=== PATIENT | male | born 1935 | race Caucasian/White ===

== ENCOUNTER 2019-03-29 17:18 | Outpatient (RCR) | payer MEDICARE, SELFPAY ==
[2019-01-25 15:13] LABS: INR 2.5; Prothrombin Time 26.5 Seconds (11.1-14.7)
[2019-02-27 13:28] LABS: Prothrombin Time 30.5 Seconds (11.1-14.7)
[2019-03-29 18:01] LABS: INR 2.6; Prothrombin Time 27.3 Seconds (11.1-14.7)
== END 2019-04-25 23:59 | disposition home or self-care (01) ==
LOC: ANHLAB 17:18
PROVIDERS: PCP Family Medicine Adolescent Medicine; Visit Provider Specialist
DX: Z51.81 Encounter for therapeutic drug level monitoring (principal); I48.91 Unspecified atrial fibrillation; Z79.01 Long term (current) use of anticoagulants
CPT/HCPCS: 36415; 85610

== ENCOUNTER 2019-06-07 15:24 | Outpatient (RCR) | payer MEDICARE, SELFPAY ==
[2019-05-03 15:34] LABS: INR 2.4; Prothrombin Time 25.9 Seconds (11.1-14.7)
[2019-06-07 16:00] LABS: INR 2.3; Prothrombin Time 24.4 Seconds (11.1-14.7)
== END 2019-08-01 23:59 | disposition home or self-care (01) ==
LOC: ANHLAB 15:24
PROVIDERS: PCP Family Medicine Adolescent Medicine; Visit Provider Internal Medicine Cardiovascular Disease
DX: Z51.81 Encounter for therapeutic drug level monitoring (principal); I48.21 Permanent atrial fibrillation; Z79.01 Long term (current) use of anticoagulants
CPT/HCPCS: 36415; 85610

== ENCOUNTER 2019-11-05 13:48 | Outpatient (RCR) | payer MEDICARE, SELFPAY ==
[2019-08-17 12:29] LABS: INR 1.9; Prothrombin Time 21.5 Seconds (11.1-14.7)
== END 2019-11-15 23:59 | disposition home or self-care (01) ==
LOC: ANHLAB 13:48
PROVIDERS: PCP Family Medicine Adolescent Medicine; Visit Provider Specialist
DX: I48.21 Permanent atrial fibrillation (principal); Z79.01 Long term (current) use of anticoagulants
CPT/HCPCS: 36415; 85610

== ENCOUNTER 2020-02-26 11:33 | Outpatient (RCR) | payer MEDICARE, SELFPAY ==
[2019-12-11 14:54] LABS: INR 1.8; Prothrombin Time 20.4 Seconds (11.1-14.7)
[2019-12-20 17:36] LABS: INR 2.2; Prothrombin Time 23.7 Seconds (11.1-14.7)
[2020-01-31 09:15] LABS: INR 3.9; Prothrombin Time 38.8 Seconds (11.1-14.7)
[2020-01-31 09:21] LABS: Alanine Aminotransferase 13 U/L (4-50); Albumin Level 3.9 g/dL (3.5-5.1); Alkaline Phosphatase 45 U/L (38-126); Anion Gap 10 mmol/L (8-16); Aspartate Amino Transferase 26 U/L (17-59); Bilirubin,Total 0.7 mg/dL (0.2-1.3); Blood Urea Nitrogen 23 mg/dL (9-20); Calcium 9.3 mg/dL (8.4-10.2); Carbon Dioxide 30 mmol/L (22-30); Chloride 95 mmol/L (98-107); Cholesterol 95 mg/dL (0-200); Estimated Glomerular Filt Rate > 60; Glucose 136 mg/dL (75-110); HDL Direct 25 mg/dL; Potassium 3.8 mmol/L (3.4-5.0); Sodium 135 mmol/L (137-145); Triglycerides 101 mg/dL (<150)
[2020-01-31 09:32] LABS: LDL Cholesterol Direct 50 mg/dL
[2020-02-17 14:20] LABS: Prothrombin Time 54.3 Seconds (11.1-14.7)
[2020-02-17 14:32] LABS: INR 6.1
[2020-02-19 12:00] LABS: INR 3.8; Prothrombin Time 37.6 Seconds (11.1-14.7)
[2020-02-26 12:32] LABS: INR 2.5; Prothrombin Time 27.7 Seconds (11.1-14.7)
== END 2020-03-10 23:59 | disposition home or self-care (01) ==
LOC: ANHLAB 11:33
PROVIDERS: PCP Family Medicine Adolescent Medicine; Referring Provider Physician Assistant; Visit Provider Specialist
DX: Z51.81 Encounter for therapeutic drug level monitoring (principal); I48.21 Permanent atrial fibrillation; I10 Essential (primary) hypertension; E78.00 Pure hypercholesterolemia, unspecified; Z79.01 Long term (current) use of anticoagulants
CPT/HCPCS: 36415; 80053; 80061; 85610

== ENCOUNTER 2020-04-02 16:30 | Outpatient (RCR) | payer MEDICARE, SELFPAY ==
[2020-04-02 17:05] LABS: INR 2.1; Prothrombin Time 23.8 Seconds (11.1-14.7)
== END 2020-07-01 23:59 | disposition home or self-care (01) ==
LOC: ANHLAB 16:30
PROVIDERS: PCP Family Medicine Adolescent Medicine; Visit Provider Specialist
DX: Z51.81 Encounter for therapeutic drug level monitoring (principal); I48.21 Permanent atrial fibrillation; Z79.01 Long term (current) use of anticoagulants
CPT/HCPCS: 36415; 85610

== ENCOUNTER 2020-05-12 20:45 | Inpatient (IN) | payer MEDICARE, SELFPAY ==
--- NOTE | ~2020-05-12 | US_ITS ---
EXAMINATION: US venous doppler [facility] DATE: 05/13/2020 09:50 INDICATION: Lower limb swelling TECHNIQUE: Grayscale ultrasound images without and with compression and Doppler ultrasound images of the bilateral lower extremity veins were obtained. COMPARISON: None. FINDINGS: The visualized portions of right common femoral vein, profunda (deep) femoral vein, femoral vein, pop liteal vein, posterior tibial veins, peroneal veins, gastrocnemius vein and greater saphenous vein ou tflow are patent. The visualized portions of left common femoral vein, profunda femoral vein, femoral vein, popliteal v ein, posterior tibial veins, peroneal veins, gastrocnemius vein and greater saphenous vein outflow ar e patent. IMPRESSION: 1. No deep venous thrombosis in either lower limb. Reviewed, dictated and finalized at location A. ICE CLEANER
--- NOTE | ~2020-05-12 | XR_ITS ---
EXAMINATION: XR chest 1V portable EXAM DATE: 05/12/2020 21:59 INDICATION: Shortness of breath. Leg edema. TECHNIQUE: Portable AP frontal chest x-ray was obtained. Comparison is made to prior examination from 04/14/2014. FINDINGS: Sternotomy wires are present without findings to suggest sternal dehiscence. There is cardi omegaly and pulmonary vascular congestion. No confluent consolidation, pneumothorax or pleural effusi on suspected. There are bony degenerative changes. IMPRESSION: Cardiomegaly, pulmonary vascular congestion. Reviewed, dictated and finalized at location A. PLAYER
[2020-05-12 21:02] VITALS: BP 153/69; PULSE 114; PULSE 94; RESP 26; RESP 29; TEMP 37.6; O2SAT 98; O2SAT 99
[2020-05-12 21:08] VITALS: PULSE 94
--- NOTE | 2020-05-12 21:16 | ECG_ITS ---
Measurements Intervals [place] Rate: 93 P: VT: 0 QRS: 25 QRSD: 101 T: 214 QT: 369 QTc: 460 Interpretive Statements WANDERING PACEMAKER OR ECTOPIC ATRIAL RHYTHM ST-T WAVE ABNORMALITY IN ANTEROLAT/HIGH LAT LEADS- CONSIDER ISCHEMIA BASELINE ARTIFACT- I, II, III, AVL, AVF, V2-V5 ABNORMAL ECG Electronically Signed On 05-13-2020 7:20:45 UNIX ANALYST by Tee Davis D.O.
--- NOTE | 2020-05-12 21:18 | ED.GENADULT ---
HPI - General Adult General Chief complaint: Unspecified Stated complaint: sob Time Seen by Provider: 05/12/20 20:59 History of Present Illness HPI narrative: History limited by poor historian. 84 yo male presents for nerves . He says that his nerves were getting to him. His hands were shaking and his feet were jumping. He says that his stomach also doesn't feel right sometimes. He says that he is a bit short of breath. He can not tell me if that is new. family member in the room says that he does seem to be having more trouble breathing than usual. Related Data Home Medications Medication Instructions Recorded Confirmed enalapril maleate 20 mg PO DAILY 05/12/20 05/13/20 indapamide 2.5 mg PO DAILY 05/12/20 05/13/20 metformin 1,000 mg PO BID 05/12/20 05/13/20 omeprazole 20 mg PO DAILY 05/12/20 05/13/20 rosuvastatin 5 mg PO DAILY 05/12/20 05/13/20 tamsulosin 0.4 mg PO DAILY 05/12/20 05/13/20 warfarin 4 mg PO USEASDIRECTD 05/12/20 05/13/20 warfarin 5 mg PO USEASDIRECTD 05/12/20 05/13/20 aspirin [Adult Low Dose Aspirin] 81 mg PO DAILY 05/13/20 05/13/20 Allergies Allergy/AdvReac Type Severity Reaction Status Date / Time No Known Allergies Allergy Verified 05/12/20 21:11 Review of Systems Review of Systems: All systems reviewed & are unremarkable except as noted in HPI and below Constitutional: Constitutional: Denies fever(s) Eyes: Eyes: Reports no additional eye complaints ENT: Denies dizziness Cardiovascular: Cardiovascular: Denies chest pain Respiratory: Respiratory: Reports dyspnea Gastrointestinal: Gastrointestinal: Denies nausea and Denies vomiting Genitourinary: Genitourinary: Denies dysuria Neurologic: Reports tremor(s) Psychiatric: Psychiatric: Reports anxiety PMF Past Medical History Medical History (Updated 05/13/20 @ 01:56 by Adrian Cuevas MD) BPH (benign prostatic hyperplasia) Diabetes mellitus COBB (dyspnea on exertion) HTN (hypertension) Hyperlipidemia Paroxysmal atrial fibrillation Surgical History Surgical History S/P CABG x 5 Family History Family History Other Unknown family medical history Social History Social History (Updated 05/12/20 @ 23:37 by Avelino Bustamante MD) Smoking status: Former smoker Tobacco type: smokeless tobacco Smokeless tobacco user: chewing tobacco Second hand tobacco smoke exposure: Yes Additional smoking assessment comments: chews tobacco constantly++ Alcohol intake: former Substance use: never Gender identity (if verbalized by the patient): Male Spiritual care concerns: No Exam Const: Nutritional Appearance: overweight Orientation/consciousness: patient oriented x3 HENMT: Head: normal to inspection Neck: Neck: normal visual inspection Chest: Chest palpation & inspection: normal inspection of the chest Resp: Effort & Inspection: tachypneic Auscultation: clear to auscultation bilaterally Cardio: Rate: regular rate Rhythm: regular rhythm GI: GI Palp: Yes Soft to palpation, Yes Tenderness to palpation present (GI) (epigastric), No Guarding due to palpation present (GI) and No Rebound tenderness present Skin: Other: mild hyperemia and warmth to the right lower leg. Chronic appearing changes to the left lateral lower leg. Neuro: General: patient oriented x3 Cranial nerves: Yes CN's II-XII intact bilaterally Speech: normal speech Motor exam (neuro): 5/5 motor strength present throughout Extrem: General: pedal edema bilaterally pitting and 2+ Course Vital Signs Vital signs: Vital Signs Temperature 37.6 C 05/12/20 21:02 Pulse Rate 94 05/12/20 21:02 Respiratory Rate 29 H 05/12/20 21:02 Blood Pressure 153/69 H 05/12/20 21:02 Pulse Oximetry 99 05/12/20 21:02 Temperature 37.4 C 05/13/20 00:15 Pulse Rate 88 05/13/20 00:15 Respiratory Rate 20 05/13/20 00:15 Blood Pressur
[2020-05-12 21:31] VITALS: BP 146/68; PULSE 86; RESP 24
[2020-05-12 21:43] LABS: Base Excess ABG 0.1 mEq/l (+/-2.0); Fractional Inspired Oxygen 21 %; HCO3 ABG 22.5 mEq/l (22.0-26.0); Oxygen Content ABG 13.8 %vol (16.0-22.0); Oxygen Saturation ABG 96.4 % (95.0-100.0); Oxyhemoglobin 94.4 % THb (90.0-100.0); PO2 FiO2 Ratio Arterial Blood 3.57 %; Total Hemoglobin 10.3 g/dL (12.0-18.0)
[2020-05-12 21:45] LABS: Device ROOM AIR; Modified Allen's Test Pass; Site Drawn RIGHT RADIAL
[2020-05-12 21:46] LABS: pH ABG 7.507 (7.350-7.450)
[2020-05-12 22:06] LABS: Basophils Absolute Auto 0.1 K/mm3 (0.0-0.1); Basophils Percent Auto 0.4 % (0.2-1.2); Eosinophils Percent Auto 0.2 % (0-4.4); Hematocrit 30.8 % (42.0-52.0); Hemoglobin 8.9 g/dL (14.0-18.0); Immature Granulocyte Absolute 0.11 K/mm3 (0.00-0.031); Immature Granulocyte Percent A 0.7 % (0-0.5); Immature Platelet Fraction Pct 4.4 % (0.9-11.2); Lymphocytes Absolute Auto 0.63 K/mm3 (0.9-3.2); Lymphocytes Percent Auto 3.8 % (18.3-44.2); Mean Corpuscular HGB Conc 28.9 g/dl (32-36); Mean Corpuscular Hemoglobin 19.2 pg (26-34); Mean Corpuscular Volume 66.5 fl (80-100); Mean Platelet Volume 10.4 fl (7.4-10.4); Monocytes Percent Auto 5.8 % (2.6-8.5); Neutrophils Absolute Auto 14.9 K/mm3 (1.3-6.7); Neutrophils Percent Auto 89.1 % (45.5-73.1); Platelet Count Result 270 k/mm3 (150-375); Red Blood Count 4.63 M/mm3 (4.6-6.20); White Blood Count 16.7 K/mm3 (4.5-10.0)
[2020-05-12 22:09] LABS: INR 1.8; Prothrombin Time 21.6 Seconds (11.1-14.7)
[2020-05-12 22:10] LABS: Partial Thromboplastin Time 35.1 SECONDS (22.3-36.8)
--- NOTE | 2020-05-12 22:10 | PC.NURSE ---
pt attempting to void.
[2020-05-12 22:12] LABS: Lactic Acid Reflex 1.9 mmol/L (0.7-2.1)
[2020-05-12 22:13] LABS: Alanine Aminotransferase 12 U/L (4-50); Albumin Level 4.1 g/dL (3.5-5.1); Alkaline Phosphatase 39 U/L (38-126); Anion Gap 10 mmol/L (8-16); Aspartate Amino Transferase 22 U/L (17-59); Bilirubin,Total 0.7 mg/dL (0.2-1.3); Blood Urea Nitrogen 29 mg/dL (9-20); Calcium 9.5 mg/dL (8.4-10.2); Carbon Dioxide 29 mmol/L (22-30); Chloride 98 mmol/L (98-107); Estimated CRCL calculation 45 ml/min; Estimated Glomerular Filt Rate 53; Glucose 137 mg/dL (75-110); Potassium 3.6 mmol/L (3.4-5.0); Sodium 137 mmol/L (137-145)
[2020-05-12 22:25] LABS: Add Urine Microscopic? YES; Appearance Urine Clear (Clear); Bacteria Urine Trace /hpf; Bilirubin Urine Negative (Negative); Blood Urine Negative (Negative); Color Urine Yellow (Yellow); Glucose Urine UA Negative (Negative); Ketones Urine Negative (Negative); Leukocyte Esterase Ur Negative LEU/UL (Negative); Nitrate Urine Negative (Negative); Protein Urine 2+ mg/dL (Negative); RBC Urine 0-2 /hpf (0-2); Specific Grav Ur 1.013 (1.001-1.035); Squamous Epithelial Cell Urine Rare /hpf (Few); WBC Urine 0-3 /hpf
[2020-05-12 22:26] LABS: NT Pro B Type Natriuretic Pept 1440 PG/ML (5-100); Troponin I 0.127 ng/mL (0.000-0.034)
[2020-05-12] MEDS: FUROSEMIDE INJ 40 MG/4 ML VIAL IV PUSH (22:27)
[2020-05-12 22:28] LABS: Anisocytosis 3+ (NORMAL); Platelet Estimate Adequate (Adequate)
[2020-05-12 22:29] LABS: Hypochromasia 1+ (NORMAL); Ovalocytes 1+ (NORMAL)
--- NOTE | 2020-05-12 22:32 | PC.NURSE ---
Pt given IV lasix after explanation of medication and benefits. Daughter at bedside states that the patient has trouble already with controlling his urine, and is unable to control his stream and is constantly wet . States that the patient wears a pad/depends all the time, but that he wets outside of the pad then sits in his own urine. Pt's daughter comes to the patients' home to assist with ADL's, but states that the patient is beginning to refuse bathes and assistance, and feels he doesn't need it.
--- NOTE | 2020-05-12 22:45 | PC.NURSE ---
Addendum entered by Kaleb Smith RN 05/12/20 23:06: Note skin intact but reddened to flori groin and scrotum. Original Note: Pt's bed saturated through his pants and peripad. Pt changed and fresh diaper placed.
--- NOTE | 2020-05-12 23:03 | PC.NURSE ---
Dr. Bustamante at bedside for exam. Awaiting bed assignment.
--- NOTE | 2020-05-12 23:30 | PM.IMHP ---
H&P: HPI History of Present Illness Date/Time: 05/12/20 23:30 Chief Complaint: Shortness of breath this evening at home+ Narrative: This is an 84 year old Diabetic male with known history of HTN, CAD, Atrial fibrillation on chronic coumadin therapy among other comorbidities who presented to the hospital from home tonight after he was found to be anxious sitting in his chair, with tremors and complaining of shortness of breath. The patient's daughter who is at bedside remarks that he is very irritable and in discomfort secondary to his shortness of breath which seems to have started today. The pateint denies any recent fevers, chills, cough, sore throat, chest pain, abdominal pain,dysuria, hematuria, diarrhea, rectal bleeding, or black stools. He has chronic LE swelling and chronic lower extremity redness although the family has noticed that his right lower extremity has been red over the past few days. The patient was evaluated in the ER tonight and found to be fluid overloaded with pulmonary vascular congestion on CXR and elevated BNP. His troponin was also elevated to 0.127. He was treated with IV lasix and we have been asked to admit him to the hospital for further care. No other complaints. Review of Systems Review of Systems: All systems reviewed & are unremarkable except as noted in HPI and below PMFSH Past Medical History Medical History (Updated 05/13/20 @ 04:11 by Avelino Bustamante MD) BPH (benign prostatic hyperplasia) Diabetes mellitus COBB (dyspnea on exertion) HTN (hypertension) Hyperlipidemia Paroxysmal atrial fibrillation Surgical History Surgical History S/P CABG x 5 Family History Family History Other Unknown family medical history Social History Social History (Updated 05/12/20 @ 23:37 by Avelino Bustamante MD) Smoking status: Former smoker Tobacco type: smokeless tobacco Smokeless tobacco user: chewing tobacco Second hand tobacco smoke exposure: Yes Additional smoking assessment comments: chews tobacco constantly++ Alcohol intake: former Substance use: never Gender identity (if verbalized by the patient): Male Spiritual care concerns: No Meds Home Medications and Allergies Home Medications Medication Instructions Recorded Confirmed Type enalapril maleate 20 mg PO DAILY 05/12/20 05/13/20 History indapamide 2.5 mg PO DAILY 05/12/20 05/13/20 History metformin 1,000 mg PO BID 05/12/20 05/13/20 History omeprazole 20 mg PO DAILY 05/12/20 05/13/20 History rosuvastatin 5 mg PO DAILY 05/12/20 05/13/20 History tamsulosin 0.4 mg PO DAILY 05/12/20 05/13/20 History warfarin 4 mg PO USEASDIRECTD 05/12/20 05/13/20 History warfarin 5 mg PO USEASDIRECTD 05/12/20 05/13/20 History aspirin [Adult Low Dose Aspirin] 81 mg PO DAILY 05/13/20 05/13/20 History Allergies Allergy/AdvReac Type Severity Reaction Status Date / Time No Known Allergies Allergy Verified 05/12/20 21:11 Vital Signs Vital Signs - 24 hr 05/12/20 21:02 05/12/20 21:08 05/12/20 21:31 Temperature 37.6 C Pulse Rate 114 H 94 86 Respiratory Rate 26 H 24 H Blood Pressure 153/69 H 146/68 H Pulse Oximetry 98 Exam Const: General: cooperative, alert, awake and ill appearing chronically Nutritional Appearance: obese morbidly obese Orientation/consciousness: patient oriented x3 HENMT: Head: normal to inspection General nose exam: Normal external nose present Face and sinus: normal facial exam Mouth: Yes Normal oral and palatal mucosa present and Yes oropharynx normal Eyes: Pupils: Equal, round and reactive pupils present EOM: EOMs intact bilaterally Neck: Neck: supple and no JVD Thyroid: thyroid normal Lymphatic: lymphadenopathy not noted Resp: Effort & Inspection: tachypneic Auscultation: crackles Cardio: Rate: regular rate Rhythm: regular rhythm Heart sounds: no murmurs GI: In
[2020-05-13] VITALS (15 sets, daily range): BP systolic 103–171; BP diastolic 44–63; PULSE 56–91; RESP 20–24; TEMP 36–37.4; O2SAT 95–100; BMI 31.6
--- NOTE | 2020-05-13 00:27 | ADMGEN ---
This patient, Kenneth Urrutia, was admitted to IMU Room 207-01. Patient/family oriented to hospital policies and general routines including ID bracelet, bed and alarms, visiting hours, pain management, procedures, bathroom and other care routines, personal items, smoking policy, room service/diet, and visiting hours. Information on how to activate the Rapid Response Team has been discussed. Patient/Family are encouraged to report perceived risks to care and to ask questions if they do not understand what they are told or what they should do. Report from Kaleb
[2020-05-13 01:28] LABS: Troponin I 0.271 ng/mL (0.000-0.034)
[2020-05-13] MEDS: ENOXAPARIN 100 MG/ML SYRINGE SUB-Q ×3 (01:30→21:20)
[2020-05-13 05:16] LABS: Basophils Absolute Auto 0.1 K/mm3 (0.0-0.1); Basophils Percent Auto 0.4 % (0.2-1.2); Eosinophils Absolute Auto 0.1 K/mm3 (0-0.3); Eosinophils Percent Auto 0.4 % (0-4.4); Hematocrit 29.1 % (42.0-52.0); Hemoglobin 8.5 g/dL (14.0-18.0); Immature Granulocyte Absolute 0.14 K/mm3 (0.00-0.031); Immature Granulocyte Percent A 0.8 % (0-0.5); Immature Platelet Fraction Pct 6.3 % (0.9-11.2); Lymphocytes Absolute Auto 0.92 K/mm3 (0.9-3.2); Mean Corpuscular HGB Conc 29.2 g/dl (32-36); Mean Corpuscular Hemoglobin 18.9 pg (26-34); Mean Corpuscular Volume 64.7 fl (80-100); Monocytes Absolute Auto 1.2 K/mm3 (0.1-0.6); Monocytes Percent Auto 6.3 % (2.6-8.5); Neutrophils Percent Auto 87.1 % (45.5-73.1); Platelet Count Result 226 k/mm3 (150-375); Red Cell Distribution Width 20.5 % (11.5-14.5); White Blood Count 18.4 K/mm3 (4.5-10.0)
[2020-05-13 05:28] LABS: Anion Gap 11 mmol/L (8-16); Blood Urea Nitrogen 29 mg/dL (9-20); Calcium 9.2 mg/dL (8.4-10.2); Carbon Dioxide 28 mmol/L (22-30); Chloride 98 mmol/L (98-107); Estimated CRCL calculation 41 ml/min; Estimated Glomerular Filt Rate 49; Glucose 115 mg/dL (75-110); Magnesium 1.3 mg/dL (1.6-2.3); Sodium 137 mmol/L (137-145)
[2020-05-13 05:46] LABS: Microcytosis 1+ (NORMAL); Platelet Estimate Adequate (Adequate)
[2020-05-13 05:48] LABS: Hypochromasia 1+ (NORMAL); Ovalocytes 2+ (NORMAL)
[2020-05-13 07:34] LABS: Glucose Point of Care 110 (65-105)
[2020-05-13] MEDS: ROSUVASTATIN 5 MG TABLET PO (08:33)
[2020-05-13] MEDS: metFORMIN HCL 500 MG TABLET 1000 MG PO ×2 (08:33→18:03)
[2020-05-13] MEDS: TAMSULOSIN HCL 0.4 MG CAPSULE PO (08:33)
[2020-05-13] MEDS: ASPIRIN 81 MG ENTERIC TABLET PO (08:33)
[2020-05-13] MEDS: INDAPAMIDE 2.5 MG TABLET PO (08:33)
[2020-05-13] MEDS: FUROSEMIDE INJ 40 MG/4 ML VIAL IV PUSH (08:33)
[2020-05-13] MEDS: PANTOPRAZOLE SOD SESQUIHYDRATE 20 MG TAB PO (08:33)
[2020-05-13] MEDS: ENALAPRIL MALEATE 10 MG TABLET 20 MG PO (08:33)
[2020-05-13 09:59] LABS: Total Triiodothyronine (T3) 1.22 NG/ML (0.97-1.69)
[2020-05-13] MEDS: POTASSIUM CHLORIDE 20 MEQ TABLET 40 MEQ PO (11:24)
[2020-05-13] MEDS: MAGNESIUM SULF 2 GM/WATER 50ML 2 GM/50 ML BAG IVPB (11:25)
[2020-05-13 12:33] LABS: Glucose Point of Care 126 (65-105)
--- NOTE | 2020-05-13 14:30 | PM.IMPN ---
Progress Note: A&P Assessment and Plan (1) Acute exacerbation of CHF (congestive heart failure): Code(s): I50.9 - Heart failure, unspecified Status: Acute Assessment and Plan: The patient has been placed in observation status. Continue IV lasix therapy. Is and Os, daily weights. TSH w/ reflex T4, Echocardiogram in am 05/13/20 14:30 patient 84-year-old male with history of hypertension, coronary artery disease, atrial fibrillation he was brought to the emergency department with persistent shortness of breath his symptoms were getting progressively with lower extremity edema, elevated BNP as well as tropes, suspected patient has acute on chronic congestive heart failure etiology uncertain cardiac echo is pending, patient is being diuresed with IV Lasix. Patient states is feeling better compared to when he arrived not a short of breath, patient with elevated tropes most likely demand ischemia secondary to exacerbation of CHF, follow-up on cardiac echo and further recommendation to follow. Patient with lower extremity edema with stasis dermatitis venous Doppler is negative for DVT, will have a PT OT evaluate the patient and further recommendation to follow. (2) Panniculitis: Code(s): M79.3 - Panniculitis, unspecified Status: Acute Assessment and Plan: Continue Ancef and miconazole topical cream. The patient also has a suspicious area on his LLE which is also red and hot to touch+ (3) Leukocytosis: Qualifiers: Leukocytosis type: unspecified Qualified Code(s): D72.829 - Elevated white blood cell count, unspecified Code(s): D72.829 - Elevated white blood cell count, unspecified Status: Acute Assessment and Plan: Likely secondary to cellulitis. Monitor CBCd. (4) Elevated troponin: Code(s): R77.8 - Other specified abnormalities of plasma proteins Status: Acute Assessment and Plan: Likely secondary to acute CHF. r/o ACS. Trend troponin. No current chest pain. Monitor for chest pain. Consider Cardiology consultation in am. (5) Subtherapeutic international normalized ratio (INR): Code(s): R79.1 - Abnormal coagulation profile Status: Acute Assessment and Plan: We will continue warfarin PO. therapeutic Lovenox for bridging. Monitor PT/INR. (6) Microcytic anemia: Code(s): D50.9 - Iron deficiency anemia, unspecified Status: Chronic Assessment and Plan: Chronic anemia is likely multifactorial. No signs of acute blood loss. Monitor H/H, transfuse prn. (7) Diabetes mellitus: Qualifiers: Diabetes mellitus complication status: without complication Diabetes mellitus mcc insulin use: without mcc use Diabetes mellitus type: type 2 Qualified Code(s): E11.9 - Type 2 diabetes mellitus without complications Code(s): E11.9 - Type 2 diabetes mellitus without complications Status: Chronic Assessment and Plan: Accuchecks, SSI Coverage, Hypoglycemic protocol. Continue metformin. (8) Paroxysmal atrial fibrillation: Code(s): I48.0 - Paroxysmal atrial fibrillation Status: Chronic Assessment and Plan: Continue Warfarin for anticoagulation. (9) Hyperlipidemia: Qualifiers: Hyperlipidemia type: unspecified Qualified Code(s): E78.5 - Hyperlipidemia, unspecified Code(s): E78.5 - Hyperlipidemia, unspecified Status: Chronic Assessment and Plan: Continue Crestor (10) BPH (benign prostatic hyperplasia): Qualifiers: Lower urinary tract symptom presence: unspecified whether lower urinary tract symptoms present Qualified Code(s): N40.0 - Benign prostatic hyperplasia without lower urinary tract symptoms Code(s): N40.0 - Benign prostatic hyperplasia without lower urinary tract symptoms Status: Chronic Assessment and Plan: Continue flomax. (11) HTN (hypertension): Qualifiers: Hypertension type: unspec
[2020-05-13 17:25] LABS: Glucose Point of Care 107 (65-105)
[2020-05-13] MEDS: WARFARIN (*PBKC) 4 MG TABLET PO (18:04)
[2020-05-13 19:41] LABS: Glucose Point of Care 149 (65-105)
[2020-05-14] VITALS (11 sets, daily range): BP systolic 99–129; BP diastolic 47–69; PULSE 56–87; RESP 12–21; TEMP 36.4–37.1; O2SAT 94–100
--- NOTE | 2020-05-14 | ECHO_ITS ---
Patient Info Name: Kenneth Urrutia Age: 84 years : 1935 Gender: Male Ht: 68 in Wt: 220 lbs BSA: 2.22 m2 HR: 72 bpm BP: 109 / 50 mmHg Heart Rhythm: Atrial Fibrillation Technical Quality: Good Exam Date: 05/14/2020 9:17 AM Exam Location: [facility] Patient Status: Inpatient Admit Date: 05/12/2020 Staff Ordering Physician: Avelino Bustamante MD Media Consultant: Ernst Manriquez RDCS, RT Attending Provider: Avelino Bustamante MD Referring Physician: Dianna MCINTOSH; Exam Type: CA echo dop color flow w con Study Info Indications I50.9 - Heart failure, unspecified Complete two-dimensional, color flow and Doppler transthoracic echocardiogram is performed. Summary 1. Complete two-dimensional, color flow and Doppler transthoracic echocardiogram is performed. 2. Left ventricular chamber dimension is normal. 3. Left ventricular systolic function is normal, estimated at 60-65%. 4. There is mildly increased left ventricular wall thickness. 5. The left ventricular diastolic function is indeterminate. 6. Right ventricular chamber dimension is moderately enlarged. 7. Left atrial chamber dimension is severely enlarged. 8. Right atrial chamber dimension is moderately enlarged. 9. There is mild to moderate aortic valve regurgitation. 10. Cannot rule out aortic valve vegetation visualized. 11. There is mild aortic valve calcification. 12. Calcified nodule seen associated with the aortic valve. Cannot rule vegetation. 13. There is mild mitral valve regurgitation. 14. The mitral valve annulus is severely calcified. 15. There is mild tricuspid valve regurgitation. 16. Mild pulmonary hypertension, estimated pulmonary arterial systolic pressure is 37 mmHg. 17. The aortic root size at the sinus of Valsalva is moderately dilated. Left Ventricle Left ventricular chamber dimension is normal. Left ventricular systolic function is normal, estimated at 60-65%. There is mildly increased left ventricular wall thickness. The left ventricular diastolic function is indeterminate. Right Ventricle Right ventricular chamber dimension is moderately enlarged. Right ventricular systolic function is normal. Left Atria Left atrial chamber dimension is severely enlarged. Right Atria Right atrial chamber dimension is moderately enlarged. Atrial Septum Intact interatrial septum visualized by color flow imaging. Aortic Valve The aortic valve is trileaflet. There is moderate aortic valve sclerosis. There is mild to moderate aortic valve regurgitation. Cannot rule out aortic valve vegetation visualized. There is mild aortic valve calcification. Calcified nodule seen associated with the aortic valve. Cannot rule vegetation. Pulmonic Valve The pulmonic valve is normal. There is no pulmonic valve stenosis. There is trace pulmonic regurgitation. Mitral Valve There is no mitral valve stenosis. There is mild mitral valve regurgitation. The mitral valve annulus is severely calcified. Tricuspid Valve The tricuspid valve leaflets are normal. There is no significant tricuspid valve stenosis. There is mild tricuspid valve regurgitation. Mild pulmonary hypertension, estimated pulmonary arterial systolic pressure is 37 mmHg. Pericardium/Pleural The pericardium appears normal. There is no pericardial effusion. Inferior Vena Cava Normal inferior vena cava with <50% collapse upon inspiration consistent with elevated right atrial pressure, 10 mmHg. Aorta The aortic
[2020-05-14 05:31] LABS: Hematocrit 28.2 % (42.0-52.0); Hemoglobin 8.4 g/dL (14.0-18.0); Immature Platelet Fraction Pct 6.5 % (0.9-11.2); Mean Corpuscular HGB Conc 29.8 g/dl (32-36); Mean Corpuscular Hemoglobin 19.6 pg (26-34); Mean Corpuscular Volume 65.7 fl (80-100); Platelet Count Result 213 k/mm3 (150-375); Red Blood Count 4.29 M/mm3 (4.6-6.20); Red Cell Distribution Width 21.1 % (11.5-14.5)
[2020-05-14 05:42] LABS: INR 2.1; Prothrombin Time 24.5 Seconds (11.1-14.7)
[2020-05-14 05:43] LABS: Anion Gap 7 mmol/L (8-16); Blood Urea Nitrogen 38 mg/dL (9-20); Calcium 8.7 mg/dL (8.4-10.2); Carbon Dioxide 29 mmol/L (22-30); Chloride 101 mmol/L (98-107); Estimated CRCL calculation 29 ml/min; Estimated Glomerular Filt Rate 32; Glucose 98 mg/dL (75-110); Magnesium 1.6 mg/dL (1.6-2.3); Sodium 137 mmol/L (137-145)
[2020-05-14 08:30] LABS: Glucose Point of Care 118 (65-105)
[2020-05-14] MEDS: FUROSEMIDE INJ 40 MG/4 ML VIAL IV PUSH (08:57)
[2020-05-14] MEDS: ASPIRIN 81 MG ENTERIC TABLET PO (08:57)
[2020-05-14] MEDS: PANTOPRAZOLE SOD SESQUIHYDRATE 20 MG TAB PO (08:57)
[2020-05-14] MEDS: ENALAPRIL MALEATE 10 MG TABLET 20 MG PO (08:57)
[2020-05-14] MEDS: INDAPAMIDE 2.5 MG TABLET PO (08:57)
[2020-05-14] MEDS: metFORMIN HCL 500 MG TABLET 1000 MG PO ×2 (08:57→17:15)
[2020-05-14] MEDS: TAMSULOSIN HCL 0.4 MG CAPSULE PO (08:57)
[2020-05-14] MEDS: ROSUVASTATIN 5 MG TABLET PO (08:57)
[2020-05-14] MEDS: MAGNESIUM OXIDE 400 MG TABLET PO (08:57)
[2020-05-14] MEDS: ENOXAPARIN 100 MG/ML SYRINGE SUB-Q ×2 (09:03→21:51)
[2020-05-14] MEDS: PERFLUTREN LIPID MICROSPHERES 1.5 ML VIAL DILUTED TO 10 ML TOTAL VOLUME IV PUSH (09:59)
[2020-05-14] MEDS: POTASSIUM CHLORIDE 20 MEQ TABLET 40 MEQ PO (10:19)
[2020-05-14 12:33] LABS: Glucose Point of Care 159 (65-105)
[2020-05-14 16:39] LABS: Glucose Point of Care 135 (65-105)
[2020-05-14] MEDS: WARFARIN (*PBKC) 5 MG TABLET PO (17:16)
[2020-05-14] MEDS: SALINE 0.65% NAS SOLN 44 ML BTL 1 SPRAY NASAL (17:16)
--- NOTE | 2020-05-14 21:00 | PC.NURSE ---
Pt received from IMU, Pt alert and oriented and introduced to staff and shown how to use call system.
--- NOTE | 2020-05-14 21:00 | PC.NURSE ---
This patient, Kenneth Urrutia, was transferred to [[facility] ] on 05/14/20 at 2055. Personal belongings sent with patient. Report given to [Humera ]. Appropriate documentation sent with patient.
[2020-05-15 05:55] LABS: Hematocrit 29.6 % (42.0-52.0); Hemoglobin 8.7 g/dL (14.0-18.0); Immature Platelet Fraction Pct 5.1 % (0.9-11.2); Mean Corpuscular HGB Conc 29.4 g/dl (32-36); Mean Corpuscular Hemoglobin 19.6 pg (26-34); Mean Corpuscular Volume 66.8 fl (80-100); Mean Platelet Volume 10.5 fl (7.4-10.4); Platelet Count Result 231 k/mm3 (150-375); Red Blood Count 4.43 M/mm3 (4.6-6.20); Red Cell Distribution Width 21.2 % (11.5-14.5)
[2020-05-15 06:00] VITALS: BP 141/57; PULSE 59; RESP 21; TEMP 36.3; O2SAT 100
[2020-05-15 06:00] LABS: INR 2.2; Prothrombin Time 25.1 Seconds (11.1-14.7)
[2020-05-15 06:05] LABS: Anion Gap 8 mmol/L (8-16); Blood Urea Nitrogen 39 mg/dL (9-20); Calcium 9.2 mg/dL (8.4-10.2); Carbon Dioxide 31 mmol/L (22-30); Chloride 101 mmol/L (98-107); Estimated CRCL calculation 30 ml/min; Estimated Glomerular Filt Rate 34; Glucose 113 mg/dL (75-110); Magnesium 1.7 mg/dL (1.6-2.3); Potassium 3.1 mmol/L (3.4-5.0); Sodium 140 mmol/L (137-145)
[2020-05-15] MEDS: ENALAPRIL MALEATE 10 MG TABLET 20 MG PO (08:32)
[2020-05-15] MEDS: MAGNESIUM OXIDE 400 MG TABLET PO (08:32)
[2020-05-15] MEDS: ASPIRIN 81 MG ENTERIC TABLET PO (08:32)
[2020-05-15] MEDS: ROSUVASTATIN 5 MG TABLET PO (08:32)
[2020-05-15] MEDS: PANTOPRAZOLE SOD SESQUIHYDRATE 20 MG TAB PO (08:32)
[2020-05-15] MEDS: INDAPAMIDE 2.5 MG TABLET PO (08:32)
[2020-05-15] MEDS: TAMSULOSIN HCL 0.4 MG CAPSULE PO (08:32)
[2020-05-15] MEDS: FUROSEMIDE INJ 40 MG/4 ML VIAL IV PUSH (08:32)
[2020-05-15] MEDS: metFORMIN HCL 500 MG TABLET 1000 MG PO ×2 (08:32→17:25)
[2020-05-15 09:27] LABS: Glucose Point of Care 102 (65-105)
[2020-05-15] MEDS: POTASSIUM CHLORIDE 20 MEQ TABLET 40 MEQ PO (10:53)
[2020-05-15] MEDS: ACETAMINOPHEN 325 MG TABLET 650 MG PO (10:54)
--- NOTE | 2020-05-15 11:32 | PC.NURSE ---
On 05/15/20, the student, [ Abdelrahman Kiser], provided care and completed CORD:USE [facility] Blood [facility] documentation on this patient. I have reviewed the student's documentation and agree with the findings.
--- NOTE | 2020-05-15 11:48 | PM.IMPN ---
Progress Note: A&P Assessment and Plan (1) Acute exacerbation of CHF (congestive heart failure): Code(s): I50.9 - Heart failure, unspecified Status: Acute Assessment and Plan: The patient has been placed in observation status. Continue IV lasix therapy. Is and Os, daily weights. TSH w/ reflex T4, Echocardiogram in am 05/14 09:30 05/13 patient 84-year-old male with history of hypertension, coronary artery disease, atrial fibrillation he was brought to the emergency department with persistent shortness of breath his symptoms were getting progressively with lower extremity edema, elevated BNP as well as tropes, suspected patient has acute on chronic congestive heart failure etiology uncertain cardiac echo is pending, patient is being diuresed with IV Lasix. Patient states is feeling better compared to when he arrived not a short of breath, patient with elevated tropes most likely demand ischemia secondary to exacerbation of CHF, follow-up on cardiac echo and further recommendation to follow. Patient with lower extremity edema with stasis dermatitis venous Doppler is negative for DVT, will have a PT OT evaluate the patient and further recommendation to follow. 05/14 patient with exacerbation of CHF, being diuresed, patient remains clinically stable states is not a short of breath and his legs are not a swollen, denies any chest pain palpitation fever or chills, his cardiac echo is pending will follow and further recommendation to follow. (2) Panniculitis: Code(s): M79.3 - Panniculitis, unspecified Status: Acute Assessment and Plan: Continue Ancef and miconazole topical cream. The patient also has a suspicious area on his LLE which is also red and hot to touch+ (3) Leukocytosis: Qualifiers: Leukocytosis type: unspecified Qualified Code(s): D72.829 - Elevated white blood cell count, unspecified Code(s): D72.829 - Elevated white blood cell count, unspecified Status: Acute Assessment and Plan: Likely secondary to cellulitis. Monitor CBCd. (4) Elevated troponin: Code(s): R77.8 - Other specified abnormalities of plasma proteins Status: Acute Assessment and Plan: Likely secondary to acute CHF. r/o ACS. Trend troponin. No current chest pain. Monitor for chest pain. Consider Cardiology consultation in am. (5) Subtherapeutic international normalized ratio (INR): Code(s): R79.1 - Abnormal coagulation profile Status: Acute Assessment and Plan: We will continue warfarin PO. therapeutic Lovenox for bridging. Monitor PT/INR. (6) Microcytic anemia: Code(s): D50.9 - Iron deficiency anemia, unspecified Status: Chronic Assessment and Plan: Chronic anemia is likely multifactorial. No signs of acute blood loss. Monitor H/H, transfuse prn. (7) Diabetes mellitus: Qualifiers: Diabetes mellitus type: type 2 Diabetes mellitus intermission coordinator insulin use: without longterm use Diabetes mellitus complication status: without complication Qualified Code(s): E11.9 - Type 2 diabetes mellitus without complications Code(s): E11.9 - Type 2 diabetes mellitus without complications Status: Chronic Assessment and Plan: Accuchecks, SSI Coverage, Hypoglycemic protocol. Continue metformin. (8) Paroxysmal atrial fibrillation: Code(s): I48.0 - Paroxysmal atrial fibrillation Status: Chronic Assessment and Plan: Continue Warfarin for anticoagulation. (9) Hyperlipidemia: Qualifiers: Hyperlipidemia type: unspecified Qualified Code(s): E78.5 - Hyperlipidemia, unspecified Code(s): E78.5 - Hyperlipidemia, unspecified Status: Chronic Assessment and Plan: Continue Crestor (10) BPH (benign prostatic hyperplasia): Qualifiers: Lower urinary tract symptom presence: unspecified whether lower urinary tract symptoms present Qualified Code(s): N40.0 - Benign prostatic hyp
[2020-05-15 11:49] LABS: Glucose Point of Care 120 (65-105)
--- NOTE | 2020-05-15 11:56 | PM.IMPN ---
Progress Note: A&P Assessment and Plan (1) Acute exacerbation of CHF (congestive heart failure): Code(s): I50.9 - Heart failure, unspecified Status: Acute Assessment and Plan: The patient has been placed in observation status. Continue IV lasix therapy. Is and Os, daily weights. TSH w/ reflex T4, Echocardiogram in am 05/15/20 11:56 05/13 patient 84-year-old male with history of hypertension, coronary artery disease, atrial fibrillation he was brought to the emergency department with persistent shortness of breath his symptoms were getting progressively with lower extremity edema, elevated BNP as well as tropes, suspected patient has acute on chronic congestive heart failure etiology uncertain cardiac echo is pending, patient is being diuresed with IV Lasix. Patient states is feeling better compared to when he arrived not a short of breath, patient with elevated tropes most likely demand ischemia secondary to exacerbation of CHF, follow-up on cardiac echo and further recommendation to follow. Patient with lower extremity edema with stasis dermatitis venous Doppler is negative for DVT, will have a PT OT evaluate the patient and further recommendation to follow. 05/14 patient with exacerbation of CHF, being diuresed, patient remains clinically stable states is not as short of breath and his legs are not as swollen, denies any chest pain palpitation fever or chills, his cardiac echo is pending will follow and further recommendation to follow. 05/15 patient with exacerbation of CHF, being diuresed, patient remains clinically stable states is not as short of breath and his legs are not as swollen, Cardiac echo showed patient ejection fraction is 65% there is no significant diastolic dysfunction, however cardiac echo showed possible vegetation alone aortic valve, patient was seen by clinical reviewer and does not suspect any vegetation or any infectious process, today patient having hematuria most likely secondary to trauma from Beltre and patient is on warfarin as well as Lovenox, warfarin is therapeutic will stop Lovenox will monitor patient urine, patient has remains clinically stable his hemoglobin is stable. (2) Panniculitis: Code(s): M79.3 - Panniculitis, unspecified Status: Acute Assessment and Plan: Continue Ancef and miconazole topical cream. The patient also has a suspicious area on his LLE which is also red and hot to touch+ swelling and redness is improving. (3) Leukocytosis: Qualifiers: Leukocytosis type: unspecified Qualified Code(s): D72.829 - Elevated white blood cell count, unspecified Code(s): D72.829 - Elevated white blood cell count, unspecified Status: Acute Assessment and Plan: Likely secondary to cellulitis. Monitor CBCd. (4) Elevated troponin: Code(s): R77.8 - Other specified abnormalities of plasma proteins Status: Acute Assessment and Plan: Likely secondary to acute CHF. r/o ACS. Trend troponin. No current chest pain. Monitor for chest pain. Consider Cardiology consultation in am. (5) Subtherapeutic international normalized ratio (INR): Code(s): R79.1 - Abnormal coagulation profile Status: Acute Assessment and Plan: We will continue warfarin PO. therapeutic Lovenox for bridging. Monitor PT/INR. (6) Microcytic anemia: Code(s): D50.9 - Iron deficiency anemia, unspecified Status: Chronic Assessment and Plan: Chronic anemia is likely multifactorial. No signs of acute blood loss. Monitor H/H, transfuse prn. (7) Diabetes mellitus: Qualifiers: Diabetes mellitus type: type 2 Diabetes mellitus junior project manager insulin use: without mcfp use Diabetes mellitus complication status: without complication Qualified Code(s): E11.9 - Type 2 diabetes mellitus without complications Code(s): E11.9 - Type 2 diabetes mellitus without complications Status: Chronic Assessment and Plan: Accucheck
--- NOTE | 2020-05-15 13:46 | PM.CNCAR ---
Assessment and Plan Additional Plan 84-year-old man with: Chronic atrial fibrillation being managed with rate control and anticoagulation. Patient admitted to the hospital with volume overload which is improving with diuretic treatment. The echocardiogram done yesterday demonstrates so in my opinion typical fibrocalcific senile changes with the aortic valve. The valve is not significantly stenotic it is mildly regurgitant and I do not see any characteristics of this valve that would make me suspicious of an infectious vegetation. Furthermore there is no clinical evidence of an infectious process at this time. When the patient is euvolemic can be he can be discharged to home. I will continue to follow his chronic atrial fibrillation in the office. Johnathon Bennett MD [facility] History of Present Illness History of Present Illness Consult date/time: Date of service: 05/15/20 13:46 Reason For Visit: CHF exacerbation, Right leg cellulitis Narrative: This is an 84-year-old man who I see in the office for a long time with chronic atrial fibrillation. The patient is managed with rate control and anticoagulation and has clinically been very stable without any cardiovascular complaints or problems. I saw him in the office last in January of 2020. He entered the hospital on Monday with symptoms of some shortness of breath and lower extremity edema that were gradual in onset the patient was seen in the emergency room felt to be in a state of decompensated volume overload/CHF and was admitted for treatment. The hospitalists have been treating him with intravenous diuretics and he is significantly improved in the last 48 hours. An echocardiogram was requested in read yesterday by Dr. Farley showing normal left ventricular systolic function some sclerotic aortic valve changes and the comment on the report was made that infectious aortic valve vegetation could not be ruled out. There is mild aortic valve regurgitation identified. I reviewed that echocardiogram personally before coming down to see the patient as the reason for consultation was the because of the comment that the valve may be infected. The valve appears to have typical fibrocalcific nodular changes. I do not see any friable mobile material that would be typical in appearance of an infectious vegetation. The patient is not febrile there are no symptoms or clinical evidence of an infectious process going on at this time. Review of Systems Constitutional: Constitutional: Reports weakness Eyes: Eyes: Reports no additional eye complaints ENT: Reports system reviewed and no additional complaints, except as documented Cardiovascular: Cardiovascular: Reports leg edema Respiratory: Respiratory: Reports as per HPI and Reports dyspnea Gastrointestinal: Gastrointestinal: Reports no additional gastrointestinal complaints Musculoskeletal: Musculoskeletal: Reports no additional musculoskeletal complaints Integumentary/Breasts: Skin/Breast: Reports system reviewed and no additional complaints, except as docu Neurologic: Reports system reviewed and no additional complaints, except as documented Endocrine: Endocrine: Reports no additional endocrine complaints Hematologic/Lymphatic: Hematologic/Lymphatic: Reports no additional hematologic/lymphatic complaints Allergic/Immunologic: Allergic/Immunologic: Reports no additional allergic/immunologic complaints [facility] Past Medical History Medical History (Updated 05/13/20 @ 04:11 by Avelino Bustamante MD) BPH (benign prostatic hyperplasia) Diabetes mellitus COBB (dyspnea on exertion) HTN (hypertension) Hyperlipidemia Paroxysmal atrial fibrillation Surgical History Surgical History S/P CABG x 5 Family History Family History Other Unknown family medical history Social History Social History (Updated 05/12/20 @ 23:37 by Avelino Perez
[2020-05-15 14:00] VITALS: BP 100/53; PULSE 63; RESP 20; TEMP 36.3; O2SAT 98
[2020-05-15 18:01] LABS: Glucose Point of Care 134 (65-105)
[2020-05-15] MEDS: WARFARIN (*PBKC) 4 MG TABLET PO (18:02)
[2020-05-15 20:57] VITALS: BP 126/54; PULSE 77; RESP 18; TEMP 36.6; O2SAT 97
[2020-05-15] MEDS: CEPHALEXIN 500 MG CAPSULE PO (21:23)
[2020-05-15 22:08] LABS: Glucose Point of Care 119 (65-105)
[2020-05-16 05:00] VITALS: BP 162/63; PULSE 79; RESP 20; TEMP 36.4; O2SAT 98
[2020-05-16] MEDS: CEPHALEXIN 500 MG CAPSULE PO (05:58)
[2020-05-16 06:01] LABS: Hematocrit 31.9 % (42.0-52.0); Hemoglobin 9.2 g/dL (14.0-18.0); INR 2.3; Immature Platelet Fraction Pct 4.9 % (0.9-11.2); Mean Corpuscular HGB Conc 28.8 g/dl (32-36); Mean Corpuscular Hemoglobin 19.3 pg (26-34); Mean Platelet Volume 10.5 fl (7.4-10.4); Platelet Count Result 253 k/mm3 (150-375); Prothrombin Time 26.2 Seconds (11.1-14.7); Red Blood Count 4.76 M/mm3 (4.6-6.20); Red Cell Distribution Width 21.2 % (11.5-14.5)
[2020-05-16 06:10] LABS: Anion Gap 8 mmol/L (8-16); Blood Urea Nitrogen 45 mg/dL (9-20); Calcium 9.5 mg/dL (8.4-10.2); Carbon Dioxide 32 mmol/L (22-30); Chloride 101 mmol/L (98-107); Estimated CRCL calculation 35 ml/min; Estimated Glomerular Filt Rate 42; Glucose 114 mg/dL (75-110); Magnesium 1.6 mg/dL (1.6-2.3); Potassium 3.2 mmol/L (3.4-5.0); Sodium 141 mmol/L (137-145)
[2020-05-16 08:03] LABS: Glucose Point of Care 124 (65-105)
[2020-05-16 08:15] VITALS: BP 119/65; PULSE 82
[2020-05-16] MEDS: PANTOPRAZOLE SOD SESQUIHYDRATE 20 MG TAB PO (08:18)
[2020-05-16] MEDS: metFORMIN HCL 500 MG TABLET 1000 MG PO (08:18)
[2020-05-16] MEDS: ROSUVASTATIN 5 MG TABLET PO (08:18)
[2020-05-16] MEDS: MAGNESIUM OXIDE 400 MG TABLET PO (08:18)
[2020-05-16] MEDS: INDAPAMIDE 2.5 MG TABLET PO (08:18)
[2020-05-16] MEDS: TAMSULOSIN HCL 0.4 MG CAPSULE PO (08:18)
[2020-05-16] MEDS: ENALAPRIL MALEATE 10 MG TABLET 20 MG PO (08:18)
[2020-05-16] MEDS: ASPIRIN 81 MG ENTERIC TABLET PO (08:18)
--- NOTE | 2020-05-16 09:35 | PM.DS ---
DS: Admitting Diagnosis Admitting Diagnosis Admitting Diagnosis: Chief Complaint: Shortness of breath this evening at home+ DS: Discharge Diagnosis Discharge Diagnosis (1) Acute exacerbation of CHF (congestive heart failure): Code(s): I50.9 - Heart failure, unspecified Status: Acute Assessment and Plan: The patient has been placed in observation status. Continue IV lasix therapy. Is and Os, daily weights. TSH w/ reflex T4, Echocardiogram in am 05/15/20 11:56 05/13 patient 84-year-old male with history of hypertension, coronary artery disease, atrial fibrillation he was brought to the emergency department with persistent shortness of breath his symptoms were getting progressively with lower extremity edema, elevated BNP as well as tropes, suspected patient has acute on chronic congestive heart failure etiology uncertain cardiac echo is pending, patient is being diuresed with IV Lasix. Patient states is feeling better compared to when he arrived not a short of breath, patient with elevated tropes most likely demand ischemia secondary to exacerbation of CHF, follow-up on cardiac echo and further recommendation to follow. Patient with lower extremity edema with stasis dermatitis venous Doppler is negative for DVT, will have a PT OT evaluate the patient and further recommendation to follow. 05/14 patient with exacerbation of CHF, being diuresed, patient remains clinically stable states is not as short of breath and his legs are not as swollen, denies any chest pain palpitation fever or chills, his cardiac echo is pending will follow and further recommendation to follow. 05/15 patient with exacerbation of CHF, being diuresed, patient remains clinically stable states is not as short of breath and his legs are not as swollen, Cardiac echo showed patient ejection fraction is 65% there is no significant diastolic dysfunction, however cardiac echo showed possible vegetation alone aortic valve, patient was seen by head filter tank tender helper and does not suspect any vegetation or any infectious process, today patient having hematuria most likely secondary to trauma from [place] and patient is on warfarin as well as Lovenox, warfarin is therapeutic will stop Lovenox will monitor patient urine, patient has remains clinically stable his hemoglobin is stable. (2) Panniculitis: Code(s): M79.3 - Panniculitis, unspecified Status: Acute Assessment and Plan: Continue Ancef and miconazole topical cream. The patient also has a suspicious area on his LLE which is also red and hot to touch+ swelling and redness is improving. (3) Leukocytosis: Qualifiers: Leukocytosis type: unspecified Qualified Code(s): D72.829 - Elevated white blood cell count, unspecified Code(s): D72.829 - Elevated white blood cell count, unspecified Status: Acute Assessment and Plan: Likely secondary to cellulitis. Monitor CBCd. (4) Elevated troponin: Code(s): R77.8 - Other specified abnormalities of plasma proteins Status: Acute Assessment and Plan: Likely secondary to acute CHF. r/o ACS. Trend troponin. No current chest pain. Monitor for chest pain. Consider Cardiology consultation in am. (5) Subtherapeutic international normalized ratio (INR): Code(s): R79.1 - Abnormal coagulation profile Status: Acute Assessment and Plan: We will continue warfarin PO. therapeutic Lovenox for bridging. Monitor PT/INR. (6) Microcytic anemia: Code(s): D50.9 - Iron deficiency anemia, unspecified Status: Chronic Assessment and Plan: Chronic anemia is likely multifactorial. No signs of acute blood loss. Monitor H/H, transfuse prn. (7) Diabetes mellitus: Qualifiers: Diabetes mellitus type: type 2 Diabetes mellitus buttermaker helper insulin use: without buttermaker helper use Diabetes mellitus complication status: without complication Qualified Code(s): E11.9 - Type 2 diabetes mellitus without complications
[2020-05-16] MEDS: POTASSIUM CHLORIDE 20 MEQ TABLET 40 MEQ PO (09:42)
[2020-05-16] MEDS: FUROSEMIDE 40 MG TABLET PO (09:43)
== END 2020-05-16 13:25 | disposition home health service (06) | DRG 293 ==
LOC: ANHED 21:37 → ANHIMU 05-13 01:06 → ANH2MED 05-16 09:35 → ANHIMU 05-19 17:43
PROVIDERS: Admitting Provider Family Medicine; Emergency Provider Emergency Medicine; PCP Family Medicine Adolescent Medicine; Visit Provider Family Medicine
DX: I11.0 Hypertensive heart disease with heart failure (principal); I50.9 Heart failure, unspecified; M79.3 Panniculitis, unspecified; D72.829 Elevated white blood cell count, unspecified; R31.9 Hematuria, unspecified; I25.10 Atherosclerotic heart disease of native coronary artery without angina pectoris; I48.0 Paroxysmal atrial fibrillation; E11.9 Type 2 diabetes mellitus without complications; D50.9 Iron deficiency anemia, unspecified; R79.1 Abnormal coagulation profile; R77.8 Other specified abnormalities of plasma proteins; I87.2 Venous insufficiency (chronic) (peripheral); N40.0 Benign prostatic hyperplasia without lower urinary tract symptoms; E78.5 Hyperlipidemia, unspecified; F17.220 Nicotine dependence, chewing tobacco, uncomplicated; Z79.01 Long term (current) use of anticoagulants; Z79.82 Long term (current) use of aspirin; Z79.84 Long term (current) use of oral hypoglycemic drugs
CPT/HCPCS: 36415; 36600; 71045; 80048; 80053; 81001; 82805; 82948; 83605; 83735; 83880; 84439; 84443; 84480; 84484; 85025; 85027; 85055; 85610; 85730; 93005; 93970; 96374; 97110; 97116; 97161; 97165; 99285; A9270; C8929; J0690; J1650; J1940; J3475; Q9957

== ENCOUNTER 2020-05-29 18:25 | Inpatient (IN) | payer MEDICARE, SELFPAY ==
[2020-05-29] VITALS (7 sets, daily range): BP systolic 86–158; BP diastolic 50–69; PULSE 72–87; RESP 14–27; TEMP 36.8; O2SAT 87–96
--- NOTE | ~2020-05-29 | XR_ITS ---
EXAMINATION: XR chest 2V DATE: 05/29/2020 19:50 INDICATION: Cough TECHNIQUE: AP and lateral views of the chest are obtained. COMPARISON: 05/12/2020 FINDINGS: The lungs are free of acute opacities. There is no pleural effusion or pneumothorax. Cardio megaly is noted. There are bridging osteophytes at multiple levels in the spine, consistent with diff use idiopathic skeletal hyperostosis (DISH). Median sternotomy wires and mediastinal surgical clips a re seen, likely from prior coronary artery bypass grafting. IMPRESSION: 1. Cardiomegaly. Reviewed, dictated and finalized at location A. DRY HOUSEKEEPING AIDE IMPRESSION: 1. Cardiomegaly.
--- NOTE | ~2020-05-29 | XR_ITS ---
EXAMINATION: XR chest 2V EXAM DATE: 05/31/2020 10:19 INDICATION: Fever, cough. TECHNIQUE: Frontal and lateral projections of the chest obtained and reviewed. Comparison is made to prior examination from 05/29/2020. FINDINGS: The cardiac silhouette is enlarged. There is pulmonary vascular congestion. Sternotomy wir es are present without findings to suggest sternal dehiscence. There is small amount of retrocardiac opacity without pneumothorax or pleural effusion suspected. Patient has diffuse idiopathic skeletal h yperostosis (DISH). IMPRESSION: 1. Small amount of retrocardiac atelectasis or pneumonia. 2. Cardiomegaly, pulmonary vascular congestion. Reviewed, dictated and finalized at location A. BAKER
[2020-05-29 19:42] LABS: Basophils Percent Auto 0.2 % (0.2-1.2); Hematocrit 29.5 % (42.0-52.0); Hemoglobin 8.8 g/dL (14.0-18.0); Immature Granulocyte Absolute 0.06 K/mm3 (0.00-0.031); Immature Granulocyte Percent A 0.7 % (0-0.5); Lymphocytes Percent Auto 10.3 % (18.3-44.2); Mean Corpuscular HGB Conc 29.8 g/dl (32-36); Mean Corpuscular Hemoglobin 19.8 pg (26-34); Mean Corpuscular Volume 66.4 fl (80-100); Mean Platelet Volume 10.7 fl (7.4-10.4); Monocytes Absolute Auto 0.6 K/mm3 (0.1-0.6); Monocytes Percent Auto 7.2 % (2.6-8.5); Neutrophils Absolute Auto 7.2 K/mm3 (1.3-6.7); Neutrophils Percent Auto 81.6 % (45.5-73.1); Platelet Count Result 221 k/mm3 (150-375); Red Blood Count 4.44 M/mm3 (4.6-6.20); Red Cell Distribution Width 21.6 % (11.5-14.5); White Blood Count 8.8 K/mm3 (4.5-10.0)
[2020-05-29 19:51] LABS: Prothrombin Time 23.2 Seconds (11.1-14.7)
[2020-05-29 19:52] LABS: Anion Gap 9 mmol/L (8-16); Blood Urea Nitrogen 47 mg/dL (9-20); Calcium 8.4 mg/dL (8.4-10.2); Carbon Dioxide 31 mmol/L (22-30); Chloride 96 mmol/L (98-107); Estimated Glomerular Filt Rate 34; Glucose 122 mg/dL (75-110); Potassium 2.9 mmol/L (3.4-5.0); Sodium 136 mmol/L (137-145)
[2020-05-29 20:12] LABS: Anisocytosis 2+ (NORMAL); Hypochromasia 1+ (NORMAL); Ovalocytes 1+ (NORMAL); Platelet Estimate Adequate (Adequate)
--- NOTE | 2020-05-29 20:31 | ED.WEAKNESS ---
HPI - Weakness General Chief complaint: Weakness Stated complaint: Weakness Time Seen by Provider: 05/29/20 19:04 History of Present Illness HPI Narrative: Patient is an 84-year-old male who presents ER with weakness. Reports he has been unable to get up out of his recliner today since being able to walk earlier in the morning. Recently discharged from the hospital. Followed up with his primary care physician Dr. Hdz today who prescribed him an antibiotic due to the patient reporting frequent urination and dysuria from a Beltre catheter he has had previously. Patient has no complaints of pain. He is not having fevers or chills or sweats. He has not fallen and injured himself. No increase in lower extremity edema. Related Data Home Medications Medication Instructions Recorded Confirmed enalapril maleate 20 mg PO DAILY 05/12/20 05/30/20 indapamide 2.5 mg PO DAILY 05/12/20 05/30/20 metformin 1,000 mg PO BID 05/12/20 05/30/20 omeprazole 20 mg PO DAILY 05/12/20 05/30/20 rosuvastatin 5 mg PO DAILY 05/12/20 05/30/20 tamsulosin 0.4 mg PO DAILY 05/12/20 05/30/20 warfarin 4 mg PO USEASDIRECTD 05/12/20 05/30/20 warfarin 5 mg PO USEASDIRECTD 05/12/20 05/30/20 aspirin 81 mg PO DAILY 05/13/20 05/30/20 furosemide 20 mg PO DAILY 05/30/20 05/30/20 Allergies Allergy/AdvReac Type Severity Reaction Status Date / Time No Known Allergies Allergy Verified 05/30/20 01:26 Review of Systems Review of Systems: All systems reviewed & are unremarkable except as noted in HPI and below Constitutional: Constitutional: Denies chills, Denies fever(s) and Reports weakness ENT: Denies nasal congestion and Denies sore throat Cardiovascular: Cardiovascular: Denies chest pain, Denies rapid heart rate and Denies radiating jaw, neck or arm pain Respiratory: Respiratory: Reports cough, Denies dyspnea and Denies wheezing Neurologic: Denies headache(s), Denies focal weakness and Denies numbness PMF Past Medical History Medical History (Updated 05/30/20 @ 07:31 by Vasu Posey MD) B12 deficiency BPH (benign prostatic hyperplasia) Chewing tobacco nicotine dependence CHF (congestive heart failure) echocardiogram April 2020: EF 60-65%, indeterminate diastolic function, moderate right ventricular enlargement, severe left atrial enlargement, moderate right atrial enlargement, mild mitral valve and tricuspid valve regurgitation, [id number] aortic valve regurgitation, mild pulmonary hypertension Chronic kidney disease, stage 3 with baseline creatinine between 1 and 1.4 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ron deficiency anemia Paroxysmal atrial fibrillation on chronic anticoagulation with Coumadin Peripheral vascular disease Surgical History Surgical History (Updated 05/29/20 @ 22:42 by Cari Wilson DO) History of bilateral cataract extraction History of esophagogastroduodenoscopy (EGD) unremarkable EGD 2008 S/P CABG x 5 2002 Family History Family History Mother Heart disease Father Heart disease Social History Social History (Updated 05/30/20 @ 04:05 by Cari Wilson DO) Social History: He lives with his . They have been since 1949. He is retired from [employer]. Primary care physician: Dr. Shin Hdz Code status: Full code Surrogate decision maker: Smoking packs per day: 4 Smoking cigarettes per day: 80.0 Years smoked: 10 Smoking pack-years: 40.00 Smoking status: Former smoker Tobacco type: cigarettes and smokeless tobacco Smokeless tobacco user: chewing tobacco Second hand tobacco smoke exposure: Yes Additional smoking assessment comments: chews tobacco constantly++ Alcohol intake: former Drinks per week: 2 Substance use: never Gender identity (i
[2020-05-29] MEDS: POTASSIUM CHLORIDE 20 MEQ TABLET 40 MEQ PO (21:17)
--- NOTE | 2020-05-29 21:30 | PC.NURSE ---
Patients urinal got out of position and patient was incont. urinal repositioned and braced-patient absolutely refuses a straight cath
[2020-05-29 22:15] LABS: Add Urine Microscopic? YES; Amorphous Sediment Urine Few; Appearance Urine Cloudy (Clear); Bacteria Urine Trace /hpf; Bilirubin Urine Negative (Negative); Blood Urine 2+ (Negative); Color Urine Yellow (Yellow); Glucose Urine UA Negative (Negative); Ketones Urine Negative (Negative); Leukocyte Esterase Ur Negative LEU/UL (Negative); Mucus Urine Few /lpf; Nitrate Urine Negative (Negative); Protein Urine 2+ mg/dL (Negative); RBC Urine 0-2 /hpf (0-2); Specific Grav Ur 1.013 (1.001-1.035); Squamous Epithelial Cell Urine Few /hpf (Few); Urobilinogen Urine Negative mg/dL (<2.0); WBC Urine 0-3 /hpf
--- NOTE | 2020-05-29 22:37 | PM.IMHP ---
H&P: HPI History of Present Illness Date/Time: 05/30/20 00:30 Chief Complaint: Generalized weakness Narrative: Kenneth Urrutia V is a 84 year old male With a past medical history of diastolic congestive heart failure, chronic kidney disease stage 3, type 2 diabetes, and atrial fibrillation on chronic anticoagulation who presented to the ER with generalized weakness. The patient lives at home with his . They both have limited mobility. He reported that when he woke up on the morning of the morning he does felt weaker than usual. He was able to eventually get to his recliner. However once he was in his recliner he was unable to get up again. When EMS arrived to the patient's home the patient was sitting in a soaked depends. He denies any increased shortness of breath from baseline. He reports that his shortness of breath is due to nasal congestion. His nasal congestion is improved when he uses nasal saline at night. He does have an occasional cough that sounds as if it is unchanged from baseline. He does chew tobacco continuously and reports that he occasionally has small amount of brown sputum production. He denies any chest pain. He has not been having any palpitations. He has chronic lower extremity swelling that has actually improved compared to his last hospitalization. He had been discharged from the hospital on Lasix 20 mg daily. He reports that over the last several days he has been having some dysuria. Due to his dysuria 8 contacted primary care physician who prescribed him Cipro to start on the morning of the . However, his UA obtained in the ER does not suggest UTI. He denies any changes in his chronic urinary frequency. He does have difficulty with urinary incontinence and wears a depends at home. He does have BPH and sometimes has difficulty urinating. He denies any hematuria. He has not been having any fevers or chills. He does have some difficulty with intermittent constipation. He reports that he feels as if he could use the bedpan currently. Is not noticed any hematochezia or melena. Review of Systems Review of Systems: Narrative: 12 systems were reviewed with pertinent positives and negatives per HPI. Except as documented in the HPI, all other systems were reviewed and are negative. [facility] Past Medical History Medical History (Updated 05/29/20 @ 22:57 by Cari Wilson DO) B12 deficiency BPH (benign prostatic hyperplasia) Chewing tobacco nicotine dependence CHF (congestive heart failure) echocardiogram April 2020: EF 60-65%, indeterminate diastolic function, moderate right ventricular enlargement, severe left atrial enlargement, moderate right atrial enlargement, mild mitral valve and tricuspid valve regurgitation, [id number] aortic valve regurgitation, mild pulmonary hypertension Chronic kidney disease, stage 3 with baseline creatinine between 1 and 1.4 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ron deficiency anemia Paroxysmal atrial fibrillation on chronic anticoagulation with Coumadin Peripheral vascular disease Surgical History Surgical History (Updated 05/29/20 @ 22:42 by Cari Wilson DO) History of bilateral cataract extraction History of esophagogastroduodenoscopy (EGD) unremarkable EGD 2008 S/P CABG x 5 2002 Family History Family History Mother Heart disease Father Heart disease Social History Social History (Updated 05/30/20 @ 04:05 by Cari Wilson DO) Social History: He lives with his . They have been since 1949. He is retired from [employer]. Primary care physician: Dr. Shin Hdz Code status: Full code Surrogate decision maker: Smoking packs per day: 4 Smoking cigarettes per day: 80.0 Years smoked: 10 Smoking pack
--- NOTE | 2020-05-30 00:10 | ADMGEN ---
This patient, Kenneth Urrutia V, was admitted to [address] [place] [address] Room 305-01. Patient/family oriented to hospital policies and general routines including ID bracelet, bed and alarms, visiting hours, pain management, procedures, bathroom and other care routines, personal items, smoking policy, room service/diet, and visiting hours. Information on how to activate the Rapid Response Team has been discussed. Patient/Family are encouraged to report perceived risks to care and to ask questions if they do not understand what they are told or what they should do.
[2020-05-30] MEDS: SODIUM CHLORIDE 0.9% IV 1,000 ML 75 ML IV CONT ×2 (00:24→16:10)
[2020-05-30 04:10] VITALS: BMI 31.0
[2020-05-30] MEDS: SALINE 0.65% NAS SOLN 44 ML BTL 1 SPRAY NASAL (05:23)
[2020-05-30 06:00] VITALS: BP 142/72; PULSE 90; RESP 20; TEMP 37.1; O2SAT 94
[2020-05-30 06:31] LABS: INR 1.9; Prothrombin Time 22.5 Seconds (11.1-14.7)
[2020-05-30 06:35] LABS: Anion Gap 6 mmol/L (8-16); Blood Urea Nitrogen 43 mg/dL (9-20); Calcium 8.4 mg/dL (8.4-10.2); Carbon Dioxide 35 mmol/L (22-30); Chloride 97 mmol/L (98-107); Estimated CRCL calculation 34 ml/min; Estimated Glomerular Filt Rate 39; Glucose 99 mg/dL (75-110); Magnesium 1.3 mg/dL (1.6-2.3); Sodium 138 mmol/L (137-145)
[2020-05-30] MEDS: ROSUVASTATIN 5 MG TABLET PO (08:13)
[2020-05-30] MEDS: metFORMIN HCL 500 MG TABLET 1000 MG PO ×2 (08:13→16:33)
[2020-05-30] MEDS: MAGNESIUM SULFATE 3GM/D5W100ML 3 GM/100 ML BAG IVPB (08:13)
[2020-05-30] MEDS: PANTOPRAZOLE SOD SESQUIHYDRATE 20 MG TAB PO (08:14)
[2020-05-30] MEDS: INDAPAMIDE 2.5 MG TABLET PO (08:14)
[2020-05-30] MEDS: ASPIRIN 81 MG ENTERIC TABLET PO (08:14)
[2020-05-30] MEDS: MAGNESIUM OXIDE 400 MG TABLET PO ×2 (08:14→16:33)
[2020-05-30] MEDS: ENALAPRIL MALEATE 10 MG TABLET 20 MG PO (08:14)
[2020-05-30] MEDS: TAMSULOSIN HCL 0.4 MG CAPSULE PO (08:14)
[2020-05-30] MEDS: POTASSIUM CHLORIDE 20 MEQ TABLET 40 MEQ PO (08:14)
[2020-05-30 09:57] LABS: Iron 21 ug/dL (49-181)
[2020-05-30 09:58] LABS: Folic Acid 14.7 ng/mL (2.76->20)
[2020-05-30 10:06] LABS: Percent Iron Saturation 6 % (20-50)
[2020-05-30 10:38] VITALS: O2SAT 93
--- NOTE | 2020-05-30 10:44 | PM.IMPN ---
Progress Note: A&P Assessment and Plan (1) Acute renal failure superimposed on stage 3 chronic kidney disease: Qualifiers: Acute renal failure type: unspecified 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 3b (GFR 30-44) Qualified Code(s): N17.9 - Acute kidney failure, unspecified; N18.32 - Chronic kidney disease, stage 3b Code(s): N17.9 - Acute kidney failure, unspecified; N18.30 - Chronic kidney disease, stage 3 unspecified Status: Acute Assessment and Plan: Acute renal failure superimposed on chronic kidney disease possibly due to volume depletion from Lasix vs worsening H&H vs Will hold patient's Lasix at this time Patient has been placed on gentle IV fluid hydration. Renal function has slightly improved from 1.9-1.7 today. He does not have any respiratory symptoms at this time and does not appear to be fluid overloaded. Will continue with IV fluid hydration. Continue Monitoring you. (2) Microcytic anemia: Code(s): D50.9 - Iron deficiency anemia, unspecified Status: Chronic Assessment and Plan: Acute on chronic microcytic anemia. Iron labs show he is iron deficient, will replenish with IV Venofer then put on oral ferrous sulfate at discharge. Low vitamin B12 levels as well, will replenish with IM Cyanocyobalmin for 3 days, then PO Cyanocobalamin daily 1000 mg. H&H 8.8/29%. Patient did have a stool this morning and the nurse did not notice any dark stools or blood. Will increase patient's PPI to 40 mg b.i.d. for coverage of possible gastritis or an ulcer that could be slowly causing a bleed Will continue with aspirin and warfarin under stool cultures come. Will also check an intrinsic factor to see if he is absorbing iron and B12 Continue monitoring. No acute bleeding at this time. Transfuse as needed. (3) Vitamin B12 deficiency: Code(s): E53.8 - Deficiency of other specified B group vitamins Status: Acute Assessment and Plan: See anemia. (4) Generalized weakness: Code(s): R53.1 - Weakness Status: Acute Assessment and Plan: Could be from anemia verses generalized weakness from prior hospitalization versus possible infection Urinalysis shows no infection Chest x-ray shows no acute infection Patient has a cough but states it is chronic. Aspiration precautions initiated Continue PT and OT Continue monitoring. (5) Hypokalemia: Code(s): E87.6 - Hypokalemia Status: Acute Assessment and Plan: Patient's potassium was low on arrival, could be from diuretics. Will replenish as needed. (6) Chewing tobacco nicotine dependence: Code(s): F17.220 - Nicotine dependence, chewing tobacco, uncomplicated Status: Acute Assessment and Plan: P.r.n. nicotine gum has been ordered for the patient's nicotine dependence. Patient is not interested in decreasing his chewing tobacco use. Additional Plan Patient has been admitted as observation status. This document was completed by using M*Modal Fluency Direct speech recognition software, therefore, packaging line operator variances may occur. Despite proof reading and review of records errors may persist. Time Spent With Patient Time with patient: 25 - 35 minutes Subjective Date/time seen: 05/30/20 10:44 Interval history: Date of service 05/30/2020: The patient reports coming into the hospital due to weakness prior to arrival. He states he was unable to get out of his chair like normal. He has a chronic cough that is deep in his chest, he does cough up some sputum but he states he swallows it is unsure the color. He is a chronic tobacco chewer, and his states his cough is c
[2020-05-30] MEDS: CYANOCOBALAMIN INJ 1,000 MCG/ML VIAL 1000 MCG IM (11:53)
[2020-05-30 13:43] VITALS: TEMP 37.6
[2020-05-30] MEDS: ACETAMINOPHEN 325 MG TABLET 650 MG PO (13:43)
[2020-05-30 14:00] VITALS: BP 102/56; PULSE 93; RESP 20; TEMP 37.9; O2SAT 99
[2020-05-30 14:37] VITALS: TEMP 36.7
[2020-05-30 15:20] LABS: Hematocrit 28.3 % (42.0-52.0); Hemoglobin 8.5 g/dL (14.0-18.0)
[2020-05-30 15:29] LABS: Magnesium 1.9 mg/dL (1.6-2.3); Potassium 3.4 mmol/L (3.4-5.0)
[2020-05-30 15:30] LABS: Anion Gap 8 mmol/L (8-16); Blood Urea Nitrogen 41 mg/dL (9-20); Calcium 8.3 mg/dL (8.4-10.2); Carbon Dioxide 28 mmol/L (22-30); Chloride 100 mmol/L (98-107); Estimated CRCL calculation 36 ml/min; Estimated Glomerular Filt Rate 42; Glucose 106 mg/dL (75-110); Potassium 3.4 mmol/L (3.4-5.0); Sodium 136 mmol/L (137-145)
[2020-05-30] MEDS: WARFARIN (*PBKC) 2 MG TABLET 4 MG PO (16:32)
[2020-05-30] MEDS: PANTOPRAZOLE 40 MG TABLET PO (21:10)
[2020-05-30 22:00] VITALS: BP 109/47; PULSE 50; RESP 20; TEMP 37.2; O2SAT 96
[2020-05-31] VITALS (9 sets, daily range): BP systolic 116–158; BP diastolic 54–80; PULSE 83–102; RESP 18–22; TEMP 37.1–37.9; O2SAT 91–96
[2020-05-31] MEDS: SODIUM CHLORIDE 0.9% IV 1,000 ML 75 ML IV CONT (05:07)
[2020-05-31 06:07] LABS: Basophils Percent Auto 0.2 % (0.2-1.2); Hematocrit 30.3 % (42.0-52.0); Immature Granulocyte Absolute 0.02 K/mm3 (0.00-0.031); Immature Granulocyte Percent A 0.4 % (0-0.5); Immature Platelet Fraction Pct 7.7 % (0.9-11.2); Lymphocytes Absolute Auto 0.89 K/mm3 (0.9-3.2); Lymphocytes Percent Auto 17.6 % (18.3-44.2); Mean Corpuscular HGB Conc 29.7 g/dl (32-36); Mean Corpuscular Hemoglobin 20.1 pg (26-34); Mean Corpuscular Volume 67.8 fl (80-100); Monocytes Absolute Auto 0.4 K/mm3 (0.1-0.6); Monocytes Percent Auto 6.9 % (2.6-8.5); Neutrophils Absolute Auto 3.8 K/mm3 (1.3-6.7); Neutrophils Percent Auto 74.9 % (45.5-73.1); Platelet Count Result 186 k/mm3 (150-375); Red Blood Count 4.47 M/mm3 (4.6-6.20); Red Cell Distribution Width 22.1 % (11.5-14.5); White Blood Count 5.1 K/mm3 (4.5-10.0)
[2020-05-31 06:16] LABS: INR 2.4; Prothrombin Time 26.8 Seconds (11.1-14.7)
[2020-05-31] MEDS: ACETAMINOPHEN 325 MG TABLET 650 MG PO ×2 (06:22→13:40)
[2020-05-31 06:26] LABS: Anion Gap 6 mmol/L (8-16); Blood Urea Nitrogen 38 mg/dL (9-20); Calcium 8.2 mg/dL (8.4-10.2); Carbon Dioxide 31 mmol/L (22-30); Chloride 100 mmol/L (98-107); Estimated CRCL calculation 34 ml/min; Estimated Glomerular Filt Rate 39; Glucose 91 mg/dL (75-110); Magnesium 1.8 mg/dL (1.6-2.3); Potassium 3.1 mmol/L (3.4-5.0); Sodium 137 mmol/L (137-145)
[2020-05-31 06:27] LABS: Anisocytosis 2+ (NORMAL); Hypochromasia 2+ (NORMAL); Ovalocytes 2+ (NORMAL); Platelet Estimate Adequate (Adequate)
[2020-05-31 06:28] LABS: Macrocytosis 1+ (NORMAL)
[2020-05-31] MEDS: SALINE 0.65% NAS SOLN 44 ML BTL 1 SPRAY NASAL (06:28)
[2020-05-31 06:49] LABS: IFOB Positive Control Positive; Immunochemical Fecal Occult Bl Negative (N)
[2020-05-31] MEDS: metFORMIN HCL 500 MG TABLET 1000 MG PO ×2 (07:46→17:06)
[2020-05-31] MEDS: POTASSIUM CHLORIDE 20 MEQ TABLET 40 MEQ PO (07:46)
[2020-05-31] MEDS: ENALAPRIL MALEATE 10 MG TABLET 20 MG PO (08:01)
[2020-05-31] MEDS: MAGNESIUM OXIDE 400 MG TABLET PO ×2 (08:01→17:06)
[2020-05-31] MEDS: ROSUVASTATIN 5 MG TABLET PO (08:02)
[2020-05-31] MEDS: PANTOPRAZOLE 40 MG TABLET PO ×2 (08:02→20:48)
[2020-05-31] MEDS: INDAPAMIDE 2.5 MG TABLET PO (08:02)
[2020-05-31] MEDS: ASPIRIN 81 MG ENTERIC TABLET PO (08:02)
[2020-05-31] MEDS: TAMSULOSIN HCL 0.4 MG CAPSULE PO (08:02)
[2020-05-31 08:10] LABS: Lactic Acid Reflex 0.9 mmol/L (0.7-2.1)
[2020-05-31 08:14] LABS: Lactate Dehydrogenase 855 U/L (313-618)
[2020-05-31] MEDS: CYANOCOBALAMIN INJ 1,000 MCG/ML VIAL 1000 MCG IM (11:24)
[2020-05-31] MEDS: FUROSEMIDE INJ 40 MG/4 ML VIAL 20 MG IV PUSH (11:24)
--- NOTE | 2020-05-31 11:29 | PM.IMPN ---
Progress Note: A&P Assessment and Plan (1) Pneumonia: Code(s): J18.9 - Pneumonia, unspecified organism Status: Acute Assessment and Plan: patient with recent hospitalization within the last 2 weeks. With deep cough, productive. Now spiking fevers within the last 24 hours. Blood cultures were taken, repeat CXR showed small amount of atelectasis vs pneumonia as well as some pulmonary vascular congestion. Patient did have hypoxic episodes recorded from the ER vital signs as well as tachypnea. CRP elevated could be from underlying pneumonia infection Patient himself stated he was worried he had pneumonia Will start IV Zosyn for coverage of possible hospital acquired pneumonia Due to deep cough, will order sputum culture and start Duoneb treatments. CRP elevated at 9 will monitor. Vital signs at this time otherwise showing he is resting comfortably on room air. Continue monitoring vitals, respiratory status. (2) Acute renal failure superimposed on stage 3 chronic kidney disease: Qualifiers: Acute renal failure type: unspecified 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 3b (GFR 30-44) Qualified Code(s): N17.9 - Acute kidney failure, unspecified; N18.32 - Chronic kidney disease, stage 3b Code(s): N17.9 - Acute kidney failure, unspecified; N18.30 - Chronic kidney disease, stage 3 unspecified Status: Acute Assessment and Plan: Acute renal failure superimposed on chronic kidney disease possibly due to volume depletion from Lasix vs worsening H&H Renal function stable with slight IV fluid hydration. Discontinued IV fluids at this time. Some edema noted on CXR, will give IV Lasix 20 mg one time. Continue Monitoring. (3) Microcytic anemia: Code(s): D50.9 - Iron deficiency anemia, unspecified Status: Chronic Assessment and Plan: Acute on chronic microcytic anemia. Iron labs show he is iron deficient, will replenish with IV Venofer then put on oral ferrous sulfate at discharge. Low vitamin B12 levels as well, will replenish with IM Cyanocyobalmin for 3 days, then PO Cyanocobalamin daily 1000 mg. Improved H&H 9/30%. Hemoccult stools negative for bleeding. Continue with increased PPI to 40 mg b.i.d. for coverage of possible gastritis or an ulcer that could be slowly causing a bleed Continue with aspirin and warfarin Pending intrinsic factor to see if he is absorbing iron and B12 Continue monitoring. No acute bleeding at this time. Transfuse as needed. (4) Vitamin B12 deficiency: Code(s): E53.8 - Deficiency of other specified B group vitamins Status: Acute Assessment and Plan: See anemia. (5) Generalized weakness: Code(s): R53.1 - Weakness Status: Acute Assessment and Plan: Could be from anemia verses generalized weakness from prior hospitalization versus possible infection Urinalysis shows no infection Chest x-ray shows no acute infection Aspiration precautions initiated Continue PT and OT Could be from underlying pneumonia. Continue monitoring. (6) Hypokalemia: Code(s): E87.6 - Hypokalemia Status: Acute Assessment and Plan: Patient's potassium remains low. Will replenish as needed. (7) Chewing tobacco nicotine dependence: Code(s): F17.220 - Nicotine dependence, chewing tobacco, uncomplicated Status: Acute Assessment and Plan: P.r.n. nicotine gum has been ordered for the patient's nicotine dependence. Patient is not interested in decreasing his chewing tobacco use. Additional Plan This document was completed by using M*Modal Fluency Direc
--- NOTE | 2020-05-31 16:14 | PCRCNOTE ---
Window of time for administration has passed. See next scheduled administration.
[2020-05-31] MEDS: WARFARIN (*PBKC) 2 MG TABLET 4 MG PO (17:06)
[2020-05-31] MEDS: IPRATROPIUM BR 0.02% INH SOLN 0.5 MG/2.5 ML VIAL INHALATION (19:47)
[2020-06-01] VITALS (14 sets, daily range): BP systolic 100–132; BP diastolic 48–64; PULSE 59–87; RESP 16–22; TEMP 36.3–37.3; O2SAT 86–100
[2020-06-01] MEDS: IPRATROPIUM BR 0.02% INH SOLN 0.5 MG/2.5 ML VIAL INHALATION ×4 (01:41→22:40)
[2020-06-01 06:20] LABS: INR 3.3; Prothrombin Time 33.9 Seconds (11.1-14.7)
[2020-06-01 06:28] LABS: Anion Gap 4 mmol/L (8-16); Blood Urea Nitrogen 33 mg/dL (9-20); Calcium 8.3 mg/dL (8.4-10.2); Carbon Dioxide 35 mmol/L (22-30); Chloride 99 mmol/L (98-107); Estimated CRCL calculation 32 ml/min; Estimated Glomerular Filt Rate 36; Glucose 95 mg/dL (75-110); Magnesium 1.7 mg/dL (1.6-2.3); Potassium 2.8 mmol/L (3.4-5.0); Sodium 138 mmol/L (137-145)
[2020-06-01 06:53] LABS: CRP 13.1 mg/dL (<1.0)
[2020-06-01 06:54] LABS: Basophils Percent Auto 0.2 % (0.2-1.2); Hematocrit 29.8 % (42.0-52.0); Hemoglobin 8.8 g/dL (14.0-18.0); Immature Granulocyte Absolute 0.05 K/mm3 (0.00-0.031); Immature Granulocyte Percent A 0.9 % (0-0.5); Immature Platelet Fraction Pct 9.5 % (0.9-11.2); Lymphocytes Absolute Auto 0.69 K/mm3 (0.9-3.2); Mean Corpuscular HGB Conc 29.5 g/dl (32-36); Mean Corpuscular Volume 67.6 fl (80-100); Monocytes Absolute Auto 0.4 K/mm3 (0.1-0.6); Monocytes Percent Auto 6.6 % (2.6-8.5); Neutrophils Absolute Auto 4.2 K/mm3 (1.3-6.7); Neutrophils Percent Auto 79.3 % (45.5-73.1); Nucleated Red Blood Cells Perc 0.4 % (0.0-0.2); Platelet Count Result 173 k/mm3 (150-375); Red Blood Count 4.41 M/mm3 (4.6-6.20); Red Cell Distribution Width 22.4 % (11.5-14.5); White Blood Count 5.3 K/mm3 (4.5-10.0)
[2020-06-01] MEDS: POTASSIUM CHLORIDE 20 MEQ TABLET 60 MEQ PO (06:54)
[2020-06-01 07:31] LABS: Anisocytosis 2+ (NORMAL); Hypochromasia 2+ (NORMAL); Ovalocytes 2+ (NORMAL); Platelet Estimate Adequate (Adequate); Schistocytes 1+ (NORMAL)
[2020-06-01] MEDS: PANTOPRAZOLE 40 MG TABLET PO ×2 (08:09→20:26)
[2020-06-01] MEDS: ROSUVASTATIN 5 MG TABLET PO (08:09)
[2020-06-01] MEDS: INDAPAMIDE 2.5 MG TABLET PO (08:09)
[2020-06-01] MEDS: metFORMIN HCL 500 MG TABLET 1000 MG PO ×2 (08:09→17:12)
[2020-06-01] MEDS: ENALAPRIL MALEATE 10 MG TABLET 20 MG PO (08:09)
[2020-06-01] MEDS: ASPIRIN 81 MG ENTERIC TABLET PO (08:09)
[2020-06-01] MEDS: TAMSULOSIN HCL 0.4 MG CAPSULE PO (08:09)
[2020-06-01] MEDS: MAGNESIUM OXIDE 400 MG TABLET PO ×2 (08:10→17:12)
[2020-06-01] MEDS: POTASSIUM CHLORIDE 20 MEQ TABLET 40 MEQ PO (08:10)
[2020-06-01 08:27] LABS: Lactate Dehydrogenase 739 U/L (313-618)
[2020-06-01] MEDS: CYANOCOBALAMIN INJ 1,000 MCG/ML VIAL 1000 MCG IM (12:28)
[2020-06-01 13:32] LABS: Potassium 3.6 mmol/L (3.4-5.0)
--- NOTE | 2020-06-01 13:45 | PM.IMPN ---
Progress Note: A&P Assessment and Plan (1) COVID-19 ruled out: Code(s): Z20.822 - Contact with and (suspected) exposure to COVID-19 Status: Acute Assessment and Plan: Patient spiked a fever on 05/31/2020. Blood cultures were taken. Patient has not had any leukocytosis, slight elevation neutrophil count. He has been coughing but denies any change recently. COVID labs were obtained with a ferritin, LDH, CRP yesterday only the CRP was elevated but today they were all elevated and increasing. Patient is now on 2 L of oxygen via nasal cannula. Due to hypoxia I did start IV dexamethasone as well as for his wheezing yesterday. We are testing him for COVID at this time and placed on isolation precautions. I called patient's who states everyone at his home is feeling well and has not had any COVID exposures that is known. Patient was in the hospital 2 weeks ago include have been exposed at that time. Will continue monitoring. (2) Acute respiratory failure with hypoxia: Code(s): J96.01 - Acute respiratory failure with hypoxia Status: Acute Assessment and Plan: Patient found to have hypoxia overnight and was placed on 2 L with improvement of his saturations. Patient being currently treated for pneumonia versus CHF exacerbation versus influenza versus COVID Continue monitoring oxygenation Continue DuoNeb treatments, dexamethasone for possible COVID, aspiration precautions, IV antibiotics for possible pneumonia Pending COVID and influenza test. Continue monitoring. (3) Pneumonia: Code(s): J18.9 - Pneumonia, unspecified organism Status: Acute Assessment and Plan: patient with recent hospitalization within the last 2 weeks. With deep cough, productive. Now spiking fevers within the last 24 hours. Blood cultures were taken, repeat CXR showed small amount of atelectasis vs pneumonia as well as some pulmonary vascular congestion. Patient did have hypoxic episodes recorded from the ER vital signs as well as tachypnea. CRP elevated could be from underlying pneumonia infection Patient himself stated he was worried he had pneumonia Will start IV Zosyn for coverage of possible hospital acquired pneumonia and now your testing him for COVID and will have antibiotics for COVID pneumonia Continue Duoneb treatments. Sputum culture was obtained but he did not given of a specimen cup will retry. CRP elevated more today to 13. Vital signs at this time otherwise showing he is hypoxic requiring 2 L of oxygen at this time. Continue monitoring vitals, respiratory status. (4) Acute renal failure superimposed on stage 3 chronic kidney disease: Qualifiers: Acute renal failure type: unspecified 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 3b (GFR 30-44) Qualified Code(s): N17.9 - Acute kidney failure, unspecified; N18.32 - Chronic kidney disease, stage 3b Code(s): N17.9 - Acute kidney failure, unspecified; N18.30 - Chronic kidney disease, stage 3 unspecified Status: Acute Assessment and Plan: Acute renal failure superimposed on chronic kidney disease possibly due to volume depletion from Lasix vs worsening H&H Renal function stable Some edema noted on CXR, will give IV Lasix 20 mg one time. Continue Monitoring. (5) Microcytic anemia: Code(s): D50.9 - Iron deficiency anemia, unspecified Status: Chronic Assessment and Plan: Acute on chronic microcytic anemia. Iron labs show he is iron deficient, will replenish with IV Venofer then put on oral ferrous sulfate at discharge. Low vitamin B12 levels as well, will replenish with IM Cyanocyobalmin for 3 days, then PO Cyanocobalamin daily 1000 mg. Improved H&H 8.8/29%. Hemoccult stools negative for bleeding. Gabriel
[2020-06-01] MEDS: DEXAMETHASONE SOD PHOS INJ 4 MG/ML VIAL 6 MG IV PUSH (14:46)
[2020-06-01] MEDS: FUROSEMIDE INJ 40 MG/4 ML VIAL 20 MG IV PUSH (16:18)
[2020-06-01] MEDS: SODIUM CHLORIDE NASAL GEL 14.1 GM 1 APPLIC NASAL (20:26)
[2020-06-02] VITALS (13 sets, daily range): BP systolic 96–121; BP diastolic 44–62; PULSE 54–72; RESP 18–20; TEMP 36.3–36.7; O2SAT 94–98
[2020-06-02] MEDS: IPRATROPIUM BR 0.02% INH SOLN 0.5 MG/2.5 ML VIAL INHALATION ×4 (04:14→20:01)
[2020-06-02 05:50] LABS: Basophils Percent Auto 0.2 % (0.2-1.2); Hematocrit 28.7 % (42.0-52.0); Hemoglobin 8.4 g/dL (14.0-18.0); Immature Granulocyte Absolute 0.06 K/mm3 (0.00-0.031); Immature Granulocyte Percent A 1.1 % (0-0.5); Immature Platelet Fraction Pct 8.2 % (0.9-11.2); Lymphocytes Percent Auto 15.1 % (18.3-44.2); Mean Corpuscular HGB Conc 29.3 g/dl (32-36); Mean Corpuscular Hemoglobin 19.5 pg (26-34); Mean Corpuscular Volume 66.6 fl (80-100); Monocytes Absolute Auto 0.2 K/mm3 (0.1-0.6); Monocytes Percent Auto 4.5 % (2.6-8.5); Neutrophils Absolute Auto 4.2 K/mm3 (1.3-6.7); Neutrophils Percent Auto 79.1 % (45.5-73.1); Nucleated Red Blood Cells Perc 0.4 % (0.0-0.2); Platelet Count Result 140 k/mm3 (150-375); Red Blood Count 4.31 M/mm3 (4.6-6.20); Red Cell Distribution Width 22.4 % (11.5-14.5); White Blood Count 5.3 K/mm3 (4.5-10.0)
[2020-06-02 06:01] LABS: INR 4.2; Prothrombin Time 40.9 Seconds (11.1-14.7)
[2020-06-02 06:11] LABS: Alanine Aminotransferase 33 U/L (4-50); Albumin Level 3.2 g/dL (3.5-5.1); Alkaline Phosphatase 33 U/L (38-126); Anion Gap 7 mmol/L (8-16); Aspartate Amino Transferase 99 U/L (17-59); Bilirubin,Total 0.4 mg/dL (0.2-1.3); Blood Urea Nitrogen 35 mg/dL (9-20); Calcium 8.1 mg/dL (8.4-10.2); Carbon Dioxide 30 mmol/L (22-30); Chloride 101 mmol/L (98-107); Estimated CRCL calculation 29 ml/min; Estimated Glomerular Filt Rate 32; Glucose 137 mg/dL (75-110); Lactate Dehydrogenase 755 U/L (313-618); Magnesium 1.7 mg/dL (1.6-2.3); Potassium 3.3 mmol/L (3.4-5.0); Sodium 138 mmol/L (137-145)
[2020-06-02 06:45] LABS: Platelet Estimate Adequate (Adequate)
[2020-06-02 06:47] LABS: Anisocytosis 1+ (NORMAL); Helmet Cells 1+ (NORMAL); Hypochromasia 1+ (NORMAL); Ovalocytes 2+ (NORMAL); Target Cells 1+ (NORMAL)
[2020-06-02 06:48] LABS: Acanthocytes 1+ (NORMAL); Schistocytes 1+ (NORMAL)
[2020-06-02] MEDS: INDAPAMIDE 2.5 MG TABLET PO (08:50)
[2020-06-02] MEDS: ACETAMINOPHEN 325 MG TABLET 650 MG PO (08:50)
[2020-06-02] MEDS: POTASSIUM CHLORIDE 20 MEQ TABLET 40 MEQ PO (08:51)
[2020-06-02] MEDS: ENALAPRIL MALEATE 10 MG TABLET 20 MG PO (08:51)
[2020-06-02] MEDS: PANTOPRAZOLE 40 MG TABLET PO (08:51)
[2020-06-02] MEDS: DEXAMETHASONE SOD PHOS INJ 4 MG/ML VIAL 6 MG IV PUSH (08:52)
[2020-06-02] MEDS: ROSUVASTATIN 5 MG TABLET PO (08:52)
[2020-06-02] MEDS: ASPIRIN 81 MG ENTERIC TABLET PO (08:52)
[2020-06-02] MEDS: CYANOCOBALAMIN 1,000 MCG TABLET 1000 MCG PO (08:52)
[2020-06-02] MEDS: metFORMIN HCL 500 MG TABLET 1000 MG PO (08:52)
[2020-06-02] MEDS: TAMSULOSIN HCL 0.4 MG CAPSULE PO (08:52)
[2020-06-02] MEDS: MAGNESIUM OXIDE 400 MG TABLET PO ×2 (08:53→15:30)
[2020-06-02] MEDS: FUROSEMIDE 20 MG TABLET PO (11:32)
[2020-06-02 12:21] LABS: SARS-CoV-2 RNA PCR Positive
--- NOTE | 2020-06-02 14:18 | PM.IMPN ---
Progress Note: A&P Assessment and Plan (1) Pneumonia due to COVID-19 virus: Code(s): U07.1 - COVID-19; J12.82 - Pneumonia due to coronavirus disease 2018 Status: Acute Assessment and Plan: COVID testing returned positive today. He has been started on IV dexamethasone (Day 2) and IV remdesivir (Day 1); remdesivir will need to be monitored with his acute on chronic renal failure and increasing AST. He is now requiring 1 L O2, improved from yesterday. IV zosyn has been discontinued as bacterial coinfection less likely. His white count is normal; LDH is elevated, but stable; Ferritin increasing; AST mildly elevated. Patient thinks his cough had started/worsened roughly 1 week ago. He had a recent hospitalization 2 weeks prior which could be possible exposure; no sick contacts at home. Continue Remdesivir (Day 1); monitor renal and liver function closely Continue Dexamethasone (Day 2) Tylenol as needed for fevers Robitussin as needed for cough Neb treatments Monitor closely Wean O2 as tolerated (2) Acute respiratory failure with hypoxia: Code(s): J96.01 - Acute respiratory failure with hypoxia Status: Acute Assessment and Plan: Patient found to be hypoxic during stay placed on 2 L O2 initially; this has been weaned to 1L O2 today. Likely secondary to COVID pneumonia vs CHF exacerbation or combination thereof. Flu swab pending. Bacterial pneumonia coinfection less likely. Continue treatment as detailed above for COVID pneumonia Continue home diuretics for now but consider holding given worsening renal function Wean o2 as tolerated Monitor (3) Supratherapeutic INR: Code(s): R79.1 - Abnormal coagulation profile Status: Acute Assessment and Plan: INR increased to 4.2 today, up from 3.3 yesterday. On warfarin. Has several other medications that could potentially elevate INR. No S/sx of acute blood loss. H&H low, but relatively stable Hold warfarin for tonight Stop PPI Hold Flomax and statin for now Monitor INR closely (4) Acute renal failure superimposed on stage 3 chronic kidney disease: Qualifiers: Acute renal failure type: unspecified 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 3b (GFR 30-44) Qualified Code(s): N17.9 - Acute kidney failure, unspecified; N18.32 - Chronic kidney disease, stage 3b Code(s): N17.9 - Acute kidney failure, unspecified; N18.30 - Chronic kidney disease, stage 3 unspecified Status: Acute Assessment and Plan: Multifactorial. Cr 2.00 today. Possibly medication induced. Possible pulmonary vascular congestion noted on CXR on 05/31, thus was given IV diuretics Will monitor CMP daily Hold metformin and enalapril Will consider holding PO diuretics if continued worsening of Cr and if BP not improving Monitor closely (5) Microcytic anemia: Code(s): D50.9 - Iron deficiency anemia, unspecified Status: Chronic Assessment and Plan: Acute on chronic microcytic anemia. Labs suggest GREGORIO; replaced with IV venofer through 06/02, then daily iron. Low vitamin B12 levels as well; replaced with IM Cyanocobalamin x 3 days, then PO Cyanocobalamin daily 1000 mg. Hgb 8.4 today. Hemoccult stool negative for bleeding. Pending intrinsic factor to see if he is absorbing iron and B12. No s/sx of acute blood loss Continue with aspirin and warfarin Continue monitoring. Transfuse as needed. (6) Vitamin B12 deficiency: Code(s): E53.8 - Deficiency of other specified B group vitamins Status: Acute Assessment and Plan: Please see above a/p (7) Generalized weakness: Code(s): R53.1 - Weakness Status: Acute Assessment
[2020-06-02] MEDS: REMDESIVIR 200 MG/NS 250 ML 200 MG/250 ML BAG 250 MG IVPB (15:30)
[2020-06-02 16:22] LABS: Influenza Control Positive
[2020-06-03] VITALS (13 sets, daily range): BP systolic 130–153; BP diastolic 48–82; PULSE 58–99; RESP 16–20; TEMP 36.2–36.9; O2SAT 90–100
[2020-06-03] MEDS: IPRATROPIUM BR 0.02% INH SOLN 0.5 MG/2.5 ML VIAL INHALATION ×4 (01:43→20:10)
[2020-06-03 05:51] LABS: Basophils Percent Auto 0.1 % (0.2-1.2); Hematocrit 28.1 % (42.0-52.0); Hemoglobin 8.6 g/dL (14.0-18.0); Immature Granulocyte Absolute 0.23 K/mm3 (0.00-0.031); Immature Platelet Fraction Pct 9.8 % (0.9-11.2); Lymphocytes Absolute Auto 0.53 K/mm3 (0.9-3.2); Lymphocytes Percent Auto 6.8 % (18.3-44.2); Mean Corpuscular HGB Conc 30.6 g/dl (32-36); Mean Corpuscular Hemoglobin 19.9 pg (26-34); Mean Corpuscular Volume 64.9 fl (80-100); Monocytes Absolute Auto 0.4 K/mm3 (0.1-0.6); Monocytes Percent Auto 5.4 % (2.6-8.5); Neutrophils Absolute Auto 6.6 K/mm3 (1.3-6.7); Neutrophils Percent Auto 84.7 % (45.5-73.1); Nucleated Red Blood Cells Absolute Auto 0.1 K/mm3 (0.0-0.012); Nucleated Red Blood Cells Perc 0.9 % (0.0-0.2); Platelet Count Result 141 k/mm3 (150-375); Red Blood Count 4.33 M/mm3 (4.6-6.20); Red Cell Distribution Width 22.4 % (11.5-14.5); White Blood Count 7.8 K/mm3 (4.5-10.0)
[2020-06-03 06:01] LABS: Prothrombin Time 47.4 Seconds (11.1-14.7)
[2020-06-03 06:04] LABS: Alanine Aminotransferase 32 U/L (4-50); Albumin Level 3.3 g/dL (3.5-5.1); Alkaline Phosphatase 35 U/L (38-126); Anion Gap 7 mmol/L (8-16); Aspartate Amino Transferase 85 U/L (17-59); Bilirubin,Total 0.4 mg/dL (0.2-1.3); Blood Urea Nitrogen 39 mg/dL (9-20); Calcium 8.2 mg/dL (8.4-10.2); Carbon Dioxide 30 mmol/L (22-30); Chloride 99 mmol/L (98-107); Estimated CRCL calculation 34 ml/min; Estimated Glomerular Filt Rate 39; Glucose 139 mg/dL (75-110); Magnesium 1.7 mg/dL (1.6-2.3); Potassium 3.3 mmol/L (3.4-5.0); Sodium 136 mmol/L (137-145)
[2020-06-03 06:12] LABS: INR 5.1
[2020-06-03] MEDS: PHYTONADIONE INJ 10 MG/ML AMP 5 MG IV PUSH (07:41)
[2020-06-03] MEDS: CYANOCOBALAMIN 1,000 MCG TABLET 1000 MCG PO (08:27)
[2020-06-03] MEDS: INDAPAMIDE 2.5 MG TABLET PO (08:27)
[2020-06-03] MEDS: ASPIRIN 81 MG ENTERIC TABLET PO (08:27)
[2020-06-03] MEDS: MAGNESIUM OXIDE 400 MG TABLET PO ×2 (08:27→17:07)
[2020-06-03] MEDS: FERROUS SULFATE 324 MG TABLET PO (08:27)
[2020-06-03] MEDS: FUROSEMIDE 20 MG TABLET PO (08:28)
[2020-06-03] MEDS: POTASSIUM CHLORIDE 20 MEQ TABLET 40 MEQ PO (08:29)
[2020-06-03] MEDS: DEXAMETHASONE SOD PHOS INJ 4 MG/ML VIAL 6 MG IV PUSH (08:30)
[2020-06-03] MEDS: REMDESIVIR 100 MG/NS 250 ML 100 MG/250 ML BAG 250 MG IVPB (12:25)
--- NOTE | 2020-06-03 16:03 | PM.IMPN ---
Progress Note: A&P Assessment and Plan (1) Pneumonia due to COVID-19 virus: Code(s): U07.1 - COVID-19; J12.82 - Pneumonia due to coronavirus disease 2019 Status: Acute Assessment and Plan: COVID testing returned positive today. He has been started on IV dexamethasone (Day 3) and IV remdesivir (Day 2); remdesivir will need to be monitored with his acute on chronic renal failure and elevated AST. He is now requiring 1 L O2, improved from yesterday. IV zosyn has been discontinued as bacterial coinfection less likely. His white count is normal; LDH is elevated, but stable; Ferritin increasing; AST mildly elevated. Patient thinks his cough had started/worsened roughly 1 week ago. He had a recent hospitalization 2 weeks prior which could be possible exposure; no sick contacts at home. Continue Remdesivir (Day 2); monitor renal and liver function closely Continue Dexamethasone (Day 3) Tylenol as needed for fevers Robitussin as needed for cough Neb treatments Monitor closely Wean O2 as tolerated (2) Acute respiratory failure with hypoxia: Code(s): J96.01 - Acute respiratory failure with hypoxia Status: Acute Assessment and Plan: Patient found to be hypoxic during stay placed on 2 L O2 initially; this has been weaned to 1L O2 today. Likely secondary to COVID pneumonia vs CHF exacerbation or combination thereof. Flu swab pending. Bacterial pneumonia coinfection less likely. Continue treatment as detailed above for COVID pneumonia Continue home diuretics for now but consider holding if renal function worsens Wean o2 as tolerated Monitor (3) Supratherapeutic INR: Code(s): R79.1 - Abnormal coagulation profile Status: Acute Assessment and Plan: INR increased to 5.1 today, up from 4.2 yesterday. On warfarin. Likely secondary to acute COVID infection. He has several other medications that could potentially elevate INR. No S/sx of acute blood loss. H&H low, but relatively stable. VIt K 5 mg IV given per [employer] Hold warfarin for tonight Stop PPI Hold Flomax and statin for now Monitor INR closely Will consider further vit k if INR worsens (4) Acute renal failure superimposed on stage 3 chronic kidney disease: Qualifiers: Acute renal failure type: unspecified 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 3b (GFR 30-44) Qualified Code(s): N17.9 - Acute kidney failure, unspecified; N18.32 - Chronic kidney disease, stage 3b Code(s): N17.9 - Acute kidney failure, unspecified; N18.30 - Chronic kidney disease, stage 3 unspecified Status: Acute Assessment and Plan: Multifactorial. Cr 1.70 today. Possibly medication induced from IV diuretics. Possible pulmonary vascular congestion noted on CXR on 05/31, thus was given IV diuretics Will monitor CMP daily Hold metformin and enalapril Will consider holding PO diuretics if continued worsening of Cr and if BP not improving Monitor closely (5) Microcytic anemia: Code(s): D50.9 - Iron deficiency anemia, unspecified Status: Chronic Assessment and Plan: Acute on chronic microcytic anemia. Labs suggest GREGORIO; replaced with IV venofer through 06/02, then daily iron. Low vitamin B12 levels as well; replaced with IM Cyanocobalamin x 3 days, then PO Cyanocobalamin daily 1000 mg. Hgb 8.6 today. Hemoccult stool negative for bleeding. Pending intrinsic factor to see if he is absorbing iron and B12. No s/sx of acute blood loss Continue with aspirin; warfarin held Continue monitoring. Transfuse as needed. (6) Vitamin B12 deficiency: Code(s): E53.8 - Deficiency of other specified B group vitamins Status: Acute Assessment and Plan: Please see above a/p ____
[2020-06-03] MEDS: SODIUM CHLORIDE NASAL GEL 14.1 GM 1 APPLIC NASAL (20:00)
[2020-06-04] VITALS (15 sets, daily range): BP systolic 121–154; BP diastolic 57–76; PULSE 52–83; RESP 16–20; TEMP 36.3–36.7; O2SAT 91–98
[2020-06-04] MEDS: IPRATROPIUM BR 0.02% INH SOLN 0.5 MG/2.5 ML VIAL INHALATION ×4 (02:19→21:16)
[2020-06-04 06:17] LABS: Basophils Percent Auto 0.4 % (0.2-1.2); Hematocrit 30.1 % (42.0-52.0); Hemoglobin 9.2 g/dL (14.0-18.0); Immature Granulocyte Percent A 6.4 % (0-0.5); Immature Platelet Fraction Pct 11.6 % (0.9-11.2); Lymphocytes Absolute Auto 0.69 K/mm3 (0.9-3.2); Lymphocytes Percent Auto 8.9 % (18.3-44.2); Mean Corpuscular HGB Conc 30.6 g/dl (32-36); Mean Corpuscular Hemoglobin 19.9 pg (26-34); Mean Corpuscular Volume 65.2 fl (80-100); Monocytes Absolute Auto 0.6 K/mm3 (0.1-0.6); Monocytes Percent Auto 7.1 % (2.6-8.5); Neutrophils Percent Auto 77.2 % (45.5-73.1); Nucleated Red Blood Cells Absolute Auto 0.2 K/mm3 (0.0-0.012); Nucleated Red Blood Cells Perc 2.6 % (0.0-0.2); Platelet Count Result 154 k/mm3 (150-375); Red Blood Count 4.62 M/mm3 (4.6-6.20); Red Cell Distribution Width 22.5 % (11.5-14.5); White Blood Count 7.8 K/mm3 (4.5-10.0)
[2020-06-04 06:20] LABS: INR 1.4; Prothrombin Time 17.5 Seconds (11.1-14.7)
[2020-06-04 06:29] LABS: Alanine Aminotransferase 30 U/L (4-50); Albumin Level 3.3 g/dL (3.5-5.1); Alkaline Phosphatase 38 U/L (38-126); Anion Gap 7 mmol/L (8-16); Aspartate Amino Transferase 66 U/L (17-59); Bilirubin,Total 0.7 mg/dL (0.2-1.3); Blood Urea Nitrogen 38 mg/dL (9-20); CRP 5.6 mg/dL (<1.0); Calcium 8.5 mg/dL (8.4-10.2); Carbon Dioxide 30 mmol/L (22-30); Chloride 95 mmol/L (98-107); Estimated CRCL calculation 47 ml/min; Estimated Glomerular Filt Rate 58; Glucose 137 mg/dL (75-110); Lactate Dehydrogenase 905 U/L (313-618); Magnesium 1.6 mg/dL (1.6-2.3); Potassium 3.5 mmol/L (3.4-5.0); Sodium 132 mmol/L (137-145)
[2020-06-04 06:36] LABS: Ovalocytes 3+ (NORMAL)
[2020-06-04 06:37] LABS: Hypochromasia 2+ (NORMAL); Platelet Estimate Adequate (Adequate); Polychromasia 1+ (NORMAL); Tear Drop Cells 2+ (NORMAL)
[2020-06-04] MEDS: DEXAMETHASONE SOD PHOS INJ 4 MG/ML VIAL 6 MG IV PUSH (09:35)
[2020-06-04] MEDS: INDAPAMIDE 2.5 MG TABLET PO (09:36)
[2020-06-04] MEDS: FUROSEMIDE 20 MG TABLET PO (09:36)
[2020-06-04] MEDS: FERROUS SULFATE 324 MG TABLET PO (09:36)
[2020-06-04] MEDS: MAGNESIUM OXIDE 400 MG TABLET PO ×2 (09:36→17:49)
[2020-06-04] MEDS: PANTOPRAZOLE 40 MG TABLET PO (09:36)
[2020-06-04] MEDS: CYANOCOBALAMIN 1,000 MCG TABLET 1000 MCG PO (09:37)
[2020-06-04] MEDS: ASPIRIN 81 MG ENTERIC TABLET PO (09:38)
[2020-06-04] MEDS: REMDESIVIR 100 MG/NS 250 ML 100 MG/250 ML BAG 250 MG IVPB (09:39)
--- NOTE | 2020-06-04 12:46 | PM.IMPN ---
Progress Note: A&P Assessment and Plan (1) Pneumonia due to COVID-19 virus: Code(s): U07.1 - COVID-19; J12.82 - Pneumonia due to coronavirus disease 2019 Status: Acute Assessment and Plan: COVID testing returned positive today. He has been started on IV dexamethasone (Day 4) and IV remdesivir (Day 3); remdesivir will need to be monitored with his acute on chronic renal failure and elevated AST. He is now on RA, improved from yesterday. IV zosyn has been discontinued as bacterial coinfection less likely. His white count is normal; LDH is elevated, but stable; Ferritin increasing; CRP improved; AST mildly elevated, but stable. Patient thinks his cough had started/worsened last week. He had a recent hospitalization 2 weeks prior to arrival which could be possible exposure; no sick contacts at home. Continue Remdesivir (Day 3); monitor renal and liver function closely Continue Dexamethasone (Day 4); given complex med history, likely complete 5 day course prior to discharge Tylenol as needed for fevers Robitussin as needed for cough Neb treatments Monitor closely Wean O2 as tolerated (2) Acute respiratory failure with hypoxia: Code(s): J96.01 - Acute respiratory failure with hypoxia Status: Acute Assessment and Plan: Patient found to be hypoxic during stay placed on 2 L O2 initially; this has been weaned to RA today. Likely secondary to COVID pneumonia vs CHF exacerbation or combination thereof. Flu swab negative. Bacterial pneumonia coinfection less likely. Continue treatment as detailed above for COVID pneumonia Continue home diuretics for now but will consider holding if renal function worsens Wean o2 as tolerated Monitor (3) Supratherapeutic INR: Code(s): R79.1 - Abnormal coagulation profile Status: Acute Assessment and Plan: INR increased to 1.4 today; vitamin k admin yesterday as he was supratherapeutic. On warfarin. Likely secondary to acute COVID infection. He has several other medications that could potentially elevate INR. No S/sx of acute blood loss. H&H stable. Will resume home warfarin tonight; adjust accordingly Hold Flomax and statin for now; resumed PPI daily Monitor INR closely (4) Acute renal failure superimposed on stage 3 chronic kidney disease: Qualifiers: Acute renal failure type: unspecified 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 3b (GFR 30-44) Qualified Code(s): N17.9 - Acute kidney failure, unspecified; N18.32 - Chronic kidney disease, stage 3b Code(s): N17.9 - Acute kidney failure, unspecified; N18.30 - Chronic kidney disease, stage 3 unspecified Status: Acute Assessment and Plan: Multifactorial. Cr 1.20 today; appears to have resolved. Possibly medication induced from IV diuretics vs metformin and enalapril. Possible pulmonary vascular congestion noted on CXR on 05/31, thus was given IV diuretics Will monitor CMP daily Hold metformin and enalapril Will consider holding PO diuretics if continued worsening of Cr and if BP not improving Monitor closely (5) Microcytic anemia: Code(s): D50.9 - Iron deficiency anemia, unspecified Status: Chronic Assessment and Plan: Acute on chronic microcytic anemia. Labs suggest GREGORIO; replaced with IV venofer through 06/02, then daily iron. Low vitamin B12 levels as well; replaced with IM Cyanocobalamin x 3 days, then PO Cyanocobalamin daily 1000 mg. Hgb 8.6 today. Hemoccult stool negative for bleeding. Pending intrinsic factor to see if he is absorbing iron and B12. No s/sx of acute blood loss Continue with aspirin; warfarin held Continue monitoring. Continue daily cyanocobalamin and iron supplementation Transfuse as needed. (6) Vitamin
[2020-06-04] MEDS: WARFARIN (*PBKC) 5 MG TABLET PO (17:49)
[2020-06-04 18:30] LABS: Intrinsic Factor Blocking Ab Positive (Negative)
[2020-06-04] MEDS: SODIUM CHLORIDE NASAL GEL 14.1 GM 1 APPLIC NASAL (20:29)
[2020-06-05] VITALS (14 sets, daily range): BP systolic 134–152; BP diastolic 52–72; PULSE 59–77; RESP 18–20; TEMP 36.3–37; O2SAT 91–98
[2020-06-05] MEDS: IPRATROPIUM BR 0.02% INH SOLN 0.5 MG/2.5 ML VIAL INHALATION ×4 (02:56→20:51)
[2020-06-05 06:06] LABS: Basophils Percent Auto 0.2 % (0.2-1.2); Hematocrit 31.6 % (42.0-52.0); Hemoglobin 9.7 g/dL (14.0-18.0); Immature Granulocyte Absolute 0.62 K/mm3 (0.00-0.031); Immature Granulocyte Percent A 7.2 % (0-0.5); Lymphocytes Absolute Auto 0.81 K/mm3 (0.9-3.2); Lymphocytes Percent Auto 9.5 % (18.3-44.2); Mean Corpuscular HGB Conc 30.7 g/dl (32-36); Mean Corpuscular Volume 65.3 fl (80-100); Monocytes Absolute Auto 0.5 K/mm3 (0.1-0.6); Monocytes Percent Auto 5.7 % (2.6-8.5); Neutrophils Absolute Auto 6.6 K/mm3 (1.3-6.7); Neutrophils Percent Auto 77.4 % (45.5-73.1); Nucleated Red Blood Cells Absolute Auto 0.2 K/mm3 (0.0-0.012); Nucleated Red Blood Cells Perc 2.2 % (0.0-0.2); Platelet Count Result 156 k/mm3 (150-375); Red Blood Count 4.84 M/mm3 (4.6-6.20); Red Cell Distribution Width 22.5 % (11.5-14.5); White Blood Count 8.6 K/mm3 (4.5-10.0)
[2020-06-05 06:12] LABS: INR 1.3; Prothrombin Time 16.7 Seconds (11.1-14.7)
[2020-06-05 06:31] LABS: Alanine Aminotransferase 30 U/L (4-50); Albumin Level 3.4 g/dL (3.5-5.1); Alkaline Phosphatase 42 U/L (38-126); Anion Gap 5 mmol/L (8-16); Aspartate Amino Transferase 58 U/L (17-59); Bilirubin,Total 0.8 mg/dL (0.2-1.3); Blood Urea Nitrogen 35 mg/dL (9-20); Calcium 8.6 mg/dL (8.4-10.2); Carbon Dioxide 34 mmol/L (22-30); Chloride 92 mmol/L (98-107); Estimated CRCL calculation 47 ml/min; Estimated Glomerular Filt Rate 58; Glucose 167 mg/dL (75-110); Magnesium 1.7 mg/dL (1.6-2.3); Potassium 3.4 mmol/L (3.4-5.0); Sodium 131 mmol/L (137-145)
[2020-06-05 06:51] LABS: Platelet Estimate Adequate (Adequate)
[2020-06-05 06:53] LABS: Anisocytosis 2+ (NORMAL); Ovalocytes 2+ (NORMAL); Polychromasia 1+ (NORMAL)
[2020-06-05] MEDS: POTASSIUM CHLORIDE 20 MEQ PACKET (FOR LIQUID) 40 MEQ PO (09:23)
[2020-06-05] MEDS: DEXAMETHASONE SOD PHOS INJ 4 MG/ML VIAL 6 MG IV PUSH (09:23)
[2020-06-05] MEDS: CYANOCOBALAMIN 1,000 MCG TABLET 1000 MCG PO (09:24)
[2020-06-05] MEDS: FERROUS SULFATE 324 MG TABLET PO (09:25)
[2020-06-05] MEDS: FUROSEMIDE 20 MG TABLET PO (09:25)
[2020-06-05] MEDS: INDAPAMIDE 2.5 MG TABLET PO (09:26)
[2020-06-05] MEDS: PANTOPRAZOLE 40 MG TABLET PO (09:26)
[2020-06-05] MEDS: MAGNESIUM OXIDE 400 MG TABLET PO ×2 (09:26→17:00)
[2020-06-05] MEDS: TAMSULOSIN HCL 0.4 MG CAPSULE PO (09:26)
[2020-06-05] MEDS: ENALAPRIL MALEATE 10 MG TABLET 20 MG PO (09:27)
[2020-06-05] MEDS: REMDESIVIR 100 MG/NS 250 ML 100 MG/250 ML BAG 250 MG IVPB (09:27)
[2020-06-05] MEDS: ASPIRIN 81 MG ENTERIC TABLET PO (09:27)
--- NOTE | 2020-06-05 09:55 | PCNWS ---
Weekly nutritional screen. Patient is tolerating current diet with adequate intake consuming 75-100% of meals. No weight loss reported. Recommend diabetic diet due to elevated blood sugar levels. MD notified. No further nutritional needs at this time.
--- NOTE | 2020-06-05 15:26 | PM.IMPN ---
Progress Note: A&P Assessment and Plan (1) Pneumonia due to COVID-19 virus: Code(s): U07.1 - COVID-19; J12.82 - Pneumonia due to coronavirus disease 2019 Status: Acute Assessment and Plan: COVID testing returned positive today. He has been started on IV dexamethasone (Day 5) and IV remdesivir (Day 4); remdesivir will need to be monitored with his acute on chronic renal failure and elevated AST. He is now on RA since 06/04. IV zosyn has been discontinued as bacterial coinfection less likely. His white count is normal; LDH is elevated, but stable; Ferritin increasing; CRP improved; AST mildly elevated, but stable.. He had a recent hospitalization 2 weeks prior to arrival which could be possible exposure although symptoms started sometime last week; no sick contacts at home. Continue Remdesivir (Day 4); monitor renal and liver function closely; given complex med history, likely complete 5 day course prior to discharge Continue Dexamethasone (Day 5) Tylenol as needed for fevers Robitussin as needed for cough Neb treatments Monitor closely Wean O2 as tolerated (2) Acute respiratory failure with hypoxia: Code(s): J96.01 - Acute respiratory failure with hypoxia Status: Acute Assessment and Plan: Patient found to be hypoxic during stay placed on 2 L O2 initially; this has been weaned to RA on 06/04. Likely secondary to COVID pneumonia vs CHF exacerbation or combination thereof. Flu swab negative. Bacterial pneumonia coinfection less likely. Continue treatment as detailed above for COVID pneumonia Continue home diuretics for now but will consider holding if renal function worsens Wean o2 as tolerated Monitor (3) Supratherapeutic INR: Code(s): R79.1 - Abnormal coagulation profile Status: Acute Assessment and Plan: INR increased to 1.3 today; vitamin k admin 06/03 as he was supratherapeutic. Warfarin resumed at regular dose on 06/04. Likely secondary to acute COVID infection. He has several other medications that could potentially elevate INR. No s/sx of acute blood loss. H&H stable. Will continue home warfarin Monitor INR closely (4) Acute renal failure superimposed on stage 3 chronic kidney disease: Qualifiers: Acute renal failure type: unspecified 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 3b (GFR 30-44) Qualified Code(s): N17.9 - Acute kidney failure, unspecified; N18.32 - Chronic kidney disease, stage 3b Code(s): N17.9 - Acute kidney failure, unspecified; N18.30 - Chronic kidney disease, stage 3 unspecified Status: Acute Assessment and Plan: Multifactorial. Cr 1.20 today; appears to have resolved. Possibly medication induced from IV diuretics vs metformin and enalapril. Possible pulmonary vascular congestion noted on CXR on 05/31, thus was given IV diuretics Will monitor CMP daily Hold metformin enalapril was resumed today Will consider holding PO diuretics if continued worsening of Cr and if BP not improving Monitor closely (5) Microcytic anemia: Code(s): D50.9 - Iron deficiency anemia, unspecified Status: Chronic Assessment and Plan: Acute on chronic microcytic anemia. Labs suggest GREGORIO; replaced with IV venofer through 06/02, then daily iron. Low vitamin B12 levels as well; replaced with IM Cyanocobalamin x 3 days, then PO Cyanocobalamin daily 1000 mg. Hgb 8.6 today. Hemoccult stool negative for bleeding. Intrinsic factor AB positive, No s/sx of acute blood loss Continue with aspirin and warfarin Continue monitoring. Continue daily iron supplementation Transfuse as needed. (6) Vitamin B12 deficiency: Code(s): E53.8 - Deficiency of other specified B group vitamins Status: Acute
[2020-06-05] MEDS: WARFARIN (*PBKC) 2 MG TABLET 4 MG PO (16:59)
[2020-06-05] MEDS: polyethylene glycoL 3350 17 GM POWD.PACK PO (17:00)
[2020-06-05] MEDS: MELATONIN 3 MG TABLET PO (21:03)
[2020-06-05] MEDS: DOCUSATE SODIUM 100 MG CAPSULE PO (21:03)
[2020-06-05] MEDS: SODIUM CHLORIDE NASAL GEL 14.1 GM 1 APPLIC NASAL (21:13)
[2020-06-06] VITALS (11 sets, daily range): BP systolic 117–149; BP diastolic 61–75; PULSE 60–78; RESP 16–20; TEMP 35.8–36.4; O2SAT 94–99
[2020-06-06] MEDS: IPRATROPIUM BR 0.02% INH SOLN 0.5 MG/2.5 ML VIAL INHALATION ×3 (02:18→14:24)
[2020-06-06 06:59] LABS: Basophils Absolute Auto 0.1 K/mm3 (0.0-0.1); Basophils Percent Auto 0.5 % (0.2-1.2); Hematocrit 32.5 % (42.0-52.0); Hemoglobin 10.1 g/dL (14.0-18.0); Immature Granulocyte Absolute 0.67 K/mm3 (0.00-0.031); Immature Granulocyte Percent A 6.2 % (0-0.5); Immature Platelet Fraction Pct 17.7 % (0.9-11.2); Lymphocytes Absolute Auto 1.04 K/mm3 (0.9-3.2); Lymphocytes Percent Auto 9.6 % (18.3-44.2); Mean Corpuscular HGB Conc 31.1 g/dl (32-36); Mean Corpuscular Volume 64.4 fl (80-100); Monocytes Absolute Auto 0.5 K/mm3 (0.1-0.6); Monocytes Percent Auto 4.6 % (2.6-8.5); Neutrophils Absolute Auto 8.5 K/mm3 (1.3-6.7); Neutrophils Percent Auto 79.1 % (45.5-73.1); Nucleated Red Blood Cells Absolute Auto 0.2 K/mm3 (0.0-0.012); Nucleated Red Blood Cells Perc 2.2 % (0.0-0.2); Platelet Count Result 151 k/mm3 (150-375); Red Blood Count 5.05 M/mm3 (4.6-6.20); White Blood Count 10.8 K/mm3 (4.5-10.0)
[2020-06-06 07:00] LABS: INR 1.3; Prothrombin Time 17.1 Seconds (11.1-14.7)
[2020-06-06 07:09] LABS: Alanine Aminotransferase 29 U/L (4-50); Albumin Level 3.5 g/dL (3.5-5.1); Alkaline Phosphatase 46 U/L (38-126); Anion Gap 7 mmol/L (8-16); Aspartate Amino Transferase 48 U/L (17-59); Blood Urea Nitrogen 34 mg/dL (9-20); CRP 3.5 mg/dL (<1.0); Calcium 8.9 mg/dL (8.4-10.2); Carbon Dioxide 33 mmol/L (22-30); Chloride 91 mmol/L (98-107); Estimated CRCL calculation 51 ml/min; Estimated Glomerular Filt Rate > 60; Glucose 160 mg/dL (75-110); Lactate Dehydrogenase 895 U/L (313-618); Magnesium 1.6 mg/dL (1.6-2.3); Potassium 3.4 mmol/L (3.4-5.0); Sodium 131 mmol/L (137-145)
[2020-06-06 07:52] LABS: Platelet Estimate Adequate (Adequate)
[2020-06-06 07:53] LABS: Anisocytosis 1+ (NORMAL); Burr Cells 1+ (NORMAL); Ovalocytes 2+ (NORMAL)
[2020-06-06 08:11] LABS: Vitamin B12 > 1000.0 pg/mL (239-931)
[2020-06-06] MEDS: INDAPAMIDE 2.5 MG TABLET PO (09:42)
[2020-06-06] MEDS: POTASSIUM CHLORIDE 20 MEQ TABLET 40 MEQ PO (09:43)
[2020-06-06] MEDS: MAGNESIUM OXIDE 400 MG TABLET PO (09:43)
[2020-06-06] MEDS: DEXAMETHASONE SOD PHOS INJ 4 MG/ML VIAL 6 MG IV PUSH (09:44)
[2020-06-06] MEDS: PANTOPRAZOLE 40 MG TABLET PO (09:44)
[2020-06-06] MEDS: ENALAPRIL MALEATE 10 MG TABLET 20 MG PO (09:44)
[2020-06-06] MEDS: DOCUSATE SODIUM 100 MG CAPSULE PO (09:44)
[2020-06-06] MEDS: ASPIRIN 81 MG ENTERIC TABLET PO (09:45)
[2020-06-06] MEDS: FUROSEMIDE 20 MG TABLET PO (09:45)
[2020-06-06] MEDS: FERROUS SULFATE 324 MG TABLET PO (09:45)
[2020-06-06] MEDS: REMDESIVIR 100 MG/NS 250 ML 100 MG/250 ML BAG 250 MG IVPB (09:45)
[2020-06-06] MEDS: TAMSULOSIN HCL 0.4 MG CAPSULE PO (09:45)
--- NOTE | 2020-06-06 11:42 | PCOTNOTE ---
Patient declined treatment this date stating I'm suppose to go home today and I am waiting on the doctor to sign my paperwork
--- NOTE | 2020-06-06 12:27 | PM.DS ---
DS: Admitting Diagnosis Admitting Diagnosis Admitting Diagnosis: Acute on chronic renal failure, generalized weakness DS: Discharge Diagnosis Discharge Diagnosis (1) Pneumonia due to COVID-19 virus: Code(s): U07.1 - COVID-19; J12.82 - Pneumonia due to coronavirus disease 2019 Status: Acute Assessment and Plan: COVID testing returned positive today. He has been started on IV dexamethasone (Day 6) and IV remdesivir (Day 5); remdesivir will need to be monitored with his acute on chronic renal failure and elevated AST. He is now on RA since 06/04. IV zosyn has been discontinued as bacterial coinfection less likely. His white count is mildly elevated (likely due to steroids), LDH is elevated, but stable; Ferritin improved; CRP improved; AST normalized. He had a recent hospitalization 2 weeks prior to arrival which could be possible exposure although symptoms started sometime last week; no sick contacts at home. Clinically he feels better today Finish Remdesivir course today (Day 5) Dexamethasone x 6 days; will discontinue at discharge Tylenol as needed for fevers Robitussin as needed for cough Neb treatments during stay d/c today to SNF for rehab (2) Acute respiratory failure with hypoxia: Code(s): J96.01 - Acute respiratory failure with hypoxia Status: Acute Assessment and Plan: Patient found to be hypoxic during stay placed on 2 L O2 initially; this has been weaned to RA on 06/04. Likely secondary to COVID pneumonia vs CHF exacerbation or combination thereof. Flu swab negative. Bacterial pneumonia coinfection less likely. Treatment as detailed above for COVID pneumonia; continue supportive care Continue home diuretics Patient has poor mobility thus will defer Home O2 eval since he has been on RA since 06/04 (3) Supratherapeutic INR: Code(s): R79.1 - Abnormal coagulation profile Status: Acute Assessment and Plan: INR 1.3 today; vitamin k admin 06/03 as he was supratherapeutic. Warfarin resumed at regular dose on 06/04. Supratherapeutic likely secondary to acute COVID infection. He has several other medications that could potentially elevate INR. No s/sx of acute blood loss. H&H stable. Given high risk for fall/bleed risk will defer bridging with Lovenox Will continue home warfarin INR to be check on 06/08 then daily until normal (4) Acute renal failure superimposed on stage 3 chronic kidney disease: Qualifiers: Acute renal failure type: unspecified 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 3b (GFR 30-44) Qualified Code(s): N17.9 - Acute kidney failure, unspecified; N18.32 - Chronic kidney disease, stage 3b Code(s): N17.9 - Acute kidney failure, unspecified; N18.30 - Chronic kidney disease, stage 3 unspecified Status: Acute Assessment and Plan: Multifactorial. Cr 1.10 today; appears to have resolved. Possibly medication induced from IV diuretics vs metformin and enalapril. Possible pulmonary vascular congestion noted on CXR on 05/31, thus was given IV diuretics Repeat BMP in 1 week Resume home medications (5) Microcytic anemia: Code(s): D50.9 - Iron deficiency anemia, unspecified Status: Chronic Assessment and Plan: Acute on chronic microcytic anemia. Labs suggest GREGORIO; replaced with IV venofer through 06/02, then daily iron. Low vitamin B12 levels as well; replaced with IM Cyanocobalamin x 3 days, then PO Cyanocobalamin daily 1000 mg. Hgb 10.1 today. Hemoccult stool negative for bleeding. Intrinsic factor AB positive, No s/sx of acute blood loss. Repeat Vit B12 >1000 Continue with aspirin and warfarin Continue daily iron supplementation CBC in 1 week (6) Vitamin B12 deficiency: Code(s): E53.8 - Defic
--- NOTE | 2020-06-06 13:32 | PCPTNOTE ---
Patient declined treatment this session, stating he is going back to [place], and wants to save his energy. Spoke with RN, and he said it's ok to let him rest.
== END 2020-06-06 17:00 | DRG 177 ==
LOC: ANHED 19:04 → ANH3MEDSUR 23:07
PROVIDERS: Physician Assistant; Admitting Provider Internal Medicine; Emergency Provider Emergency Medicine; PCP Family Medicine Adolescent Medicine; Visit Provider Internal Medicine
DX: U07.1 COVID-19 (principal); J12.82 Pneumonia due to coronavirus disease 2019; J96.01 Acute respiratory failure with hypoxia; I50.33 Acute on chronic diastolic (congestive) heart failure; I13.0 Hypertensive heart and chronic kidney disease with heart failure and stage 1 through stage 4 chronic kidney disease, or unspecified chronic kidney disease; N17.9 Acute kidney failure, unspecified; I69.354 Hemiplegia and hemiparesis following cerebral infarction affecting left non-dominant side; I48.20 Chronic atrial fibrillation, unspecified; T50.1X5A Adverse effect of loop [high-ceiling] diuretics, initial encounter; R79.1 Abnormal coagulation profile; N18.32 Chronic kidney disease, stage 3b; D50.9 Iron deficiency anemia, unspecified; E53.8 Deficiency of other specified B group vitamins; E87.6 Hypokalemia; F17.220 Nicotine dependence, chewing tobacco, uncomplicated; N40.0 Benign prostatic hyperplasia without lower urinary tract symptoms; E11.42 Type 2 diabetes mellitus with diabetic polyneuropathy; E11.319 Type 2 diabetes mellitus with unspecified diabetic retinopathy without macular edema; E78.5 Hyperlipidemia, unspecified; E11.51 Type 2 diabetes mellitus with diabetic peripheral angiopathy without gangrene; I73.9 Peripheral vascular disease, unspecified; Z79.01 Long term (current) use of anticoagulants; Z98.42 Cataract extraction status, left eye; Z98.41 Cataract extraction status, right eye; Z95.1 Presence of aortocoronary bypass graft
CPT/HCPCS: 36415; 71046; 80048; 80053; 81001; 82274; 82607; 82728; 82746; 83036; 83540; 83550; 83605; 83615; 83735; 84132; 85014; 85018; 85025; 85055; 85610; 85730; 86140; 86340; 87040; 87070; 87205; 87804; 94640; 96361; 96365; 96367; 96372; 97110; 97161; 97165; 97530; 97535; 99285; A9270; C9803; G0378; J1100; J1756; J1940; J2543; J3420; J3430; J3475; J7030; U0003; U0005

== ENCOUNTER 2020-06-12 00:23 | Inpatient (IN) | payer MEDICARE, SELFPAY ==
[2020-06-12] VITALS (8 sets, daily range): BP systolic 110–144; BP diastolic 48–97; PULSE 40–80; RESP 14–22; TEMP 36.2–36.6; O2SAT 93–99; BMI 23.9
--- NOTE | ~2020-06-12 | CT_ITS ---
EXAMINATION: CT brain wo con DATE: 06/12/2020 04:54 INDICATION: Speech deficit. Altered mental status. TECHNIQUE: Computed tomography (CT) of the head was performed without intravenous contrast. The mA wa s adjusted according to patient size. Iterative reconstruction technique was employed. The dose-lengt h product was 756.67 mGy-cm. COMPARISON: Head CT 06/17/2016 FINDINGS: There is diffuse brain volume loss. There are scattered areas of low attenuation in the cer ebral white matter. There are old lacunar infarcts in the left thalamus and bilateral basal ganglia. There is no intracranial hemorrhage, acute infarction, or abnormal intracranial mass lesion. The vent ricles are normal in size. There is mild mucosal thickening in the paranasal sinuses. There are likel y changes of ocular lens replacement surgeries. The mastoid air cells are normal. IMPRESSION: 1. 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 2. Stable extensive nonspecific cerebral white matter disease, which likely represents chronic small vessel ischemic disease. Reviewed, dictated and finalized at location A. IMPRESSION: 1. 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 2. Stable extensive nonspecific cerebral white matter disease, which likely rep resents chronic small vessel ischemic disease.
--- NOTE | 2020-06-12 02:00 | PC.NURSE ---
This patient, Kenneth Urrutia, was admitted to Intensive Care Unit-6. Patient/family oriented to hospital policies and general routines including ID bracelet, bed and alarms, visiting hours, pain management, procedures, bathroom and other care routines, personal items, smoking policy, room service/diet, and visiting hours. Information on how to activate the Rapid Response Team has been discussed. Patient/Family are encouraged to report perceived risks to care and to ask questions if they do not understand what they are told or what they should do.
[2020-06-12] MEDS: SODIUM CHLORIDE 0.9% IV 1,000 ML 100 ML IV CONT ×2 (02:15→23:05)
--- NOTE | 2020-06-12 02:16 | PM.IMHP ---
H&P: HPI History of Present Illness Date/Time: 06/12/20 02:16 Chief Complaint: Chest congestion, cough, lower extremity pain and generalized weakness Narrative: 84-year-old male with a past medical history kidney disease stage 3 with baseline creatinine, type 2 diabetes mellitus, chronic atrial fibrillation on Coumadin and recent hospitalization for COVID pneumonia and acute on chronic renal failure (06/18/2020 through 06/06/2020) who presented to [facility] ER due to chest congestion, cough, bilateral lower extremity pain and generalized weakness that reportedly began a few days ago. However the patient had been hospitalized at our facility until the . He was having many of the symptoms during his prior hospitalization. The patient had been hospitalized hospitalized for weakness on the and tested positive for COVID on 06/01/2020. He had developed an oxygen requirement during his last hospitalization but was weaned off of oxygen on 06/04/2020 after Decadron treatment. The patient's acute component of his renal failure had resolved prior to discharge in his discharge creatinine was 1.1. The patient was subsequently discharged to [facility] (previously [facility] in [place]). On arrival to the outside ER the patient was having oxygen saturations 89-95% that improved on 2 L nasal cannula. However apparently the patient was transferred to our facility without oxygen and arrived satting 95% on room air. On arrival to the outside ER the patient was hypotensive with blood pressures in the 70s (78/43). He received 2 L of IV fluid hydration with reported improvement in his blood pressure to the low 100s. The patient then received a 3rd L of normal saline and a dose of dexamethasone 6 mg. The ER physician plan on admitting the patient to the hospital at [place] however he reported that they did not have any beds available in the family was requesting transferred to [facility]. After arrival to our facility the patient did have a brief episode of hypotension when his maintenance fluids were briefly held. His blood pressures at that time were in the mid 80s. The patient was found to be in AFib in the outside ER which is patient's baseline rhythm. However he was having episodes of bradycardia with heart rates as low as the mid 30s. On arrival to our facility the patient was having episodes of bradycardia down to 40 when he would fall asleep. The ER physician and stated that he thought the patient may need ICU care in the next 24-48 hours. Given the patient's hypotension the patient was admitted to ICU on a precautionary basis until further evaluation. On arrival to our facility the patient's blood pressures were in the low 100s. The patient was only alert and oriented x1 at the outside facility and he is alert oriented times 1-2 at the time of my evaluation. The last time I admitted the patient the patient was alert and oriented x3. His speech was also more garbled than when I last evaluated him and he was unable to speak in full sentences. The last time I evaluated him the patient was able to speak in relatively full sentences. Review of Systems Review of Systems: Narrative: 12 systems were reviewed with pertinent positives and negatives per HPI. Except as documented in HPI. Review of systems was somewhat limited as the patient was having difficulty speaking in full sentences. His speech was also difficult to understand. [facility] Past Medical History Medical History B12 deficiency BPH (benign prostatic hyperplasia) Chewing tobacco nicotine dependence CHF (congestive heart failure) echocardiogram April 2020: EF 60-65%, indeterminate diastolic function, moderate right ventricular enlargement, severe left atrial enlargement, moderate right atrial enlargement, mild mitral valve and tricuspid valve regurgitation, [id number] aortic valve regurgitation, mild pul
[2020-06-12 03:11] LABS: Lactic Acid Reflex 1.4 mmol/L (0.7-2.1)
[2020-06-12 03:47] LABS: Basophils Percent Auto 0.2 % (0.2-1.2); Eosinophils Percent Auto 0.1 % (0-4.4); Hematocrit 34.7 % (42.0-52.0); Hemoglobin 10.6 g/dL (14.0-18.0); Immature Granulocyte Absolute 0.23 K/mm3 (0.00-0.031); Immature Granulocyte Percent A 2.2 % (0-0.5); Immature Platelet Fraction Pct 11.5 % (0.9-11.2); Lymphocytes Absolute Auto 0.36 K/mm3 (0.9-3.2); Lymphocytes Percent Auto 3.4 % (18.3-44.2); Mean Corpuscular HGB Conc 30.5 g/dl (32-36); Mean Corpuscular Hemoglobin 21.7 pg (26-34); Mean Corpuscular Volume 71.1 fl (80-100); Monocytes Absolute Auto 0.2 K/mm3 (0.1-0.6); Monocytes Percent Auto 1.5 % (2.6-8.5); Neutrophils Absolute Auto 9.9 K/mm3 (1.3-6.7); Neutrophils Percent Auto 92.6 % (45.5-73.1); Nucleated Red Blood Cells Perc 0.2 % (0.0-0.2); Platelet Count Result 148 k/mm3 (150-375); Red Blood Count 4.88 M/mm3 (4.6-6.20); White Blood Count 10.7 K/mm3 (4.5-10.0)
[2020-06-12 03:52] LABS: Microcytosis 2+ (NORMAL); Ovalocytes 1+ (NORMAL); Platelet Estimate Adequate (Adequate)
[2020-06-12 03:53] LABS: Partial Thromboplastin Time 39.4 SECONDS (22.3-36.8); Prothrombin Time 31.6 Seconds (11.1-14.7)
[2020-06-12 03:56] LABS: D Dimer 3.13 ug/mL (<0.48)
[2020-06-12 03:57] LABS: Alanine Aminotransferase 19 U/L (4-50); Albumin Level 3.3 g/dL (3.5-5.1); Alkaline Phosphatase 53 U/L (38-126); Anion Gap 9 mmol/L (8-16); Aspartate Amino Transferase 38 U/L (17-59); Blood Urea Nitrogen 40 mg/dL (9-20); CRP 2.8 mg/dL (<1.0); Carbon Dioxide 28 mmol/L (22-30); Chloride 99 mmol/L (98-107); Creatine Kinase 179 U/L (55-170); Estimated CRCL calculation 23 ml/min; Estimated Glomerular Filt Rate 29; Glucose 164 mg/dL (75-110); Lactate Dehydrogenase 601 U/L (313-618); Potassium 3.2 mmol/L (3.4-5.0); Sodium 136 mmol/L (137-145)
[2020-06-12 04:24] LABS: Troponin I 0.041 ng/mL (0.000-0.034)
[2020-06-12] MEDS: ASPIRIN 81 MG ENTERIC TABLET PO (08:59)
[2020-06-12] MEDS: FERROUS SULFATE 324 MG TABLET PO (08:59)
[2020-06-12] MEDS: MAGNESIUM OXIDE 400 MG TABLET PO (08:59)
[2020-06-12] MEDS: PANTOPRAZOLE SOD SESQUIHYDRATE 20 MG TAB PO (08:59)
[2020-06-12] MEDS: TAMSULOSIN HCL 0.4 MG CAPSULE PO (08:59)
[2020-06-12] MEDS: ROSUVASTATIN 5 MG TABLET PO (08:59)
[2020-06-12 09:04] LABS: Glucose Point of Care 186 (65-105)
[2020-06-12 12:06] LABS: Troponin I 0.031 ng/mL (0.000-0.034)
[2020-06-12 12:41] LABS: Glucose Point of Care 164 (65-105)
--- NOTE | 2020-06-12 15:58 | PM.IMPN ---
Progress Note: A&P Assessment and Plan (1) Supratherapeutic INR: Code(s): R79.1 - Abnormal coagulation profile Status: Acute Assessment and Plan: 06/12/20 15:58, patient 84-year-old male recently discharged from the hospital after he was treated with COVID-19 and was sent rehab however he was not feeling very well weak and tired initially was sent to [facility] from there he was transferred to the [facility] is he has been receiving his care here upon arrival patient was hypotensive patient received 3 L of IV fluid and his blood pressure improved, and continue a of COVID-19 patient is placed on dexamethasone will continue, while in emergency depart there was a concern the patient is a bradycardia and heart rate in 30s in 40s patient has significant history coronary artery disease atrial fibrillation however he does not require any rate-controlling medication as 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 patient was seen by logistics and planning manager and and suggested continue warfarin as patient is rate controlled now and does not require any medication or any intervention, patient INR is 3 will hold warfarin today recheck plan tomorrow will continue to monitor patient, will have PT OT evaluate the patient and further recommendation to follow (2) Pneumonia due to COVID-19 virus: Code(s): U07.1 - COVID-19; J12.82 - Pneumonia due to coronavirus disease 2019 Status: Acute Assessment and Plan: Will continue dexamethasone (3) Hypotension: Qualifiers: Hypotension type: hypotension due to hypovolemia Qualified Code(s): I95.89 - Other hypotension; E86.1 - Hypovolemia Code(s): I95.9 - Hypotension, unspecified Status: Acute Assessment and Plan: Hypotension improved with IVF will continue to monitor (4) Hypokalemia: Code(s): E87.6 - Hypokalemia Status: Acute Assessment and Plan: Will monitor and replete (5) Acute renal failure superimposed on stage 3 chronic kidney disease: Qualifiers: Acute renal failure type: unspecified 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 3b (GFR 30-44) Qualified Code(s): N17.9 - Acute kidney failure, unspecified; N18.32 - Chronic kidney disease, stage 3b Code(s): N17.9 - Acute kidney failure, unspecified; N18.30 - Chronic kidney disease, stage 3 unspecified Status: Acute Assessment and Plan: Acute on chronic disease most likely dehydration will gently hydrate the patient and monitor (6) Urinary retention with incomplete bladder emptying: Code(s): R33.9 - Retention of urine, unspecified Status: Acute Assessment and Plan: Chronic will continue home medication Additional Plan The patient does have COVID pneumonia noted during his last hospitalization. Given the patient's leukocytosis I will start the patient on azithromycin and Rocephin for possible bacterial coinfection. Will also obtain blood cultures. Patient did have hypotension that appears to be due to hypovolemia. His hypotension has resolved. The patient was initially admitted to the ICU but is hemodynamically stable feel safe transferring the patient to the intermediate unit. Welfare Visitor consult will be discontinued. The patient does have acute on chronic renal failure likely due to hypotension associated with hypovolemia. The will continue patient on IV fluid hydration and repeat BMP was obtained. His creatinine has improved slightly when compared to the outside facility. The patient's metformin and OTILIA-inhibitor are on hold. Patient does have a supratherapeutic INR. His Coumadin will be held and then resumed at a lower dose once his INR is less than 3. He is on chronic anticoagulation due to his chronic atrial fibrillation. He is in atrial fibrillation but his rate is controlled. His antihypertensives are currently on hold. The patient does have some mild hypokalemia noted on labs here. Patient will be given
--- NOTE | 2020-06-12 16:13 | PM.CNCAR ---
Assessment and Plan Additional Plan 84-year-old man with: Ischemic heart disease and chronic atrial fibrillation with which he appears to be clinically stable. Patient underwent surgical revascularization in the remote past as detailed above. Has not had any recent ischemic issues. He is in chronic atrial fibrillation. His rate is well controlled. Sounds like he my is bradycardic on arrival here but he has not really had any cardiovascular symptoms and specifically he is not reporting anything that sounds like syncope or near-syncope. We will follow him with you during the hospital stay and watches telemetry. At this point I do not have any cardiovascular recommendations to make other than his anticoagulation should be continued and we should not administer any medications that would slow AV node conduction. Johnathon Bennett MD [facility] History of Present Illness History of Present Illness Consult date/time: 06/12/20 16:13 Consult reason: atrial fibrillation Reason For Visit: Hypotension, COVID, hypoxic respiratory failure Narrative: Mr. Urrutia is an elderly 84-year-old man who is known to me for a long time and office follow-up of coronary artery disease and chronic atrial fibrillation. The patient was found to have multivessel coronary disease way back in 2002 at which time he was referred for surgical revascularization. He received an HODAN graft to the LAD and a sequential vein graft to the 1st and 3rd OM branches of the circumflex and another sequential vein graft to the RPDA and RPL branches. Since then he has done remarkably well. He also has chronic atrial fibrillation previously managed with rate control and anticoagulation and over the years has essentially developed seen I will AV node dysfunction where he does not require any rate controlling medications of any kind recently. I saw him last in the office in December of 2019 at which time he was clinically stable without any cardiovascular symptoms or complaints. He came was on warfarin for systemic anticoagulation as well as on aspirin and enalapril. He also is maintained on moderate dose of rosuvastatin. The patient has been in the hospital here a couple of times with shortness of breath and pneumonia last time he was here E was found to have strong virus. He apparently was discharged and was admitted to the emergency room at [facility] where he was not feeling well and he was transferred back appear where he receives his care for going hospitalization. He denies any cardiovascular complaints such as chest pain orthopnea PND or accumulating edema. I was consulted to see him according to the chart because of bradycardia. There was a comment on the chart that he had a slow response of AFib with a heart rate in the 30s. The telemetry strips on the chart do not demonstrate any of that. Currently his heart rate is in the 70-80 and he is asymptomatic. He has not when never has had any history of syncope. His INR is at the upper end of the therapeutic range at 3.0 electrocardiogram in the chart looks benign without any acute ST or T-wave abnormalities. Review of Systems Constitutional: Constitutional: Reports weakness Eyes: Eyes: Reports no additional eye complaints ENT: Reports system reviewed and no additional complaints, except as documented Cardiovascular: Cardiovascular: Reports no additional cardiovascular complaints Respiratory: Respiratory: Reports chest congestion and Reports cough Gastrointestinal: Gastrointestinal: Reports no additional gastrointestinal complaints Musculoskeletal: Musculoskeletal: Reports no additional musculoskeletal complaints Integumentary/Breasts: Skin/Breast: Reports system reviewed and no additional complaints, except as docu Neurologic: Reports Abnormal speech present Endocrine: Endocrine: Reports no additional endocrine complaints Hematologic/Lymphatic: Hematologic/Lymphatic: Reports no additional hematologic/lymphatic comp
[2020-06-12 21:48] LABS: Glucose Point of Care 131 (65-105)
[2020-06-13] VITALS (12 sets, daily range): BP systolic 99–136; BP diastolic 47–82; PULSE 50–80; RESP 13–20; TEMP 36.2–36.8; O2SAT 93–97
[2020-06-13 06:34] LABS: INR 3.2
[2020-06-13 06:39] LABS: Basophils Percent Auto 0.1 % (0.2-1.2); Eosinophils Absolute Auto 0.1 K/mm3 (0-0.3); Eosinophils Percent Auto 1.2 % (0-4.4); Hematocrit 33.7 % (42.0-52.0); Hemoglobin 10.3 g/dL (14.0-18.0); Immature Granulocyte Absolute 0.14 K/mm3 (0.00-0.031); Immature Granulocyte Percent A 1.5 % (0-0.5); Immature Platelet Fraction Pct 10.3 % (0.9-11.2); Lymphocytes Percent Auto 7.4 % (18.3-44.2); Mean Corpuscular HGB Conc 30.6 g/dl (32-36); Mean Corpuscular Hemoglobin 22.1 pg (26-34); Mean Corpuscular Volume 72.2 fl (80-100); Monocytes Absolute Auto 0.8 K/mm3 (0.1-0.6); Monocytes Percent Auto 8.8 % (2.6-8.5); Neutrophils Absolute Auto 7.7 K/mm3 (1.3-6.7); Platelet Count Result 162 k/mm3 (150-375); Red Blood Count 4.67 M/mm3 (4.6-6.20); Red Cell Distribution Width 29.6 % (11.5-14.5); White Blood Count 9.5 K/mm3 (4.5-10.0)
[2020-06-13 06:40] LABS: Alanine Aminotransferase 17 U/L (4-50); Albumin Level 2.9 g/dL (3.5-5.1); Alkaline Phosphatase 43 U/L (38-126); Anion Gap 1 mmol/L (8-16); Aspartate Amino Transferase 55 U/L (17-59); Bilirubin,Total 1.1 mg/dL (0.2-1.3); Blood Urea Nitrogen 30 mg/dL (9-20); Calcium 8.3 mg/dL (8.4-10.2); Carbon Dioxide 31 mmol/L (22-30); Chloride 102 mmol/L (98-107); Estimated CRCL calculation 35 ml/min; Estimated Glomerular Filt Rate 49; Glucose 112 mg/dL (75-110); Potassium 3.5 mmol/L (3.4-5.0); Sodium 134 mmol/L (137-145)
[2020-06-13 07:46] LABS: Glucose Point of Care 116 (65-105)
[2020-06-13] MEDS: FERROUS SULFATE 324 MG TABLET PO (08:49)
[2020-06-13] MEDS: TAMSULOSIN HCL 0.4 MG CAPSULE PO (08:50)
[2020-06-13] MEDS: ROSUVASTATIN 5 MG TABLET PO (08:50)
[2020-06-13] MEDS: ASPIRIN 81 MG ENTERIC TABLET PO (08:50)
[2020-06-13] MEDS: PANTOPRAZOLE SOD SESQUIHYDRATE 20 MG TAB PO (08:50)
[2020-06-13] MEDS: MAGNESIUM OXIDE 400 MG TABLET PO (08:51)
[2020-06-13] MEDS: SODIUM CHLORIDE 0.9% IV 1,000 ML 100 ML IV CONT ×2 (08:56→13:05)
[2020-06-13] MEDS: POTASSIUM CHLORIDE 20 MEQ TABLET 40 MEQ PO (10:06)
[2020-06-13] MEDS: ENOXAPARIN 40 MG/0.4 ML SYRINGE SUB-Q ×2 (13:03→20:18)
[2020-06-13 13:09] LABS: Glucose Point of Care 140 (65-105)
--- NOTE | 2020-06-13 16:18 | PM.IMPN ---
Progress Note: A&P Assessment and Plan (1) Supratherapeutic INR: Code(s): R79.1 - Abnormal coagulation profile Status: Acute Assessment and Plan: 06/13/20 16:18 patient 84-year-old male recently discharged from the hospital after he was treated with COVID-19 and was sent rehab however he was not feeling very well weak and tired initially was sent to [facility] from there he was transferred to the [facility] is he has been receiving his care here upon arrival patient was hypotensive patient received 3 L of IV fluid and his blood pressure improved, and continue a of COVID-19 patient is placed on dexamethasone will continue, while in emergency depart there was a concern the patient is a bradycardia and heart rate in 30s in 40s patient has significant history coronary artery disease atrial fibrillation however he does not require any rate-controlling medication as 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edication or any intervention, patient INR is 3 will hold warfarin today recheck plan tomorrow will continue to monitor patient, will have PT OT evaluate the patient and further recommendation to follow 06/13 patient clinically stable is on room air not requiring any oxygen, he does not have any fever, his heart rate is controlled, will continue dexamethasone, will continue to monitor, have PT OT evaluate the patient if remains clinically stable we can discharge the patient on Monday (2) Pneumonia due to COVID-19 virus: Code(s): U07.1 - COVID-19; J12.82 - Pneumonia due to coronavirus disease 2018 Status: Acute Assessment and Plan: Will continue dexamethasone (3) Hypotension: Qualifiers: Hypotension type: hypotension due to hypovolemia Qualified Code(s): I95.89 - Other hypotension; E86.1 - Hypovolemia Code(s): I95.9 - Hypotension, unspecified Status: Acute Assessment and Plan: Hypotension improved with IVF will continue to monitor (4) Hypokalemia: Code(s): E87.6 - Hypokalemia Status: Acute Assessment and Plan: Will monitor and replete (5) Acute renal failure superimposed on stage 3 chronic kidney disease: Qualifiers: Acute renal failure type: unspecified 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 3b (GFR 30-44) Qualified Code(s): N17.9 - Acute kidney failure, unspecified; N18.32 - Chronic kidney disease, stage 3b Code(s): N17.9 - Acute kidney failure, unspecified; N18.30 - Chronic kidney disease, stage 3 unspecified Status: Acute Assessment and Plan: Acute on chronic disease most likely dehydration will gently hydrate the patient and monitor (6) Urinary retention with incomplete bladder emptying: Code(s): R33.9 - Retention of urine, unspecified Status: Acute Assessment and Plan: Chronic will continue home medication Subjective Date/time seen: 06/13/20 16:18 patient 84-year-old male recently discharged from the hospital after he was treated with COVID-19 and was sent rehab however he was not feeling very well weak and tired initially was sent to [facility] from there he was transferred to the [place] is he has been receiving his care here upon arrival patient was hypotensive patient received 3 L of IV fluid and his blood pressure improved, and continue a of COVID-19 patient is placed on dexamethasone will continue, while in emergency depart there was a concern the patient is a bradycardia and heart rate in 30s in 40s patient has significant history coronary artery disease atrial fibrillation however he does not require any rate-controlling medication as 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
[2020-06-13 17:08] LABS: Glucose Point of Care 132 (65-105)
--- NOTE | 2020-06-13 17:08 | PC.NURSE ---
This patient, Kenneth Urrutia, was transferred to [facility] on 06/13/20 at 1703. Personal belongings sent with patient. Report given to Park MERINO. Appropriate documentation sent with patient.
[2020-06-13] MEDS: DEXAMETHASONE SOD PHOS INJ 4 MG/ML VIAL 6 MG IV PUSH (17:22)
--- NOTE | 2020-06-13 17:33 | PC.NURSE ---
This patient, Kenneth Urrutia, was received from [ICU-6 ] on 06/13/20 at 1700. Patient/family oriented to unit policies and routines. Report received from WILBER Scott @ [id number]
[2020-06-13 20:19] LABS: Glucose Point of Care 133 (65-105)
[2020-06-14] VITALS (14 sets, daily range): BP systolic 122–141; BP diastolic 53–68; PULSE 28–88; RESP 18–22; TEMP 36.1–36.4; O2SAT 96–100
[2020-06-14 04:51] LABS: Basophils Percent Auto 0.2 % (0.2-1.2); Hemoglobin 9.5 g/dL (14.0-18.0); Immature Granulocyte Percent A 1.6 % (0-0.5); Immature Platelet Fraction Pct 8.8 % (0.9-11.2); Lymphocytes Absolute Auto 0.42 K/mm3 (0.9-3.2); Lymphocytes Percent Auto 6.9 % (18.3-44.2); Mean Corpuscular HGB Conc 30.6 g/dl (32-36); Mean Corpuscular Hemoglobin 22.3 pg (26-34); Mean Corpuscular Volume 72.8 fl (80-100); Monocytes Absolute Auto 0.3 K/mm3 (0.1-0.6); Monocytes Percent Auto 4.4 % (2.6-8.5); Neutrophils Absolute Auto 5.3 K/mm3 (1.3-6.7); Neutrophils Percent Auto 86.9 % (45.5-73.1); Platelet Count Result 153 k/mm3 (150-375); Red Blood Count 4.26 M/mm3 (4.6-6.20); Red Cell Distribution Width 29.9 % (11.5-14.5); White Blood Count 6.1 K/mm3 (4.5-10.0)
[2020-06-14 05:00] LABS: INR 3.3; Prothrombin Time 34.3 Seconds (11.1-14.7)
[2020-06-14 05:01] LABS: Potassium 3.9 mmol/L (3.4-5.0)
[2020-06-14] MEDS: SODIUM CHLORIDE 0.9% IV 1,000 ML 100 ML IV CONT (05:03)
[2020-06-14 05:12] LABS: Alanine Aminotransferase 16 U/L (4-50); Albumin Level 2.9 g/dL (3.5-5.1); Alkaline Phosphatase 47 U/L (38-126); Anion Gap 7 mmol/L (8-16); Aspartate Amino Transferase 29 U/L (17-59); Bilirubin,Total 0.7 mg/dL (0.2-1.3); Blood Urea Nitrogen 21 mg/dL (9-20); CRP 1.2 mg/dL (<1.0); Calcium 8.2 mg/dL (8.4-10.2); Carbon Dioxide 23 mmol/L (22-30); Chloride 105 mmol/L (98-107); Estimated CRCL calculation 41 ml/min; Estimated Glomerular Filt Rate 58; Glucose 141 mg/dL (75-110); Sodium 135 mmol/L (137-145)
[2020-06-14 08:36] LABS: Glucose Point of Care 138 (65-105)
[2020-06-14] MEDS: MAGNESIUM OXIDE 400 MG TABLET PO (09:17)
[2020-06-14] MEDS: ROSUVASTATIN 5 MG TABLET PO (09:17)
[2020-06-14] MEDS: ASPIRIN 81 MG ENTERIC TABLET PO (09:17)
[2020-06-14] MEDS: DEXAMETHASONE SOD PHOS INJ 4 MG/ML VIAL 6 MG IV PUSH (09:17)
[2020-06-14] MEDS: TAMSULOSIN HCL 0.4 MG CAPSULE PO (09:17)
[2020-06-14] MEDS: FERROUS SULFATE 324 MG TABLET PO (09:17)
[2020-06-14] MEDS: ENOXAPARIN 40 MG/0.4 ML SYRINGE SUB-Q ×2 (09:17→20:49)
[2020-06-14] MEDS: PANTOPRAZOLE SOD SESQUIHYDRATE 20 MG TAB PO (09:17)
[2020-06-14 12:22] LABS: Glucose Point of Care 152 (65-105)
--- NOTE | 2020-06-14 13:18 | PM.PNCARD ---
Progress Note: A&P Assessment and Plan (1) Bradycardia: Code(s): R00.1 - Bradycardia, unspecified Status: Acute Assessment and Plan: Patient has persistent atrial fibrillation with a slow ventricular response not on any rate controlling medications. Indication for pacemaker implant is symptomatic bradycardia which the patient has not demonstrated at this point. Will continue to follow up in the office after discharge. (2) Persistent atrial fibrillation: Code(s): I48.19 - Other persistent atrial fibrillation Status: Acute (3) Chronic anticoagulation: Code(s): Z79.01 - senior living (current) use of anticoagulants Status: Acute Assessment and Plan: On chronic anticoagulation with warfarin, INR has been a bit high since admission, 3.3 today. Warfarin has been held. Continue to follow with daily INRs. (4) Pneumonia due to COVID-19 virus: Code(s): U07.1 - COVID-19; J12.82 - Pneumonia due to coronavirus disease 2018 Status: Acute Assessment and Plan: COVID pneumonia and dehydration, improved, off oxygen, stable blood pressure. (5) CAD (coronary artery disease): Code(s): I25.10 - Atherosclerotic heart disease of [place] coronary artery without angina pectoris Status: Acute Assessment and Plan: History of CAD and CABG, stable. Subjective Date/time seen: 06/14/20 13:18 Follow-up for bradycardia, atrial fibrillation. Date of service 06/14/2020: Patient is recovering from his COVID pneumonia, feels well, talking about going home. No shortness of breath or dizziness when up in his room. Off oxygen. Poor appetite. Telemetry shows heart rate generally 50s to 60s, occasionally dips down to 30, several short pauses generally less than 2.5 seconds noted, none greater than 3 seconds. Review of Systems Constitutional: Constitutional: Reports no additional constitutional complaints ENT: Denies epistaxis Cardiovascular: Cardiovascular: Denies chest pain, Denies pedal edema, Denies lightheadedness and Denies palpitations Respiratory: Respiratory: Denies cough and Denies dyspnea Gastrointestinal: Gastrointestinal: Denies abdominal pain Genitourinary: Genitourinary: Denies dysuria Musculoskeletal: Musculoskeletal: Reports no additional musculoskeletal complaints Integumentary/Breasts: Skin/Breast: Denies rash Neurologic: Denies confusion Psychiatric: Psychiatric: Denies confusion Exam Narrative: Exam Narrative: Pleasant older male picking at his lunch in no distress Const: General: comfortable and no acute distress HENMT: Mouth: Yes moist mucous membranes Eyes: EOM: EOMs intact bilaterally Neck: Neck: supple Resp: Effort & Inspection: normal respiratory effort Auscultation: diminished lung sounds Other: Very decreased breath sounds Cardio: Rate: bradycardic Rhythm: abnormal rhythm irregularly irregular GI: GI Palp: Yes Soft to palpation Skin: General skin exam: no rashes or lesions noted Neuro: Cognition (Neuro): normal cognition Speech: No normal speech (Slow dysarthric speech) Extrem: General: no edema and no pedal edema Psych: Mental Status: mental status grossly normal Objective Data Vital Signs Vital Signs: Vital Signs - 24 hr 06/13/20 16:00 06/13/20 18:41 06/13/20 20:00 Temperature 97.7 F 97.4 F L Pulse Rate 76 69 69 Respiratory Rate 20 20 Blood Pressure 131/53 L 136/57 L Pulse Oximetry 97 93 06/13/20 22:00 06/13/20 23:24 06/14/20 00:00 Temperature 97.1 F L Pulse Rate 55 L 52 L 47 L Respiratory Rate 18 Blood Pressure 122/58 L Pulse Oximetry 97 06/14/20 02:00 06/14/20 04:00 06/14/20 06:00 Temperature 97.4 F L Pulse Rate 66 46 L 28 L Respiratory Rate 18 Blood Pressure 131/62 Pulse Oximetry 98 06/14/20 08:00 06/14/20 08:26 06/14/20 10:00 T
[2020-06-14 16:26] LABS: Glucose Point of Care 185 (65-105)
--- NOTE | 2020-06-14 16:29 | PM.IMPN ---
Progress Note: A&P Assessment and Plan (1) Supratherapeutic INR: Code(s): R79.1 - Abnormal coagulation profile Status: Acute Assessment and Plan: 06/14/20 16:29 patient 84-year-old male recently discharged from the hospital after he was treated with COVID-19 and was sent rehab however he was not feeling very well weak and tired initially was sent to [facility] from there he was transferred to the [employer] is he has been receiving his care here upon arrival patient was hypotensive patient received 3 L of IV fluid and his blood pressure improved, and continue a of COVID-19 patient is placed on dexamethasone will continue, while in emergency depart there was a concern the patient is a bradycardia and heart rate in 30s in 40s patient has significant history coronary artery disease atrial fibrillation however he does not require any rate-controlling medication as 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 patient was seen by hotel maintenance engineer and and suggested continue warfarin as patient is rate controlled now and does not require any medication or any intervention, patient INR is 3 will hold warfarin today recheck plan tomorrow will continue to monitor patient, will have PT OT evaluate the patient and further recommendation to follow 06/13 patient clinically stable is on room air not requiring any oxygen, he does not have any fever, his heart rate is controlled, will continue dexamethasone, will continue to monitor, have PT OT evaluate the patient if remains clinically stable we can discharge the patient on Wednesday 06/14 patient sitting in the chair remains clinically stable not requiring any oxygen on room air, patient has no fever, however his heart rate goes into bradycardia as low as 28 while sleepy, patient was seen by Cardiology since patient has no symptoms is no indication for pacemaker, patient is clinically stable will monitor discharge the patient tomorrow (2) Pneumonia due to COVID-19 virus: Code(s): U07.1 - COVID-19; J12.82 - Pneumonia due to coronavirus disease 2019 Status: Acute Assessment and Plan: Will continue dexamethasone (3) Hypotension: Qualifiers: Hypotension type: hypotension due to hypovolemia Qualified Code(s): I95.89 - Other hypotension; E86.1 - Hypovolemia Code(s): I95.9 - Hypotension, unspecified Status: Acute Assessment and Plan: Hypotension improved with IVF will continue to monitor (4) Hypokalemia: Code(s): E87.6 - Hypokalemia Status: Acute Assessment and Plan: Will monitor and replete (5) Acute renal failure superimposed on stage 3 chronic kidney disease: Qualifiers: Acute renal failure type: unspecified 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 3b (GFR 30-44) Qualified Code(s): N17.9 - Acute kidney failure, unspecified; N18.32 - Chronic kidney disease, stage 3b Code(s): N17.9 - Acute kidney failure, unspecified; N18.30 - Chronic kidney disease, stage 3 unspecified Status: Acute Assessment and Plan: Acute on chronic disease most likely dehydration will gently hydrate the patient and monitor (6) Urinary retention with incomplete bladder emptying: Code(s): R33.9 - Retention of urine, unspecified Status: Acute Assessment and Plan: Chronic will continue home medication Additional Plan The patient does have COVID pneumonia noted during his last hospitalization. Given the patient's leukocytosis I will start the patient on azithromycin and Rocephin for possible bacterial coinfection. Will also obtain blood cultures. Patient did have hypotension that appears to be due to hypovolemia. His hypotension has resolved. The patient was initially admitted to the ICU but is hemodynamically stable feel safe transferring the patient to the intermediate unit. Post Closing Specialist consult will be discontinued. The patient does have acute on chronic renal failure likely due
[2020-06-14 20:08] LABS: Glucose Point of Care 178 (65-105)
--- NOTE | 2020-06-14 20:10 | PC.NURSE ---
Spoke with pt's daughter, Zulma ([phone]). Zulma states that family does not want pt to go back to [facility]. Pt has been living at home, but do to hospitalizations, he has not been at home for approximately one month. Zulma desires pt to go to a different facility for more physical therapy. Information to be passed to care coordination.
[2020-06-14] MEDS: guaiFENesin/DEXTROMETHORPHAN 10 ML UDC 5 ML PO (20:49)
[2020-06-15] VITALS: PULSE 43
[2020-06-15 04:00] VITALS: BP 132/50; PULSE 68; PULSE 82; RESP 18; TEMP 36.3; O2SAT 97
[2020-06-15 04:50] LABS: Hematocrit 32.6 % (42.0-52.0); Hemoglobin 9.9 g/dL (14.0-18.0); Immature Granulocyte Absolute 0.07 K/mm3 (0.00-0.031); Immature Granulocyte Percent A 0.9 % (0-0.5); Immature Platelet Fraction Pct 9.3 % (0.9-11.2); Lymphocytes Percent Auto 8.6 % (18.3-44.2); Mean Corpuscular HGB Conc 30.4 g/dl (32-36); Mean Corpuscular Hemoglobin 22.3 pg (26-34); Mean Corpuscular Volume 73.6 fl (80-100); Monocytes Absolute Auto 0.8 K/mm3 (0.1-0.6); Monocytes Percent Auto 10.1 % (2.6-8.5); Neutrophils Absolute Auto 6.6 K/mm3 (1.3-6.7); Neutrophils Percent Auto 80.4 % (45.5-73.1); Platelet Count Result 160 k/mm3 (150-375); Red Blood Count 4.43 M/mm3 (4.6-6.20); Red Cell Distribution Width 30.8 % (11.5-14.5); White Blood Count 8.2 K/mm3 (4.5-10.0)
[2020-06-15 04:58] LABS: INR 3.4; Prothrombin Time 34.8 Seconds (11.1-14.7)
[2020-06-15 05:04] LABS: Alanine Aminotransferase 16 U/L (4-50); Alkaline Phosphatase 46 U/L (38-126); Anion Gap 4 mmol/L (8-16); Aspartate Amino Transferase 33 U/L (17-59); Bilirubin,Total 0.7 mg/dL (0.2-1.3); Blood Urea Nitrogen 22 mg/dL (9-20); CRP 0.8 mg/dL (<1.0); Calcium 8.5 mg/dL (8.4-10.2); Carbon Dioxide 28 mmol/L (22-30); Chloride 105 mmol/L (98-107); Estimated CRCL calculation 44 ml/min; Estimated Glomerular Filt Rate > 60; Glucose 115 mg/dL (75-110); Potassium 3.5 mmol/L (3.4-5.0); Sodium 137 mmol/L (137-145)
[2020-06-15 05:17] LABS: Platelet Estimate Adequate (Adequate)
[2020-06-15 05:18] LABS: Ovalocytes 2+ (NORMAL)
[2020-06-15 05:19] LABS: Microcytosis 2+ (NORMAL)
[2020-06-15 08:00] VITALS: PULSE 81
[2020-06-15 08:08] LABS: Glucose Point of Care 99 (65-105)
[2020-06-15 08:19] VITALS: BP 144/54; PULSE 78; RESP 21; TEMP 36; O2SAT 97
[2020-06-15] MEDS: TAMSULOSIN HCL 0.4 MG CAPSULE PO (08:42)
[2020-06-15] MEDS: PANTOPRAZOLE SOD SESQUIHYDRATE 20 MG TAB PO (08:42)
[2020-06-15] MEDS: ASPIRIN 81 MG ENTERIC TABLET PO (08:42)
[2020-06-15] MEDS: DEXAMETHASONE SOD PHOS INJ 4 MG/ML VIAL 6 MG IV PUSH (08:42)
[2020-06-15] MEDS: MAGNESIUM OXIDE 400 MG TABLET PO (08:42)
[2020-06-15] MEDS: ROSUVASTATIN 5 MG TABLET PO (08:42)
[2020-06-15] MEDS: FERROUS SULFATE 324 MG TABLET PO (08:42)
[2020-06-15] MEDS: ENOXAPARIN 40 MG/0.4 ML SYRINGE SUB-Q (08:42)
[2020-06-15 11:47] LABS: Glucose Point of Care 171 (65-105)
[2020-06-15 12:00] VITALS: BP 107/47; PULSE 69; PULSE 88; RESP 22; TEMP 35.6; O2SAT 100
--- NOTE | 2020-07-13 17:01 | PM.DS ---
DS: Admitting Diagnosis Admitting Diagnosis Admitting Diagnosis: Chief Complaint: Chest congestion, cough, lower extremity pain and generalized weakness DS: Discharge Diagnosis Discharge Diagnosis (1) Supratherapeutic INR: Code(s): R79.1 - Abnormal coagulation profile Status: Acute Assessment and Plan: 06/14/20 16:29 patient 84-year-old male recently discharged from the hospital after he was treated with COVID-19 and was sent rehab however he was not feeling very well weak and tired initially was sent to [facility] from there he was transferred to the [place] is he has been receiving his care here upon arrival patient was hypotensive patient received 3 L of IV fluid and his blood pressure improved, and continue a of COVID-19 patient is placed on dexamethasone will continue, while in emergency depart there was a concern the patient is a bradycardia and heart rate in 30s in 40s patient has significant history coronary artery disease atrial fibrillation however he does not require any rate-controlling medication as 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 patient was seen by online community manager and and suggested continue warfarin as patient is rate controlled now and does not require any medication or any intervention, patient INR is 3 will hold warfarin today recheck plan tomorrow will continue to monitor patient, will have PT OT evaluate the patient and further recommendation to follow 06/13 patient clinically stable is on room air not requiring any oxygen, he does not have any fever, his heart rate is controlled, will continue dexamethasone, will continue to monitor, have PT OT evaluate the patient if remains clinically stable we can discharge the patient on Wednesday 06/14 patient sitting in the chair remains clinically stable not requiring any oxygen on room air, patient has no fever, however his heart rate goes into bradycardia as low as 28 while sleepy, patient was seen by Cardiology since patient has no symptoms is no indication for pacemaker, patient is clinically stable will monitor discharge the patient tomorrow (2) Pneumonia due to COVID-19 virus: Code(s): U07.1 - COVID-19; J12.82 - Pneumonia due to coronavirus disease 2019 Status: Acute Assessment and Plan: Will continue dexamethasone (3) Hypotension: Qualifiers: Hypotension type: hypotension due to hypovolemia Qualified Code(s): I95.89 - Other hypotension; E86.1 - Hypovolemia Code(s): I95.9 - Hypotension, unspecified Status: Acute Assessment and Plan: Hypotension improved with IVF will continue to monitor (4) Hypokalemia: Code(s): E87.6 - Hypokalemia Status: Acute Assessment and Plan: Will monitor and replete (5) Acute renal failure superimposed on stage 3 chronic kidney disease: Qualifiers: Acute renal failure type: unspecified 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 3b (GFR 30-44) Qualified Code(s): N17.9 - Acute kidney failure, unspecified; N18.32 - Chronic kidney disease, stage 3b Code(s): N17.9 - Acute kidney failure, unspecified; N18.30 - Chronic kidney disease, stage 3 unspecified Status: Acute Assessment and Plan: Acute on chronic disease most likely dehydration will gently hydrate the patient and monitor (6) Urinary retention with incomplete bladder emptying: Code(s): R33.9 - Retention of urine, unspecified Status: Acute Assessment and Plan: Chronic will continue home medication DS: Summary Hospital Course Reason for hospitalization: Chief Complaint: Chest congestion, cough, lower extremity pain and generalized weakness Narrative: 84-year-old male with a past medical history kidney disease stage 3 with baseline creatinine, type 2 diabetes mellitus, chronic atrial fibrillation on Coumadin and recent hospitalization for COVID pneumonia and acute on chronic renal failure (06/18/2020 through 06/06/2020) who
== END 2020-06-15 14:58 | DRG 177 ==
LOC: ANHICU 05:12 → ANHIMU 06-15 10:49 → ANHICU 06-17 13:50 → ANHIMU 06-17 13:50
PROVIDERS: Admitting Provider Internal Medicine; PCP Family Medicine Adolescent Medicine; Visit Provider Family Medicine
DX: U07.1 COVID-19 (principal); J12.82 Pneumonia due to coronavirus disease 2019; N17.9 Acute kidney failure, unspecified; I48.19 Other persistent atrial fibrillation; I69.354 Hemiplegia and hemiparesis following cerebral infarction affecting left non-dominant side; R79.1 Abnormal coagulation profile; E11.22 Type 2 diabetes mellitus with diabetic chronic kidney disease; N18.32 Chronic kidney disease, stage 3b; I95.89 Other hypotension; E86.1 Hypovolemia; E87.6 Hypokalemia; R33.9 Retention of urine, unspecified; I25.10 Atherosclerotic heart disease of native coronary artery without angina pectoris; E86.0 Dehydration; N40.0 Benign prostatic hyperplasia without lower urinary tract symptoms; E53.8 Deficiency of other specified B group vitamins; E11.42 Type 2 diabetes mellitus with diabetic polyneuropathy; E11.319 Type 2 diabetes mellitus with unspecified diabetic retinopathy without macular edema; D50.9 Iron deficiency anemia, unspecified; E11.51 Type 2 diabetes mellitus with diabetic peripheral angiopathy without gangrene; F17.220 Nicotine dependence, chewing tobacco, uncomplicated; Z95.1 Presence of aortocoronary bypass graft; Z79.01 Long term (current) use of anticoagulants; Z98.42 Cataract extraction status, left eye; Z98.41 Cataract extraction status, right eye
CPT/HCPCS: 36415; 70450; 80053; 82550; 82728; 82948; 83605; 83615; 84484; 85025; 85055; 85380; 85610; 85730; 86140; 87040; 87086; A9270; J1100; J1650; J3480; J7030

== ENCOUNTER 2020-06-21 18:11 | Inpatient (IN) | payer MEDICARE, SELFPAY ==
[2020-06-21] VITALS (11 sets, daily range): BP systolic 80–117; BP diastolic 40–63; PULSE 60–91; RESP 16–29; TEMP 35.9–37; O2SAT 94–100; BMI 27.8
--- NOTE | ~2020-06-21 | CT_ITS ---
EXAMINATION: CT abdomen pelvis wo con DATE: 06/22/2020 14:55 INDICATION: Generalized abdominal pain. TECHNIQUE: Computed tomography (CT) of the abdomen and pelvis was performed without intravenous contr ast. Automated exposure control and iterative reconstruction technique were employed. The dose-length product was 1229.17 mGy-cm. COMPARISON: CT abdomen and pelvis 11/01/2018 FINDINGS: The visualized portions of the lung bases demonstrate motion artifact. There are patchy air space opacities and nodules in right lower lobe, consistent with pneumonia. There are groundglass and tree-in-bud opacities in right middle lobe and left lower lobe, consistent with pneumonia. There is a trace right pleural effusion. Cardiomegaly is noted. There are coronary artery calcifications. No p ericardial effusion. There is a fusiform aneurysm of ascending aorta measuring approximately 5.6 cm. Calcified right hilar lymph nodes are consistent with old granulomatous disease. The liver demonstrat es surface nodularity, consistent with cirrhosis. There is a gallstone in the gallbladder neck. The g allbladder is distended. There are small gallbladder wall calcifications. 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 There are cysts in left kidney measuring up to 5.6 cm. There is a 10 mm stone in the bladder. There is diffuse bladder wall thickening, likely secondary to chronic outle t obstruction from the moderately enlarged prostate. Prominent fat in left inguinal canal may be a he rnia. There is diverticulosis of the colon without evidence of diverticulitis. The appendix is normal . There are no pathologically enlarged lymph nodes. There is no free intraperitoneal fluid. There is moderate lumbar spondylosis. There are bridging endplate osteophytes at multiple levels in the thorac ic spine, consistent with diffuse idiopathic skeletal hyperostosis (DISH). IMPRESSION: 1. Pneumonia involving the lower lobes and right middle lobe, worst in right lower lobe. 2. Fusiform aneurysm of ascending aorta measuring approximately 5.6 cm. Specificity is decreased by m otion artifact. 3. Cirrhosis of the liver. 4. Distended gallbladder with gallstone in the gallbladder neck similar to the prior exam. These find ings are suspicious for acute cholecystitis. Correlate with physical exam. 5. Bladder stone. Reviewed, dictated and finalized at location A. IMPRESSION: 1. Pneumonia involving the lower lobes and right middle lobe, worst in right lo wer lobe. 2. Fusiform aneurysm of ascending aorta measuring approximately 5.6 cm. Specifi city is decreased by motion artifact. 3. Cirrhosis of the liver. 4. Distended gallbladder with gallstone in the gallbladder neck similar to the prior exam. These findings are suspicious for acute cholecystitis. Correlate wi th physical exam. 5. Bladder stone.
--- NOTE | ~2020-06-21 | XR_ITS ---
EXAMINATION: XR chest 1V portable EXAM DATE: 06/21/2020 19:28 INDICATION: Cough, low blood pressure. TECHNIQUE: Portable AP frontal chest x-ray was obtained. Comparison is made to prior examination from 05/31/2020. FINDINGS: Sternotomy wires are present without findings to suggest sternal dehiscence. The cardiac si lhouette is enlarged. There is pulmonary vascular congestion. Again there is small amount of basilar nonspecific airspace disease. Could be atelectasis but can't exclude pneumonia. There is no pneumoth orax suspected. There are no pleural effusions. There are no osseous abnormalities identified. IMPRESSION: Small amount of basilar opacity, could be atelectasis but pneumonia not excludable. Cardi omegaly and congestion. Reviewed, dictated and finalized at location A. IMPRESSION: Small amount of basilar opacity, could be atelectasis but pneumonia not excludable. Cardiomegaly and congestion.
--- NOTE | ~2020-06-21 | US_ITS ---
EXAMINATION: US venous doppler [facility] DATE: 06/22/2020 10:10 INDICATION: Elevated d-dimer. Recent COVID infection TECHNIQUE: Grayscale ultrasound images without and with compression and Doppler ultrasound images of the bilateral lower extremity veins were obtained. COMPARISON: 05/13/2020 FINDINGS: The visualized portions of right common femoral vein, profunda (deep) femoral vein, femoral vein, pop liteal vein, posterior tibial veins, peroneal veins, gastrocnemius vein and greater saphenous vein ou tflow remain patent. The visualized portions of left common femoral vein, profunda femoral vein, femoral vein, popliteal v ein, posterior tibial veins, peroneal veins and gastrocnemius vein remain patent. Previous ablation o f the left greater saphenous vein. IMPRESSION: 1. No deep venous thrombosis in either lower limb. Reviewed, dictated and finalized at location A.
--- NOTE | 2020-06-21 18:22 | ECG_ITS ---
Measurements Intervals [place] Rate: 87 P: MT: 0 QRS: 11 QRSD: 96 T: 129 QT: 385 QTc: 463 Interpretive Statements ATRIAL FIBRILLATION ST-T WAVE ABNORMALITY IN ANTEROLAT/HIGH LAT LEADS- CONSIDER ISCHEMIA ABNORMAL ECG Electronically Signed On 06-22-2020 6:57:06 CDT by Tee Davis D.O.
[2020-06-21 18:50] LABS: Hematocrit 36.2 % (42.0-52.0); Hemoglobin 11.1 g/dL (14.0-18.0); Immature Platelet Fraction Pct 7.5 % (0.9-11.2); Mean Corpuscular HGB Conc 30.7 g/dl (32-36); Mean Corpuscular Hemoglobin 23.4 pg (26-34); Mean Corpuscular Volume 76.4 fl (80-100); Platelet Count Result 168 k/mm3 (150-375); Red Blood Count 4.74 M/mm3 (4.6-6.20); White Blood Count 15.7 K/mm3 (4.5-10.0)
--- NOTE | 2020-06-21 18:50 | PCRTNOTE ---
DR. BLUM'S ATTEMPT OF ABG WAS UNSUCCESSFUL. WILL RE ORDER ABG AT LATER TIME IF NEEDED.
[2020-06-21 19:00] LABS: INR 1.7; Partial Thromboplastin Time 34.4 SECONDS (22.3-36.8); Prothrombin Time 20.3 Seconds (11.1-14.7)
[2020-06-21 19:02] LABS: Alanine Aminotransferase 27 U/L (4-50); Albumin Level 3.5 g/dL (3.5-5.1); Alkaline Phosphatase 75 U/L (38-126); Anion Gap 9 mmol/L (8-16); Aspartate Amino Transferase 47 U/L (17-59); Blood Urea Nitrogen 60 mg/dL (9-20); Carbon Dioxide 28 mmol/L (22-30); Chloride 103 mmol/L (98-107); Estimated Glomerular Filt Rate 29; Glucose 125 mg/dL (75-110); Potassium 3.2 mmol/L (3.4-5.0); Sodium 140 mmol/L (137-145)
[2020-06-21 19:03] LABS: D Dimer 1.31 ug/mL (<0.48)
--- NOTE | 2020-06-21 19:06 | PC.NURSE ---
EDP Caleb made aware of BP 81/48. Per [facility] Dr. Ellis instructed to give 2nd L of fluids (700mls given en route per EMS). Pt is alert and upright on stretcher. Pt on tele monitor. EDP states he will initiate sepsis protocol. EDP at bedside.
--- NOTE | 2020-06-21 19:12 | ED.CHESTPAIN ---
HPI - Chest Pain General Chief Complaint: Chest Pain Stated Complaint: chest wall pain Time Seen by Provider: 06/21/20 18:27 Source: patient, family, EMS and RN notes reviewed Mode of arrival: EMS Limitations: dementia History of Present Illness HPI narrative: Patient is 84 years old white male brought to the emergency room by ambulance from rehab because of intermittent left chest pain for unknown duration. Currently patient is asymptomatic. History of COVID-19 infection over 1 month ago, subsequently patient developed generalized weakness, currently in rehab to strengthen his muscles. Patient denying any fever, chills, chest pain, shortness of breath, nausea, vomiting at this time. Related Data Home Medications Medication Instructions Recorded Confirmed enalapril maleate 20 mg PO DAILY 05/12/20 06/12/20 indapamide 2.5 mg PO DAILY 05/12/20 06/12/20 metformin 1,000 mg PO BID 05/12/20 06/12/20 omeprazole 20 mg PO DAILY 05/12/20 06/12/20 rosuvastatin 5 mg PO DAILY 05/12/20 06/12/20 tamsulosin 0.4 mg PO DAILY 05/12/20 06/12/20 warfarin 4 mg PO SUMOWEFRSA 05/12/20 06/12/20 warfarin 5 mg PO TUTH 05/12/20 06/12/20 furosemide 20 mg PO DAILY 05/30/20 06/12/20 aspirin 81 mg PO DAILY 06/12/20 06/12/20 Allergies Allergy/AdvReac Type Severity Reaction Status Date / Time No Known Allergies Allergy Verified 06/21/20 18:53 Review of Systems Review of Systems: ROS unobtainable: Yes unobtainable due to mental status PENDING SALE TO [facility] Past Medical History Medical History B12 deficiency BPH (benign prostatic hyperplasia) Bradycardia CAD (coronary artery disease) Chewing tobacco nicotine dependence CHF (congestive heart failure) echocardiogram April 2020: EF 60-65%, indeterminate diastolic function, moderate right ventricular enlargement, severe left atrial enlargement, moderate right atrial enlargement, mild mitral valve and tricuspid valve regurgitation, [id number] aortic valve regurgitation, mild pulmonary hypertension Chronic kidney disease, stage 3 with baseline creatinine between 1 and 1.4 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 They have been since 1949. He is retired from [employer]. Primary care physician: Dr. Shin Hdz Code status: Full code Surrogate decision maker: Smoking packs per day: 4 Smoking cigarettes per day: 80.0 Years smoked: 10 Smoking pack-years: 40.00 Smoking status: Former smoker Tobacco type: cigarettes and smokeless tobacco Smokeless tobacco user: chewing tobacco Second hand tobacco smoke exposure: Yes Additional smoking assessment comments: chews tobacco constantly++ Alcohol intake: former Drinks per week: 2 Substance use: never Substance use type: does not use Gender identity (if verbalized by the patient): Male Spiritual care concerns: No Exam Narrative: Exam Narrative: General appearance: Well-developed, well-nourished, does not look in pain or distress, grandson at the bedside Skin: Normal color Head: Normocephalic, nontraumatic Eyes: Clear conjunctiva ENT: Oropharynx normal, ears normal, nose normal Neck:
[2020-06-21 19:14] LABS: Band Neutrophils Percent 9 % (0-6); Lymphocytes Absolute Manual 0.47 K/mm3 (1.1-4.5); Monocytes Absolute Manual 0.31 K/mm3 (0.1-0.90); Monocytes Percent Manual 2 % (3-9); Neutrophils Absolute Manual 14.91 K/mm3 (1.3-6.7); Neutrophils Percent Manual 86 % (46-73); Platelet Estimate Adequate (Adequate); Total Cells Counted 100
[2020-06-21 19:15] LABS: Anisocytosis 2+ (NORMAL); Hypochromasia 1+ (NORMAL)
[2020-06-21 19:16] LABS: Ovalocytes 1+ (NORMAL)
[2020-06-21] MEDS: SODIUM CHLORIDE 0.9% IV 1,000 ML 999 ML IV CONT ×2 (19:17→21:50)
[2020-06-21 19:22] LABS: NT Pro B Type Natriuretic Pept 3760 PG/ML (5-100)
[2020-06-21] MEDS: POTASSIUM CHLORIDE 20 MEQ PACKET (FOR LIQUID) 40 MEQ PO (20:45)
--- NOTE | 2020-06-21 20:47 | PM.IMHP ---
H&P: HPI History of Present Illness Date/Time: 06/21/20 20:47 this is a 84-year-old male patient with a history of dementia. The patient is currently in a rehab facility [facility]. The grandson is at the bedside and stated that the patient was about to go home where he lives with his and sister. The sister is the durable power county attorney for healthcare. The patient is a full code. The patient had COVID-19 which was diagnosed on 06/02/2020. The patient had been on Decadron and REMdesivir at that time. The patient was weaned off of oxygen and had completed the Decadron. He was sent to rehab facility [facility] on 06/06/2020. The on 06/12/2020 and had leukocytosis at that time. The patient was started on azithromycin Rocephin her possible bacteria infection status post COVID-19 pneumonia. Patient's INR was supratherapeutic at that time. Patient also has a history of congestive heart failure with an EF of 60-65%. Indeterminate diastolic function. He also has chronic renal failure stage 3. With a baseline between 1 and 1.4 for creatinine. tonight the patient complaint left-sided pain tonight. When I spoke to the patient he said that he just has pain when he takes a deep breath. Also has a cough. Since the patient has an elevated white count. The ED physician felt that the patient had a secondary bacterial pneumonia. The patient has still been coughing since he has had COVID. Amount basilar opacities, could be atelectasis but pneumonia not excludable. Cardiomegaly and congestion. The patient does have a history of congestive heart failure. Lowest blood pressure was 81/48. Patient was given a L of IV fluids in the emergency room which did bring his blood pressure up up to 91/40. Creatinine is 2.2. Patient's potassium is 3.2. Blood sugar was listed as 125. Lactic was normal. Troponin 0.050. BNP 3760. The patient was started on vancomycin and Zosyn in the emergency room. Potassium was supplemented as well. INR is 1.7 and he is on Coumadin. The patient is being admitted to inpatient services on the date of service of 06/21/2020. Chief Complaint: chest pain Review of Systems Review of Systems: All systems reviewed & are unremarkable except as noted in HPI and below Constitutional: Constitutional: Reports as per HPI and Reports no additional constitutional complaints Eyes: Eyes: Reports as per HPI and Reports no additional eye complaints ENT: Reports system reviewed and no additional complaints, except as documented and Reports Normal hearing present Cardiovascular: Cardiovascular: Reports no additional cardiovascular complaints Respiratory: Respiratory: Reports no additional respiratory complaints and Reports no additional respiratory complaints Gastrointestinal: Gastrointestinal: Reports as per HPI and Reports no additional gastrointestinal complaints Musculoskeletal: Musculoskeletal: Reports no additional musculoskeletal complaints Integumentary/Breasts: Skin/Breast: Reports system reviewed and no additional complaints, except as docu and Reports as per HPI Neurologic: Reports system reviewed and no additional complaints, except as documented, Reports as per HPI and Reports Normal hearing present Psychiatric: Psychiatric: Reports no additional psychiatric complaints and Reports as per HPI Endocrine: Endocrine: Reports no additional endocrine complaints Hematologic/Lymphatic: Hematologic/Lymphatic: Reports no additional hematologic/lymphatic complaints Allergic/Immunologic: Allergic/Immunologic: Reports no additional allergic/immunologic complaints [facility] Past Medical History Medical History B12 deficiency BPH (benign prostatic hyperplasia) Bradycardia CAD (coronary artery disease) Chewing tobacco nicotine dependence CHF (congestive heart failure) echocardiogram April 2020: EF 60-65%, indeterminate diastolic function, moderate ri
[2020-06-21] MEDS: WARFARIN (*PBKC) 2 MG, WARFARIN (*PBKC) 5 MG 7 MG PO (23:12)
--- NOTE | 2020-06-21 23:18 | ADMGEN ---
This patient, Kenneth Urrutia, was admitted to IMU Room 213-01. Patient/family oriented to hospital policies and general routines including ID bracelet, bed and alarms, visiting hours, pain management, procedures, bathroom and other care routines, personal items, smoking policy, room service/diet, and visiting hours. Information on how to activate the Rapid Response Team has been discussed. Patient/Family are encouraged to report perceived risks to care and to ask questions if they do not understand what they are told or what they should do. Keron MERINO Approx [id number]
[2020-06-21 23:30] LABS: Troponin I 0.047 ng/mL (0.000-0.034)
[2020-06-22] VITALS (15 sets, daily range): BP systolic 85–136; BP diastolic 42–54; PULSE 54–93; RESP 16–22; TEMP 35.5–36.2; O2SAT 96–99; BMI 27.9
[2020-06-22 01:29] LABS: Troponin I 0.049 ng/mL (0.000-0.034)
[2020-06-22] MEDS: ALBUTEROL SULFATE (*SP) AEROSOL 1 PUFF 2 PUFF INHALATION ×4 (02:18→21:18)
[2020-06-22 05:16] LABS: INR 1.7; Prothrombin Time 20.9 Seconds (11.1-14.7)
[2020-06-22 05:19] LABS: Anion Gap 7 mmol/L (8-16); Blood Urea Nitrogen 54 mg/dL (9-20); Calcium 8.3 mg/dL (8.4-10.2); Carbon Dioxide 28 mmol/L (22-30); Chloride 105 mmol/L (98-107); Estimated CRCL calculation 28 ml/min; Estimated Glomerular Filt Rate 36; Glucose 99 mg/dL (75-110); Potassium 3.2 mmol/L (3.4-5.0); Sodium 140 mmol/L (137-145)
[2020-06-22 05:24] LABS: Hemoglobin A1C 5.5 % (<5.7)
[2020-06-22 08:27] LABS: Glucose Point of Care 64 (65-105)
[2020-06-22 08:27] LABS: Glucose Point of Care 90 (65-105)
[2020-06-22] MEDS: POTASSIUM CHLORIDE 20 MEQ TABLET PO (08:37)
[2020-06-22] MEDS: MAGNESIUM OXIDE 400 MG TABLET PO (08:38)
[2020-06-22] MEDS: TAMSULOSIN HCL 0.4 MG CAPSULE PO (08:38)
[2020-06-22] MEDS: FUROSEMIDE 20 MG TABLET PO (08:38)
[2020-06-22] MEDS: PANTOPRAZOLE 40 MG TABLET PO (08:38)
[2020-06-22] MEDS: ENALAPRIL MALEATE 10 MG TABLET 20 MG PO (08:38)
[2020-06-22] MEDS: ASPIRIN 81 MG CHEWABLE TABLET PO (08:40)
--- NOTE | 2020-06-22 09:13 | PM.IMPN ---
Progress Note: A&P Assessment and Plan (1) Pneumonia: Qualifiers: Laterality: bilateral Lung location: lower lobe of lung Pneumonia type: due to unspecified organism Qualified Code(s): J18.9 - Pneumonia, unspecified organism Code(s): J18.9 - Pneumonia, unspecified organism Status: Acute Assessment and Plan: Pneumonia suspected from patient's symptoms and chest x-ray findings -he previously had COVID-19 diagnosed June 01, 2020 and completed steroids -it is possible that he has bacterial pneumonia post viral infection. Vancomycin and Zosyn have been started -D-dimer elevated, could be due to acute illness or DVT/PE since the patient is subtherapeutic on his INR -I am unable to get a CTA due to renal failure and V/Q scan will likely be in an accurate with lung disease. His Kidney fx is improving, may be able to get one tomorrow -Pt now off o2 -obtain sputum culture (2) Sepsis: Code(s): A41.9 - Sepsis, unspecified organism Status: Acute Assessment and Plan: evident by leukocytosis and hypotension 2/2 to PNA -Continue with tx above -blood cultures pending (3) Chest pain: Code(s): R07.9 - Chest pain, unspecified Status: Acute Assessment and Plan: This was what brought him into the ER -He has not had any further CP and no arm pain, jaw pain, or other findings of ACS -could be pleuritic due to PNA -EKG compared to prior EKG which has no acute findings -BNP a little more elevated than prior studies. Troponins flat -Consider PE, may get CTA when Cr improves -Will monitor for additional CP, no ACS suspected at this time. Continue tele -Consider outpt cardiology f/u once PNA is treated if pt continues to have CP (4) HTN (hypertension): Qualifiers: Hypertension type: unspecified Qualified Code(s): I10 - Essential (primary) hypertension Code(s): I10 - Essential (primary) hypertension Status: Chronic Assessment and Plan: Last bp improved 136/53 -Likely low on admission due to dehydration and infx -b/c hx of CHF and findings of congestion will continue diuretics -Will monitor closely (5) Microcytic anemia: Code(s): D50.9 - Iron deficiency anemia, unspecified Status: Chronic Assessment and Plan: hgb 11.1, monitor -No signs of acute bleeding (6) Elevated troponin: Code(s): R77.8 - Other specified abnormalities of plasma proteins Status: Acute Assessment and Plan: As above -Could be related to congestive heart failure or renal failure. -No ACS suspected -EKG reviewed (7) Hyperlipidemia: Qualifiers: Hyperlipidemia type: unspecified Qualified Code(s): E78.5 - Hyperlipidemia, unspecified Code(s): E78.5 - Hyperlipidemia, unspecified Status: Chronic Assessment and Plan: Chronic . (8) BPH (benign prostatic hyperplasia): Qualifiers: Lower urinary tract symptom presence: unspecified whether lower urinary tract symptoms present Qualified Code(s): N40.0 - Benign prostatic hyperplasia without lower urinary tract symptoms Code(s): N40.0 - Benign prostatic hyperplasia without lower urinary tract symptoms Status: Chronic Assessment and Plan: chronic, no acute issues (9) Paroxysmal atrial fibrillation: Code(s): I48.0 - Paroxysmal atrial fibrillation Status: Chronic Assessment and Plan: Rate controlled -subtherapeutic INR -restart warfarin -monitor with daily INRs (10) Diabetes mellitus: Qualifiers: Diabetes mellitus type: type 2 Diabetes mellitus prison insulin use: without prison use Diabetes mellitus complication status: without complication Qualified Code(s): E11.9 - Type 2 diabetes mellitus without complications Code(s): E11.9 - Type 2 diabetes mellitus without complications Status: Chronic Assessment and Plan: A1c 5.5 -not on
[2020-06-22 12:37] LABS: Glucose Point of Care 129 (65-105)
[2020-06-22 15:33] LABS: Add Urine Microscopic? YES; Appearance Urine Cloudy (Clear); Bacteria Urine 1+ /hpf; Bilirubin Urine Negative (Negative); Blood Urine 1+ (Negative); Color Urine Amber (Yellow); Glucose Urine UA Negative (Negative); Ketones Urine Negative (Negative); Leukocyte Esterase Ur 3+ LEU/UL (Negative); Mucus Urine Rare /lpf; Nitrate Urine Positive (Negative); Protein Urine 2+ mg/dL (Negative); RBC Urine >75 /hpf (0-2); Specific Grav Ur 1.014 (1.001-1.035); Squamous Epithelial Cell Urine Few /hpf (Few); Urobilinogen Urine Negative mg/dL (<2.0); WBC Clumps Urine Present /HPF; WBC Urine >75 /hpf
[2020-06-22 16:55] LABS: Glucose Point of Care 130 (65-105)
[2020-06-22] MEDS: WARFARIN (*PBKC) 1 MG TABLET PO (17:23)
[2020-06-22] MEDS: WARFARIN (*PBKC) 4 MG TABLET PO (17:23)
[2020-06-22 20:19] LABS: Glucose Point of Care 173 (65-105)
[2020-06-23] VITALS (13 sets, daily range): BP systolic 86–144; BP diastolic 46–71; PULSE 49–88; RESP 18–20; TEMP 36.1–36.6; O2SAT 95–100
[2020-06-23 05:15] LABS: Potassium 3.2 mmol/L (3.4-5.0)
[2020-06-23 05:31] LABS: Alanine Aminotransferase 28 U/L (4-50); Albumin Level 3.4 g/dL (3.5-5.1); Alkaline Phosphatase 70 U/L (38-126); Anion Gap 6 mmol/L (8-16); Aspartate Amino Transferase 43 U/L (17-59); Bilirubin,Total 0.6 mg/dL (0.2-1.3); Blood Urea Nitrogen 51 mg/dL (9-20); Calcium 8.5 mg/dL (8.4-10.2); Carbon Dioxide 28 mmol/L (22-30); Chloride 106 mmol/L (98-107); Estimated CRCL calculation 29 ml/min; Estimated Glomerular Filt Rate 39; Glucose 108 mg/dL (75-110); Sodium 140 mmol/L (137-145)
[2020-06-23 06:20] LABS: Basophils Percent Auto 0.3 % (0.2-1.2); Eosinophils Absolute Auto 0.2 K/mm3 (0-0.3); Eosinophils Percent Auto 1.9 % (0-4.4); Hematocrit 34.3 % (42.0-52.0); Hemoglobin 10.8 g/dL (14.0-18.0); Immature Granulocyte Absolute 0.06 K/mm3 (0.00-0.031); Immature Granulocyte Percent A 0.6 % (0-0.5); Immature Platelet Fraction Pct 7.2 % (0.9-11.2); Lymphocytes Absolute Auto 0.87 K/mm3 (0.9-3.2); Lymphocytes Percent Auto 8.2 % (18.3-44.2); Mean Corpuscular HGB Conc 31.5 g/dl (32-36); Mean Corpuscular Hemoglobin 23.6 pg (26-34); Mean Corpuscular Volume 75.1 fl (80-100); Monocytes Absolute Auto 0.7 K/mm3 (0.1-0.6); Monocytes Percent Auto 6.5 % (2.6-8.5); Neutrophils Absolute Auto 8.8 K/mm3 (1.3-6.7); Neutrophils Percent Auto 82.5 % (45.5-73.1); Platelet Count Result 142 k/mm3 (150-375); Red Blood Count 4.57 M/mm3 (4.6-6.20); White Blood Count 10.7 K/mm3 (4.5-10.0)
[2020-06-23 06:36] LABS: INR 2.6; Prothrombin Time 28.4 Seconds (11.1-14.7)
[2020-06-23 06:45] LABS: Anisocytosis 1+ (NORMAL); Hypochromasia 1+ (NORMAL); Platelet Estimate Adequate (Adequate)
[2020-06-23 06:46] LABS: Burr Cells 2+ (NORMAL); Ovalocytes 2+ (NORMAL)
[2020-06-23 08:24] LABS: Glucose Point of Care 114 (65-105)
[2020-06-23] MEDS: POTASSIUM CHLORIDE 20 MEQ TABLET 40 MEQ PO (08:55)
[2020-06-23] MEDS: ALBUTEROL SULFATE (*SP) AEROSOL 1 PUFF 2 PUFF INHALATION ×3 (08:55→20:02)
[2020-06-23] MEDS: ASPIRIN 81 MG CHEWABLE TABLET PO (08:55)
[2020-06-23] MEDS: MAGNESIUM OXIDE 400 MG TABLET PO (08:56)
[2020-06-23] MEDS: TAMSULOSIN HCL 0.4 MG CAPSULE PO (08:56)
[2020-06-23] MEDS: PANTOPRAZOLE 40 MG TABLET PO (08:56)
[2020-06-23] MEDS: FUROSEMIDE 20 MG TABLET PO (08:56)
[2020-06-23] MEDS: ENALAPRIL MALEATE 10 MG TABLET 20 MG PO (08:56)
[2020-06-23 12:15] LABS: Glucose Point of Care 212 (65-105)
--- NOTE | 2020-06-23 15:20 | PM.IMPN ---
Progress Note: A&P Assessment and Plan (1) Pneumonia: Qualifiers: Laterality: bilateral Lung location: lower lobe of lung Pneumonia type: due to unspecified organism Qualified Code(s): J18.9 - Pneumonia, unspecified organism Code(s): J18.9 - Pneumonia, unspecified organism Status: Acute Assessment and Plan: Pneumonia suspected from patient's symptoms and chest x-ray findings -he previously had COVID-19 diagnosed June 01, 2020 and completed steroids -it is possible that he has bacterial pneumonia post viral infection. Vancomycin and Zosyn have been started -D-dimer elevated, could be due to acute illness. No DVT on imaging. PE less likely -I am unable to get a CTA due to renal failure and V/Q scan will likely be in an accurate with lung disease. His Kidney fx is improving, may be able to get one if there is evidence of PE -Pt now off o2 -obtain sputum culture (2) Sepsis: Code(s): A41.9 - Sepsis, unspecified organism Status: Acute Assessment and Plan: evident by leukocytosis and hypotension 2/2 to PNA -Continue with tx above -blood cultures NGTD (3) Chest pain: Code(s): R07.9 - Chest pain, unspecified Status: Acute Assessment and Plan: This was what brought him into the ER -He has not had any further CP and no arm pain, jaw pain, or other findings of ACS -could be pleuritic due to PNA -EKG compared to prior EKG which has no acute findings -BNP a little more elevated than prior studies. Troponins flat -Consider PE, may get CTA when Cr improves but less likely -Will monitor for additional CP, no ACS suspected at this time. Continue tele -Consider outpt cardiology f/u once PNA is treated if pt continues to have CP (4) HTN (hypertension): Qualifiers: Hypertension type: unspecified Qualified Code(s): I10 - Essential (primary) hypertension Code(s): I10 - Essential (primary) hypertension Status: Chronic Assessment and Plan: Last bp improved 91/53 -will put parameters on blood pressure medications -b/c hx of CHF and findings of congestion will continue diuretics -Will monitor closely (5) Microcytic anemia: Code(s): D50.9 - Iron deficiency anemia, unspecified Status: Chronic Assessment and Plan: hgb 10.8, monitor -No signs of acute bleeding (6) Elevated troponin: Code(s): R77.8 - Other specified abnormalities of plasma proteins Status: Acute Assessment and Plan: As above -Could be related to congestive heart failure or renal failure. -No ACS suspected -EKG reviewed (7) Hyperlipidemia: Qualifiers: Hyperlipidemia type: unspecified Qualified Code(s): E78.5 - Hyperlipidemia, unspecified Code(s): E78.5 - Hyperlipidemia, unspecified Status: Chronic Assessment and Plan: Chronic . (8) BPH (benign prostatic hyperplasia): Qualifiers: Lower urinary tract symptom presence: unspecified whether lower urinary tract symptoms present Qualified Code(s): N40.0 - Benign prostatic hyperplasia without lower urinary tract symptoms Code(s): N40.0 - Benign prostatic hyperplasia without lower urinary tract symptoms Status: Chronic Assessment and Plan: chronic, no acute issues (9) Paroxysmal atrial fibrillation: Code(s): I48.0 - Paroxysmal atrial fibrillation Status: Chronic Assessment and Plan: Rate controlled -INR now therapeutic -monitor with daily INRs (10) Diabetes mellitus: Qualifiers: Diabetes mellitus type: type 2 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
[2020-06-23] MEDS: WARFARIN (*PBKC) 5 MG TABLET PO (16:48)
[2020-06-23 17:07] LABS: Glucose Point of Care 125 (65-105)
[2020-06-23] MEDS: SODIUM CHLORIDE 0.9% IV 500 ML IV CONT (17:49)
[2020-06-23 19:55] LABS: Glucose Point of Care 141 (65-105)
[2020-06-24] VITALS (14 sets, daily range): BP systolic 83–140; BP diastolic 51–79; PULSE 47–101; RESP 12–20; TEMP 36.4–36.6; O2SAT 98–100
--- NOTE | 2020-06-24 00:15 | ECG_ITS ---
Measurements Intervals [place] Rate: 50 P: TN: 0 QRS: 6 QRSD: 95 T: -28 QT: 453 QTc: 416 Interpretive Statements ATRIAL FIBRILLATION WITH SLOW VENTRICULAR RESPONSE NONSPECIFIC ST & T-WAVE ABNORMALITY- DIFFUSE LEADS BASELINE ARTIFACT- I, II, III, AVR, AVL, AVF, V1-V2 ABNORMAL ECG Electronically Signed On 06-24-2020 6:56:13 CDT by Tee Davis D.O.
[2020-06-24 05:58] LABS: INR 3.2; Prothrombin Time 33.3 Seconds (11.1-14.7)
[2020-06-24 06:02] LABS: Basophils Percent Auto 0.5 % (0.2-1.2); Eosinophils Absolute Auto 0.2 K/mm3 (0-0.3); Eosinophils Percent Auto 2.7 % (0-4.4); Hematocrit 33.4 % (42.0-52.0); Hemoglobin 10.4 g/dL (14.0-18.0); Immature Granulocyte Absolute 0.06 K/mm3 (0.00-0.031); Immature Granulocyte Percent A 0.7 % (0-0.5); Immature Platelet Fraction Pct 11.1 % (0.9-11.2); Lymphocytes Absolute Auto 0.86 K/mm3 (0.9-3.2); Lymphocytes Percent Auto 9.9 % (18.3-44.2); Mean Corpuscular HGB Conc 31.1 g/dl (32-36); Mean Corpuscular Hemoglobin 23.9 pg (26-34); Mean Corpuscular Volume 76.6 fl (80-100); Monocytes Absolute Auto 0.5 K/mm3 (0.1-0.6); Monocytes Percent Auto 6.1 % (2.6-8.5); Neutrophils Percent Auto 80.1 % (45.5-73.1); Platelet Count Result 167 k/mm3 (150-375); Red Blood Count 4.36 M/mm3 (4.6-6.20); White Blood Count 8.7 K/mm3 (4.5-10.0)
[2020-06-24 06:05] LABS: Anion Gap 7 mmol/L (8-16); Blood Urea Nitrogen 40 mg/dL (9-20); Calcium 8.5 mg/dL (8.4-10.2); Carbon Dioxide 29 mmol/L (22-30); Chloride 106 mmol/L (98-107); Estimated CRCL calculation 28 ml/min; Estimated Glomerular Filt Rate 36; Glucose 94 mg/dL (75-110); Magnesium 1.4 mg/dL (1.6-2.3); Potassium 3.1 mmol/L (3.4-5.0); Sodium 142 mmol/L (137-145)
[2020-06-24 06:41] LABS: Platelet Estimate Adequate (Adequate)
[2020-06-24 06:42] LABS: Anisocytosis 1+ (NORMAL); Ovalocytes 2+ (NORMAL); Stomatocytes 1+ (NORMAL)
[2020-06-24 08:03] LABS: Glucose Point of Care 99 (65-105)
--- NOTE | 2020-06-24 09:32 | PM.IMPN ---
Progress Note: A&P Assessment and Plan (1) Pneumonia: Qualifiers: Laterality: bilateral Lung location: lower lobe of lung Pneumonia type: due to unspecified organism Qualified Code(s): J18.9 - Pneumonia, unspecified organism Code(s): J18.9 - Pneumonia, unspecified organism Status: Acute Assessment and Plan: Pneumonia suspected from patient's symptoms and chest x-ray findings -he previously had COVID-19 diagnosed June 01, 2020 and completed steroids -it's likely that he has bacterial pneumonia post viral infection. Vancomycin and Zosyn started 06/23 -D-dimer elevated, could be due to acute illness. No DVT on imaging. PE less likely -I am unable to get a CTA due to renal failure and V/Q scan will likely be in an accurate with lung disease. His Kidney fx is improving, may be able to get one if there is evidence of PE -Pt now off o2 -obtain sputum culture -okay to move out of IMU (2) Sepsis: Code(s): A41.9 - Sepsis, unspecified organism Status: Acute Assessment and Plan: evident by leukocytosis and hypotension 2/2 to PNA -Continue with tx above -blood cultures NGTD (3) Chest pain: Code(s): R07.9 - Chest pain, unspecified Status: Acute Assessment and Plan: This was what brought him into the ER -He has not had any further CP and no arm pain, jaw pain, or other findings of ACS -could be pleuritic due to PNA -EKG compared to prior EKG which has no acute findings -BNP a little more elevated than prior studies. Troponins flat -Consider PE, may get CTA when Cr improves but less likely -Will monitor for additional CP, no ACS suspected at this time. Continue tele -Consider outpt cardiology f/u once PNA is treated if pt continues to have CP (4) HTN (hypertension): Qualifiers: Hypertension type: unspecified Qualified Code(s): I10 - Essential (primary) hypertension Code(s): I10 - Essential (primary) hypertension Status: Chronic Assessment and Plan: Pt had low blood pressures yesterday which caused him to stay in the IMU and fluid was given -Last bp improved 140/79 -continue parameters on blood pressure medications -b/c hx of CHF and findings of congestion will continue diuretics -Will monitor closely -May need to adjust daily medications if the hypotension continues. (5) Microcytic anemia: Code(s): D50.9 - Iron deficiency anemia, unspecified Status: Chronic Assessment and Plan: hgb 10.4, monitor -No signs of acute bleeding (6) Elevated troponin: Code(s): R77.8 - Other specified abnormalities of plasma proteins Status: Acute Assessment and Plan: As above -Could be related to congestive heart failure or renal failure. -No ACS suspected -EKG reviewed (7) Hyperlipidemia: Qualifiers: Hyperlipidemia type: unspecified Qualified Code(s): E78.5 - Hyperlipidemia, unspecified Code(s): E78.5 - Hyperlipidemia, unspecified Status: Chronic Assessment and Plan: Chronic . (8) BPH (benign prostatic hyperplasia): Qualifiers: Lower urinary tract symptom presence: unspecified whether lower urinary tract symptoms present Qualified Code(s): N40.0 - Benign prostatic hyperplasia without lower urinary tract symptoms Code(s): N40.0 - Benign prostatic hyperplasia without lower urinary tract symptoms Status: Chronic Assessment and Plan: chronic, no acute issues (9) Paroxysmal atrial fibrillation: Code(s): I48.0 - Paroxysmal atrial fibrillation Status: Chronic Assessment and Plan: Rate controlled -INR now slightly supra-therapeutic -hold warfarin today -monitor with daily INRs (10) Diabetes mellitus: Qualifiers: Diabetes mellitus type: type 2 Diabetes mellitus alf insulin use: without alf use Diabetes mellitus complication status: without complication Qualif
[2020-06-24] MEDS: MAGNESIUM SULF 2 GM/WATER 50ML 2 GM/50 ML BAG IVPB (09:48)
[2020-06-24] MEDS: POTASSIUM CHLORIDE 20 MEQ TABLET 40 MEQ PO (09:49)
[2020-06-24] MEDS: PANTOPRAZOLE 40 MG TABLET PO (09:50)
[2020-06-24] MEDS: ENALAPRIL MALEATE 10 MG TABLET 20 MG PO (09:50)
[2020-06-24] MEDS: FUROSEMIDE 20 MG TABLET PO (09:50)
[2020-06-24] MEDS: TAMSULOSIN HCL 0.4 MG CAPSULE PO (09:50)
[2020-06-24] MEDS: MAGNESIUM OXIDE 400 MG TABLET PO (09:50)
[2020-06-24] MEDS: ASPIRIN 81 MG CHEWABLE TABLET PO (09:54)
[2020-06-24 11:51] LABS: Glucose Point of Care 182 (65-105)
[2020-06-24 16:27] LABS: Glucose Point of Care 117 (65-105)
[2020-06-24 20:40] LABS: Glucose Point of Care 147 (65-105)
[2020-06-25] VITALS (13 sets, daily range): BP systolic 91–147; BP diastolic 56–63; PULSE 41–103; RESP 16–22; TEMP 36.3–36.6; O2SAT 97–100
[2020-06-25] MEDS: ALBUTEROL SULFATE (*SP) AEROSOL 1 PUFF 2 PUFF INHALATION ×4 (00:53→16:12)
[2020-06-25 05:46] LABS: Hematocrit 33.7 % (42.0-52.0); Hemoglobin 10.5 g/dL (14.0-18.0); Immature Platelet Fraction Pct 10.3 % (0.9-11.2); Mean Corpuscular HGB Conc 31.2 g/dl (32-36); Mean Corpuscular Hemoglobin 23.8 pg (26-34); Mean Corpuscular Volume 76.4 fl (80-100); Platelet Count Result 187 k/mm3 (150-375); Red Blood Count 4.41 M/mm3 (4.6-6.20); White Blood Count 7.3 K/mm3 (4.5-10.0)
[2020-06-25 05:52] LABS: INR 3.4
[2020-06-25 05:54] LABS: Anion Gap 7 mmol/L (8-16); Blood Urea Nitrogen 34 mg/dL (9-20); Calcium 8.6 mg/dL (8.4-10.2); Carbon Dioxide 28 mmol/L (22-30); Chloride 106 mmol/L (98-107); Estimated CRCL calculation 29 ml/min; Estimated Glomerular Filt Rate 39; Glucose 100 mg/dL (75-110); Magnesium 1.7 mg/dL (1.6-2.3); Sodium 141 mmol/L (137-145)
[2020-06-25 08:26] LABS: Glucose Point of Care 110 (65-105)
--- NOTE | 2020-06-25 08:59 | PM.IMPN ---
Progress Note: A&P Assessment and Plan (1) Pneumonia: Qualifiers: Laterality: bilateral Lung location: lower lobe of lung Pneumonia type: due to unspecified organism Qualified Code(s): J18.9 - Pneumonia, unspecified organism Code(s): J18.9 - Pneumonia, unspecified organism Status: Acute Assessment and Plan: Pneumonia suspected from patient's symptoms and chest x-ray findings. He previously had COVID-19 diagnosed June 01, 2020 and completed steroids. It's likely that he has bacterial pneumonia post viral infection. Vancomycin and Zosyn started 06/23; transitioned to PO doxy and augmentin 06/25. D-dimer elevated, could be due to acute illness. No DVT on imaging. PE less likely. Unable to get a CTA due to renal failure and V/Q scan will likely be in an accurate with lung disease. His Kidney fx is stable, may be able to get one if there is evidence of PE. Pt now off o2. As above, will transition to PO doxy and Augmentin; d/c Zosyn and Vanc Monitor labs obtain sputum culture Monitor overnight (2) Sepsis: Code(s): A41.9 - Sepsis, unspecified organism Status: Acute Assessment and Plan: evident by leukocytosis and hypotension 2/2 to PNA. Leukocytosis and BP improved today. BCx NGTD Continue with tx above (3) Chest pain: Code(s): R07.9 - Chest pain, unspecified Status: Acute Assessment and Plan: This was what brought him into the ER. Denies any further CP and no arm pain, jaw pain, or other findings of ACS. Could be pleuritic due to PNA. EKG compared to prior EKG which has no acute findings. BNP a little more elevated than prior studies. Troponins flat. Consider PE, may get CTA when Cr improves but less likely Will monitor for additional CP, no ACS suspected at this time. 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 Fleissner (4) HTN (hypertension): Qualifiers: Hypertension type: unspecified Qualified Code(s): I10 - Essential (primary) hypertension Code(s): I10 - Essential (primary) hypertension Status: Chronic Assessment and Plan: Pt had low blood pressures yesterday afternoon which caused him to stay in the IMU. Last BP 120s sys. Hold lasix today continue parameters on blood pressure medications Will monitor closely May need to adjust daily medications if the hypotension continues. Possibly adjust Vasotec (5) Microcytic anemia: Code(s): D50.9 - Iron deficiency anemia, unspecified Status: Chronic Assessment and Plan: hgb 10.5, no s/sx of bleeding monitor (6) Elevated troponin: Code(s): R77.8 - Other specified abnormalities of plasma proteins Status: Acute Assessment and Plan: As above. Could be related to congestive heart failure or renal failure. No ACS suspected. EKG reviewed Monitor (7) Hyperlipidemia: Qualifiers: Hyperlipidemia type: unspecified Qualified Code(s): E78.5 - Hyperlipidemia, unspecified Code(s): E78.5 - Hyperlipidemia, unspecified Status: Chronic Assessment and Plan: Chronic (8) BPH (benign prostatic hyperplasia): Qualifiers: Lower urinary tract symptom presence: unspecified whether lower urinary tract symptoms present Qualified Code(s): N40.0 - Benign prostatic hyperplasia without lower urinary tract symptoms Code(s): N40.0 - Benign prostatic hyperplasia without lower urinary tract symptoms Status: Chronic Assessment and Plan: chronic, no acute issues (9) Paroxysmal atrial fibrillation: Code(s): I48.0 - Paroxysmal atrial fibrilla
[2020-06-25] MEDS: PANTOPRAZOLE 40 MG TABLET PO (09:10)
[2020-06-25] MEDS: DOXYCYCLINE HYCLATE 100 MG TABLET PO ×2 (09:11→20:25)
[2020-06-25] MEDS: AMOXICILLIN/CLAVULANATE K 875-125 MG TAB 1 TABLET PO ×2 (09:11→20:25)
[2020-06-25] MEDS: TAMSULOSIN HCL 0.4 MG CAPSULE PO (09:11)
[2020-06-25] MEDS: ENALAPRIL MALEATE 10 MG TABLET 20 MG PO (09:12)
[2020-06-25] MEDS: ASPIRIN 81 MG CHEWABLE TABLET PO (09:16)
[2020-06-25] MEDS: POTASSIUM CHLORIDE 20 MEQ PACKET (FOR LIQUID) PO (09:16)
--- NOTE | 2020-06-25 11:20 | PCDIET ---
Nutrition Follow-Up Complete: Nutrition Diagnosis: Involuntary weight loss likely related to multiple medical issues, including COVID and dementia, as evidenced by 11.7% weight loss x 1 month which is significant. Nutrition Goal: Patient to consume 50% of meals/supplements or greater. Goal in progress. Patient consumed average of 43% of recorded meals from last review. Does not like Ensure Compact and refuses to drink it. Recommend change to Frozen Nutritional Treat (300kcal, 9g protein) BID. Last recorded weight is 82.5 kg which is decreased from last review. Bowel Motility: BM x 1 on 06/24/20. Labs Reviewed: Hgb (10.5), Hct (33.7), BUN (34), Cr (1.7), K (3.0) Meds Noted: Albuterol, Augmentin, Vibramycin, Lasix, Novolog, Atrovent, Mag-Ox, Protonix, KCl, Coumadin Additional Notes: No documented skin breakdown. Will continue to monitor with same goal. Nutrition Monitoring and Evaluation: Follow up in 5 days.
[2020-06-25 13:17] LABS: Glucose Point of Care 169 (65-105)
--- NOTE | 2020-06-25 16:55 | PC.NURSE ---
This patient, Kenneth Urrutia, was transferred to [[facility] ] on 06/25/20 at 1647. Personal belongings sent with patient. Report given to [Jade ]. Appropriate documentation sent with patient.
--- NOTE | 2020-06-25 17:01 | PC.NURSE ---
This patient, Kenneth Urrutia, was received from IMU on 06/25/20 at 1701. Patient/family oriented to unit policies and routines
[2020-06-25 17:46] LABS: Glucose Point of Care 132 (65-105)
--- NOTE | 2020-06-25 23:37 | PCRCNOTE ---
Addendum entered by Aggie Rodriges, [employer]UNTER 06/26/20 07:05: Apnea link [facility], 06/26/20. Original Note: Apnea study was not completed; There were not enough apnea monitors
[2020-06-26] VITALS (10 sets, daily range): BP systolic 105–154; BP diastolic 61–80; PULSE 54–113; RESP 16–20; TEMP 36.2–36.6; O2SAT 96–100
[2020-06-26 06:23] LABS: Basophils Absolute Auto 0.1 K/mm3 (0.0-0.1); Basophils Percent Auto 0.6 % (0.2-1.2); Eosinophils Absolute Auto 0.3 K/mm3 (0-0.3); Eosinophils Percent Auto 3.2 % (0-4.4); Hematocrit 35.1 % (42.0-52.0); Hemoglobin 10.9 g/dL (14.0-18.0); Immature Granulocyte Percent A 1.1 % (0-0.5); Immature Platelet Fraction Pct 11.5 % (0.9-11.2); Lymphocytes Absolute Auto 1.07 K/mm3 (0.9-3.2); Lymphocytes Percent Auto 12.3 % (18.3-44.2); Mean Corpuscular HGB Conc 31.1 g/dl (32-36); Mean Corpuscular Hemoglobin 23.9 pg (26-34); Monocytes Absolute Auto 0.6 K/mm3 (0.1-0.6); Monocytes Percent Auto 6.4 % (2.6-8.5); Neutrophils Absolute Auto 6.7 K/mm3 (1.3-6.7); Neutrophils Percent Auto 76.4 % (45.5-73.1); Platelet Count Result 193 k/mm3 (150-375); Red Blood Count 4.56 M/mm3 (4.6-6.20); White Blood Count 8.7 K/mm3 (4.5-10.0)
[2020-06-26 06:29] LABS: INR 3.2; Prothrombin Time 33.2 Seconds (11.1-14.7)
[2020-06-26 06:38] LABS: Anion Gap 6 mmol/L (8-16); Blood Urea Nitrogen 32 mg/dL (9-20); Carbon Dioxide 28 mmol/L (22-30); Chloride 105 mmol/L (98-107); Estimated CRCL calculation 33 ml/min; Estimated Glomerular Filt Rate 45; Glucose 97 mg/dL (75-110); Magnesium 1.6 mg/dL (1.6-2.3); Potassium 3.5 mmol/L (3.4-5.0); Sodium 139 mmol/L (137-145)
[2020-06-26 06:42] LABS: Microcytosis 1+ (NORMAL); Platelet Estimate Adequate (Adequate)
[2020-06-26 06:43] LABS: Anisocytosis 1+ (NORMAL); Burr Cells 1+ (NORMAL); Hypochromasia 2+ (NORMAL); Ovalocytes 2+ (NORMAL); Poikilocytosis 2+ (NORMAL)
[2020-06-26] MEDS: DOXYCYCLINE HYCLATE 100 MG TABLET PO ×2 (08:16→18:51)
[2020-06-26] MEDS: PANTOPRAZOLE 40 MG TABLET PO (08:16)
[2020-06-26] MEDS: TAMSULOSIN HCL 0.4 MG CAPSULE PO (08:16)
[2020-06-26] MEDS: ASPIRIN 81 MG CHEWABLE TABLET PO (08:16)
[2020-06-26] MEDS: AMOXICILLIN/CLAVULANATE K 875-125 MG TAB 1 TABLET PO ×2 (08:16→18:51)
[2020-06-26] MEDS: ENALAPRIL MALEATE 10 MG TABLET PO (08:16)
[2020-06-26 08:44] LABS: Glucose Point of Care 82 (65-105)
--- NOTE | 2020-06-26 08:49 | PM.DS ---
DS: Admitting Diagnosis Admitting Diagnosis Admitting Diagnosis: PNA DS: Discharge Diagnosis Discharge Diagnosis (1) Pneumonia: Qualifiers: Laterality: bilateral Lung location: lower lobe of lung Pneumonia type: due to unspecified organism Qualified Code(s): J18.9 - Pneumonia, unspecified organism Code(s): J18.9 - Pneumonia, unspecified organism Status: Acute Assessment and Plan: Pneumonia suspected from patient's symptoms and chest x-ray findings. He previously had COVID-19 diagnosed June 01, 2020 and completed steroids and Remdesivir course. It's likely that he has bacterial pneumonia post viral infection. Vancomycin and Zosyn started 06/21 (3.5 days); transitioned to PO doxy and augmentin 06/25 (day 2). D-dimer elevated, could be due to acute illness. No DVT on imaging. PE less likely. Unable to get a CTA due to renal failure and V/Q scan will likely be in an accurate with lung disease. Symptoms have overall improved, thus will defer further imaging at this time. Pt now off o2. Continue PO doxy and Augmentin through am of 07/01 to complete 10 days total antibiotics CBC in 1 week f/u with PCP (2) Sepsis: Code(s): A41.9 - Sepsis, unspecified organism Status: Acute Assessment and Plan: evident by leukocytosis and hypotension 2/2 to PNA. Leukocytosis and BP improved today. BCx NGTD Continue with tx above (3) Chest pain: Code(s): R07.9 - Chest pain, unspecified Status: Acute Assessment and Plan: This was what brought him into the ER. Denies any further CP and no arm pain, jaw pain, or other findings of ACS. Could be pleuritic due to PNA. EKG compared to prior EKG which has no acute findings. BNP a little more elevated than prior studies. Troponins flat. 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 Last BP 150s sys Hold lasix today and resume tomorrow Will decrease home Vasotec to 10 mg at discharge F/u with PCP/Cardiology after discharge Monitor daily BPs (5) Microcytic anemia: Code(s): D50.9 - Iron deficiency anemia, unspecified Status: Chronic Assessment and Plan: hgb 10.9, no s/sx of bleeding CBC 1 week (6) Elevated troponin: Code(s): R77.8 - Other specified abnormalities of plasma proteins Status: Acute Assessment and Plan: As above. Could be related to congestive heart failure or renal failure. No ACS suspected. EKG reviewed (7) Hyperlipidemia: Qualifiers: Hyperlipidemia type: unspecified Qualified Code(s): E78.5 - Hyperlipidemia, unspecified Code(s): E78.5 - Hyperlipidemia, unspecified Status: Chronic Assessment and Plan: Chronic (8) BPH (benign prostatic hyperplasia): Qualifiers: Lower urinary tract symptom presence: unspecified whether lower urinary tract symptoms present Qualified Code(s): N40.0 - Benign prostatic hyperplasia without lower urinary tract symptoms Code(s): N40.0 - Benign prostatic hyperplasia without lower urinary tract symptoms Status: Chronic Assessment and Plan: chronic, no acute issues (9) Paroxysmal atrial fibrillation: Code(s): I48.0
[2020-06-26] MEDS: ALBUTEROL SULFATE (*SP) AEROSOL 1 PUFF 2 PUFF INHALATION ×2 (12:38→16:37)
[2020-06-26 13:17] LABS: Glucose Point of Care 159 (65-105)
[2020-06-26 17:03] LABS: Glucose Point of Care 114 (65-105)
--- NOTE | 2020-06-26 17:06 | PC.NURSE ---
Patient has repeatedly refused a dinner tray. States he is being discharged soon and will eat something at home. Blood sugar WNL.
--- NOTE | 2020-06-28 02:27 | PCRCNOTE ---
Apnea link was not performed 06/26/20 due to patient being discharged.
== END 2020-06-26 19:00 | disposition home health service (06) | DRG 871 ==
LOC: ANHED 20:31 → ANHIMU 21:06 → ANH2MED 06-26 09:22 → ANHIMU 06-29 13:47
PROVIDERS: Nurse Practitioner; Physician Assistant; Admitting Provider Internal Medicine; Emergency Provider Emergency Medicine; PCP Family Medicine Adolescent Medicine; Visit Provider Physician Assistant
DX: A41.9 Sepsis, unspecified organism (principal); J18.9 Pneumonia, unspecified organism; I13.0 Hypertensive heart and chronic kidney disease with heart failure and stage 1 through stage 4 chronic kidney disease, or unspecified chronic kidney disease; N39.0 Urinary tract infection, site not specified; I50.32 Chronic diastolic (congestive) heart failure; F03.90 Unspecified dementia, unspecified severity, without behavioral disturbance, psychotic disturbance, mood disturbance, and anxiety; N18.30 Chronic kidney disease, stage 3 unspecified; E11.22 Type 2 diabetes mellitus with diabetic chronic kidney disease; E11.40 Type 2 diabetes mellitus with diabetic neuropathy, unspecified; E11.51 Type 2 diabetes mellitus with diabetic peripheral angiopathy without gangrene; E11.319 Type 2 diabetes mellitus with unspecified diabetic retinopathy without macular edema; R00.1 Bradycardia, unspecified; I71.4 Abdominal aortic aneurysm, without rupture; I48.0 Paroxysmal atrial fibrillation; E87.6 Hypokalemia; E53.8 Deficiency of other specified B group vitamins; E86.0 Dehydration; R53.1 Weakness; N40.0 Benign prostatic hyperplasia without lower urinary tract symptoms; F17.220 Nicotine dependence, chewing tobacco, uncomplicated; E78.5 Hyperlipidemia, unspecified; I25.10 Atherosclerotic heart disease of native coronary artery without angina pectoris; R79.89 Other specified abnormal findings of blood chemistry; R77.8 Other specified abnormalities of plasma proteins; D50.9 Iron deficiency anemia, unspecified; Z79.01 Long term (current) use of anticoagulants; Z79.84 Long term (current) use of oral hypoglycemic drugs; Z86.16 Personal history of COVID-19; Z86.73 Personal history of transient ischemic attack (TIA), and cerebral infarction without residual deficits; Z98.42 Cataract extraction status, left eye; Z98.41 Cataract extraction status, right eye
CPT/HCPCS: 36415; 71045; 74176; 80048; 80053; 80076; 80202; 81001; 82948; 83036; 83605; 83735; 83880; 84484; 85025; 85027; 85055; 85380; 85610; 85730; 86140; 87040; 87086; 87088; 87324; 93005; 93970; 94640; 96360; 97110; 97116; 97161; 97165; 97530; 97535; 99285; A9270; J2543; J3370; J3475; J3480; J7030; J7040

== ENCOUNTER 2020-06-29 11:08 | Outpatient (NON) | payer MEDICARE, SELFPAY ==
[2020-06-29 11:35] LABS: INR 2.6; Prothrombin Time 28.2 Seconds (11.1-14.7)
== END 2020-06-29 11:09 ==
PROVIDERS: PCP Family Medicine Adolescent Medicine; Visit Provider Physician Assistant
DX: R79.1 Abnormal coagulation profile (principal); Z79.01 Long term (current) use of anticoagulants
CPT/HCPCS: 85610

== ENCOUNTER 2020-07-01 14:09 | Outpatient (NON) | payer MEDICARE, SELFPAY ==
[2020-07-01 16:43] LABS: Basophils Absolute Auto 0.1 K/mm3 (0.0-0.1); Basophils Percent Auto 0.7 % (0.2-1.2); Eosinophils Absolute Auto 0.2 K/mm3 (0-0.3); Eosinophils Percent Auto 2.6 % (0-4.4); Hematocrit 33.3 % (42.0-52.0); Hemoglobin 10.4 g/dL (14.0-18.0); Immature Granulocyte Absolute 0.08 K/mm3 (0.00-0.031); Immature Granulocyte Percent A 0.9 % (0-0.5); Immature Platelet Fraction Pct 10.8 % (0.9-11.2); Lymphocytes Absolute Auto 1.36 K/mm3 (0.9-3.2); Mean Corpuscular HGB Conc 31.2 g/dl (32-36); Mean Corpuscular Volume 76.9 fl (80-100); Monocytes Absolute Auto 0.6 K/mm3 (0.1-0.6); Monocytes Percent Auto 6.1 % (2.6-8.5); Neutrophils Absolute Auto 6.8 K/mm3 (1.3-6.7); Neutrophils Percent Auto 74.7 % (45.5-73.1); Platelet Count Result 268 k/mm3 (150-375); Red Blood Count 4.33 M/mm3 (4.6-6.20); White Blood Count 9.1 K/mm3 (4.5-10.0)
[2020-07-01 16:48] LABS: INR 2.9; Prothrombin Time 30.5 Seconds (11.1-14.7)
[2020-07-01 17:24] LABS: Acanthocytes 1+ (NORMAL); Anisocytosis 1+ (NORMAL); Hypochromasia 1+ (NORMAL); Ovalocytes 2+ (NORMAL); Platelet Estimate Adequate (Adequate); Poikilocytosis 2+ (NORMAL)
[2020-07-02 10:36] LABS: Anion Gap 13 mmol/L (8-16); Blood Urea Nitrogen 35 mg/dL (9-20); Calcium 9.2 mg/dL (8.4-10.2); Carbon Dioxide 24 mmol/L (22-30); Chloride 106 mmol/L (98-107); Estimated Glomerular Filt Rate 36; Magnesium 1.5 mg/dL (1.6-2.3); Potassium 3.7 mmol/L (3.4-5.0); Sodium 143 mmol/L (137-145)
== END 2020-07-01 14:10 ==
PROVIDERS: PCP Family Medicine Adolescent Medicine; Visit Provider Physician Assistant
DX: R79.1 Abnormal coagulation profile (principal); Z79.01 Long term (current) use of anticoagulants; J18.9 Pneumonia, unspecified organism; N17.9 Acute kidney failure, unspecified; N18.30 Chronic kidney disease, stage 3 unspecified
CPT/HCPCS: 80048; 83735; 85025; 85055; 85610

== ENCOUNTER 2020-07-15 11:20 | Outpatient (NON) | payer MEDICARE, SELFPAY ==
[2020-07-15 13:04] LABS: Anion Gap 6 mmol/L (8-16); Blood Urea Nitrogen 19 mg/dL (9-20); Carbon Dioxide 30 mmol/L (22-30); Chloride 103 mmol/L (98-107); Estimated Glomerular Filt Rate > 60; Glucose 108 mg/dL (75-110); Potassium 4.1 mmol/L (3.4-5.0); Sodium 139 mmol/L (137-145)
== END 2020-07-15 11:21 | disposition home or self-care (01) ==
PROVIDERS: PCP Family Medicine Adolescent Medicine; Visit Provider Specialist
DX: J18.9 Pneumonia, unspecified organism (principal); I25.10 Atherosclerotic heart disease of native coronary artery without angina pectoris; A41.9 Sepsis, unspecified organism; U07.1 COVID-19
CPT/HCPCS: 80048

== ENCOUNTER 2020-08-04 12:58 | Outpatient (RCR) | payer MEDICARE, SELFPAY ==
[2020-08-04 13:59] VITALS: BMI 28.9
== END 2020-09-02 10:42 | disposition home or self-care (01) ==
LOC: ANHWOC 12:58
PROVIDERS: PCP Family Medicine Adolescent Medicine; Visit Provider Specialist
DX: I87.319 Chronic venous hypertension (idiopathic) with ulcer of unspecified lower extremity (principal)
CPT/HCPCS: 99212; G0463

== ENCOUNTER 2020-09-22 03:24 | Inpatient (IN) | payer MEDICARE, SELFPAY ==
[2020-09-22] VITALS (7 sets, daily range): BP systolic 124–168; BP diastolic 53–76; PULSE 57–85; RESP 16–22; TEMP 36.3–36.9; O2SAT 95–99
--- NOTE | 2020-09-22 04:02 | ED.MALEGU ---
HPI - Male Genitourinary General Chief complaint: Urogenital-Male Stated complaint: painful urination Time Seen by Provider: 09/22/20 03:54 Source: patient Mode of arrival: EMS Limitations: no limitations History of Present Illness HPI Narrative: Patient is an 85-year-old male complaining of dysuria x2 days. Patient denies any hematuria or increase in urinary frequency. Patient denies any abdominal pain, nausea, vomiting, fever or chills. Related Data Home Medications Medication Instructions Recorded Confirmed indapamide 2.5 mg PO DAILY 05/12/20 08/04/20 metformin 1,000 mg PO BID 05/12/20 08/04/20 omeprazole 20 mg PO DAILY 05/12/20 08/04/20 rosuvastatin 5 mg PO DAILY 05/12/20 08/04/20 tamsulosin 0.4 mg PO DAILY 05/12/20 08/04/20 furosemide 20 mg PO DAILY 05/30/20 08/04/20 aspirin 81 mg PO DAILY 06/12/20 08/04/20 Allergies Allergy/AdvReac Type Severity Reaction Status Date / Time No Known Allergies Allergy Verified 06/21/20 18:53 Review of Systems Review of Systems: All systems reviewed & are unremarkable except as noted in HPI and below Constitutional: Constitutional: Denies body ache(s), Denies chills, Denies excessive sweating, Denies fatigue, Denies fever(s), Denies headache(s), Denies lethargy, Denies malaise, Denies weakness and Denies weight loss Eyes: Eyes: Denies blurry vision, Denies change in vision and Denies loss of vision ENT: Denies dizziness, Denies ear discharge, Denies headache(s), Denies lip swelling, Denies epistaxis, Denies nasal congestion, Denies neck pain, Denies throat swelling and Denies tongue swelling Cardiovascular: Cardiovascular: Denies chest pain, Denies chest pain at rest, Denies chest pain with activity, Denies diaphoresis, Denies rapid heart rate, Denies edema, Denies irregular heart rhythm, Denies lightheadedness, Denies palpitations, Denies dyspnea and Denies dyspnea on exertion Respiratory: Respiratory: Denies chest congestion, Denies cough, Denies hemoptysis, Denies dyspnea and Denies dyspnea on exertion Gastrointestinal: Gastrointestinal: Denies abdominal pain, Denies melena, Denies hematochezia, Denies diarrhea, Denies nausea, Denies vomiting and Denies hematemesis Musculoskeletal: Musculoskeletal: Denies abnormal gait, Denies deformity, Denies joint swelling, Denies limited range of motion, Denies neck pain and Denies numbness Neurologic: Denies Abnormal speech present, Denies abnormal gait, Denies confusion, Denies dizziness, Denies headache(s), Denies focal weakness, Denies loss of vision, Denies numbness, Denies Other visual disturbances, Denies Sensory deficit (Neuro) and Denies weakness Psychiatric: Psychiatric: Denies confusion, Denies depression, Denies auditory hallucinations, Denies homicidal ideation and Denies suicidal ideation Endocrine: Endocrine: Denies cold intolerance, Denies excessive sweating, Denies fatigue, Denies heat intolerance and Denies palpitations Hematologic/Lymphatic: Hematologic/Lymphatic: Denies easy bleeding and Denies easy bruising Allergic/Immunologic: Allergic/Immunologic: Denies lip swelling, Denies throat swelling and Denies tongue swelling PMFSH Past Medical History Medical History B12 deficiency BPH (benign prostatic hyperplasia) Bradycardia CAD (coronary artery disease) Chewing tobacco nicotine dependence CHF (congestive heart failure) echocardiogram April 2020: EF 60-65%, indeterminate diastolic function, moderate right ventricular enlargement, severe left atrial enlargement, moderate right atrial enlargement, mild mitral valve and tricuspid valve regurgitation, [id number] aortic valve regurgitation, mild pulmonary hypertension Chronic kidney disease, stage 3 with baseline creatinine between 1 and 1.4 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
[2020-09-22 04:10] LABS: Add Urine Microscopic? YES; Appearance Urine Cloudy (Clear); Bacteria Urine Trace /hpf; Bilirubin Urine Negative (Negative); Blood Urine 1+ (Negative); Color Urine Yellow (Yellow); Glucose Urine UA Negative (Negative); Ketones Urine Negative (Negative); Leukocyte Esterase Ur 3+ LEU/UL (Negative); Nitrate Urine Negative (Negative); Protein Urine 2+ mg/dL (Negative); Specific Grav Ur 1.011 (1.001-1.035); Squamous Epithelial Cell Urine Occasional /hpf (Few); Urobilinogen Urine Negative mg/dL (<2.0); WBC Clumps Urine Present /HPF; WBC Urine >75 /hpf
[2020-09-22 04:46] LABS: Basophils Percent Auto 0.4 % (0.2-1.2); Eosinophils Absolute Auto 0.3 K/mm3 (0-0.3); Eosinophils Percent Auto 2.9 % (0-4.4); Hematocrit 37.4 % (42.0-52.0); Hemoglobin 12.3 g/dL (14.0-18.0); Immature Granulocyte Absolute 0.06 K/mm3 (0.00-0.031); Immature Granulocyte Percent A 0.6 % (0-0.5); Lymphocytes Absolute Auto 1.36 K/mm3 (0.9-3.2); Lymphocytes Percent Auto 14.1 % (18.3-44.2); Mean Corpuscular HGB Conc 32.9 g/dl (32-36); Mean Corpuscular Hemoglobin 28.5 pg (26-34); Mean Corpuscular Volume 86.8 fl (80-100); Mean Platelet Volume 11.7 fl (7.4-10.4); Monocytes Absolute Auto 0.8 K/mm3 (0.1-0.6); Monocytes Percent Auto 8.3 % (2.6-8.5); Neutrophils Absolute Auto 7.1 K/mm3 (1.3-6.7); Neutrophils Percent Auto 73.7 % (45.5-73.1); Platelet Count Result 184 k/mm3 (150-375); Red Blood Count 4.31 M/mm3 (4.6-6.20); Red Cell Distribution Width 15.2 % (11.5-14.5); White Blood Count 9.6 K/mm3 (4.5-10.0)
[2020-09-22 04:55] LABS: Anion Gap 11 mmol/L (8-16); Blood Urea Nitrogen 54 mg/dL (9-20); Carbon Dioxide 31 mmol/L (22-30); Chloride 97 mmol/L (98-107); Estimated CRCL calculation 31 ml/min; Estimated Glomerular Filt Rate 41; Glucose 135 mg/dL (75-110); Potassium 3.1 mmol/L (3.4-5.0); Sodium 139 mmol/L (137-145)
[2020-09-22] MEDS: HYDROcodone/acetaminophen (*CRX) 5-325 MG TABLET 1 TAB PO (05:17)
[2020-09-22] MEDS: POTASSIUM CHLORIDE 20 MEQ PACKET (FOR LIQUID) PO ×2 (05:18→15:15)
[2020-09-22] MEDS: LACTATED RINGERS 1,000 ML 90 ML IV CONT (05:19)
--- NOTE | 2020-09-22 05:22 | PC.NURSE ---
Pt refusing Beltre catheter at this time.
--- NOTE | 2020-09-22 06:10 | ADMGEN ---
This patient, Kenneth Urrutia, was admitted to [facility] Surg Room 313-01. Patient/family oriented to hospital policies and general routines including ID bracelet, bed and alarms, visiting hours, pain management, procedures, bathroom and other care routines, personal items, smoking policy, room service/diet, and visiting hours. Information on how to activate the Rapid Response Team has been discussed. Patient/Family are encouraged to report perceived risks to care and to ask questions if they do not understand what they are told or what they should do.
--- NOTE | 2020-09-22 09:37 | PM.IMHP ---
H&P: HPI History of Present Illness Date/Time: 09/22/20 9;53 am 85 years old male with history of multiple medical problems including atrial fibrillation, congestive heart failure, chronic renal failure, benign prostatic hypertrophy and essential hypertension was admitted to the emergency room with complaints of having burning urination going on for last few days. Patient also complained of having increased frequency. No hematuria as per patient. Patient also complained had generalized weakness. Patient also felt that he has low-grade fever. No shortness of breath or chest pain. Chief Complaint: Burning Urination Review of Systems Review of Systems: All systems reviewed & are unremarkable except as noted in HPI and below (the history and physical exam.) [facility] Past Medical History Medical History B12 deficiency BPH (benign prostatic hyperplasia) Bradycardia CAD (coronary artery disease) Chewing tobacco nicotine dependence CHF (congestive heart failure) echocardiogram April 2020: EF 60-65%, indeterminate diastolic function, moderate right ventricular enlargement, severe left atrial enlargement, moderate right atrial enlargement, mild mitral valve and tricuspid valve regurgitation, [id number] aortic valve regurgitation, mild pulmonary hypertension Chronic kidney disease, stage 3 with baseline creatinine between 1 and 1.4 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 They have been since 1949. He is retired from [employer]. He lives with his and his sister. His sister is a durable power assistant attorney general for healthcare. The grandson is at the bedside and stated that the patient is a full code. The patient is currently in [facility] . Patient quit smoking and had been using smokeless tobacco as well. Primary care physician: Dr. Shin Hdz Code status: Full code Surrogate decision maker: Smoking packs per day: 4 Smoking cigarettes per day: 80.0 Years smoked: 10 Smoking pack-years: 40.00 Smoking status: Former smoker Tobacco type: smokeless tobacco Smokeless tobacco user: snuff Second hand tobacco smoke exposure: No Smoking end date: 09/22/20 Additional smoking assessment comments: chews tobacco constantly++ Alcohol intake: never Drinks per week: 2 Substance use: never Substance use type: does not use Gender identity (if verbalized by the patient): Male Spiritual care concerns: No Meds Home Medications and Allergies Home Medications Medication Instructions Recorded Confirmed Type metformin 1,000 mg PO BID 05/12/20 09/22/20 History omeprazole 20 mg PO DAILY 05/12/20 09/22/20 History rosuvastatin 5 mg PO DAILY 05/12/20 09/22/20 History tamsulosin 0.4 mg PO DAILY 05/12/20 09/22/20 History Aloe [place] Antifungal (micon) 1 applic TOPICAL Q12HR #1692 g 05/16/20 09/22/20 Rx sodium chloride [Saline Mist] 1 spray INTRANASAL Q6HR PRN #30 ml 05/16/20 09/22/20 Rx furosemide 20 mg PO BID 05/30/20 09/22/20 History acetaminophen [Mapap 650 mg PO Q4H PRN #0 tablet 06/06/20 09/22/20 Rx (acetaminophen)] ferrous sul
[2020-09-22 12:09] LABS: Glucose Point of Care 147 mg/dl (65-105)
[2020-09-22 17:01] LABS: Glucose Point of Care 159 mg/dl (65-105)
--- NOTE | 2020-09-22 18:53 | PC.NURSE ---
Returned call to patient family member perry north and answered questions regarding patient's prognosis. Advised family that patient is not leaving today and that more lab work is being drawn in the a.m. Encouraged family to call if more questions. Will continue to monitor patient.
[2020-09-22 21:36] LABS: Glucose Point of Care 144 mg/dl (65-105)
[2020-09-23 05:38] VITALS: BP 130/61; PULSE 66; RESP 18; TEMP 36.3; O2SAT 99
[2020-09-23 06:29] LABS: Prothrombin Time 23.2 Seconds (11.1-14.7)
[2020-09-23 06:36] LABS: Anion Gap 13 mmol/L (8-16); Blood Urea Nitrogen 38 mg/dL (9-20); Calcium 9.9 mg/dL (8.4-10.2); Carbon Dioxide 29 mmol/L (22-30); Chloride 97 mmol/L (98-107); Estimated CRCL calculation 37 ml/min; Estimated Glomerular Filt Rate 53; Glucose 132 mg/dL (75-110); Potassium 3.1 mmol/L (3.4-5.0); Sodium 139 mmol/L (137-145)
[2020-09-23 08:18] LABS: Glucose Point of Care 137 mg/dl (65-105)
--- NOTE | 2020-09-23 09:53 | PM.IMPN ---
Progress Note: A&P Assessment and Plan (1) Urinary tract infection: Qualifiers: Hematuria presence: without hematuria Urinary tract infection type: acute cystitis Qualified Code(s): N30.00 - Acute cystitis without hematuria Code(s): N39.0 - Urinary tract infection, site not specified Status: Acute Assessment and Plan: Urine culture is pending, will continue with IV antibiotics. (2) Hypokalemia: Code(s): E87.6 - Hypokalemia Status: Acute Assessment and Plan: replace and monitor. (3) CHF (congestive heart failure): Code(s): I50.9 - Heart failure, unspecified Status: Chronic Assessment and Plan: Stable on current medication. (4) CAD (coronary artery disease): Code(s): I25.10 - Atherosclerotic heart disease of [place] coronary artery without angina pectoris Status: Acute Assessment and Plan: Stable on current medication. (5) Paroxysmal atrial fibrillation: Code(s): I48.0 - Paroxysmal atrial fibrillation Status: Chronic Assessment and Plan: INR is optimal will continue with the warfarin. 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 insulin use: without long-term use Diabetes mellitus complication status: without complication Qualified Code(s): E11.9 - Type 2 diabetes mellitus without complications Code(s): E11.9 - Type 2 diabetes mellitus without complications Status: Chronic Assessment and Plan: Stable at present (7) BPH (benign prostatic hyperplasia): Qualifiers: Lower urinary tract symptom presence: unspecified whether lower urinary tract symptoms present Qualified Code(s): N40.0 - Benign prostatic hyperplasia without lower urinary tract symptoms Code(s): N40.0 - Benign prostatic hyperplasia without lower urinary tract symptoms Status: Chronic Assessment and Plan: continue current medication (8) HTN (hypertension): Qualifiers: Hypertension type: unspecified Qualified Code(s): I10 - Essential (primary) hypertension Code(s): I10 - Essential (primary) hypertension Status: Chronic Assessment and Plan: stable at present time Additional Plan Will admit patient for 23 hour observation. We do urine culture and continue IV antibiotics. Replace and monitor potassium. INR is optimal will continue with warfarin. Patient is full code at present time. 09/23/20: will replace potassium, urine culture is pending, will continue current antibiotics. Subjective Date/time seen: 09/23/20 09:53 Patient was seen during the morning rounds today. Patient is feeling better. No shortness of breath or chest pain. No abdominal pain, no nausea, no vomiting. Mood stable. Review of Systems Review of Systems: All systems reviewed & are unremarkable except as noted in HPI and below (the history and physical exam.) Exam Narrative: Exam Narrative: Const: General: cooperative, comfortable, no acute distress, well developed, alert and awake; No confusion Orientation/consciousness: oriented to person, oriented to place, oriented to time, patient oriented x3, No confusion and Other orientation findings Limitations: no limitations HENMT: Head: normal to inspection, normocephalic and atraumatic Ears: hearing grossly normal bilaterally, TM normal on the right and TM normal on the left General nose exam: Normal external nose present, Normal nares present and No nasal discharge present Face and sinus: normal facial exam Mouth: Yes Normal oral and palatal mucosa present, Yes lip normal, Yes tongue normal and Yes oropharynx normal Throat: posterior oropharynx normal, tonsils normal and uvula midline Eyes: General: appearance normal, both eyes and all related structures Pupils: Equal, round and reactive pupils present EOM: EOMs intact bilaterally Neck: Neck: normal visual inspecti
[2020-09-23 10:15] VITALS: O2SAT 95
[2020-09-23] MEDS: MAGNESIUM OXIDE 400 MG TABLET PO (12:14)
[2020-09-23 12:18] LABS: Glucose Point of Care 182 mg/dl (65-105)
[2020-09-23 13:53] VITALS: BP 126/61; PULSE 75; RESP 16; TEMP 36.5; O2SAT 99
[2020-09-23 16:55] LABS: Glucose Point of Care 136 mg/dl (65-105)
[2020-09-23] MEDS: FUROSEMIDE 20 MG TABLET PO (17:23)
[2020-09-23] MEDS: metFORMIN HCL 500 MG TABLET 1000 MG PO (17:23)
[2020-09-23] MEDS: POTASSIUM CHLORIDE 20 MEQ PACKET (FOR LIQUID) 40 MEQ PO (17:24)
[2020-09-23] MEDS: WARFARIN (*PBKC) 4 MG TABLET PO (17:24)
[2020-09-23 20:27] LABS: Glucose Point of Care 153 mg/dl (65-105)
[2020-09-23 21:07] VITALS: BP 169/89; PULSE 96; RESP 20; TEMP 36.9; O2SAT 93
[2020-09-24] MEDS: ACETAMINOPHEN 325 MG TABLET 650 MG PO (00:22)
[2020-09-24 00:23] VITALS: BMI 28.9
[2020-09-24 04:54] VITALS: BP 145/78; PULSE 64; RESP 20; TEMP 36; O2SAT 96
[2020-09-24 06:21] LABS: Anion Gap 10 mmol/L (8-16); Blood Urea Nitrogen 33 mg/dL (9-20); Calcium 9.9 mg/dL (8.4-10.2); Carbon Dioxide 31 mmol/L (22-30); Chloride 98 mmol/L (98-107); Estimated CRCL calculation 35 ml/min; Estimated Glomerular Filt Rate 48; Glucose 117 mg/dL (75-110); Potassium 3.6 mmol/L (3.4-5.0); Sodium 139 mmol/L (137-145)
--- NOTE | 2020-09-24 07:44 | PM.IMPN ---
Progress Note: A&P Assessment and Plan (1) Urinary tract infection: Qualifiers: Hematuria presence: without hematuria Urinary tract infection type: acute cystitis Qualified Code(s): N30.00 - Acute cystitis without hematuria Code(s): N39.0 - Urinary tract infection, site not specified Status: Acute Assessment and Plan: Urine culture is pending, will continue with IV antibiotics. (2) Hypokalemia: Code(s): E87.6 - Hypokalemia Status: Acute Assessment and Plan: replace and monitor. (3) CHF (congestive heart failure): Code(s): I50.9 - Heart failure, unspecified Status: Chronic Assessment and Plan: Stable on current medication. (4) CAD (coronary artery disease): Code(s): I25.10 - Atherosclerotic heart disease of [place] coronary artery without angina pectoris Status: Acute Assessment and Plan: Stable on current medication. (5) Paroxysmal atrial fibrillation: Code(s): I48.0 - Paroxysmal atrial fibrillation Status: Chronic Assessment and Plan: INR is optimal will continue with the warfarin. 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 insulin use: without marine oil terminal superintendent use Diabetes mellitus type: type 2 Qualified Code(s): E11.9 - Type 2 diabetes mellitus without complications Code(s): E11.9 - Type 2 diabetes mellitus without complications Status: Chronic Assessment and Plan: Stable at present (7) BPH (benign prostatic hyperplasia): Qualifiers: Lower urinary tract symptom presence: unspecified whether lower urinary tract symptoms present Qualified Code(s): N40.0 - Benign prostatic hyperplasia without lower urinary tract symptoms Code(s): N40.0 - Benign prostatic hyperplasia without lower urinary tract symptoms Status: Chronic Assessment and Plan: continue current medication (8) HTN (hypertension): Qualifiers: Hypertension type: unspecified Qualified Code(s): I10 - Essential (primary) hypertension Code(s): I10 - Essential (primary) hypertension Status: Chronic Assessment and Plan: stable at present time Additional Plan Will admit patient for 23 hour observation. We do urine culture and continue IV antibiotics. Replace and monitor potassium. INR is optimal will continue with warfarin. Patient is full code at present time. 09/23/20: will replace potassium, urine culture is pending, will continue current antibiotics. Subjective Date/time seen: 09/24/20 07:44 Review of Systems Review of Systems: All systems reviewed & are unremarkable except as noted in HPI and below (the history and physical exam.) Constitutional: Constitutional: Denies excessive sweating, Denies headache(s), Denies increased appetite, Denies snoring and Denies weight gain Eyes: Eyes: Denies exophthalmos, Denies diplopia, Denies floaters and Denies loss of peripheral vision ENT: Denies facial pain, Denies headache(s), Denies odynophagia and Denies tinnitus Respiratory: Respiratory: Denies snoring Gastrointestinal: Gastrointestinal: Denies odynophagia Neurologic: Denies headache(s) Endocrine: Endocrine: Denies excessive sweating Exam Narrative: Exam Narrative: Const: General: cooperative, comfortable, no acute distress, well developed, alert and awake; No confusion Orientation/consciousness: oriented to person, oriented to place, oriented to time, patient oriented x3, No confusion and Other orientation findings Limitations: no limitations HENMT: Head: normal to inspection, normocephalic and atraumatic Ears: hearing grossly normal bilaterally, TM normal on the right and TM normal on the left General nose exam: Normal external nose present, Normal nares present and No nasal discharge present Face and sinus: normal facial exam Mouth: Yes Normal oral an
[2020-09-24 08:02] LABS: Glucose Point of Care 116 mg/dl (65-105)
[2020-09-24] MEDS: metFORMIN HCL 500 MG TABLET 1000 MG PO (09:21)
[2020-09-24] MEDS: ENALAPRIL MALEATE 10 MG TABLET PO (09:21)
[2020-09-24] MEDS: TAMSULOSIN HCL 0.4 MG CAPSULE PO (09:21)
[2020-09-24] MEDS: FERROUS SULFATE 324 MG TABLET PO (09:21)
[2020-09-24] MEDS: MAGNESIUM OXIDE 400 MG TABLET PO (09:21)
[2020-09-24] MEDS: ROSUVASTATIN 5 MG TABLET PO (09:21)
[2020-09-24] MEDS: ASPIRIN 81 MG CHEWABLE TABLET PO (09:22)
[2020-09-24] MEDS: FUROSEMIDE 20 MG TABLET PO (09:22)
[2020-09-24] MEDS: PANTOPRAZOLE 40 MG TABLET PO (09:22)
[2020-09-24 12:21] LABS: Glucose Point of Care 185 mg/dl (65-105)
[2020-09-24 14:00] VITALS: BP 107/64; PULSE 71; RESP 16; TEMP 36.7; O2SAT 100
--- NOTE | 2020-09-24 15:52 | PM.DS ---
DS: Admitting Diagnosis Admitting Diagnosis Admitting Diagnosis: Hypokalemia, UTI DS: Discharge Diagnosis Discharge Diagnosis (1) Urinary tract infection: Qualifiers: Hematuria presence: without hematuria Urinary tract infection type: acute cystitis Qualified Code(s): N30.00 - Acute cystitis without hematuria Code(s): N39.0 - Urinary tract infection, site not specified Status: Acute Assessment and Plan: despite UA being +, the urine cultures showed no definitive bacterial growth. RESULT: Growth of mixed ben was isolated, suggesting probable contamination. No further testing will be performed. Patient received 3 days of IV Rocephin. -->Follow up with your Primary Care Provider to monitor RENAL (kidney) function and get a Urine Culture collected in 5-10 days to follow up on ensuring no residual UTI. If you have fever or weakness or burning or urgency or pain or pressure with your urination - then you may have a urinary infection and need to see your Primary Care Provider right away. Your urine should be light yellow in color, NOT tea colored or josiah in color. Make sure you are urinating multiple times daily. (2) Hypokalemia: Code(s): E87.6 - Hypokalemia Status: Acute Assessment and Plan: replaced and monitored. K = 3.6 today. patient was increased from Lasix daily to Lasix BID at [employer] potassium levels appear to be on the low side per labwork since Follow up with your [employer] and Primary Care Provider to monitor Potassium level and RENAL (kidney) function (3) CHF (congestive heart failure): Code(s): I50.9 - Heart failure, unspecified Status: Chronic Assessment and Plan: Stable on current medication. -->Wear your BRANDY hose (also called compression stockings) every day. Put on 1st thing every morning and remove at night before going to bed. Use a shower chair for safety when taking a shower. Use your walker for all transfers and ambulation. (4) CAD (coronary artery disease): Code(s): I25.10 - Atherosclerotic heart disease of [place] coronary artery without angina pectoris Status: Acute Assessment and Plan: Stable on current medication. no chest pain or SOB today. did well with PT (5) Paroxysmal atrial fibrillation: Code(s): I48.0 - Paroxysmal atrial fibrillation Status: Chronic Assessment and Plan: INR is optimal will continue with the warfarin. INR 2.0 today. Get your INR checked and follow up for any dose changes. As medications, such as antibiotics in the hospital, may affect your Warfarin absorption. 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 continue home regime and F/U with PCP (7) BPH (benign prostatic hyperplasia): Qualifiers: Lower urinary tract symptom presence: unspecified whether lower urinary tract symptoms present Qualified Code(s): N40.0 - Benign prostatic hyperplasia without lower urinary tract symptoms Code(s): N40.0 - Benign prostatic hyperplasia without lower urinary tract symptoms Status: Chronic Assessment and Plan: continue current medication (8) HTN (hypertension): Qualifiers: Hypertension type: unspecified Qualified Code(s): I10 - Essential (primary) hypertension Code(s): I10 - Essential (primary) hypertension Status: Chronic Assessment and Plan: stable at present time BPs 126/61, BP 107/64 and HR 71 continue home regime and F/U with PCP DS: Summary Hospital Course Hospital Course: Hypokalemia treated w
[2020-09-24] MEDS: EUCERIN CREAM 120 GM JAR 1 APPLIC TOPICAL (16:10)
[2020-09-24] MEDS: POTASSIUM CHLORIDE 20 MEQ TABLET.ER PO (16:24)
== END 2020-09-24 16:55 | disposition home or self-care (01) | DRG 690 ==
LOC: ANHED 05:11 → ANH3MEDSUR 05:26
PROVIDERS: Internal Medicine; Admitting Provider Internal Medicine; Emergency Provider Emergency Medicine; PCP Family Medicine Adolescent Medicine; Visit Provider Internal Medicine
DX: N39.0 Urinary tract infection, site not specified (principal); N17.9 Acute kidney failure, unspecified; I13.0 Hypertensive heart and chronic kidney disease with heart failure and stage 1 through stage 4 chronic kidney disease, or unspecified chronic kidney disease; I48.19 Other persistent atrial fibrillation; I69.354 Hemiplegia and hemiparesis following cerebral infarction affecting left non-dominant side; I50.9 Heart failure, unspecified; E87.6 Hypokalemia; E11.22 Type 2 diabetes mellitus with diabetic chronic kidney disease; N18.30 Chronic kidney disease, stage 3 unspecified; I25.10 Atherosclerotic heart disease of native coronary artery without angina pectoris; N40.0 Benign prostatic hyperplasia without lower urinary tract symptoms; E11.42 Type 2 diabetes mellitus with diabetic polyneuropathy; E11.319 Type 2 diabetes mellitus with unspecified diabetic retinopathy without macular edema; E11.51 Type 2 diabetes mellitus with diabetic peripheral angiopathy without gangrene; I73.9 Peripheral vascular disease, unspecified; E78.5 Hyperlipidemia, unspecified; D50.9 Iron deficiency anemia, unspecified; E53.8 Deficiency of other specified B group vitamins; Z79.01 Long term (current) use of anticoagulants; Z98.42 Cataract extraction status, left eye; Z98.41 Cataract extraction status, right eye; Z95.1 Presence of aortocoronary bypass graft; Z87.891 Personal history of nicotine dependence
CPT/HCPCS: 36415; 80048; 81001; 82948; 85025; 85610; 87086; 87088; 96365; 97110; 97161; 97165; 97530; 97535; 99285; A9270; G0378; J0696; J7120

== ENCOUNTER 2020-09-29 14:43 | Outpatient (CLI) | payer MEDICARE, SELFPAY ==
[2020-09-29 15:09] LABS: Alanine Aminotransferase 17 U/L (4-50); Albumin Level 4.2 g/dL (3.5-5.1); Alkaline Phosphatase 58 U/L (38-126); Anion Gap 13 mmol/L (8-16); Aspartate Amino Transferase 29 U/L (17-59); Bilirubin,Total 0.3 mg/dL (0.2-1.3); Blood Urea Nitrogen 63 mg/dL (9-20); Calcium 9.3 mg/dL (8.4-10.2); Carbon Dioxide 26 mmol/L (22-30); Chloride 101 mmol/L (98-107); Estimated Glomerular Filt Rate 30; Glucose 148 mg/dL (75-110); Potassium 4.2 mmol/L (3.4-5.0); Sodium 140 mmol/L (137-145)
== END 2020-09-29 14:44 | disposition home or self-care (01) ==
PROVIDERS: PCP Family Medicine Adolescent Medicine; Visit Provider Nurse Practitioner
DX: E86.0 Dehydration (principal); E87.6 Hypokalemia; N17.9 Acute kidney failure, unspecified
CPT/HCPCS: 36415; 80053

== ENCOUNTER 2020-10-09 16:49 | Outpatient (CLI) | payer MEDICARE, SELFPAY | END 2020-10-09 16:50 | disposition home or self-care (01) | LOC: ANHLAB 16:52 | PROVIDERS: PCP Family Medicine Adolescent Medicine; Visit Provider Nurse Practitioner | DX: N39.0 Urinary tract infection, site not specified (principal); N17.9 Acute kidney failure, unspecified | CPT/HCPCS: 87086 ==

== ENCOUNTER 2020-10-14 07:55 | Inpatient (IN) | payer MEDICARE, SELFPAY ==
--- NOTE | ~2020-10-14 | CT_ITS ---
EXAMINATION: CT abdomen pelvis wo con DATE: 10/14/2020 14:13 INDICATION: Gross hematuria, urinary retention. Low abdominal pain. TECHNIQUE: Computed tomography (CT) of the abdomen and pelvis was performed without intravenous contr ast. Automated exposure control and iterative reconstruction technique were employed. Exam dose: 118 2.25 mGy-cm total exam DLP. COMPARISON: 10/14/2020 KUB 06/22/[address] abdomen pelvis FINDINGS: Status post sternotomy. Prominent coronary artery calcifications. Cardiomegaly. No pericard ial or pleural effusion. The lung bases are clear of infiltrate or consolidation. 1.8 cm peripherally calcified hypoattenuating lesion at the neck of the gallbladder. The gallbladder is moderately distended. There is mild gallbladder wall calcification. No hepatic space-occupying mass lesion is detected. Normal splenic size. No pancreatic mass lesion, c alcification or ductal dilatation. Normal morphology of the adrenal glands. Incomplete rotation of the right kidney with anteriorly directed renal pelvis. 5.7 cm exophytic anterior upper pole left renal cyst. Additional 10 mm exophytic upper pole left alin l cyst. No urinary tract calculi or hydroureteronephrosis is evident. There is a Beltre catheter within the urinary bladder and some high density material within the bladde r lumen, surrounding the Beltre catheter balloon, likely blood clots.. Beneath the blood clots is a mi dline lower urinary bladder chronic calcified stone measuring approximately 9 mm. There is moderate d iffuse urinary bladder wall thickening and mild urinary bladder diverticulum formation, likely second trev to prostate enlargement/bladder outlet obstruction. There are multiple diverticula of the sigmoid and descending colon is well and is lesser involvement of the transverse colon and hepatic flexure. Normal appendix. No bowel obstruction or intraperitoneal free air. There is extensive calcification of the abdominal aorta, celiac, superior mesenteric arteries and aurora ac and femoral arteries. No abdominal aortic aneurysm. No intraperitoneal or retroperitoneal or pelvi c mass lesion or adenopathy or ascites. Diffuse osteopenia. There are degenerative changes of the thoracic and lumbar spine. No suspicious os teolytic or osteoblastic lesions are noted. IMPRESSION: Prominent bilateral blood clots within the urinary bladder Bimalleolar bladder stone Prostate enlargement and evidence of bladder changes secondary to prostatomegaly/outlet obstruction Calcified gallstone the gallbladder neck, moderate distention of gallbladder, mild gallbladder wall c alcification Left renal cyst Diverticulosis of the colon; no CT evidence of diverticulitis Reviewed, dictated and finalized at [facility]. Reviewed, dictated and finalized at [facility]. IMPRESSION: Prominent bilateral blood clots within the urinary bladder Bimalleolar bladder stone Prostate enlargement and evidence of bladder changes secondary to prostatomegal y/outlet obstruction Calcified gallstone the gallbladder neck, moderate distention of gallbladder, m ild gallbladder wall calcification Left renal cyst Diverticulosis of the colon; no CT evidence of diverticulitis
--- NOTE | ~2020-10-14 | US_ITS ---
EXAMINATION: US renal BI EXAM DATE: 10/14/2020 17:18 INDICATION: Acute renal failure. TECHNIQUE: Multiple grayscale and Doppler images of the kidneys were obtained (by a technologist who performed the scan) and subsequently reviewed. There is no prior study for comparison. FINDINGS: Right kidney: There is normal contour and echogenicity. It measures 8.1 x 3.7 x 2.4 centimeters. Th ere are no focal renal lesions identified. There is mild hydronephrosis. Left kidney: There is normal contour and echogenicity. It measures 10.6 x 6.7 x 6.2 centimeters. Ane choic lesion consistent with cyst measuring up to 4.6 cm. There is no hydronephrosis. Beltre catheter balloon in the bladder. There is some echogenic debris, probably blood surrounding por tions of the Beltre balloon. There may be mild diffuse bladder wall thickening as well. IMPRESSION: 1. Mild right hydronephrosis and renal atrophy. 2. Echogenic bladder debris/blood clot. Reviewed, dictated and finalized at location [facility].
--- NOTE | ~2020-10-14 | XR_ITS ---
XR abdomen obstructive series DATE: 10/14/2020 10:14 INDICATION: Constipation TECHNIQUE: Supine and upright AP views COMPARISON: 06/22/[address] abdomen pelvis FINDINGS: Prominent abdominal aortic and iliac and femoral artery calcifications. Status post sternotomy. Egg shell calcification overlying right upper quadrant consistent with gallstone. No evidence of bowel obstruction. No intraperitoneal free air is evident. Approximately 9 mm calcified bladder stone. Osteopenia. IMPRESSION: Cholelithiasis 9 mm calcified bladder stone Reviewed, dictated and finalized at [facility]. Reviewed, dictated and finalized at location A.
[2020-10-14 08:06] VITALS: BP 160/87; PULSE 90; RESP 16; TEMP 37.2; O2SAT 98
[2020-10-14 08:27] LABS: Basophils Absolute Auto 0.1 K/mm3 (0.0-0.1); Basophils Percent Auto 0.6 % (0.2-1.2); Eosinophils Absolute Auto 0.2 K/mm3 (0-0.3); Eosinophils Percent Auto 2.1 % (0-4.4); Hematocrit 36.2 % (42.0-52.0); Hemoglobin 11.9 g/dL (14.0-18.0); Immature Granulocyte Absolute 0.06 K/mm3 (0.00-0.031); Immature Granulocyte Percent A 0.6 % (0-0.5); Lymphocytes Absolute Auto 1.67 K/mm3 (0.9-3.2); Lymphocytes Percent Auto 16.5 % (18.3-44.2); Mean Corpuscular HGB Conc 32.9 g/dl (32-36); Mean Corpuscular Hemoglobin 29.5 pg (26-34); Mean Corpuscular Volume 89.8 fl (80-100); Mean Platelet Volume 10.7 fl (7.4-10.4); Monocytes Absolute Auto 0.8 K/mm3 (0.1-0.6); Monocytes Percent Auto 7.6 % (2.6-8.5); Neutrophils Absolute Auto 7.4 K/mm3 (1.3-6.7); Neutrophils Percent Auto 72.6 % (45.5-73.1); Platelet Count Result 210 k/mm3 (150-375); Red Blood Count 4.03 M/mm3 (4.6-6.20); Red Cell Distribution Width 14.1 % (11.5-14.5); White Blood Count 10.1 K/mm3 (4.5-10.0)
[2020-10-14 08:37] LABS: Alanine Aminotransferase 21 U/L (4-50); Albumin Level 4.4 g/dL (3.5-5.1); Alkaline Phosphatase 55 U/L (38-126); Anion Gap 10 mmol/L (8-16); Aspartate Amino Transferase 36 U/L (17-59); Bilirubin,Total 0.6 mg/dL (0.2-1.3); Blood Urea Nitrogen 54 mg/dL (9-20); Carbon Dioxide 25 mmol/L (22-30); Chloride 102 mmol/L (98-107); Estimated CRCL calculation 26 ml/min; Estimated Glomerular Filt Rate 30; Glucose 126 mg/dL (65-110); Lipase 168 U/L (23-300); Potassium 4.6 mmol/L (3.4-5.0); Sodium 137 mmol/L (137-145)
[2020-10-14 08:59] LABS: INR 2.1; Partial Thromboplastin Time 32.9 SECONDS (22.3-36.8); Prothrombin Time 22.9 Seconds (11.1-14.7)
[2020-10-14] MEDS: LIDOCAINE HCL 2% GEL UROJET 10 ML PKG (09:15)
[2020-10-14 09:32] LABS: Add Urine Microscopic? YES; Appearance Urine Turbid (Clear); Bilirubin Urine Negative (Negative); Blood Urine 3+ (Negative); Color Urine Red (Yellow); Glucose Urine UA 1+ mg/dL (Negative); Ketones Urine 2+ mg/dL (Negative); Leukocyte Esterase Ur Trace LEU/UL (Negative); Nitrate Urine Negative (Negative); Protein Urine 2+ mg/dL (Negative); Specific Grav Ur 1.018 (1.001-1.035); Urobilinogen Urine Negative mg/dL (<2.0)
[2020-10-14 09:33] LABS: RBC Urine >75 /hpf (0-2)
[2020-10-14 09:34] LABS: WBC Urine Unable to determine /hpf (0-3)
[2020-10-14 09:37] VITALS: BP 122/72; PULSE 70; RESP 18; O2SAT 100
--- NOTE | 2020-10-14 09:56 | ED.MALEGU ---
HPI - Male Genitourinary General Chief complaint: Urogenital-Male Stated complaint: difficulty urinating/contipation Time Seen by Provider: 10/14/20 08:57 Source: patient, family and RN notes reviewed Limitations: no limitations History of Present Illness HPI Narrative: Patient is 85 years old white male brought to the emergency room by his daughter because of painful urination and unable to void completely for the last few days got worse over the last 24 hours. Patient also is constipated. Patient on Coumadin for atrial fibrillation. Patient is DO NOT RESUSCITATE. Patient denies any fever, chills, nausea, vomiting. Related Data Home Medications Medication Instructions Recorded Confirmed metformin 1,000 mg PO BID 05/12/20 09/22/20 omeprazole 20 mg PO DAILY 05/12/20 09/22/20 rosuvastatin 5 mg PO DAILY 05/12/20 09/22/20 tamsulosin 0.4 mg PO DAILY 05/12/20 09/22/20 furosemide 20 mg PO BID 05/30/20 09/22/20 aspirin 81 mg PO DAILY 06/12/20 09/22/20 warfarin See Rx Instructions .ROUTE .COMPLEX 09/22/20 09/22/20 Allergies Allergy/AdvReac Type Severity Reaction Status Date / Time No Known Allergies Allergy Verified 10/14/20 08:13 Review of Systems Review of Systems: Narrative: CONSTITUTIONAL: Denies fever, chills, or sweats. EYES: Denies visual changes, redness, or discharge. ENT: Denies rhinorrhea, congestion, sore throat, or otalgia. CARDIOVASCULAR: Denies chest pain, palpitations, or edema. RESPIRATORY: Denies cough or dyspnea. GASTROINTESTINAL: Lower abdominal pain, constipation, bloody urination, unable to urinate GENITOURINARY: Denies dysuria or hematuria. SKIN: Denies rash or itching. MUSCULOSKELETAL: Denies back pain, joint pain, or myalgia. NEUROLOGIC: Denies headache, numbness, or weakness. PSYCHIATRIC: Denies anxiety or depression. [facility] Past Medical History Medical History B12 deficiency BPH (benign prostatic hyperplasia) Bradycardia CAD (coronary artery disease) Chewing tobacco nicotine dependence CHF (congestive heart failure) echocardiogram April 2020: EF 60-65%, indeterminate diastolic function, moderate right ventricular enlargement, severe left atrial enlargement, moderate right atrial enlargement, mild mitral valve and tricuspid valve regurgitation, [id number] aortic valve regurgitation, mild pulmonary hypertension Chronic kidney disease, stage 3 with baseline creatinine between 1 and 1.4 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stroduodenoscopy (EGD) unremarkable EGD 2008 S/P CABG x 5 2002 Family History Family History Mother Heart disease Father Heart disease Social History Social History Social History: He lived with his prior to [facility]. They have been since 1949. He is retired from [employer]. He lives with his and his sister. His sister is a durable power family law attorney for healthcare. The grandson is at the bedside and stated that the patient is a full code. The patient is currently in hospital for sick children . Patient quit smoking and had been using smokeless tobacco as well. Primary care physician: Dr. Shin Hdz Code status: Full code Surrogate decision maker: Smoking packs per day: 4 Smoking cigarettes per day: 80.0 Years smoked: 10 Smoking pack-years: 40.00 Smoking status: Former smoke
[2020-10-14 11:38] VITALS: BP 115/73; PULSE 73; RESP 16; O2SAT 100
[2020-10-14 13:31] VITALS: BP 117/59; PULSE 70; RESP 16; O2SAT 100
[2020-10-14] MEDS: levoFLOXacin 500 MG/D5W 100 ML 500 MG/100 ML BAG 100 MG IVPB (13:53)
--- NOTE | 2020-10-14 13:57 | WPDURCON ---
Assessment and Plan Assessment and plan (1) Acute kidney injury: Code(s): N17.9 - Acute kidney failure, unspecified Status: Acute Assessment and Plan: I suspect it will improve since catheter has been placed, will watch creatinine. (2) Urinary tract infection: Qualifiers: Hematuria presence: without hematuria Urinary tract infection type: acute cystitis Qualified Code(s): N30.00 - Acute cystitis without hematuria Code(s): N39.0 - Urinary tract infection, site not specified Status: Acute Assessment and Plan: Continue IV antibiotics, tailor to culture results. (3) Gross hematuria: Code(s): R31.0 - Gross hematuria Status: Acute Assessment and Plan: Will change he to a 3 way catheter and start CBI. Ok to irrigate bladder manually if clots are present. (4) Retention of urine: Code(s): R33.9 - Retention of urine, unspecified Status: Acute Assessment and Plan: Start Tamsulosin and Finasteride. Will plan to do a voiding trial prior in 7-10 days. (5) BPH (benign prostatic hyperplasia): Code(s): N40.0 - Benign prostatic hyperplasia without lower urinary tract symptoms Status: Acute Urology Consult Note HPI Date Seen: 10/14/20 Primary Care Provider: Shin Kessler MD Consult Narrative Narrative: Kenneth Urrutia is a 85 year old male who presented to the ER today with difficulty urinating, dysuria and right flank pain. The symptoms started on Monday according to his daughter at the bedside, he was supposed to see his PCP today for a urine culture but then was unable to urinate which brought him to the ER. His WBC is 10.1, creatinine is 2.10, UA is suggestive of a UTI, urine culture is pending. A KUB shows a known 9mm bladder stone. No other imaging done recently, other than a CT scan in 05/2020 which did not show anything abnormal in the upper tracts, it did show the bladder stone. When a he was placed in the ER, a significant amount of urine was noted on return as well as gross hematuria. He denies any history of BPH or kidney stones. His daughter says he has been hospitalized twice in the past 3 weeks, both times the urine cultures were negative here at [facility]. His daughter says he has been hospitalized multiple times in the last year. The patient is not a good historian, all of the medical information came from his daughter and from the chart. Review of Systems Respiratory: Respiratory: Reports no additional respiratory complaints Gastrointestinal: Gastrointestinal: Denies abdominal pain, Denies nausea and Denies vomiting Genitourinary: Genitourinary: Reports hematuria, Reports dysuria, Reports flank pain, Reports urinary frequency, Reports urinary hesitancy and Reports urinary urgency [facility] Past Medical History Medical History B12 deficiency BPH (benign prostatic hyperplasia) Bradycardia CAD (coronary artery disease) Chewing tobacco nicotine dependence CHF (congestive heart failure) echocardiogram April 2020: EF 60-65%, indeterminate diastolic function, moderate right ventricular enlargement, severe left atrial enlargement, moderate right atrial enlargement, mild mitral valve and tricuspid valve regurgitation, [id number] aortic valve regurgitation, mild pulmonary hypertension Chronic kidney disease, stage 3 with baseline creatinine between 1 and 1.4 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
--- NOTE | 2020-10-14 15:40 | PC.NURSE ---
Marisol Hutton, PROGRAMMING DIRECTOR called regarding switching out he catheter to 3-way. During phone call, Marisol, deemed pt will need to go to OR and to hold off on 3-way placement at this time. Marisol or Dr. Aguilera to come discuss change in care plan with patient and patient daughter at bedside.
[2020-10-14] MEDS: HYOSCYAMINE SULFATE 0.5 MG/ML AMPUL 0.25 MG IM (16:03)
--- NOTE | 2020-10-14 16:17 | PM.IMHP ---
H&P: HPI History of Present Illness Date/Time: 10/14/20 16:17 this is a 85-year-old male patient who was just discharged from this hospital on 09/24/2020 after having a urinary tract infection. His urine cultures showed no definite bacterial growth. The patient was brought to the emergency room today by his daughter because he was having some painful urinate Thatch and was unable to void completely for the last few days over the last 24 hours. The patient is also constipated. The patient is on Coumadin for atrial fibrillation. The patient is a DNR. A Beltre catheter was placed and he had bright red blood urology was consulted. CT scan shows prominent bilateral blood clots within the urinary bladder, by malleolar bladder stone, prostate enlargement and evidence of bladder changes secondary to prostatomegaly/ outlet this obstruction. Urology has seen the patient. CBI was recommended holding Coumadin was recommended as well. Patient was complaining of discomfort but his blood pressure is low so I ordered some Levsin. Patient's creatinine was noted to be 2.1 which was the same as what it was on 09/29/2020. Previously his creatinine had been anywhere from 1.3-1.8. Urine cultures are pending. Patient was started on IV fluids, Flomax Proscar, Levaquin, Zofran and he was given morphine earlier this morning The patient is being admitted to observation status on the date of service of 10/14/2020. Chief Complaint: Hematuria and urinary retention Review of Systems Review of Systems: All systems reviewed & are unremarkable except as noted in HPI and below Constitutional: Constitutional: Reports as per HPI and Reports no additional constitutional complaints Eyes: Eyes: Reports as per HPI and Reports no additional eye complaints ENT: Reports system reviewed and no additional complaints, except as documented and Reports Normal hearing present Cardiovascular: Cardiovascular: Reports no additional cardiovascular complaints Respiratory: Respiratory: Reports no additional respiratory complaints and Reports no additional respiratory complaints Gastrointestinal: Gastrointestinal: Reports as per HPI and Reports no additional gastrointestinal complaints Musculoskeletal: Musculoskeletal: Reports no additional musculoskeletal complaints Integumentary/Breasts: Skin/Breast: Reports system reviewed and no additional complaints, except as docu and Reports as per HPI Neurologic: Reports system reviewed and no additional complaints, except as documented, Reports as per HPI and Reports Normal hearing present Psychiatric: Psychiatric: Reports no additional psychiatric complaints and Reports as per HPI Endocrine: Endocrine: Reports no additional endocrine complaints Hematologic/Lymphatic: Hematologic/Lymphatic: Reports no additional hematologic/lymphatic complaints Allergic/Immunologic: Allergic/Immunologic: Reports no additional allergic/immunologic complaints [facility] Past Medical History Medical History B12 deficiency BPH (benign prostatic hyperplasia) Bradycardia CAD (coronary artery disease) Chewing tobacco nicotine dependence CHF (congestive heart failure) echocardiogram April 2020: EF 60-65%, indeterminate diastolic function, moderate right ventricular enlargement, severe left atrial enlargement, moderate right atrial enlargement, mild mitral valve and tricuspid valve regurgitation, [id number] aortic valve regurgitation, mild pulmonary hypertension Chronic kidney disease, stage 3 with baseline creatinine between 1 and 1.4 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
--- NOTE | 2020-10-14 16:18 | PC.NURSE ---
kiesha young, hold po meds at this time.
--- NOTE | 2020-10-14 16:51 | WPDANESEPPF ---
Anes - Initial Pre Proc Eval Procedure: Operation Date: 10/14/20 16:00 Proposed Procedures p Cystoscopy, Evacuation Bladder Clots - Milan Aguilera MD s Possible Holmium Laser Bladder Stones - Milan Aguilera MD Date/Time: 10/14/20 16:51 Pre Op Diagnosis: difficulty urinating/contipation Patient Data Age: 85 Gender: M Height: 1.73 m Weight: 90.1 kg Last Vital Signs Temp 37.2 C 10/14/20 08:06 Pulse 70 10/14/20 13:31 Resp 16 10/14/20 13:31 BP 117/59 L 10/14/20 13:31 Pulse Ox 100 10/14/20 13:31 Allergies Allergy/AdvReac Type Severity Reaction Status Date / Time No Known Allergies Allergy Verified 10/14/20 08:13 Home Medications Medication Instructions Recorded Confirmed Type metformin 1,000 mg PO BID 05/12/20 09/22/20 History omeprazole 20 mg PO DAILY 05/12/20 09/22/20 History rosuvastatin 5 mg PO DAILY 05/12/20 09/22/20 History tamsulosin 0.4 mg PO DAILY 05/12/20 09/22/20 History Aloe [place] Antifungal (micon) 1 applic TOPICAL Q12HR #1692 g 05/16/20 09/22/20 Rx sodium chloride [Saline Mist] 1 spray INTRANASAL Q6HR PRN #30 ml 05/16/20 09/22/20 Rx furosemide 20 mg PO BID 05/30/20 09/22/20 History acetaminophen [Mapap 650 mg PO Q4H PRN #0 tablet 06/06/20 09/22/20 Rx (acetaminophen)] ferrous sulfate 325 mg PO DAILY #30 tablet 06/06/20 09/22/20 Rx aspirin 81 mg PO DAILY 06/12/20 09/22/20 History enalapril maleate 10 mg PO DAILY #30 tablet 06/26/20 09/22/20 Rx warfarin See Rx Instructions .ROUTE .COMPLEX 09/22/20 09/22/20 History magnesium oxide 400 mg PO DAILY 30 Days #30 tablet 09/24/20 Rx potassium chloride [K-Tab] 20 meq PO DAILY@0800 #30 tablet 09/24/20 Rx Laboratory Tests 10/14/20 10/14/20 10/14/20 08:17 08:17 08:18 WBC 10.1 K/mm3 H K/mm3 (4.5-10.0) RBC 4.03 M/mm3 L M/mm3 (4.6-6.20) Hgb 11.9 g/dL L g/dL (14.0-18.0) Hct 36.2 % L % (42.0-52.0) MCV 89.8 fl fl (80-100) MCH 29.5 pg pg (26-34) MCHC 32.9 g/dl g/dl (32-36) RDW 14.1 % % (11.5-14.5) Plt Count 210 k/mm3 k/mm3 (150-375) MPV 10.7 fl H fl (7.4-10.4) Immature Gran % (Auto) 0.6 % H % (0-0.5) Neut % (Auto) 72.6 % % (45.5-73.1) Lymph % (Auto) 16.5 % L % (18.3-44.2) [place] % (Auto) 7.6 % % (2.6-8.5) Eos % (Auto) 2.1 % % (0-4.4) Baso % (Auto) 0.6 % % (0.2-1.2) Lymph # (Auto) 1.67 K/mm3 K/mm3 (0.9-3.2) [place] # (Auto) 0.8 K/mm3 H K/mm3 (0.1-0.6) Eos # (Auto) 0.2 K/mm3 K/mm3 (0-0.3) Baso # (Auto) 0.1 K/mm3 K/mm3 (0.0-0.1) Abs Immat Gran (auto) 0.06 K/mm3 H K/mm3 (0.00-0.031) Absolute Neuts (auto) 7.4 K/mm3 H K/mm3 (1.3-6.7) Absolute Nucleated RBC 0.0 K/mm3 K/mm3 (0.0-0.012) Nucleated RBC % 0.0 % % (0.0-0.2) PT 22.9 Seconds H Seconds (11.1-14.7) INR 2.1 APTT 32.9 SECONDS SECONDS (22.3-36.8) Sodium 137 mmol/L mmol/L (137-145) Potassium 4.6 mmol/L mmol/L (3.4-5.0) Chloride 102 mmol/L mmol/L (98-107) Carbon Dioxide 25 mmol/L mmol/L (22-30) Anion Gap 10 mmol/L mmol/L (8-16) BUN 54 mg/dL H mg/dL (9-20) Creatinine 2.10 mg/dL H mg/dL (0.7-1.3) Estim Creat Clear Calc 26 ml/min ml/min Estimated GFR 30 L (59 - ) Glucose 126 mg/dL H mg/dL (65-110) Calcium 10.0 mg/dL mg/dL (8.4-10.2) Total Bilirubin 0.6 mg/dL mg/dL (0.2-1.3) AST 36 U/L U/L (17-59) ALT 21 U/L U/L (4-50) Alkaline Phosphatase 55 U/L U/L (38-126) Total Protein 8.0 g/dL g/dL (6.3-8.2) Albumin 4.4 g/dL g/dL (3.5-5.1) Lipase 168 U/L U/L (23-300) Urine Color Urine Appearance Urine pH Ur Specific [place] Urine Pro
--- NOTE | 2020-10-14 17:18 | PC.NURSE ---
per TRAE Damon. she was unable to evacuate clots at bedside. pt to go to US and the OR.
--- NOTE | 2020-10-14 17:23 | PC.NURSE ---
dr. vargas in department stating anesthesia doesn't want to put patient to sleep because he is too unhealthy . dr. vargas made aware that pt was in US and taken to OR per TRAE Damon. dr. vargas to attempt procedure in pre OP.
[2020-10-14 18:42] VITALS: BMI 29.2
--- NOTE | 2020-10-14 18:43 | SUR.PHASEII ---
I RECIEVED PT AT [address] SERRATO DID A BEDSIDE CLOT EVALUATION IN POST OP AREA. WE CLEANED PT UP AND RECIEVED NOTICE OF ROOM #301 AROUND 181. TOOK PT UP TO MED SURG AND CBI WAS RUNNING WIDE OPEN WITH RED OUTPUT STILL, NO CLOTS NOTED. PT WAS IN ROOM WITH RN AND FAMILY BY 183.
--- NOTE | 2020-10-14 18:47 | ADMGEN ---
This patient, Kenneth Urrutia, was admitted to Virtual Bed 3rd Floor-1. Patient/family oriented to hospital policies and general routines including ID bracelet, bed and alarms, visiting hours, pain management, procedures, bathroom and other care routines, personal items, smoking policy, room service/diet, and visiting hours. Information on how to activate the Rapid Response Team has been discussed. Patient/Family are encouraged to report perceived risks to care and to ask questions if they do not understand what they are told or what they should do. Pt arrived from PACU. Originally to ED then to OR, PACU then 301.
[2020-10-14 20:04] VITALS: O2SAT 97
[2020-10-14 20:54] LABS: Glucose Point of Care 110 mg/dl (65-105)
[2020-10-14] MEDS: FINASTERIDE 5 MG TABLET PO (21:30)
[2020-10-14] MEDS: TAMSULOSIN HCL 0.4 MG CAPSULE PO (21:30)
[2020-10-14 21:50] VITALS: BP 135/101; PULSE 92; RESP 18; TEMP 36.5; O2SAT 99
[2020-10-14 22:12] LABS: Hematocrit 31.9 % (42.0-52.0); Hemoglobin 10.6 g/dL (14.0-18.0)
[2020-10-14 22:23] LABS: INR 2.1; Prothrombin Time 23.1 Seconds (11.1-14.7)
[2020-10-14] MEDS: SODIUM CHLORIDE 0.9% IV 1,000 ML 125 ML IV CONT (22:39)
[2020-10-15] VITALS (10 sets, daily range): BP systolic 79–115; BP diastolic 42–60; PULSE 63–95; RESP 14–20; TEMP 36.3–37.3; O2SAT 96–100
[2020-10-15] MEDS: SODIUM CHLORIDE 0.9% IV 1,000 ML 125 ML IV CONT ×2 (06:10→18:32)
[2020-10-15 06:41] LABS: Basophils Absolute Auto 0.1 K/mm3 (0.0-0.1); Basophils Percent Auto 0.5 % (0.2-1.2); Eosinophils Absolute Auto 0.1 K/mm3 (0-0.3); Eosinophils Percent Auto 0.5 % (0-4.4); Hematocrit 27.6 % (42.0-52.0); Immature Granulocyte Absolute 0.07 K/mm3 (0.00-0.031); Immature Granulocyte Percent A 0.5 % (0-0.5); Lymphocytes Absolute Auto 1.99 K/mm3 (0.9-3.2); Lymphocytes Percent Auto 15.4 % (18.3-44.2); Mean Corpuscular HGB Conc 32.6 g/dl (32-36); Mean Corpuscular Hemoglobin 29.5 pg (26-34); Mean Corpuscular Volume 90.5 fl (80-100); Mean Platelet Volume 11.7 fl (7.4-10.4); Monocytes Absolute Auto 1.1 K/mm3 (0.1-0.6); Monocytes Percent Auto 8.2 % (2.6-8.5); Neutrophils Absolute Auto 9.7 K/mm3 (1.3-6.7); Neutrophils Percent Auto 74.9 % (45.5-73.1); Platelet Count Result 172 k/mm3 (150-375); Red Blood Count 3.05 M/mm3 (4.6-6.20); Red Cell Distribution Width 14.1 % (11.5-14.5)
[2020-10-15 06:48] LABS: Anion Gap 11 mmol/L (8-16); Blood Urea Nitrogen 47 mg/dL (9-20); Calcium 8.9 mg/dL (8.4-10.2); Carbon Dioxide 20 mmol/L (22-30); Chloride 104 mmol/L (98-107); Estimated CRCL calculation 25 ml/min; Estimated Glomerular Filt Rate 32; Glucose 108 mg/dL (65-110); Magnesium 1.6 mg/dL (1.6-2.3); Potassium 3.9 mmol/L (3.4-5.0); Sodium 135 mmol/L (137-145)
[2020-10-15 06:59] LABS: Hemoglobin A1C 6.5 % (<5.7)
[2020-10-15 07:01] LABS: Lactic Acid Reflex 0.9 mmol/L (0.7-2.1)
[2020-10-15 09:09] LABS: Glucose Point of Care 126 mg/dl (65-105)
[2020-10-15] MEDS: ROSUVASTATIN 5 MG TABLET PO (11:34)
[2020-10-15] MEDS: PANTOPRAZOLE 40 MG TABLET PO (11:34)
[2020-10-15] MEDS: MAGNESIUM OXIDE 400 MG TABLET PO (11:34)
[2020-10-15] MEDS: FERROUS SULFATE 324 MG TABLET PO (11:34)
[2020-10-15] MEDS: ENALAPRIL MALEATE 10 MG TABLET PO (11:34)
[2020-10-15] MEDS: FUROSEMIDE 20 MG TABLET PO (11:34)
[2020-10-15 11:53] LABS: Hemoglobin 8.3 g/dL (14.0-18.0)
[2020-10-15] MEDS: FINASTERIDE 5 MG TABLET PO (11:53)
[2020-10-15] MEDS: TAMSULOSIN HCL 0.4 MG CAPSULE PO (11:53)
[2020-10-15 12:35] LABS: Glucose Point of Care 130 mg/dl (65-105)
--- NOTE | 2020-10-15 14:41 | PC.NURSE ---
Pt to OR per rudi. Report to WILBER Brownlee. Blood pressures reviewed post bolus with pre-op and Dr. Vee.
--- NOTE | 2020-10-15 14:49 | WPDANESEPPF ---
Anes - Initial Pre Proc Eval Procedure: Operation Date: 10/14/20 16:00 Proposed Procedures p Cystoscopy, Evacuation Bladder Clots - Milan Aguilera MD s Possible Holmium Laser Bladder Stones - Milan Aguilera MD Operation Date: 10/15/20 16:30 Proposed Procedures p Cystoscopy, Evacuation Bladder Clots, Bladder Stone Extraction - Griffin Cortez MD s Possible Holmium Laser Procedure - Griffin Cortez MD Date/Time: 10/15/20 14:50 Surgeon: Jayna Guadalupe MD Pre Op Diagnosis: hematuria,urine rentition,coagulopathy,ivan,choleli Patient Data Age: 85 Gender: M Height: 1.73 m Weight: 87.2 kg Last Vital Signs Temp 36.3 C L 10/15/20 06:00 Pulse 95 10/15/20 06:00 Resp 20 10/15/20 06:00 BP 102/52 L 10/15/20 06:00 Pulse Ox 99 10/15/20 06:00 Allergies Allergy/AdvReac Type Severity Reaction Status Date / Time No Known Allergies Allergy Verified 10/14/20 08:13 Home Medications Medication Instructions Recorded Confirmed Type metformin 1,000 mg PO BID 05/12/20 10/14/20 History omeprazole 20 mg PO DAILY 05/12/20 10/14/20 History rosuvastatin 5 mg PO DAILY 05/12/20 10/14/20 History tamsulosin 0.4 mg PO DAILY 05/12/20 10/14/20 History Aloe [place] Antifungal (micon) 1 applic TOPICAL Q12HR #1692 g 05/16/20 10/14/20 Rx sodium chloride [Saline Mist] 1 spray INTRANASAL Q6HR PRN #30 ml 05/16/20 10/14/20 Rx furosemide 20 mg PO BID 05/30/20 10/14/20 History acetaminophen [Mapap 650 mg PO Q4H PRN #0 tablet 06/06/20 10/14/20 Rx (acetaminophen)] ferrous sulfate 325 mg PO DAILY #30 tablet 06/06/20 10/14/20 Rx aspirin 81 mg PO DAILY 06/12/20 10/14/20 History enalapril maleate 10 mg PO DAILY #30 tablet 06/26/20 10/14/20 Rx warfarin See Rx Instructions .ROUTE .COMPLEX 09/22/20 10/14/20 History magnesium oxide 400 mg PO DAILY 30 Days #30 tablet 09/24/20 10/14/20 Rx potassium chloride [K-Tab] 20 meq PO DAILY@0800 #30 tablet 09/24/20 10/14/20 Rx Laboratory Tests 10/14/20 10/14/20 10/14/20 20:43 21:36 21:36 WBC RBC Hgb 10.6 g/dL L g/dL (14.0-18.0) Hct 31.9 % L % (42.0-52.0) MCV MCH MCHC RDW Plt Count MPV Immature Gran % (Auto) Neut % (Auto) Lymph % (Auto) [place] % (Auto) Eos % (Auto) Baso % (Auto) Lymph # (Auto) [place] # (Auto) Eos # (Auto) Baso # (Auto) Abs Immat Gran (auto) Absolute Neuts (auto) Absolute Nucleated RBC Nucleated RBC % PT 23.1 Seconds H Seconds (11.1-14.7) INR 2.1 Sodium Potassium Chloride Carbon Dioxide Anion Gap BUN Creatinine Estim Creat Clear Calc Estimated GFR Glucose POC Capillary Glucose 110 mg/dl H mg/dl (65-105) Hemoglobin A1c Lactic Acid Calcium Magnesium TSH (Reflex) Free T4 10/15/20 10/15/20 10/15/20 05:39 05:39 05:39 WBC 13.0 K/mm3 H K/mm3 (4.5-10.0) RBC 3.05 M/mm3 L M/mm3 (4.6-6.20) Hgb 9.0 g/dL L g/dL (14.0-18.0) Hct 27.6 % L % (42.0-52.0) MCV 90.5 fl fl (80-100) MCH 29.5 pg pg (26-34) MCHC 32.6 g/dl g/dl (32-36) RDW 14.1 % % (11.5-14.5) Plt Count 172 k/mm3 k/mm3 (150-375) MPV 11.7 fl H fl (7.4-10.4) Immature Gran % (Auto) 0.5 % % (0-0.5) Neut % (Auto) 74.9 % H % (45.5-73.1) Lymph % (Auto) 15.4 % L % (18.3-44.2) [place] % (Auto) 8.2 % % (2.6-8.5) Eos % (Auto) 0.5 % % (0-4.4) Baso % (Auto) 0.5 % % (0.2-1.2) Lymph # (Auto) 1.99 K/mm3 K/mm3 (0.9-3.2) [place]
[2020-10-15] MEDS: LACTATED RINGERS 1,000 ML 30 ML IV CONT (14:53)
--- NOTE | 2020-10-15 14:54 | SUR.PREOP ---
NOTIFIED DR LAMBERT OF BP 89/45. COMPLETED 250ML OF NS UPSTAIRS PRIOR TO COMING TO PREOP. DR GONZALEZ ALSO AWARE. DAUGHTER, FARZANEH, AT BEDSIDE.
--- NOTE | 2020-10-15 15:27 | WPDHPUPDATE1 ---
History and Physical Update Update Date/Time: 10/15/20 15:27 Ongoing hematuria prompting decision for cystoscopy, clot evacuation and possible bladder stone extraction. History and Physical has been reviewed, including an updated exam of the patient. There are NO changes in the patient's condition. Risks, benefits, and alternatives have been discussed and questions answered. Patient agrees to proceed with procedure.
--- NOTE | 2020-10-15 16:23 | W.PM.PROC2 ---
Procedure Note - Detailed Date of Procedure 10/15/20 Pre-op Diagnosis Gross hematuria Post-op Diagnosis other ( Gross hematuria secondary BPH and bladder stone) Procedure Performed Cystoscopy, clot evacuation, bladder stone extraction and cauterization of prostatic urethra Surgeon Griffin Cortez MD Anesthesia general Description of Procedure patient is brought to the operative suite where he has prepped draped in routine sterile fashion while in dorsal lithotomy position after the uneventful induction of a general anesthetic. Twenty-four F resectoscope is placed. He has lateral lobe hyperplasia. There is a small median lobe and there is some oozing from the posterior prostatic urethra. Bladder shows mild trabeculation. There is about a 1-1.5 cm bladder stone floating freely. Otherwise the bladder was endoscopically normal without additional foreign body or signs of any neoplasm. There is some mild catheter cystitis in the posterior bladder wall. There is some dependent clot which I evacuated using a Elio syringe. I was able to extract a bladder stone intact. I then used a rollerball to cauterize this area of oozing in the posterior prostatic urethra. Resectoscope was removed and a 24 F hematuria catheter was placed to continuous irrigation. Drains Yes Packing No Pathology yes Complications No immediate complications Condition stable Disposition PACU
[2020-10-15] MEDS: fentaNYL CITRATE INJ (*CRX) 100 MCG/2 ML VIAL 25 MCG IV PUSH ×2 (16:55→17:29)
--- NOTE | 2020-10-15 17:18 | SUR.PHASEI ---
JACKY MURPHY TRAILER RENTAL CLERK NOTIFIED RE: PT'S BP 89/54. NO INTERVENTIONS ORDERED.
--- NOTE | 2020-10-15 17:56 | PM.IMPN ---
Progress Note: A&P Assessment and Plan (1) Hematuria: Code(s): R31.9 - Hematuria, unspecified Status: Acute Assessment and Plan: According to the CT the patient does have a bladder stone. Urology consulted and patient went to the OR today for cystoscopy with clot evacuation, bladder stone extraction and cauterization of prostatic urethra. The patient tolerated the procedure well. Urine clear. Continue Flomax and Proscar. Continue with IV fluids. (2) Retention of urine: Code(s): R33.9 - Retention of urine, unspecified Status: Acute Assessment and Plan: Patient currently has a Beltre catheter and was placed on Proscar and Flomax. The urinary retention could be related to his bladder stone or BPH. (3) Acute kidney injury: Code(s): N17.9 - Acute kidney failure, unspecified Status: Acute Assessment and Plan: Cr baseline 1.1-1.6 roughly. Cr 2.1 on admission. Could be related to urinary retention and/or UTI and/or HoTN. Renal US showing mild right hydronephrosis and renal atrophy. Will continue with IV fluids and continue to monitor. (4) HTN (hypertension): Qualifiers: Hypertension type: unspecified Qualified Code(s): I10 - Essential (primary) hypertension Code(s): I10 - Essential (primary) hypertension Status: Chronic Assessment and Plan: Patient's blood pressure was reviewed on 10/15 Blood pressure remains very soft. Enalapril, Lasix and potassium held. Continue IV fluids. May need to hold Flomax if persistent low BP (5) Urinary tract infection: Qualifiers: Hematuria presence: without hematuria Urinary tract infection type: acute cystitis Qualified Code(s): N30.00 - Acute cystitis without hematuria Code(s): N39.0 - Urinary tract infection, site not specified Status: Acute Assessment and Plan: UA noted. UCx and BCx pending. Empirically started on Rocephin. Follow up on culture results (6) BPH (benign prostatic hyperplasia): Code(s): N40.0 - Benign prostatic hyperplasia without lower urinary tract symptoms Status: Acute Assessment and Plan: The patient was started on Proscar; Flomax continued. Can cause orthostatic HoTN. May need to hold these medications if BP remains soft. (7) CHF (congestive heart failure): Code(s): I50.9 - Heart failure, unspecified Status: Chronic Assessment and Plan: Some edema in the LE but suspect more chronic. Anti-HTN medications held. Continue IV fluids. Monitor fluid status closely (8) Persistent atrial fibrillation: Code(s): I48.19 - Other persistent atrial fibrillation Status: Acute Assessment and Plan: Patient with gross hematuria. INR 2.1 on admission. Patient's Coumadin on hold while he has the hematuria. Resume Coumadin when okay with Urology (9) Diabetes mellitus: Qualifiers: Diabetes mellitus complication status: without complication Diabetes mellitus senior care insulin use: without senior care use Diabetes mellitus type: type 2 Qualified Code(s): E11.9 - Type 2 diabetes mellitus without complications Code(s): E11.9 - Type 2 diabetes mellitus without complications Status: Chronic Assessment and Plan: A1c 6.5. The patient's blood glucose was reviewed on 10/15 Glucose remains well controlled. Continue AccuCheks covering with sliding scale. Hypoglycemia protocol available as needed. Continue to hold metformin (10) DVT prophylaxis: Code(s): Z29.9 - Encounter for prophylactic measures, unspecified Status: Acute Assessment and Plan: SCDs Additional Plan Gallstone - CT scan showing calcified gallstone the gallbladder neck, moderate distention of gallbladder and mild gallbladder wall calcification. No RUQ abd pain. LFTs and Lipase normal on admission. Monitor for symptoms Acute Blood Loss anemia - Patient has a c
--- NOTE | 2020-10-15 18:22 | PC.NURSE ---
Pt returned from OR per stretcher. Report received from WILBER Nagy.
[2020-10-15 18:49] LABS: Glucose Point of Care 149 mg/dl (65-105)
[2020-10-15 20:09] LABS: Glucose Point of Care 119 mg/dl (65-105)
[2020-10-16] MEDS: SODIUM CHLORIDE 0.9% IV 1,000 ML 125 ML IV CONT ×3 (03:56→23:45)
[2020-10-16 06:00] VITALS: BP 96/44; PULSE 70; RESP 18; TEMP 36.6; O2SAT 99
--- NOTE | 2020-10-16 06:22 | WPDUROPN2 ---
Progress Note: A&P Assessment and Plan (1) BPH (benign prostatic hyperplasia): Code(s): N40.0 - Benign prostatic hyperplasia without lower urinary tract symptoms Status: Acute (2) Hematuria: Code(s): R31.9 - Hematuria, unspecified Status: Acute Assessment and Plan: Urine clear following clot evac./cauterization/bladder stone extraction. Will stop CBI this morning. I would recommend watching him another 24 hours to ensure hematuria does not recur. Would recommend holding Coumadin for 1 week as this was a significant bleed from his prostatic urethra and bladder. It would be best to leave his catheter indwelling for another 2-3 days. If he is ready for discharge prior to that I would suggest going home with the indwelling catheter, on finasteride and tamsulosin, and wecould arrange a voiding trial next week. If he is going to be here for another day or 2 will plan a voiding trial for Monday Subjective Subjective Date/Time Seen: 10/16/20 06:22 Comfortable, no complaints Review of Systems Cardiovascular: Cardiovascular: Denies chest pain, Denies lightheadedness, Denies palpitations and Denies dyspnea Respiratory: Respiratory: Denies dyspnea Gastrointestinal: Gastrointestinal: Denies diarrhea, Denies nausea and Denies vomiting Genitourinary: Genitourinary: Denies hematuria and Denies dysuria Endocrine: Endocrine: Denies palpitations Exam Const: General: no acute distress Resp: Effort & Inspection: normal respiratory effort GI: Inspection: non-distended GI Palp: No abdominal tenderness and No Guarding due to palpation present (GI) Auscultation: normal bowel sounds Urinary Catheter: Urinary Catheter: patent and draining and urine clear Objective Data Vital Signs Vital Signs: Vital Signs - 24 hr 10/15/20 14:52 10/15/20 16:10 10/15/20 16:25 Temperature 99.2 F 97.9 F Pulse Rate 85 74 70 Respiratory Rate 20 20 14 Blood Pressure 89/45 L 115/60 103/56 L Pulse Oximetry 99 100 98 10/15/20 16:40 10/15/20 16:55 10/15/20 17:10 Temperature Pulse Rate 79 68 68 Respiratory Rate 16 19 19 Blood Pressure 79/54 L 87/53 L 85/48 L Pulse Oximetry 96 98 98 10/15/20 17:25 10/15/20 17:40 10/15/20 22:00 Temperature 97.5 F L 98.2 F Pulse Rate 67 72 63 Respiratory Rate 14 18 Blood Pressure 83/52 L 86/47 L 89/42 L Pulse Oximetry 96 96 99 10/16/20 06:00 Temperature 97.9 F Pulse Rate 70 Respiratory Rate 18 Blood Pressure 96/44 L Pulse Oximetry 99 Intake/Output Intake/Output: Intake & Output 10/13/20 10/14/20 10/15/20 10/16/20 23:59 23:59 23:59 23:59 Intake Total 100 3390 1750 Output Total 700 38735 Balance -598 -97857 1752 Meds/Results Medications: Active Medications Generic Name Dose Route Start Last Admin Trade Name Freq PRN Reason Stop Dose Admin Acetaminophen 650 mg 10/14/20 20:04 Acetaminophen 325 Mg Tablet PO Q4H PRN Mild Pain (1-3) Or Fever Dextrose 12.5 gm 10/14/20 16:33 Dextrose 50% 25 Gm/50 Ml Syringe IV PUSH PRN PRN Hypoglycemia Protocol Enalapril Maleate 10 mg 10/15/20 09:00 10/15/20 11:34 Enalapril Maleate 10 Mg Tablet PO 10 mg DAILY DANIELLE Administration Ferrous Sulfate 324 mg 10/15/20 09:00 10/15/20 11:34 Ferrous Sulfate 324 Mg Tablet PO 324 mg DAILY DANIELLE Administration Finasteride 5 mg 10/15/20 09:00 10/15/20 11:53 Finasteride 5 Mg Tablet PO 5 mg QAM DANIELLE Administration Furosemide 20 mg 10/15/20 09:00 10/15/20 18:28 Furosemide 20 Mg Tablet PO Not Given BID DANIELLE Glucagon 1 mg 10/14/20 16:33 Glucagon For Inj 1 Mg Vial IM PRN PRN Hypoglycemia Protocol Glucose 15 gm 10/14/20 16:33 Glucose Oral Gel 15 Gm Of Glucse In 37.5 Gm Tube PO PRN PRN Hypoglycemia Protocol Hyoscyamine 0.125 mg 10/14/20 16:17 Hyoscyamine Sulfate 0.125 Mg Tablet PO Q4H PRN Bladder Spasm Sodium Chloride 1,000 mls @ 125
[2020-10-16 06:43] LABS: Hematocrit 21.2 % (42.0-52.0); Mean Corpuscular HGB Conc 32.1 g/dl (32-36); Mean Corpuscular Hemoglobin 29.6 pg (26-34); Mean Corpuscular Volume 92.2 fl (80-100); Mean Platelet Volume 11.5 fl (7.4-10.4); Platelet Count Result 155 k/mm3 (150-375); Red Cell Distribution Width 14.3 % (11.5-14.5)
[2020-10-16 06:54] LABS: Hemoglobin 6.8 g/dL (14.0-18.0); INR 2.5; Prothrombin Time 26.7 Seconds (11.1-14.7)
[2020-10-16 07:00] LABS: Alanine Aminotransferase 14 U/L (4-50); Albumin Level 2.9 g/dL (3.5-5.1); Alkaline Phosphatase 36 U/L (38-126); Anion Gap 9 mmol/L (8-16); Aspartate Amino Transferase 22 U/L (17-59); Bilirubin,Total 0.3 mg/dL (0.2-1.3); Blood Urea Nitrogen 51 mg/dL (9-20); Calcium 8.9 mg/dL (8.4-10.2); Carbon Dioxide 23 mmol/L (22-30); Chloride 104 mmol/L (98-107); Estimated CRCL calculation 22 ml/min; Estimated Glomerular Filt Rate 29; Glucose 115 mg/dL (65-110); Lipase 33 U/L (23-300); Potassium 4.3 mmol/L (3.4-5.0); Sodium 136 mmol/L (137-145)
[2020-10-16 07:07] LABS: Free T4 Free Thyroxine Reflex 0.86 ng/dL (0.78-2.19)
[2020-10-16 07:28] LABS: Cortisol Random 2.58 ug/dL
[2020-10-16 08:38] LABS: Glucose Point of Care 118 mg/dl (65-105)
[2020-10-16] MEDS: FERROUS SULFATE 324 MG TABLET PO (09:44)
[2020-10-16] MEDS: PANTOPRAZOLE 40 MG TABLET PO (09:44)
[2020-10-16] MEDS: TAMSULOSIN HCL 0.4 MG CAPSULE PO (09:44)
[2020-10-16] MEDS: FINASTERIDE 5 MG TABLET PO (09:44)
[2020-10-16] MEDS: ROSUVASTATIN 5 MG TABLET PO (09:45)
[2020-10-16] MEDS: MAGNESIUM OXIDE 400 MG TABLET PO (09:45)
[2020-10-16 11:52] LABS: Total Triiodothyronine (T3) 0.96 NG/ML (0.97-1.69)
[2020-10-16 11:55] LABS: Glucose Point of Care 135 mg/dl (65-105)
--- NOTE | 2020-10-16 11:58 | PM.IMPN ---
Progress Note: A&P Assessment and Plan (1) Hematuria: Code(s): R31.9 - Hematuria, unspecified Status: Acute Assessment and Plan: HAS CLEARED UROLOGY NOTE NOTED According to the CT the patient does have a bladder stone. Urology consulted and patient went to the OR today for cystoscopy with clot evacuation, bladder stone extraction and cauterization of prostatic urethra. The patient tolerated the procedure well. Urine clear. Continue Flomax and Proscar. Continue with IV fluids. (2) Retention of urine: Code(s): R33.9 - Retention of urine, unspecified Status: Acute Assessment and Plan: Patient currently has a Beltre catheter and was placed on Proscar and Flomax. The urinary retention could be related to his bladder stone or BPH. (3) Acute kidney injury: Code(s): N17.9 - Acute kidney failure, unspecified Status: Acute Assessment and Plan: Cr baseline 1.1-1.6 roughly. Cr 2.1 on admission. Could be related to urinary retention and/or UTI and/or HoTN. Renal US showing mild right hydronephrosis and renal atrophy. Will continue with IV fluids and continue to monitor. (4) HTN (hypertension): Qualifiers: Hypertension type: unspecified Qualified Code(s): I10 - Essential (primary) hypertension Code(s): I10 - Essential (primary) hypertension Status: Chronic Assessment and Plan: CONTINUE TO MONITOR BLOOD PRESSURE Patient's blood pressure was reviewed on 10/15 Blood pressure remains very soft. Enalapril, Lasix and potassium held. Continue IV fluids. May need to hold Flomax if persistent low BP (5) Urinary tract infection: Qualifiers: Hematuria presence: without hematuria Urinary tract infection type: acute cystitis Qualified Code(s): N30.00 - Acute cystitis without hematuria Code(s): N39.0 - Urinary tract infection, site not specified Status: Acute Assessment and Plan: URINE CULTURE FINAL WITH NO GROWTH ROCEPHIN HAS BEEN DISCONTINUED UA noted. UCx and BCx pending. Empirically started on Rocephin. Follow up on culture results (6) BPH (benign prostatic hyperplasia): Code(s): N40.0 - Benign prostatic hyperplasia without lower urinary tract symptoms Status: Acute Assessment and Plan: The patient was started on Proscar; Flomax continued. Can cause orthostatic HoTN. May need to hold these medications if BP remains soft. (7) CHF (congestive heart failure): Code(s): I50.9 - Heart failure, unspecified Status: Chronic Assessment and Plan: Some edema in the LE but suspect more chronic. Anti-HTN medications held. Continue IV fluids. Monitor fluid status closely (8) Persistent atrial fibrillation: Code(s): I48.19 - Other persistent atrial fibrillation Status: Acute Assessment and Plan: Patient with gross hematuria. INR 2.1 on admission. Patient's Coumadin on hold while he has the hematuria. Resume Coumadin when okay with Urology (9) Diabetes mellitus: Qualifiers: Diabetes mellitus type: type 2 Diabetes mellitus long-term insulin use: without long-term use Diabetes mellitus complication status: without complication Qualified Code(s): E11.9 - Type 2 diabetes mellitus without complications Code(s): E11.9 - Type 2 diabetes mellitus without complications Status: Chronic Assessment and Plan: A1c 6.5. The patient's blood glucose was reviewed on 10/15 Glucose remains well controlled. Continue AccuCheks covering with sliding scale. Hypoglycemia protocol available as needed. Continue to hold metformin (10) DVT prophylaxis: Code(s): Z29.9 - Encounter for prophylactic measures, unspecified Status: Acute Assessment and Plan: SCDs Additional Plan Gallstone - CT scan showing calcified gallstone the gallbladder neck, moderate distention of gallbladder and mild gallbla
[2020-10-16 14:00] VITALS: BP 119/89; PULSE 66; RESP 18; TEMP 36.6; O2SAT 98
[2020-10-16 16:44] LABS: Glucose Point of Care 114 mg/dl (65-105)
[2020-10-16 21:24] VITALS: BP 104/62; PULSE 80; RESP 18; TEMP 36.6; O2SAT 99
[2020-10-16 22:54] LABS: Glucose Point of Care 118 mg/dl (65-105)
[2020-10-17 06:00] VITALS: BP 120/50; PULSE 76; RESP 18; TEMP 36.2; O2SAT 99
[2020-10-17 08:14] LABS: Glucose Point of Care 89 mg/dl (65-105)
[2020-10-17] MEDS: FINASTERIDE 5 MG TABLET PO (10:26)
[2020-10-17] MEDS: TAMSULOSIN HCL 0.4 MG CAPSULE PO (10:26)
[2020-10-17] MEDS: ROSUVASTATIN 5 MG TABLET PO (10:27)
[2020-10-17] MEDS: MAGNESIUM OXIDE 400 MG TABLET PO (10:27)
[2020-10-17] MEDS: FERROUS SULFATE 324 MG TABLET PO (10:27)
[2020-10-17] MEDS: PANTOPRAZOLE 40 MG TABLET PO (10:27)
--- NOTE | 2020-10-17 11:39 | PM.DS ---
DS: Admitting Diagnosis Admitting Diagnosis (1) Hematuria: Code(s): R31.9 - Hematuria, unspecified Status: Acute Assessment and Plan: according to the CT the patient does have a bladder stone. The patient is supposed to have a CBI started. Urology has seen the patient. The patient has been started on Flomax and Proscar. Continue with IV fluids. Urology consultation is greatly appreciated. I ordered some Levsin for the patient's bladder spasms. Patient is being treated for urinary tract infection with the Levaquin. Urine and blood cultures are pending. The patient had urine culture early this month which did not offer up any bacterial infection. (2) BPH (benign prostatic hyperplasia): Code(s): N40.0 - Benign prostatic hyperplasia without lower urinary tract symptoms Status: Acute Assessment and Plan: The patient was started on Proscar and Flomax. (3) Retention of urine: Code(s): R33.9 - Retention of urine, unspecified Status: Acute Assessment and Plan: Patient currently has a Beltre catheter and was placed on Proscar and Flomax. The urinary retention could be related to his bladder stone or BPH. (4) Gross hematuria: Code(s): R31.0 - Gross hematuria Status: Acute Assessment and Plan: Urology has been consulted. Could be related to the bladder stone. (5) Acute kidney injury: Code(s): N17.9 - Acute kidney failure, unspecified Status: Acute Assessment and Plan: Could be related to urinary retention. Will continue with IV fluids and recheck in the a.m.. May consider renal ultrasound. (6) Urinary tract infection: Qualifiers: Hematuria presence: without hematuria Urinary tract infection type: acute cystitis Qualified Code(s): N30.00 - Acute cystitis without hematuria Code(s): N39.0 - Urinary tract infection, site not specified Status: Acute Assessment and Plan: Patient was empirically started on Rocephin. Urine cultures where negative last admission. (7) CHF (congestive heart failure): Code(s): I50.9 - Heart failure, unspecified Status: Chronic Assessment and Plan: Continue with home medications. Looks like the patient may be on enalapril (8) Persistent atrial fibrillation: Code(s): I48.19 - Other persistent atrial fibrillation Status: Acute Assessment and Plan: patient's Coumadin will be on hold while he has the hematuria. (9) HTN (hypertension): Qualifiers: Hypertension type: unspecified Qualified Code(s): I10 - Essential (primary) hypertension Code(s): I10 - Essential (primary) hypertension Status: Chronic Assessment and Plan: Continue with enalapril if and when blood pressure allows. At this time is blood pressure is on the soft side. (10) Hyperlipidemia: Qualifiers: Hyperlipidemia type: unspecified Qualified Code(s): E78.5 - Hyperlipidemia, unspecified Code(s): E78.5 - Hyperlipidemia, unspecified Status: Chronic Assessment and Plan: Continue with home medications. (11) Diabetes mellitus: Qualifiers: Diabetes mellitus type: type 2 Diabetes mellitus residential insulin use: without residential use Diabetes mellitus complication status: without complication Qualified Code(s): E11.9 - Type 2 diabetes mellitus without complications Code(s): E11.9 - Type 2 diabetes mellitus without complications Status: Chronic Assessment and Plan: Hold metformin due to the acute kidney injury. Check Accu-Cheks AC and HS. DS: Discharge Diagnosis Discharge Diagnosis (1) Hematuria: Code(s): R31.9 - Hematuria, unspecified Status: Acute Assessment and Plan: HAS CLEARED UROLOGY NOTE NOTED According to the CT the patient does have a bladder stone. Urology consulted and patient went to the OR today for cystoscopy with clot evacuation, bladder stone ex
[2020-10-17 11:50] LABS: Glucose Point of Care 130 mg/dl (65-105)
[2020-10-17 14:00] VITALS: BP 110/57; PULSE 78; RESP 20; TEMP 36.7; O2SAT 98
== END 2020-10-17 15:05 | disposition home health service (06) | DRG 663 ==
LOC: ANHED 15:57 → ANH3MEDSUR 17:20
PROVIDERS: Internal Medicine; Nurse Practitioner; Urology; Admitting Provider Family Medicine; Emergency Provider Emergency Medicine; PCP Family Medicine Adolescent Medicine; Visit Provider Internal Medicine
PROC: 0TCB8ZZ Extirpation of Matter from Bladder, Via Natural or Artificial Opening Endoscopic (ICD-10-PCS; CPT 52001; principal; 2020-10-15 16:30)
DX: N21.0 Calculus in bladder (principal); N17.9 Acute kidney failure, unspecified; I13.0 Hypertensive heart and chronic kidney disease with heart failure and stage 1 through stage 4 chronic kidney disease, or unspecified chronic kidney disease; I50.32 Chronic diastolic (congestive) heart failure; N40.0 Benign prostatic hyperplasia without lower urinary tract symptoms; N18.30 Chronic kidney disease, stage 3 unspecified; E11.22 Type 2 diabetes mellitus with diabetic chronic kidney disease; E11.40 Type 2 diabetes mellitus with diabetic neuropathy, unspecified; E11.319 Type 2 diabetes mellitus with unspecified diabetic retinopathy without macular edema; I48.0 Paroxysmal atrial fibrillation; Z79.01 Long term (current) use of anticoagulants; Z72.0 Tobacco use; K80.80 Other cholelithiasis without obstruction
CPT/HCPCS: 36415; 51702; 74019; 74176; 76775; 80048; 80053; 81001; 82365; 82533; 82948; 83036; 83605; 83690; 83735; 84439; 84443; 84480; 85014; 85018; 85025; 85027; 85610; 85730; 87040; 87086; 88300; 96365; 96372; 99285; A9270; J0696; J1100; J1956; J1980; J2405; J2704; J3010; J7030; J7120

== ENCOUNTER 2020-10-17 17:17 | Emergency (ER) | payer MEDICARE, SELFPAY ==
[2020-10-17 17:18] VITALS: BP 131/62; PULSE 92; RESP 18; TEMP 37.1; O2SAT 100
--- NOTE | 2020-10-17 18:02 | PC.NURSE ---
3 way he catheter in place. Irrigation port has no cap, urine leaking through this port. Cath plug placed to port without further evidence of leaking.
--- NOTE | 2020-10-17 19:46 | ED.GENADULT ---
HPI - General Adult General Chief complaint: Urogenital-Male Stated complaint: he problems Time Seen by Provider: 10/17/20 19:25 Source: patient, family and RN notes reviewed Mode of arrival: ambulatory Limitations: physical limitation History of Present Illness HPI narrative: This is an 85 year old male who presents for evaluation of He catheter leak. Patient was discharged from [facility] today with a 3 way He catheter. He returned today because his He catheter has been leaking since discharge from hospitall. He denies having hematuria, abdominal pain, nausea, vomiting or fever. Nursing staff states patient's port on his 3 way did not have a cap in place so urine was leaking from that site. She placed a cap on his He catheter and he is no longer leaking. His family at bedside denies any other complaints. Related Data Home Medications Medication Instructions Recorded Confirmed metformin 1,000 mg PO BID 05/12/20 10/14/20 omeprazole 20 mg PO DAILY 05/12/20 10/14/20 rosuvastatin 5 mg PO DAILY 05/12/20 10/14/20 tamsulosin 0.4 mg PO DAILY 05/12/20 10/14/20 furosemide 20 mg PO BID 05/30/20 10/14/20 aspirin 81 mg PO DAILY 06/12/20 10/14/20 warfarin See Rx Instructions .ROUTE .COMPLEX 09/22/20 10/14/20 Allergies Allergy/AdvReac Type Severity Reaction Status Date / Time No Known Allergies Allergy Verified 10/17/20 17:22 Review of Systems Review of Systems: All systems reviewed & are unremarkable except as noted in HPI and below PMFSH Past Medical History Medical History B12 deficiency BPH (benign prostatic hyperplasia) Bradycardia CAD (coronary artery disease) Chewing tobacco nicotine dependence CHF (congestive heart failure) echocardiogram April 2020: EF 60-65%, indeterminate diastolic function, moderate right ventricular enlargement, severe left atrial enlargement, moderate right atrial enlargement, mild mitral valve and tricuspid valve regurgitation, [id number] aortic valve regurgitation, mild pulmonary hypertension Chronic kidney disease, stage 3 with baseline creatinine between 1 and 1.4 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 He is retired from [employer]. He lives with his and Daughter. His daughter is a durable power de icer kit assembler for healthcare. The daughter is at the bedside and the patient is now DNR. [facility] but is now back at [facility]. Patient quit smoking and had been using smokeless tobacco as well. Primary care physician: Dr. Shin Hdz Code status: DNR Surrogate decision maker: daughter Smoking packs per day: 4 Smoking cigarettes per day: 80.0 Years smoked: 20 Smoking pack-years: 80.00 Smoking status: Former smoker Tobacco type: pipe, cigars and smokeless tobacco Smokeless tobacco user: chewing tobacco Second hand tobacco smoke exposure: No Smoking end date: 09/22/20 Additional smoking assessment comments: unsure how much cigars and pipe; recently quit chewing tobacco Alcohol intake: never Drinks per
[2020-10-17 20:05] VITALS: BP 111/61; PULSE 92; RESP 16; O2SAT 97
== END 2020-10-17 20:05 | disposition home or self-care (01) ==
PROVIDERS: Emergency Provider General Practice; PCP Family Medicine Adolescent Medicine
DX: Z46.6 Encounter for fitting and adjustment of urinary device (principal); N40.0 Benign prostatic hyperplasia without lower urinary tract symptoms; I25.10 Atherosclerotic heart disease of native coronary artery without angina pectoris; I50.9 Heart failure, unspecified; E11.22 Type 2 diabetes mellitus with diabetic chronic kidney disease; N18.30 Chronic kidney disease, stage 3 unspecified; I13.0 Hypertensive heart and chronic kidney disease with heart failure and stage 1 through stage 4 chronic kidney disease, or unspecified chronic kidney disease; I69.954 Hemiplegia and hemiparesis following unspecified cerebrovascular disease affecting left non-dominant side; E11.40 Type 2 diabetes mellitus with diabetic neuropathy, unspecified; E11.319 Type 2 diabetes mellitus with unspecified diabetic retinopathy without macular edema; E11.51 Type 2 diabetes mellitus with diabetic peripheral angiopathy without gangrene; I48.19 Other persistent atrial fibrillation; E78.5 Hyperlipidemia, unspecified; D50.9 Iron deficiency anemia, unspecified; E53.8 Deficiency of other specified B group vitamins; Z98.42 Cataract extraction status, left eye; Z98.41 Cataract extraction status, right eye; Z95.1 Presence of aortocoronary bypass graft; Z66 Do not resuscitate; Z79.01 Long term (current) use of anticoagulants; Z79.84 Long term (current) use of oral hypoglycemic drugs; Z87.891 Personal history of nicotine dependence
CPT/HCPCS: 51700; 99282

== ENCOUNTER 2020-11-20 12:45 | Outpatient (CLI) | payer MEDICARE, SELFPAY ==
--- NOTE | ~2020-11-20 | XR_ITS ---
XR abdomen/kub 1V DATE: 11/20/2020 13:13 INDICATION: Gross hematuria TECHNIQUE: AP projection, 2 views COMPARISON: 10/14/2020 CT abdomen pelvis FINDINGS: Approximately 2.4 mm eggshell type calcification overlying the right upper quadrant, likely due to gallstone. Calcification of the abdominal aorta, iliac and femoral arteries. No evidence of bowel obstruction. No visceromegaly is evident. Status post sternotomy. IMPRESSION: Probable calcified large gallstone Reviewed, dictated and finalized at [facility]. Reviewed, dictated and finalized at [facility].
--- NOTE | ~2020-11-20 | CT_ITS ---
EXAMINATION: CT abdomen pelvis wo/w con DATE: 11/20/2020 14:40 INDICATION: Gross hematuria TECHNIQUE: Computed tomography (CT) of the abdomen and pelvis was performed without and subsequently with 130 cc Omnipaque 350 intravenous contrast. Automated exposure control and iterative reconstructi on technique were employed. Exam dose: 2041.33 mGy-cm total exam DLP. COMPARISON: 10/14/2020 CT abdomen pelvis FINDINGS: Status post sternotomy. Cardiomegaly. Coronary artery calcifications. There is mild atelectasis but no consolidation at the l zenaida bases. There is gallbladder distended, with mural calcification; cannot exclude cholelithiasis. No bile duct or pancreatic duct dilatation. No hepatic, splenic, pancreatic or adrenal space-occupying mass lesion. Scattered left renal cysts including one larger cyst measuring up to 5.7 cm. Low lying incompletely rotated right kidney with approximately 6 mm cortical cyst. No urinary tract calculus or hydroureteronephrosis is detected. There is extensive calcification of the abdominal aorta, at the origins of celiac, superior mesenteri c, left renal arteries, and iliac and femoral arteries. No abdominal aortic aneurysm. No intraperiton eal or retroperitoneal or pelvic mass lesion or adenopathy or ascites. Prominent prostate enlargement. There is diffuse thickening of the urinary bladder wall. The urinary bladder diverticula. Normal appendix. There is diverticulosis of the colon; no CT evidence of diverticulitis. No bowel obstruction or intra peritoneal free air is detected. Diffuse osteopenia. Degenerative changes of the thoracic and lumbar spine. IMPRESSION: Cardiomegaly Distended gallbladder with some mural calcifications; cannot exclude gallstones Bilateral renal cysts Incompletely rotation low lying right kidney Prostate enlargement Diverticulosis of the colon; no evidence of diverticulitis Reviewed, dictated and finalized at [facility]. Reviewed, dictated and finalized at [facility].
[2020-11-20 14:08] LABS: Estimated Glomerular Filt Rate 36
== END 2020-11-20 12:46 | disposition home or self-care (01) ==
PROVIDERS: PCP Family Medicine Adolescent Medicine; Visit Provider Urology
DX: R31.0 Gross hematuria (principal); I51.7 Cardiomegaly; N28.1 Cyst of kidney, acquired; N28.89 Other specified disorders of kidney and ureter; N40.0 Benign prostatic hyperplasia without lower urinary tract symptoms; K57.90 Diverticulosis of intestine, part unspecified, without perforation or abscess without bleeding
CPT/HCPCS: 74018; 74178; Q9967

== ENCOUNTER 2021-03-01 14:38 | Outpatient (CLI) | payer MEDICARE, SELFPAY ==
[2021-03-01 15:42] LABS: Alanine Aminotransferase 60 U/L (4-50); Albumin Level 3.8 g/dL (3.5-5.1); Alkaline Phosphatase 106 U/L (38-126); Anion Gap 18 mmol/L (8-16); Aspartate Amino Transferase 66 U/L (17-59); Bilirubin,Total 0.5 mg/dL (0.2-1.3); Blood Urea Nitrogen 108 mg/dL (9-20); Calcium 9.2 mg/dL (8.4-10.2); Carbon Dioxide 18 mmol/L (22-30); Chloride 100 mmol/L (98-107); Estimated Glomerular Filt Rate 13; Glucose 164 mg/dL (65-110); Hematocrit 29.9 % (42.0-52.0); Hemoglobin 9.7 g/dL (14.0-18.0); Mean Corpuscular HGB Conc 32.4 g/dl (32-36); Mean Corpuscular Hemoglobin 25.3 pg (26-34); Mean Corpuscular Volume 77.9 fl (80-100); Platelet Count Result 350 k/mm3 (150-375); Potassium 4.3 mmol/L (3.4-5.0); Red Blood Count 3.84 M/mm3 (4.6-6.20); Red Cell Distribution Width 18.8 % (11.5-14.5); Sodium 136 mmol/L (137-145); White Blood Count 9.3 K/mm3 (4.5-10.0)
== END 2021-03-01 14:39 | disposition home or self-care (01) ==
PROVIDERS: PCP Family Medicine Adolescent Medicine; Visit Provider Family Medicine Adolescent Medicine
DX: R53.83 Other fatigue (principal)
CPT/HCPCS: 36415; 80053; 84443; 85027

== ENCOUNTER 2021-03-09 12:29 | Inpatient (IN) | payer MEDICARE, SELFPAY ==
--- NOTE | ~2021-03-09 | CT_ITS ---
EXAMINATION: CT abdomen pelvis wo con DATE: 03/09/2021 16:18 INDICATION: Left lower quadrant pain. UTI. Vomiting. TECHNIQUE: Computed tomography (CT) of the abdomen and pelvis was performed without intravenous contr ast. The dose-length product was 1108.22 mGy-cm. Automated exposure control and iterative reconstruct ion technique were employed. COMPARISON: CT dated 11/20/2020. FINDINGS: There is dependent atelectasis with calcified granuloma in the right lower lobe. Cardiac ca rdiomegaly. Status post median sternotomy for CABG. There is partially visualized aneurysm of the asc ending thoracic aorta measuring 5.8 cm. Gallbladder is dilated and contains stones. The liver, spleen, pancreas, adrenal glands are unremarka ble. There is bilateral hydroureteronephrosis. Bladder wall is diffusely thickened with perivesical f atty infiltration, consistent with cystitis. 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 There is atherosclerosis of the abdominal aorta. Nonobstructive bowel gas pattern. There are bilateral alin l cysts. No lymphadenopathy. There is lumbar spondylosis with accentuated lower thoracic kyphosis. Mi ldly enlarged prostate gland. No free air or free fluid. IMPRESSION: 1. Moderate bladder wall thickening with perivesical fatty infiltration, consistent with cystitis. Th is likely contributes to bilateral hydroureteronephrosis. 2: Dilated gallbladder with cholelithiasis. 3: Partially visualized ascending thoracic aortic aneurysm measuring 5.8 cm greatest dimension. Reviewed, dictated and finalized at location [facility]. INSTALLER IMPRESSION: 1. Moderate bladder wall thickening with perivesical fatty infiltration, consis tent with cystitis. This likely contributes to bilateral hydroureteronephrosis. 2: Dilated gallbladder with cholelithiasis. 3: Partially visualized ascending thoracic aortic aneurysm measuring 5.8 cm gr eatest dimension.
--- NOTE | ~2021-03-09 | US_ITS ---
EXAMINATION: US pelvic limited EXAM DATE: 03/11/2021 11:57 INDICATION: Gross hematuria/clots . TECHNIQUE: Pelvic transabdominal sonogram was performed. There are multiple grayscale and Doppler im ages available for interpretation. Correlation is made to CT abdomen pelvis 03/09/2021. FINDINGS: Transabdominal scanning demonstrates Beltre catheter in position, and small amount of bladde r debris or blood. There is severe bladder wall thickening, acute cystitis correlating with recent CT . IMPRESSION: Severe bladder wall thickening, cystitis. Small amount of luminal debris or blood. Reviewed, dictated and finalized at location [facility]. 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
[2021-03-09 12:39] VITALS: BP 92/46; PULSE 90; RESP 20; TEMP 36.2; O2SAT 100
[2021-03-09 13:39] VITALS: BP 108/59; PULSE 67; RESP 16; O2SAT 93
[2021-03-09 13:43] LABS: Basophils Percent Auto 0.3 % (0.2-1.2); Eosinophils Absolute Auto 0.2 K/mm3 (0-0.3); Eosinophils Percent Auto 1.5 % (0-4.4); Hematocrit 32.4 % (42.0-52.0); Hemoglobin 10.2 g/dL (14.0-18.0); Immature Granulocyte Absolute 0.07 K/mm3 (0.00-0.031); Immature Granulocyte Percent A 0.7 % (0-0.5); Lymphocytes Percent Auto 12.2 % (18.3-44.2); Mean Corpuscular HGB Conc 31.5 g/dl (32-36); Mean Corpuscular Hemoglobin 24.5 pg (26-34); Mean Corpuscular Volume 77.9 fl (80-100); Mean Platelet Volume 9.9 fl (7.4-10.4); Monocytes Absolute Auto 0.7 K/mm3 (0.1-0.6); Monocytes Percent Auto 6.8 % (2.6-8.5); Neutrophils Absolute Auto 8.4 K/mm3 (1.3-6.7); Neutrophils Percent Auto 78.5 % (45.5-73.1); Platelet Count Result 381 k/mm3 (150-375); Red Blood Count 4.16 M/mm3 (4.6-6.20); Red Cell Distribution Width 20.7 % (11.5-14.5); White Blood Count 10.7 K/mm3 (4.5-10.0)
[2021-03-09 14:05] LABS: Alanine Aminotransferase 59 U/L (4-50); Albumin Level 4.1 g/dL (3.5-5.1); Alkaline Phosphatase 99 U/L (38-126); Anion Gap 18 mmol/L (8-16); Aspartate Amino Transferase 56 U/L (17-59); Bilirubin,Total 0.4 mg/dL (0.2-1.3); Carbon Dioxide 13 mmol/L (22-30); Chloride 103 mmol/L (98-107); Estimated CRCL calculation 7 ml/min; Estimated Glomerular Filt Rate 7; Glucose 114 mg/dL (65-110); Lipase 400 U/L (23-300); Potassium 4.6 mmol/L (3.4-5.0); Sodium 134 mmol/L (137-145)
[2021-03-09 14:48] LABS: Add Urine Microscopic? YES; Appearance Urine Turbid (Clear); Bilirubin Urine Negative (Negative); Blood Urine 1+ (Negative); Color Urine Amber (Yellow); Glucose Urine UA Negative (Negative); Ketones Urine Negative (Negative); Leukocyte Esterase Ur 3+ LEU/UL (Negative); Nitrate Urine Negative (Negative); Protein Urine 2+ mg/dL (Negative); Specific Grav Ur 1.012 (1.001-1.035); Urobilinogen Urine Negative mg/dL (<2.0); WBC Clumps Urine Present /HPF; WBC Urine >75 /hpf
[2021-03-09 14:57] LABS: Blood Urea Nitrogen 152 mg/dL (9-20)
[2021-03-09] MEDS: LACTATED RINGERS 1,000 ML 999 ML IV CONT (16:19)
--- NOTE | 2021-03-09 17:21 | ED.ABDPAIN ---
HPI - Abdominal Pain General Chief Complaint: Abdominal Pain Stated Complaint: Abd Pain x 1 week Time Seen by Provider: 03/09/21 13:38 Source: patient and family Limitations: clinical condition History of Present Illness HPI narrative: 85-year-old male Here because of lower abdominal pain and general weakness He apparently had a minor fall some 2 or 3 weeks ago He has had a poor appetite and not much in the way of p.o. intake and in the last few days he started vomiting in the morning Patient notes that he feels pain in the lower right abdomen but cannot really say what makes it better or worse He is urinating and moving his bowels He feels generally weak, but no fever no chills no cough no shortness of breath We have in our EMR chemistries done 8 days ago which show a creatinine of 4.8 among other abnormalities but is not immediately clear who ordered them or if anything was done about it Related Data Home Medications Medication Instructions Recorded Confirmed metformin 1,000 mg PO BID 05/12/20 03/09/21 omeprazole 20 mg PO DAILY 05/12/20 03/09/21 rosuvastatin 5 mg PO DAILY 05/12/20 03/09/21 tamsulosin 0.4 mg PO DAILY 05/12/20 03/09/21 aspirin 81 mg PO HS 06/12/20 03/09/21 indapamide 2.5 mg PO HS 03/09/21 03/09/21 warfarin 4 mg PO HS 03/09/21 03/09/21 Allergies Allergy/AdvReac Type Severity Reaction Status Date / Time No Known Allergies Allergy Verified 03/09/21 13:40 Review of Systems Review of Systems: All systems reviewed & are unremarkable except as noted in HPI and below Constitutional: Constitutional: Reports no additional constitutional complaints, Denies chills, Reports fatigue, Denies fever(s), Denies headache(s) and Reports weakness Eyes: Eyes: Reports no additional eye complaints and Denies change in vision ENT: Denies headache(s) and Denies sore throat Cardiovascular: Cardiovascular: Denies chest pain and Denies dyspnea Respiratory: Respiratory: Denies cough and Denies dyspnea Gastrointestinal: Gastrointestinal: Reports abdominal pain, Denies diarrhea, Reports nausea and Denies vomiting Comments: Poor appetite Genitourinary: Genitourinary: Denies hematuria, Denies dysuria and Denies urinary frequency Musculoskeletal: Musculoskeletal: Reports myalgias, Denies deformity, Denies arthralgias, Denies joint swelling and Denies numbness Integumentary/Breasts: Skin/Breast: Denies rash and Denies wounds Neurologic: Denies headache(s), Denies focal weakness and Denies numbness Psychiatric: Psychiatric: Reports no additional psychiatric complaints Endocrine: Endocrine: Reports no additional endocrine complaints Hematologic/Lymphatic: Hematologic/Lymphatic: Reports no additional hematologic/lymphatic complaints Allergic/Immunologic: Allergic/Immunologic: Reports no additional allergic/immunologic complaints [facility] Past Medical History Medical History B12 deficiency BPH (benign prostatic hyperplasia) Bradycardia CAD (coronary artery disease) Chewing tobacco nicotine dependence CHF (congestive heart failure) echocardiogram April 2020: EF 60-65%, indeterminate diastolic function, moderate right ventricular enlargement, severe left atrial enlargement, moderate right atrial enlargement, mild mitral valve and tricuspid valve regurgitation, [id number] aortic valve regurgitation, mild pulmonary hypertension Chronic kidney disease, stage 3 with baseline creatinine between 1 and 1.4 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
[2021-03-09 17:36] VITALS: BP 105/62; PULSE 72; RESP 16; O2SAT 100
--- NOTE | 2021-03-09 18:08 | PC.NURSE ---
Pt refused Beltre Cath
[2021-03-09] MEDS: LEVOTHYROXINE SODIUM 100 MCG TABLET 200 MCG PO (18:14)
--- NOTE | 2021-03-09 18:15 | PC.NURSE ---
patient refusing any catheter at this time, patient understanding of why he needs one at this time, still refusing.
[2021-03-09 18:44] VITALS: BP 114/54; PULSE 63; RESP 17; O2SAT 100
--- NOTE | 2021-03-09 19:38 | PC.NURSE ---
pt still refusing Beltre catheter at this time. educated pt on importance of catheter. pt still not wanting.
[2021-03-09 20:18] VITALS: BP 101/52; PULSE 74; RESP 17; O2SAT 100
[2021-03-09 20:53] LABS: Free T4 Free Thyroxine 0.96 ng/mL (0.78-2.19)
[2021-03-09 23:55] VITALS: BP 126/61; PULSE 94; RESP 21; O2SAT 97
--- NOTE | 2021-03-09 23:59 | ADMGEN ---
This patient, Kenneth Urrutia, was admitted to 2 Medical Room 251-. Patient/family oriented to hospital policies and general routines including ID bracelet, bed and alarms, visiting hours, pain management, procedures, bathroom and other care routines, personal items, smoking policy, room service/diet, and visiting hours. Information on how to activate the Rapid Response Team has been discussed. Patient/Family are encouraged to report perceived risks to care and to ask questions if they do not understand what they are told or what they should do.
--- NOTE | 2021-03-09 23:59 | PM.IMHP ---
H&P: HPI History of Present Illness Date/Time: 03/09/21 23:59 Chief Complaint: Generalized weakness Narrative: 85-year-old male Who is a very poor historian and has some residual speech difficulty at baseline presents to the ER today with lower abdominal pain and generalized weakness. He had minor fall about 2-3 weeks ago. Also noted to have poor appetite and decreased p.o. intake started having vomiting since past few days. Reports pain in his lower abdomen. In the ED evaluation he was noted have WBC of 10.7 with mild anemia of 10.2 creatinine was elevated at 7.3 with metabolic acidosis with bicarbonate of 13. His baseline creatinine is around 2 but recently on 03/01/2021 his creatinine was up at 4.5. it is not clear who ordered the labs on 03/01/2021 His urinalysis Today was positive for UTI. He denies any fever or chills. CT abdomen and pelvis showed bilateral hydroureteral nephrosis. Bladder wall is diffusely thickened. Gallbladder is dilated with cholelithiasis. There is also partially visualized ascending thoracic aortic aneurysm measuring 5.8 cm. He is admitted for further evaluation and management. His TSH has been mildly elevated at 10.2 lipase elevated 400. No CK level has been ordered. He is also on warfarin INR has not been checked today. He refuses to get the Beltre catheter put in as it has been painful in the past Review of Systems Review of Systems: - CONSTITUTIONAL: Denies weight loss, fever and chills. - HEENT: Denies changes in vision and hearing - RESPIRATORY: Denies SOB and cough. - CV: Denies palpitations and CP. - GI: reports abdominal pain, nausea, vomiting and deniesdiarrhea. - : reports dysuria and urinary frequency. - MSK: Denies myalgia and joint pain. - SKIN: Denies rash and pruritus. - NEUROLOGICAL: Denies headache and syncope. - PSYCHIATRIC: Denies recent changes in mood. Denies anxiety and depression. All systems reviewed & are unremarkable except as noted in HPI and below Constitutional: Constitutional: Reports fatigue and Reports weakness Neurologic: Reports weakness Endocrine: Endocrine: Reports fatigue PMFSH Past Medical History Medical History B12 deficiency BPH (benign prostatic hyperplasia) Bradycardia CAD (coronary artery disease) Chewing tobacco nicotine dependence CHF (congestive heart failure) echocardiogram April 2020: EF 60-65%, indeterminate diastolic function, moderate right ventricular enlargement, severe left atrial enlargement, moderate right atrial enlargement, mild mitral valve and tricuspid valve regurgitation, [id number] aortic valve regurgitation, mild pulmonary hypertension Chronic kidney disease, stage 3 with baseline creatinine between 1 and 1.4 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 He is retired from [employer]. He lives with his and Daughter. His daughter is a durable power admitted attorneys for healthcare. The daughter is at the bedside and the patient is now DNR. The patient was in in [facility] but is now back at home. Patient quit smoking and had been using smokeless
[2021-03-10] VITALS (11 sets, daily range): BP systolic 88–110; BP diastolic 46–55; PULSE 66–98; RESP 20–21; TEMP 36.1–36.8; O2SAT 98–100; BMI 34.6
[2021-03-10 00:58] LABS: Hemoglobin A1C 6.4 % (<5.7)
[2021-03-10 01:02] LABS: Creatine Kinase 75 U/L (55-170); Prothrombin Time 80.6 Seconds (11.1-14.7)
[2021-03-10] MEDS: LIDOCAINE HCL 2% GEL UROJET 10 ML PKG MUCOUS MEM (01:06)
[2021-03-10 01:28] LABS: INR 10.8
[2021-03-10 01:39] LABS: Creatinine Urine 59.6 mg/dL
[2021-03-10] MEDS: SODIUM BICARBONATE 8.4% 150 MEQ in WATER, STERILE FOR INJECTION 950 ML 125 MEQ IV CONT ×3 (01:39→23:02)
[2021-03-10 01:41] LABS: Sodium Urine Random 50 meq/L
[2021-03-10] MEDS: ACETAMINOPHEN 325 MG TABLET 650 MG PO (03:02)
[2021-03-10] MEDS: LEVOTHYROXINE SODIUM 50 MCG TABLET PO (06:26)
[2021-03-10 06:46] LABS: Basophils Percent Auto 0.2 % (0.2-1.2); Eosinophils Absolute Auto 0.1 K/mm3 (0-0.3); Eosinophils Percent Auto 0.8 % (0-4.4); Hemoglobin 9.3 g/dL (14.0-18.0); Immature Granulocyte Absolute 0.07 K/mm3 (0.00-0.031); Immature Granulocyte Percent A 0.6 % (0-0.5); Lymphocytes Absolute Auto 0.97 K/mm3 (0.9-3.2); Lymphocytes Percent Auto 7.9 % (18.3-44.2); Mean Corpuscular HGB Conc 32.1 g/dl (32-36); Mean Corpuscular Hemoglobin 24.2 pg (26-34); Mean Corpuscular Volume 75.5 fl (80-100); Mean Platelet Volume 10.4 fl (7.4-10.4); Monocytes Absolute Auto 0.8 K/mm3 (0.1-0.6); Monocytes Percent Auto 6.5 % (2.6-8.5); Neutrophils Absolute Auto 10.4 K/mm3 (1.3-6.7); Platelet Count Result 346 k/mm3 (150-375); Red Blood Count 3.84 M/mm3 (4.6-6.20); Red Cell Distribution Width 20.8 % (11.5-14.5); White Blood Count 12.4 K/mm3 (4.5-10.0)
[2021-03-10 07:16] LABS: Alanine Aminotransferase 45 U/L (4-50); Albumin Level 3.2 g/dL (3.5-5.1); Alkaline Phosphatase 88 U/L (38-126); Anion Gap 18 mmol/L (8-16); Aspartate Amino Transferase 46 U/L (17-59); Bilirubin,Total 0.4 mg/dL (0.2-1.3); Calcium 8.9 mg/dL (8.4-10.2); Carbon Dioxide 15 mmol/L (22-30); Chloride 106 mmol/L (98-107); Estimated CRCL calculation 7 ml/min; Estimated Glomerular Filt Rate 8; Glucose 89 mg/dL (65-110); Sodium 139 mmol/L (137-145)
[2021-03-10 08:06] LABS: Glucose Point of Care 75 mg/dl (65-105)
[2021-03-10] MEDS: PANTOPRAZOLE 40 MG TABLET PO (08:21)
[2021-03-10] MEDS: TAMSULOSIN HCL 0.4 MG CAPSULE PO (08:22)
[2021-03-10] MEDS: ROSUVASTATIN 5 MG TABLET PO (08:22)
[2021-03-10 09:57] LABS: Blood Urea Nitrogen 136 mg/dL (9-20)
[2021-03-10 11:42] LABS: Glucose Point of Care 94 mg/dl (65-105)
--- NOTE | 2021-03-10 15:41 | PC.NURSE ---
1430 Dr Guerra notified of bp , pt asymptomatic
--- NOTE | 2021-03-10 16:09 | PM.CNNEP ---
Assessment and Plan Assessment and plan (1) Acute kidney injury: Code(s): N17.9 - Acute kidney failure, unspecified Status: Acute Assessment and Plan: presumably due to urinary retention/obstructive uropathy this appears to be an ongoing issue based on review of his previous hospitalizations likely worsened by ongoing use of OTILIA-I, diuretics, and metformin -- these have placed on hold he catheter in place follow trend of repeat labs and UOP (2) Chronic kidney disease, stage 3: Code(s): N18.30 - Chronic kidney disease, stage 3 unspecified Status: Chronic Assessment and Plan: baseline creatinine is not entirely clear given the wide fluctuations associated with his hospitalizations appears creatinine runs around 1.3 - 2.2mg/dl; hence he bounces between CKD stage 3A and stage 3B likely due to recurrent episodes of TAB with urinary retention/obstruction, hypertension, diabetes, vascular disease, and age-related change (3) Hydroureteronephrosis: Code(s): N13.30 - Unspecified hydronephrosis Status: Acute Assessment and Plan: as noted by admission imaging he catheter in place Urology consultation supportive therapy (4) Metabolic acidosis: Code(s): E87.2 - Acidosis Status: Acute Assessment and Plan: due TAB/ARF agree with bicarb IVFs should improve as renal function does (5) HTN (hypertension): Qualifiers: Hypertension type: unspecified Qualified Code(s): I10 - Essential (primary) hypertension Code(s): I10 - Essential (primary) hypertension Status: Chronic Assessment and Plan: on the lower side at this time BP medications on hold/with parameters follow trend of hemodynamics (6) Diabetes mellitus: Qualifiers: Diabetes mellitus type: type 2 Diabetes mellitus shelter insulin use: without shelter use Diabetes mellitus complication status: without complication Qualified Code(s): E11.9 - Type 2 diabetes mellitus without complications Code(s): E11.9 - Type 2 diabetes mellitus without complications Status: Chronic Assessment and Plan: follow accuchecks glycemic control Will continue to follow. History of Present Illness Reason for Consult Consult date: 03/10/21 Reason for consult: acute renal failure (on chronic kidney disease[?]) Chief Complaint Chief complaint: Uremia, Cystitis, Hypothyroid History of Present Illness Narrative: The patient is an 85-year-old male with a past medical history as outlined below who presented to [facility] Emergency room for further evaluation of lower abdominal pain in association with generalized weakness. The patient is a very poor historian and also has some speech difficulty making getting a full incomplete history of the events that led to his presentation somewhat difficult to obtain most of the information I have obtained is from review of the electronic medical record, discussion with the ER physician on the patient's presentation, supplemented by what information I can get from the patient. Apparently, the patient had a minor fall about 2-3 weeks ago. At that time it was noted that he was not eating and drinking very well and has had some problems with on and off nausea but more recently has had issues with vomiting in the past few days. In association with this, he has had some pain in his lower abdomen but it is not really clear the precise location and extent of this pain on discussion with the patient. Nonetheless, given the symptoms and his extensive past medical history, he was transferred to the emergency room from his nursing facility for further evaluation. Workup and evaluation emergency room demonstrated the patient to be hemodynamically stable. Routine blood test demonstrated a market decline in his kidney function with a creatinine of 7.3 mg/dL in association with a metabolic acidosis. Fro
[2021-03-10 17:11] LABS: Glucose Point of Care 131 mg/dl (65-105)
--- NOTE | 2021-03-10 18:14 | PM.IMPN ---
Progress Note: A&P Assessment and Plan (1) Hypothyroid: Code(s): E03.9 - Hypothyroidism, unspecified Status: Acute (2) Acute kidney injury: Code(s): N17.9 - Acute kidney failure, unspecified Status: Acute (3) Urinary tract infection: Qualifiers: Hematuria presence: without hematuria Urinary tract infection type: acute cystitis Qualified Code(s): N30.00 - Acute cystitis without hematuria Code(s): N39.0 - Urinary tract infection, site not specified Status: Acute (4) Generalized weakness: Code(s): R53.1 - Weakness Status: Acute (5) CHF (congestive heart failure): Code(s): I50.9 - Heart failure, unspecified Status: Chronic (6) CAD (coronary artery disease): Code(s): I25.10 - Atherosclerotic heart disease of [place] coronary artery without angina pectoris Status: Acute (7) Hydroureteronephrosis: Code(s): N13.30 - Unspecified hydronephrosis Status: Acute (8) Chronic anticoagulation: Code(s): Z79.01 - MCFP (current) use of anticoagulants Status: Acute (9) Paroxysmal atrial fibrillation: Code(s): I48.0 - Paroxysmal atrial fibrillation Status: Chronic (10) Diabetes mellitus: Qualifiers: Diabetes mellitus complication status: without complication Diabetes mellitus retirement insulin use: without manager long term care use Diabetes mellitus type: type 2 Qualified Code(s): E11.9 - Type 2 diabetes mellitus without complications Code(s): E11.9 - Type 2 diabetes mellitus without complications Status: Chronic (11) Hyperlipidemia: Qualifiers: Hyperlipidemia type: unspecified Qualified Code(s): E78.5 - Hyperlipidemia, unspecified Code(s): E78.5 - Hyperlipidemia, unspecified Status: Chronic (12) HTN (hypertension): Qualifiers: Hypertension type: unspecified Qualified Code(s): I10 - Essential (primary) hypertension Code(s): I10 - Essential (primary) hypertension Status: Chronic (13) BPH (benign prostatic hyperplasia): Code(s): N40.0 - Benign prostatic hyperplasia without lower urinary tract symptoms Status: Acute (14) Supratherapeutic INR: Code(s): R79.1 - Abnormal coagulation profile Status: Acute Additional Plan # generalized weakness # acute on chronic kidney disease stage 3 hold enalapril and indapamide hold metformin. Will change to bicarb drip. Will check SPEP UPEP were likely due to obstructive uropathy. Recheck labs in morning. will need to put a Beltre which was discussed with the patient and he was agreeable. # bilateral hydroureteronephrosis likely due to bladder outlet obstruction will put a Beltre in urology consultation In the morning # UTI diffuse bladder wall thickening noted on CT urine culture has been sent. Will continue Rocephin # dilated gallbladder with cholelithiasis looks like this is similar finding in the past as well likely chronic # history of congestive heart failure diastolic # hypothyroidism on levothyroxine this looks like on levothyroxine at home was started by ED doc. 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
[2021-03-10] MEDS: PHYTONADIONE 2.5 MG TAB PO (19:27)
[2021-03-10] MEDS: ASPIRIN 81 MG ENTERIC TABLET PO (22:06)
[2021-03-10 22:21] LABS: Glucose Point of Care 103 mg/dl (65-105)
[2021-03-11] VITALS (9 sets, daily range): BP systolic 102–109; BP diastolic 48–54; PULSE 64–83; RESP 16–20; TEMP 36.2–36.4; O2SAT 96–99
[2021-03-11 01:12] LABS: INR 10.9
[2021-03-11] MEDS: ACETAMINOPHEN 325 MG TABLET 650 MG PO (01:35)
[2021-03-11] MEDS: PHYTONADIONE 2.5 MG TAB PO (03:39)
[2021-03-11] MEDS: LEVOTHYROXINE SODIUM 50 MCG TABLET PO (06:33)
--- NOTE | 2021-03-11 07:37 | PM.IMPN ---
Progress Note: A&P Assessment and Plan (1) Hypothyroid: Code(s): E03.9 - Hypothyroidism, unspecified Status: Acute (2) Acute kidney injury: Code(s): N17.9 - Acute kidney failure, unspecified Status: Acute (3) Urinary tract infection: Qualifiers: Hematuria presence: without hematuria Urinary tract infection type: acute cystitis Qualified Code(s): N30.00 - Acute cystitis without hematuria Code(s): N39.0 - Urinary tract infection, site not specified Status: Acute (4) Generalized weakness: Code(s): R53.1 - Weakness Status: Acute (5) CHF (congestive heart failure): Code(s): I50.9 - Heart failure, unspecified Status: Chronic (6) CAD (coronary artery disease): Code(s): I25.10 - Atherosclerotic heart disease of [place] coronary artery without angina pectoris Status: Acute (7) Hydroureteronephrosis: Code(s): N13.30 - Unspecified hydronephrosis Status: Acute (8) Chronic anticoagulation: Code(s): Z79.01 - halfway (current) use of anticoagulants Status: Acute (9) Paroxysmal atrial fibrillation: Code(s): I48.0 - Paroxysmal atrial fibrillation Status: Chronic (10) Diabetes mellitus: Qualifiers: Diabetes mellitus complication status: without complication Diabetes mellitus halfway insulin use: without intermission coordinator use Diabetes mellitus type: type 2 Qualified Code(s): E11.9 - Type 2 diabetes mellitus without complications Code(s): E11.9 - Type 2 diabetes mellitus without complications Status: Chronic (11) Hyperlipidemia: Qualifiers: Hyperlipidemia type: unspecified Qualified Code(s): E78.5 - Hyperlipidemia, unspecified Code(s): E78.5 - Hyperlipidemia, unspecified Status: Chronic (12) HTN (hypertension): Qualifiers: Hypertension type: unspecified Qualified Code(s): I10 - Essential (primary) hypertension Code(s): I10 - Essential (primary) hypertension Status: Chronic (13) BPH (benign prostatic hyperplasia): Code(s): N40.0 - Benign prostatic hyperplasia without lower urinary tract symptoms Status: Acute (14) Supratherapeutic INR: Code(s): R79.1 - Abnormal coagulation profile Status: Acute Additional Plan # generalized weakness # acute on chronic kidney disease stage 3 hold enalapril and indapamide hold metformin. Will change to bicarb drip. Will check SPEP UPEP were likely due to obstructive uropathy. Recheck labs in morning. will need to put a Beltre which was discussed with the patient and he was agreeable. # bilateral hydroureteronephrosis likely due to bladder outlet obstruction will put a Beltre in urology consultation In the morning # UTI diffuse bladder wall thickening noted on CT urine culture has been sent. Will continue Rocephin # dilated gallbladder with cholelithiasis looks like this is similar finding in the past as well likely chronic # history of congestive heart failure diastolic # hypothyroidism on levothyroxine this looks like on levothyroxine at home was started by ED doc. 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
[2021-03-11 08:04] LABS: Glucose Point of Care 102 mg/dl (65-105)
[2021-03-11 08:15] LABS: Basophils Percent Auto 0.2 % (0.2-1.2); Eosinophils Absolute Auto 0.2 K/mm3 (0-0.3); Eosinophils Percent Auto 2.8 % (0-4.4); Hematocrit 27.1 % (42.0-52.0); Immature Granulocyte Absolute 0.04 K/mm3 (0.00-0.031); Immature Granulocyte Percent A 0.5 % (0-0.5); Lymphocytes Percent Auto 16.3 % (18.3-44.2); Mean Corpuscular HGB Conc 33.2 g/dl (32-36); Mean Corpuscular Hemoglobin 24.6 pg (26-34); Mean Platelet Volume 10.1 fl (7.4-10.4); Monocytes Absolute Auto 0.7 K/mm3 (0.1-0.6); Monocytes Percent Auto 7.9 % (2.6-8.5); Neutrophils Absolute Auto 6.2 K/mm3 (1.3-6.7); Neutrophils Percent Auto 72.3 % (45.5-73.1); Platelet Count Result 331 k/mm3 (150-375); Red Blood Count 3.66 M/mm3 (4.6-6.20); Red Cell Distribution Width 20.4 % (11.5-14.5); White Blood Count 8.6 K/mm3 (4.5-10.0)
[2021-03-11] MEDS: TAMSULOSIN HCL 0.4 MG CAPSULE PO (08:54)
[2021-03-11] MEDS: PANTOPRAZOLE 40 MG TABLET PO (08:54)
[2021-03-11] MEDS: ROSUVASTATIN 5 MG TABLET PO (08:54)
[2021-03-11] MEDS: SODIUM BICARBONATE 8.4% 150 MEQ in WATER, STERILE FOR INJECTION 950 ML 125 MEQ IV CONT (10:02)
[2021-03-11 11:13] LABS: Glucose Point of Care 149 mg/dl (65-105)
[2021-03-11 11:44] LABS: Albumin Level 3.3 g/dL (3.5-5.1); Anion Gap 8 mmol/L (8-16); Blood Urea Nitrogen 117 mg/dL (9-20); Calcium 8.3 mg/dL (8.4-10.2); Carbon Dioxide 29 mmol/L (22-30); Chloride 97 mmol/L (98-107); Estimated CRCL calculation 11 ml/min; Estimated Glomerular Filt Rate 14; Glucose 148 mg/dL (65-110); Phosphorus 3.7 mg/dL (2.5-4.5); Potassium 3.3 mmol/L (3.4-5.0); Sodium 134 mmol/L (137-145)
--- NOTE | 2021-03-11 13:08 | WPDURCON ---
Assessment and Plan Assessment and plan (1) Hydroureteronephrosis: Code(s): N13.30 - Unspecified hydronephrosis Status: Acute Assessment and Plan: Resolved on US from today s/p he placement. (2) Hematuria: Code(s): R31.9 - Hematuria, unspecified Status: Acute Assessment and Plan: I irrigated with >500cc of NS manually with a 60cc catheter tip syringe and was able to remove many small clots and clear the urine to a light pink color. Irrigate the he twice a shift until clear. If urine becomes more red in color and is not easily irrigated, will need to insert a 3 way he and start CBI. Secondary to BPH and anticoagulant use. No large clots seen in the bladder on bladder US today. (3) BPH (benign prostatic hyperplasia): Code(s): N40.0 - Benign prostatic hyperplasia without lower urinary tract symptoms Status: Acute Assessment and Plan: Continue Flomax and start Finasteride. (4) Retention of urine: Code(s): R33.9 - Retention of urine, unspecified Status: Acute Assessment and Plan: Resolved with he placement. Urology Consult Note HPI Date Seen: 03/11/21 Requesting Physician: Debo Singh MD Primary Care Provider: Shin Kessler MD Consult Narrative Narrative: Kenneth Urrutia is a 85 year old male who was initially seen on 03/09/2021 in the ER for abdominal pain and weakness. He is known to our practice and is a patient of Dr. Piedra. We were consulted d/t his ARF secondary to BPH. His baseline creatinine in 10/2020 was 1.80, however on 03/09 it was 7.30 and is now 4.50 s/p catheter placement. Initially he refused a he because it was too uncomfortable for him, however he eventually agreed to have one placed. He was on Flomax prior to this hospital stay. His WBC is 8.6 and his urine culture is negative. He had a CT on 03/09/2021 that shows bilateral hydronephrosis and bladder wall thickening. He has grossly bloody urine draining in his bag today and is on Warfarin and ASA daily. He is a very poor historian and is unable to communicate easily. He denies difficulty with urination at home prior to his admission and states he was taking his Flomax regularly. Review of Systems Cardiovascular: Cardiovascular: Denies chest pain Respiratory: Respiratory: Reports no additional respiratory complaints Gastrointestinal: Gastrointestinal: Reports abdominal pain, Denies nausea and Denies vomiting Genitourinary: Genitourinary: Reports hematuria, Reports flank pain, Denies urinary frequency, Denies urinary hesitancy, Denies urinary incontinence and Denies urinary urgency [facility] Past Medical History Medical History B12 deficiency BPH (benign prostatic hyperplasia) Bradycardia CAD (coronary artery disease) Chewing tobacco nicotine dependence CHF (congestive heart failure) echocardiogram April 2020: EF 60-65%, indeterminate diastolic function, moderate right ventricular enlargement, severe left atrial enlargement, moderate right atrial enlargement, mild mitral valve and tricuspid valve regurgitation, [id number] aortic valve regurgitation, mild pulmonary hypertension Chronic kidney disease, stage 3 with baseline creatinine between 1 and 1.4 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stroduodenoscopy (EGD) unremarkable EGD 2008 S/P CABG x 5 2002 Family History Family History (Reviewed 03/11/21 @ 13:12 by Marisol Hutton, AP
--- NOTE | 2021-03-11 13:09 | P.PNNP_ITS ---
Progress Note: A&P Assessment and Plan (1) Acute kidney injury: Code(s): N17.9 - Acute kidney failure, unspecified Status: Acute Assessment and Plan: * improvement noted * presumably due to urinary retention/obstructive uropathy * this appears to be an ongoing issue based on review of his previous hospitalizations * likely worsened by ongoing use of OTILIA-I, diuretics, and metformin -- these have placed on hold * he catheter in place * follow trend of repeat labs and UOP (2) Chronic kidney disease, stage 3: Code(s): N18.30 - Chronic kidney disease, stage 3 unspecified Status: Chronic Assessment and Plan: * baseline creatinine is not entirely clear given the wide fluctuations associated with his hospitalizations * appears creatinine runs around 1.3 - 2.2mg/dl; hence he bounces between CKD stage 3A and stage 3B * likely due to recurrent episodes of TAB with urinary retention/obstruction, hypertension, diabetes, vascular disease, and age-related change (3) Hydroureteronephrosis: Code(s): N13.30 - Unspecified hydronephrosis Status: Acute Assessment and Plan: * as noted by admission imaging * he catheter in place * Urology recommendations noted * supportive therapy (4) Metabolic acidosis: Code(s): E87.2 - Acidosis Status: Acute Assessment and Plan: * due TAB/ARF * agree with bicarb IVFs - wean off as tolerated * should improve as renal function does (5) HTN (hypertension): Qualifiers: Hypertension type: unspecified Qualified Code(s): I10 - Essential (primary) hypertension Code(s): I10 - Essential (primary) hypertension Status: Chronic Assessment and Plan: * on the lower side at this time * BP medications on hold/with parameters * follow trend of hemodynamics (6) Diabetes mellitus: Qualifiers: Diabetes mellitus type: type 2 Diabetes mellitus senior living insulin use: without termite control servicer use Diabetes mellitus complication status: without complication Qualified Code(s): E11.9 - Type 2 diabetes mellitus without complications Code(s): E11.9 - Type 2 diabetes mellitus without complications Status: Chronic Assessment and Plan: * follow accuchecks * glycemic control Will continue to follow. Subjective Date/time seen: 03/11/21 13:09 No apparent distress voiced at the time of my visit; no distress expressed; he catheter remains in place with reasonably urine output; seen by Urology with recommendations noted; kidney function slowly improving since admission; no issues/events overnight or earlier this AM. Exam Narrative: General: WD/WN male in NAD Heart: normal S1 and S2; no rub Lungs: clear to auscultation Abdomen: soft, nontender, nondistended, positive bowel sounds Extremities: no cyanosis or clubbing; no edema Skin: warm and dry Objective Data Vital Signs Vital Signs: Vital Signs Temp Pulse Resp BP Pulse Ox 03/11/21 13:02 36.4 C L 64 16 102/52 L 99 03/11/21 12:00 65 03/11/21 09:00 73 03/11/21 06:00 36.2 C L 65 20 109/54 L 98 03/11/21 04:00 74 03/11/21 00:00 66 03/10/21 22:00 36.4 C L 66 20 105/55 L 99 03/10/21 20:00 66 03/10/21 17:02 88/52 L Intake/Output Intake/Output: Intake & Outp
--- NOTE | 2021-03-11 13:09 | PM.PNNEP ---
Progress Note: A&P Assessment and Plan (1) Acute kidney injury: Code(s): N17.9 - Acute kidney failure, unspecified Status: Acute Assessment and Plan: improvement noted presumably due to urinary retention/obstructive uropathy this appears to be an ongoing issue based on review of his previous hospitalizations likely worsened by ongoing use of OTILIA-I, diuretics, and metformin -- these have placed on hold he catheter in place follow trend of repeat labs and UOP (2) Chronic kidney disease, stage 3: Code(s): N18.30 - Chronic kidney disease, stage 3 unspecified Status: Chronic Assessment and Plan: baseline creatinine is not entirely clear given the wide fluctuations associated with his hospitalizations appears creatinine runs around 1.3 - 2.2mg/dl; hence he bounces between CKD stage 3A and stage 3B likely due to recurrent episodes of TAB with urinary retention/obstruction, hypertension, diabetes, vascular disease, and age-related change (3) Hydroureteronephrosis: Code(s): N13.30 - Unspecified hydronephrosis Status: Acute Assessment and Plan: as noted by admission imaging he catheter in place Urology recommendations noted supportive therapy (4) Metabolic acidosis: Code(s): E87.2 - Acidosis Status: Acute Assessment and Plan: due TAB/ARF agree with bicarb IVFs - wean off as tolerated should improve as renal function does (5) HTN (hypertension): Qualifiers: Hypertension type: unspecified Qualified Code(s): I10 - Essential (primary) hypertension Code(s): I10 - Essential (primary) hypertension Status: Chronic Assessment and Plan: on the lower side at this time BP medications on hold/with parameters follow trend of hemodynamics (6) Diabetes mellitus: Qualifiers: Diabetes mellitus type: type 2 Diabetes mellitus group home insulin use: without group home use Diabetes mellitus complication status: without complication Qualified Code(s): E11.9 - Type 2 diabetes mellitus without complications Code(s): E11.9 - Type 2 diabetes mellitus without complications Status: Chronic Assessment and Plan: follow accuchecks glycemic control Will continue to follow. Subjective Date/time seen: 03/11/21 13:09 No apparent distress voiced at the time of my visit; no distress expressed; he catheter remains in place with reasonably urine output; seen by Urology with recommendations noted; kidney function slowly improving since admission; no issues/events overnight or earlier this AM. Exam Narrative: General: WD/WN male in NAD Heart: normal S1 and S2; no rub Lungs: clear to auscultation Abdomen: soft, nontender, nondistended, positive bowel sounds Extremities: no cyanosis or clubbing; no edema Skin: warm and dry Objective Data Vital Signs Vital Signs: Vital Signs Temp Pulse Resp BP Pulse Ox 03/11/21 13:02 36.4 C L 64 16 102/52 L 99 03/11/21 12:00 65 03/11/21 09:00 73 03/11/21 06:00 36.2 C L 65 20 109/54 L 98 03/11/21 04:00 74 03/11/21 00:00 66 03/10/21 22:00 36.4 C L 66 20 105/55 L 99 03/10/21 20:00 66 03/10/21 17:02 88/52 L Intake/Output Intake/Output: Intake & Output 03/08/21 03/09/21 03/10/21 03/11/21 23:59 23:59 23:59 23:59 Intake Total 1050 2840 1950 Output Total 1050 1400 Balance 1050 1790 550 Meds/Results Medications: Active Medications Generic Name Dose Route Start Last Admin Trade Name Freq PRN Reason Stop Dose Admin Acetaminophen 650 mg 03/09/21 17:36 03/11/21 01:35 Acetaminophen 325 Mg Tablet PO 650 mg Q4H PRN Administration Mild Pain (1-3) or Fever Aspirin 81 mg 03/10/21 21:00 03/10/21 22:06 Aspirin 81 Mg Enteric Tablet PO 81 mg HS DANIELLE Administration Dextrose 12.5 gm 03/10/21 00:13 Dextrose 50% 25 Gm/50 Ml Syringe IV PUSH PRN
[2021-03-11 16:22] LABS: Glucose Point of Care 127 mg/dl (65-105)
[2021-03-11 19:53] LABS: INR 2.9; Prothrombin Time 29.6 Seconds (11.1-14.7)
[2021-03-11] MEDS: ASPIRIN 81 MG ENTERIC TABLET PO (21:26)
[2021-03-11 21:48] LABS: Glucose Point of Care 129 mg/dl (65-105)
[2021-03-12] VITALS (7 sets, daily range): BP systolic 98–140; BP diastolic 58–70; PULSE 68–102; RESP 16–18; TEMP 35.9–36.6; O2SAT 94–99
[2021-03-12] MEDS: MELATONIN 3 MG TABLET PO (00:10)
[2021-03-12] MEDS: LEVOTHYROXINE SODIUM 50 MCG TABLET PO (05:30)
[2021-03-12 05:35] LABS: INR 2.4; Prothrombin Time 25.2 Seconds (11.1-14.7)
[2021-03-12 05:47] LABS: Albumin Level 3.1 g/dL (3.5-5.1); Anion Gap 11 mmol/L (8-16); Blood Urea Nitrogen 93 mg/dL (9-20); Calcium 8.2 mg/dL (8.4-10.2); Carbon Dioxide 34 mmol/L (22-30); Chloride 94 mmol/L (98-107); Estimated CRCL calculation 14 ml/min; Estimated Glomerular Filt Rate 18; Glucose 121 mg/dL (65-110); Phosphorus 3.4 mg/dL (2.5-4.5); Potassium 2.9 mmol/L (3.4-5.0); Sodium 139 mmol/L (137-145)
[2021-03-12 07:52] LABS: Glucose Point of Care 111 mg/dl (65-105)
[2021-03-12] MEDS: SODIUM BICARBONATE 8.4% 150 MEQ in WATER, STERILE FOR INJECTION 950 ML 125 MEQ IV CONT ×2 (08:18)
[2021-03-12] MEDS: PANTOPRAZOLE 40 MG TABLET PO (08:19)
[2021-03-12] MEDS: TAMSULOSIN HCL 0.4 MG CAPSULE PO (08:19)
[2021-03-12] MEDS: ROSUVASTATIN 5 MG TABLET PO (08:19)
--- NOTE | 2021-03-12 08:31 | WPDUROPN2 ---
Progress Note: A&P Assessment and Plan (1) BPH (benign prostatic hyperplasia): Code(s): N40.0 - Benign prostatic hyperplasia without lower urinary tract symptoms Status: Acute Assessment and Plan: Continue Flomax and Finasteride. (2) Retention of urine: Code(s): R33.9 - Retention of urine, unspecified Status: Acute Assessment and Plan: Plan for a voiding trial in a week. No further assessment. Subjective Subjective Date/Time Seen: 03/12/21 21:31 Patient is improved today from yesterday's he irrigation. The urine appears light pink without clots. Review of Systems Cardiovascular: Cardiovascular: Denies chest pain Respiratory: Respiratory: Reports no additional respiratory complaints Gastrointestinal: Gastrointestinal: Denies abdominal pain, Denies nausea and Denies vomiting Genitourinary: Genitourinary: Reports hematuria and Denies flank pain Exam Resp: Effort & Inspection: normal respiratory effort Cardio: Rate: regular rate GI: GI Palp: Yes Soft to palpation and No Tenderness to palpation present (GI) : General: No no CVA tenderness Urinary Catheter: Urinary Catheter: patent and draining, urine clear and urine pink Extrem: General: no edema Objective Data Intake/Output Intake/Output: Intake & Output 03/11/21 03/12/21 03/13/21 03/14/21 23:59 23:59 23:59 23:59 Intake Total 2400 3635 2170 Output Total 2200 1800 2150 Balance 200 1835 20 Meds/Results Radiology Results: ITS Impressions Abdomen/Pelvis CT 03/09/21 16:21 IMPRESSION: 1. Moderate bladder wall thickening with perivesical fatty infiltration, consistent with cystitis. This likely contributes to bilateral hydroureteronephrosis. 2: Dilated gallbladder with cholelithiasis. 3: Partially visualized ascending thoracic aortic aneurysm measuring 5.8 cm greatest dimension. Pelvis Ultrasound 03/11/21 12:03 IMPRESSION: Severe bladder wall thickening, cystitis. Small amount of luminal debris or blood.
--- NOTE | 2021-03-12 10:33 | PM.IMPN ---
Progress Note: A&P Assessment and Plan (1) Hypothyroid: Code(s): E03.9 - Hypothyroidism, unspecified Status: Acute (2) Acute kidney injury: Code(s): N17.9 - Acute kidney failure, unspecified Status: Acute (3) Urinary tract infection: Qualifiers: Hematuria presence: without hematuria Urinary tract infection type: acute cystitis Qualified Code(s): N30.00 - Acute cystitis without hematuria Code(s): N39.0 - Urinary tract infection, site not specified Status: Acute (4) Generalized weakness: Code(s): R53.1 - Weakness Status: Acute (5) CHF (congestive heart failure): Code(s): I50.9 - Heart failure, unspecified Status: Chronic (6) CAD (coronary artery disease): Code(s): I25.10 - Atherosclerotic heart disease of [place] coronary artery without angina pectoris Status: Acute (7) Hydroureteronephrosis: Code(s): N13.30 - Unspecified hydronephrosis Status: Acute (8) Chronic anticoagulation: Code(s): Z79.01 - [facility] (current) use of anticoagulants Status: Acute (9) Paroxysmal atrial fibrillation: Code(s): I48.0 - Paroxysmal atrial fibrillation Status: Chronic (10) Diabetes mellitus: Qualifiers: Diabetes mellitus complication status: without complication Diabetes mellitus chcf insulin use: without terminal press operator use Diabetes mellitus type: type 2 Qualified Code(s): E11.9 - Type 2 diabetes mellitus without complications Code(s): E11.9 - Type 2 diabetes mellitus without complications Status: Chronic (11) Hyperlipidemia: Qualifiers: Hyperlipidemia type: unspecified Qualified Code(s): E78.5 - Hyperlipidemia, unspecified Code(s): E78.5 - Hyperlipidemia, unspecified Status: Chronic (12) HTN (hypertension): Qualifiers: Hypertension type: unspecified Qualified Code(s): I10 - Essential (primary) hypertension Code(s): I10 - Essential (primary) hypertension Status: Chronic (13) BPH (benign prostatic hyperplasia): Code(s): N40.0 - Benign prostatic hyperplasia without lower urinary tract symptoms Status: Acute (14) Supratherapeutic INR: Code(s): R79.1 - Abnormal coagulation profile Status: Acute Additional Plan # generalized weakness # acute on chronic kidney disease stage 3 hold enalapril and indapamide hold metformin. Will change to bicarb drip. Will check SPEP UPEP were likely due to obstructive uropathy. Recheck labs in morning. will need to put a Beltre which was discussed with the patient and he was agreeable. # bilateral hydroureteronephrosis likely due to bladder outlet obstruction will put a Beltre in urology consultation In the morning # UTI diffuse bladder wall thickening noted on CT urine culture has been sent. Will continue Rocephin # dilated gallbladder with cholelithiasis looks like this is similar finding in the past as well likely chronic # history of congestive heart failure diastolic # hypothyroidism on levothyroxine this looks like on levothyroxine at home was started by ED doc. 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
[2021-03-12 10:58] LABS: Glucose Point of Care 179 mg/dl (65-105)
--- NOTE | 2021-03-12 12:36 | PM.PNNEP ---
Progress Note: A&P Assessment and Plan (1) Acute kidney injury: Code(s): N17.9 - Acute kidney failure, unspecified Status: Acute Assessment and Plan: improvement noted presumably due to urinary retention/obstructive uropathy this appears to be an ongoing issue based on review of his previous hospitalizations likely worsened by ongoing use of OTILIA-I, diuretics, and metformin -- these have placed on hold he catheter in place follow trend of repeat labs and UOP (2) Chronic kidney disease, stage 3: Code(s): N18.30 - Chronic kidney disease, stage 3 unspecified Status: Chronic Assessment and Plan: baseline creatinine is not entirely clear given the wide fluctuations associated with his hospitalizations appears creatinine runs around 1.3 - 2.2mg/dl; hence he bounces between CKD stage 3A and stage 3B likely due to recurrent episodes of TAB with urinary retention/obstruction, hypertension, diabetes, vascular disease, and age-related change (3) Hydroureteronephrosis: Code(s): N13.30 - Unspecified hydronephrosis Status: Acute Assessment and Plan: as noted by admission imaging he catheter in place Urology recommendations noted supportive therapy (4) Metabolic acidosis: Code(s): E87.2 - Acidosis Status: Acute Assessment and Plan: resolved due TAB/ARF stop bicarb IVFs - likely etiology of hypokalemia start normal saline IVF replete K+ (5) HTN (hypertension): Qualifiers: Hypertension type: unspecified Qualified Code(s): I10 - Essential (primary) hypertension Code(s): I10 - Essential (primary) hypertension Status: Chronic Assessment and Plan: on the lower side at this time BP medications on hold/with parameters follow trend of hemodynamics (6) Diabetes mellitus: Qualifiers: Diabetes mellitus type: type 2 Diabetes mellitus termite control representative insulin use: without termite control representative use Diabetes mellitus complication status: without complication Qualified Code(s): E11.9 - Type 2 diabetes mellitus without complications Code(s): E11.9 - Type 2 diabetes mellitus without complications Status: Chronic Assessment and Plan: follow accuchecks glycemic control Will continue to follow. Subjective Date/time seen: 03/12/21 12:36 No new issues or problems to report at this time but patient is a poor historian; renal function continues to make slow and steady improvement at this time; hypokalemia noted by AM labs; issues with hematuria (likely precipitated by elevated INR); no other events overnight or earlier this morning. Exam Narrative: General: WD/WN male in NAD Heart: normal S1 and S2; no rub Lungs: clear to auscultation Abdomen: soft, nontender, nondistended, positive bowel sounds Extremities: no cyanosis or clubbing; no edema Skin: warm and intact Objective Data Vital Signs Vital Signs: Vital Signs Temp Pulse Resp BP Pulse Ox 03/12/21 12:00 90 03/12/21 08:00 102 H 03/12/21 06:00 36.1 C L 72 16 100/58 L 94 03/12/21 04:00 68 03/12/21 00:00 83 03/11/21 22:00 36.3 C L 68 20 104/48 L 96 03/11/21 20:00 69 03/11/21 16:00 83 Intake/Output Intake/Output: Intake & Output 03/09/21 03/10/21 03/11/21 03/12/21 23:59 23:59 23:59 23:59 Intake Total 1050 2890 2400 2540 Output Total 1050 2200 1300 Balance 1050 9881 129 0401 Meds/Results Medications: Active Medications Generic Name Dose Route Start Last Admin Trade Name Freq PRN Reason Stop Dose Admin Acetaminophen 650 mg 03/09/21 17:36 03/11/21 01:35 Acetaminophen 325 Mg Tablet PO 650 mg Q4H PRN Administration Mild Pain (1-3) or Fever Aspirin 81 mg 03/10/21 21:00 03/11/21 21:26 Aspirin 81 Mg Enteric Tablet PO 81 mg HS DANIELLE Administration Dextrose 12.5 gm 03/10/21 00:13 Dextrose 50% 25 Gm/50 Ml Syringe IV PUSH PRN MI
--- NOTE | 2021-03-12 12:36 | P.PNNP_ITS ---
Progress Note: A&P Assessment and Plan (1) Acute kidney injury: Code(s): N17.9 - Acute kidney failure, unspecified Status: Acute Assessment and Plan: * improvement noted * presumably due to urinary retention/obstructive uropathy * this appears to be an ongoing issue based on review of his previous hospitalizations * likely worsened by ongoing use of OTILIA-I, diuretics, and metformin -- these have placed on hold * he catheter in place * follow trend of repeat labs and UOP (2) Chronic kidney disease, stage 3: Code(s): N18.30 - Chronic kidney disease, stage 3 unspecified Status: Chronic Assessment and Plan: * baseline creatinine is not entirely clear given the wide fluctuations associated with his hospitalizations * appears creatinine runs around 1.3 - 2.2mg/dl; hence he bounces between CKD stage 3A and stage 3B * likely due to recurrent episodes of TAB with urinary retention/obstruction, hypertension, diabetes, vascular disease, and age-related change (3) Hydroureteronephrosis: Code(s): N13.30 - Unspecified hydronephrosis Status: Acute Assessment and Plan: * as noted by admission imaging * he catheter in place * Urology recommendations noted * supportive therapy (4) Metabolic acidosis: Code(s): E87.2 - Acidosis Status: Acute Assessment and Plan: * resolved * due TAB/ARF * stop bicarb IVFs - likely etiology of hypokalemia * start normal saline IVF * replete K+ (5) HTN (hypertension): Qualifiers: Hypertension type: unspecified Qualified Code(s): I10 - Essential (primary) hypertension Code(s): I10 - Essential (primary) hypertension Status: Chronic Assessment and Plan: * on the lower side at this time * BP medications on hold/with parameters * follow trend of hemodynamics (6) Diabetes mellitus: Qualifiers: Diabetes mellitus type: type 2 Diabetes mellitus long-term insulin use: without long-term use Diabetes mellitus complication status: without complication Qualified Code(s): E11.9 - Type 2 diabetes mellitus without complications Code(s): E11.9 - Type 2 diabetes mellitus without complications Status: Chronic Assessment and Plan: * follow accuchecks * glycemic control Will continue to follow. Subjective Date/time seen: 03/12/21 12:36 No new issues or problems to report at this time but patient is a poor historian; renal function continues to make slow and steady improvement at this time; hypokalemia noted by AM labs; issues with hematuria (likely precipitated by elevated INR); no other events overnight or earlier this morning. Exam Narrative: General: WD/WN male in NAD Heart: normal S1 and S2; no rub Lungs: clear to auscultation Abdomen: soft, nontender, nondistended, positive bowel sounds Extremities: no cyanosis or clubbing; no edema Skin: warm and intact Objective Data Vital Signs Vital Signs: Vital Signs Temp Pulse Resp BP Pulse Ox 03/12/21 12:00 90 03/12/21 08:00 102 H 03/12/21 06:00 36.1 C L 72 16 100/58 L 94 03/12/21 04:00 68 03/12/21 00:00 83 03/11/21 22:00 36.3 C L 68 20 104/48 L 96 03/11/21 20:00 69 03/11/21 16:00 83 Intake/Output Intake/Output: Intake & Output
[2021-03-12] MEDS: POTASSIUM CHLORIDE 20 MEQ PACKET (FOR LIQUID) 40 MEQ PO (13:18)
[2021-03-12] MEDS: SODIUM CHLORIDE 0.9% IV 1,000 ML 75 ML IV CONT (16:10)
[2021-03-12] MEDS: WARFARIN (*PBKC) 4 MG TABLET PO (16:19)
[2021-03-12 16:27] LABS: Glucose Point of Care 138 mg/dl (65-105)
[2021-03-12] MEDS: ASPIRIN 81 MG ENTERIC TABLET PO (21:13)
[2021-03-12 22:04] LABS: Glucose Point of Care 117 mg/dl (65-105)
[2021-03-13 03:47] VITALS: BP 102/38; PULSE 64; RESP 16; TEMP 36.4; O2SAT 97
[2021-03-13 05:49] LABS: INR 1.8; Prothrombin Time 20.5 Seconds (11.1-14.7)
[2021-03-13] MEDS: SODIUM CHLORIDE 0.9% IV 1,000 ML 75 ML IV CONT (06:02)
[2021-03-13] MEDS: LEVOTHYROXINE SODIUM 50 MCG TABLET PO (06:03)
[2021-03-13 06:04] LABS: Albumin Level 2.9 g/dL (3.5-5.1); Anion Gap 10 mmol/L (8-16); Blood Urea Nitrogen 74 mg/dL (9-20); Carbon Dioxide 37 mmol/L (22-30); Chloride 95 mmol/L (98-107); Estimated CRCL calculation 17 ml/min; Estimated Glomerular Filt Rate 23; Glucose 112 mg/dL (65-110); Phosphorus 3.3 mg/dL (2.5-4.5); Potassium 2.7 mmol/L (3.4-5.0); Sodium 142 mmol/L (137-145)
[2021-03-13 06:31] LABS: Magnesium 1.4 mg/dL (1.6-2.3)
[2021-03-13] MEDS: POTASSIUM CHLORIDE 20 MEQ PACKET (FOR LIQUID) 40 MEQ PO (06:53)
[2021-03-13 08:26] LABS: Glucose Point of Care 89 mg/dl (65-105)
--- NOTE | 2021-03-13 08:59 | PM.DS ---
DS: Admitting Diagnosis Discharge Date 03/13/21 Admitting Diagnosis (1) Hypothyroid: Code(s): E03.9 - Hypothyroidism, unspecified Status: Acute (2) Acute kidney injury: Code(s): N17.9 - Acute kidney failure, unspecified Status: Acute (3) Urinary tract infection: Qualifiers: Hematuria presence: without hematuria Urinary tract infection type: acute cystitis Qualified Code(s): N30.00 - Acute cystitis without hematuria Code(s): N39.0 - Urinary tract infection, site not specified Status: Acute (4) Generalized weakness: Code(s): R53.1 - Weakness Status: Acute (5) CHF (congestive heart failure): Code(s): I50.9 - Heart failure, unspecified Status: Chronic (6) CAD (coronary artery disease): Code(s): I25.10 - Atherosclerotic heart disease of [place] coronary artery without angina pectoris Status: Acute (7) Hydroureteronephrosis: Code(s): N13.30 - Unspecified hydronephrosis Status: Acute (8) Chronic anticoagulation: Code(s): 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 - 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 Status: Acute (9) Paroxysmal atrial fibrillation: Code(s): I48.0 - Paroxysmal atrial fibrillation Status: Chronic (10) Diabetes mellitus: Qualifiers: Diabetes mellitus complication status: without complication Diabetes mellitus half-way insulin use: without half-way use Diabetes mellitus type: type 2 Qualified Code(s): E11.9 - Type 2 diabetes mellitus without complications Code(s): E11.9 - Type 2 diabetes mellitus without complications Status: Chronic (11) Hyperlipidemia: Qualifiers: Hyperlipidemia type: unspecified Qualified Code(s): E78.5 - Hyperlipidemia, unspecified Code(s): E78.5 - Hyperlipidemia, unspecified Status: Chronic (12) HTN (hypertension): Qualifiers: Hypertension type: unspecified Qualified Code(s): I10 - Essential (primary) hypertension Code(s): I10 - Essential (primary) hypertension Status: Chronic (13) BPH (benign prostatic hyperplasia): Code(s): N40.0 - Benign prostatic hyperplasia without lower urinary tract symptoms Status: Acute DS: Discharge Diagnosis Discharge Diagnosis (1) Metabolic acidosis: Code(s): E87.2 - Acidosis Status: Acute (2) Chronic kidney disease, stage 3: Code(s): N18.30 - Chronic kidney disease, stage 3 unspecified Status: Chronic (3) Hydroureteronephrosis: Code(s): N13.30 - Unspecified hydronephrosis Status: Acute (4) Acute uremia: Code(s): N19 - Unspecified kidney failure Status: Acute (5) Cystitis: Code(s): N30.90 - Cystitis, unspecified without hematuria Status: Acute (6) Hypothyroid: Code(s): E03.9 - Hypothyroidism, unspecified Status: Acute (7) Hematuria: Code(s): R31.9 - Hematuria, unspecified Status: Acute (8) DVT prophylaxis: Code(s): Z29.9 - Encounter for prophylactic measures, unspecified Status: Acute (9) BPH (benign prostatic hyperplasia): Code(s): N40.0 - Benign prostatic hyperplasia without lower urinary tract symptoms Status: Acute (10) Retention of urine: Code(s): R33.9 - Retention of urine, unspecified Status: Acute (11) Gross hematuria: Code(s): R31.0 - Gross hematuria Status: Acute (12) Acute kidney injury: Code(s): N17.9 - Acute kidney failure, unspecified Status: Acute (13) Generalized weakness: Code(s): R53.1 - Weakness Status: Acute (14) Supratherapeutic INR: Code(s): R79.1 - Abnormal coagulation profile Status: Acute DS: Summary Hospital Course Reason for hospitalization: Generalized weakness Hospital Course: 85-year-old gentleman admitted to the hospital for generalized weakness, poor appetite and vomiting with lower abdominal pain. Lab values at the time of admission demonstrated
[2021-03-13] MEDS: MAGNESIUM SULFATE 3GM/D5W100ML 3 GM/100 ML BAG IVPB (09:31)
[2021-03-13] MEDS: PANTOPRAZOLE 40 MG TABLET PO (09:32)
[2021-03-13] MEDS: TAMSULOSIN HCL 0.4 MG CAPSULE PO (09:32)
[2021-03-13] MEDS: ROSUVASTATIN 5 MG TABLET PO (09:32)
[2021-03-13] MEDS: KCL 20 MEQ/SW 100 ML 100 ML 50 MEQ IVPB (10:55)
[2021-03-13 11:54] LABS: Glucose Point of Care 170 mg/dl (65-105)
[2021-03-13] MEDS: POTASSIUM CHLORIDE 20 MEQ TABLET 40 MEQ PO (11:54)
[2021-03-13] MEDS: WARFARIN (*PBKC) 4 MG TABLET PO (17:22)
[2021-03-13 18:01] LABS: Glucose Point of Care 181 mg/dl (65-105)
[2021-03-15 07:35] LABS: Alpha 1 Globulin 0.6 g/dL (0.2-0.3); Alpha 2 Globulin 1.2 g/dL (0.5-0.9); Beta 1 Globulin 0.4 g/dL (0.4-0.6); Gamma Globulin 1.3 g/dL (0.8-1.7)
[2021-03-17 23:11] LABS: Creatinine, Random Urine 54 mg/dL (20-320); Total Protein/Creatinine Ratio 2000 mg/g creat (22-128)
== END 2021-03-13 17:55 | disposition home health service (06) | DRG 683 ==
LOC: ANHED 17:35 → ANH2MED 03-10 00:20
PROVIDERS: Internal Medicine; Internal Medicine Nephrology; Admitting Provider Internal Medicine; Emergency Provider Emergency Medicine; PCP Family Medicine Adolescent Medicine; Visit Provider Hospitalist
DX: N17.9 Acute kidney failure, unspecified (principal); I13.0 Hypertensive heart and chronic kidney disease with heart failure and stage 1 through stage 4 chronic kidney disease, or unspecified chronic kidney disease; E87.2 Acidosis; I50.32 Chronic diastolic (congestive) heart failure; I69.354 Hemiplegia and hemiparesis following cerebral infarction affecting left non-dominant side; N40.1 Benign prostatic hyperplasia with lower urinary tract symptoms; N13.6 Pyonephrosis; E03.9 Hypothyroidism, unspecified; I25.10 Atherosclerotic heart disease of native coronary artery without angina pectoris; I48.0 Paroxysmal atrial fibrillation; N18.30 Chronic kidney disease, stage 3 unspecified; E78.5 Hyperlipidemia, unspecified; E11.22 Type 2 diabetes mellitus with diabetic chronic kidney disease; N04.9 Nephrotic syndrome with unspecified morphologic changes; R33.8 Other retention of urine; R31.0 Gross hematuria; R79.1 Abnormal coagulation profile; N18.32 Chronic kidney disease, stage 3b; K80.20 Calculus of gallbladder without cholecystitis without obstruction; I71.2 Thoracic aortic aneurysm, without rupture; E53.8 Deficiency of other specified B group vitamins; E11.42 Type 2 diabetes mellitus with diabetic polyneuropathy; E11.319 Type 2 diabetes mellitus with unspecified diabetic retinopathy without macular edema; I73.9 Peripheral vascular disease, unspecified; D50.9 Iron deficiency anemia, unspecified; Z66 Do not resuscitate; I69.328 Other speech and language deficits following cerebral infarction; Z79.01 Long term (current) use of anticoagulants; Z91.81 History of falling; Z95.1 Presence of aortocoronary bypass graft; Z98.42 Cataract extraction status, left eye; Z98.41 Cataract extraction status, right eye; Z87.891 Personal history of nicotine dependence
CPT/HCPCS: 36415; 74176; 76857; 80053; 80069; 81001; 82550; 82570; 82948; 83036; 83690; 83735; 84155; 84156; 84165; 84166; 84300; 84439; 84443; 85025; 85610; 86334; 87086; 87088; 96361; 96365; 97110; 97116; 97161; 97166; 97530; 97535; 99285; A9270; J0696; J3475; J3480; J7030; J7120

== ENCOUNTER 2021-04-08 10:18 | Outpatient (CLI) | payer MEDICARE, SELFPAY ==
[2021-04-08 10:57] LABS: Albumin Level 3.3 g/dL (3.5-5.1); Anion Gap 9 mmol/L (8-16); Blood Urea Nitrogen 28 mg/dL (9-20); Calcium 8.6 mg/dL (8.4-10.2); Carbon Dioxide 29 mmol/L (22-30); Chloride 100 mmol/L (98-107); Estimated Glomerular Filt Rate 32; Glucose 144 mg/dL (65-110); Phosphorus 3.1 mg/dL (2.5-4.5); Sodium 138 mmol/L (137-145)
== END 2021-04-08 10:19 | disposition home or self-care (01) ==
PROVIDERS: PCP Family Medicine Adolescent Medicine; Visit Provider Internal Medicine Nephrology
DX: N17.8 Other acute kidney failure (principal); N18.32 Chronic kidney disease, stage 3b; E11.29 Type 2 diabetes mellitus with other diabetic kidney complication; I12.9 Hypertensive chronic kidney disease with stage 1 through stage 4 chronic kidney disease, or unspecified chronic kidney disease
CPT/HCPCS: 36415; 80069

== ENCOUNTER 2021-07-02 08:48 | Inpatient (IN) | payer MEDICARE, SELFPAY ==
[2021-07-02] VITALS (8 sets, daily range): BP systolic 147–180; BP diastolic 69–91; PULSE 80–92; RESP 16–27; TEMP 36.4–37.1; O2SAT 96–100; BMI 30.9
--- NOTE | 2021-07-02 | ECHO_ITS ---
Patient Info Name: Kenneth Urrutia Age: 85 years : 1935 Gender: Male Ht: 71 in Wt: 187 lbs BSA: 2.07 m2 HR: 80 bpm BP: 173 / 84 mmHg Technical Quality: Poor Exam Date: 07/02/2021 3:11 PM Exam Location: [facility] Pulmonary Exam Room: 305 Patient Status: Inpatient Admit Date: 07/02/2021 Staff Ordering Physician: Johnathon Bennett MD Table Tender: Elaine Torres RDCS Attending Provider: Satish Spence MD Referring Physician: Donald COX; Exam Type: CA echo dop color flow w con Study Info Indications - cad dillon increase sob Complete two-dimensional, color flow and Doppler transthoracic echocardiogram is performed with contrast to opacify the left ventricle and to improve the deliniation of the left ventricle endocardial borders. Contrast/Agitated Saline Contrast/Ag. Saline: Definity Amount: 2.00 ml Administered By: Elaine Torres [facility] Existing IV Access: Yes Reason for Poor Study: patient body habitus Summary 1. Left ventricular chamber dimension is mildly enlarged. 2. Left ventricular systolic function is normal, estimated at 55-60%. 3. There is no increased left ventricular wall thickness. 4. Left ventricular septal wall motion is normal. 5. The left ventricular diastolic function is abnormal. 6. Left atrial chamber dimension is mildly enlarged. 7. Right atrial chamber dimension is mildly enlarged. 8. There is moderate aortic valve sclerosis, with heavily calcified NCC vs echogenic structure attached to NCC. Left Ventricle Left ventricular chamber dimension is mildly enlarged. Left ventricular systolic function is normal, estimated at 55-60%. There is no increased left ventricular wall thickness. Left ventricular septal wall motion is normal. The left ventricular diastolic function is abnormal. Right Ventricle Right ventricular chamber dimension is normal. Right ventricular systolic function is normal. Left Atria Left atrial chamber dimension is mildly enlarged. Right Atria Right atrial chamber dimension is mildly enlarged. Aortic Valve There is moderate aortic valve sclerosis, with heavily calcified NCC vs echogenic structure attached to NCC. There is no aortic valve stenosis. There is no aortic valve regurgitation. Pulmonic Valve Pulmonary valve is not well visualized. Mitral Valve The mitral valve has normal leaflets. There is no mitral valve stenosis. There is no mitral valve regurgitation. Tricuspid Valve There is no significant tricuspid valve stenosis. There is trace tricuspid valve regurgitation. Mild pulmonary hypertension, estimated pulmonary arterial systolic pressure is 40 mmHg. The tricuspid valve is not well visualized. Pericardium/Pleural The pericardium appears normal. There is no pericardial effusion. Inferior Vena Cava Inferior vena cava is not well visualized. Left Ventricular Outflow Tract Name Value Normal LVOT 2D LVOT Diameter 2.19 cm LVOT Doppler LVOT Peak Gradient 5 mmHg LVOT Mean Gradient 2 mmHg LV
--- NOTE | ~2021-07-02 | NM_ITS ---
EXAMINATION: JACQUI xavier renal scan DATE: 07/05/2021 15:26 INDICATION: Right hydronephrosis. TECHNIQUE: 7.1 mCi Tc-99m MAG3 was administered IV. 40 mg furosemide was administered IV immediately afterward. The patient was scanned in the supine position. A posterior abdominal radionuclide angiog freida was obtained. A subsequent time course of static images of the kidneys, ureters, and bladder was obtained. COMPARISON: CT abdomen and pelvis 07/02/2021, 11/20/20 FINDINGS: The posterior abdominal radionuclide angiogram and sequential static images show abnormally inferior position of the right kidney. Right kidney is smaller than the left. The CT demonstrates vo lume loss of both kidneys, right worse than left. Peak renal parenchymal uptake was 25 min in right k idney and 6 min in left kidney (normal peak 3-5 minutes). The relative early renal uptake was 12% on the right and 88% on the left (<40% is abnormal). No abnormalities of the ureters or bladder are se en. T1/2 for clearance of activity from the right kidney and proximal collecting system too long to measu re. T1/2 for clearance of activity from the left kidney and proximal collecting system was 22 minutes. IMPRESSION: 1. Asymmetric kidney function with the right kidney contributing 12% of total renal function. 2. Delayed contrast clearance from both kidneys, which is an expected finding given the volume loss of the kidneys. Therefore, this exam cannot be used to determine if the hydronephrosis on the CT from 07/02/21 is due to fixed obstruction. Note that the CT from 11/20/20 demonstrates volume loss of the ki dneys without hydronephrosis. Reviewed, dictated and finalized at location A. IMPRESSION: 1. Asymmetric kidney function with the right kidney contributing 12% of total renal function. 2. Delayed contrast clearance from both kidneys, which is an expected finding given the volume loss of the kidneys. Therefore, this exam cannot be used to de termine if the hydronephrosis on the CT from 07/02/21 is due to fixed obstruction . Note that the CT from 11/20/20 demonstrates volume loss of the kidneys without hydronephrosis.
--- NOTE | ~2021-07-02 | CT_ITS ---
EXAMINATION: CT abdomen pelvis w con EXAM DATE: 07/02/2021 09:56 INDICATION: ABD pain, tender, known AAA TECHNIQUE: Spiral CT of the abdomen and pelvis was performed following intravenous injection of 100 m L Omnipaque 350. Axial, coronal and sagittal images of the abdomen and pelvis were reviewed. The do se-length product (DLP) for this examination was 1248.19 mGy-cm. The exposure was tailored according to patient size (auto mA exposure control), and iterative reconstruction (ASIR) was used as addition al dose reduction technique. Comparison is made to prior examination from 03/09/2021. FINDINGS: The ascending aorta was imaged, measures 5.6 cm, stable. The liver, spleen, adrenal glands and pancreas are unremarkable. Suspicion of a low-density gallstone in the gallbladder neck with so me peripheral calcifications, measuring up to 2 cm. Gallbladder is moderately distended, similar appe arance to prior study. No adjacent inflammation. There is colonic interposition. The right kidney is pelvic in position with enhancing urothelium of the renal pelvis and ureter consi stent with upper urinary tract infection. This kidney has moderate to severe atrophy. Mild to moderat e hydronephrosis without hydroureter or obstructing stone. Several left renal cysts, largest measurin g 5.8 cm. There is mild prostatomegaly and possible TURP defect. Again there is severe bladder wall t hickening throughout, chronic cystitis. Enhancing mucosa of this suggests cystitis. There is no retr operitoneal or pelvic lymphadenopathy. The appendix is normal. The stomach and small bowel are unremarkable. There is mild scattered coloni c diverticulosis. There is no adjacent inflammatory change to suggest diverticulitis. There is expe cted amount of colonic stool. No free intraperitoneal gas. The heart is normal in size. There ar e no pericardial or pleural effusions. The lung bases are unremarkable. Compared to CT from February, there has been development of L3 compression fracture with moderate los s of this vertebral body height centrally. There is some sclerosis within this indicating reparative response, that this is probably at least a-month-old. Chronic mild to moderate loss of the L5 vertebr al body height posteriorly without retropulsion. IMPRESSION: 1. Chronic or acute on chronic cystitis, and right upper urinary tract infection. 2. Cholelithiasis, moderately distended but otherwise unremarkable gallbladder, appearance unchanged . 3. Subacute appearing L3 moderate compression fracture. 4. Mild colonic diverticulosis. 5. Stable ascending aortic 5.6 cm aneurysm. Reviewed, dictated and finalized at location A. IMPRESSION: 1. Chronic or acute on chronic cystitis, and right upper urinary tract infecti on. 2. Cholelithiasis, moderately distended but otherwise unremarkable gallbladder , appearance unchanged. 3. Subacute appearing L3 moderate compression fracture. 4. Mild colonic diverticulosis. 5. Stable ascending aortic 5.6 cm aneurysm.
--- NOTE | ~2021-07-02 | XR_ITS ---
EXAMINATION: XR chest 2V EXAM DATE: 07/02/2021 09:18 INDICATION: Shortness Of Breath, Weakness. TECHNIQUE: Frontal and lateral projections of the chest obtained and reviewed. Comparison is made to prior examination from 06/21/2020. FINDINGS: Sternotomy wires are present without findings to suggest sternal dehiscence. Mild cardiome ebonie and pulmonary vascular congestion. Probable moderate right pleural effusion with adjacent atelec tasis. Edema or pneumonia not excludable. No pneumothorax. There are bony degenerative changes. Patie nt has diffuse idiopathic skeletal hyperostosis (DISH). IMPRESSION: 1. Moderate right pleural effusion, adjacent multisegmental atelectasis. 2. Cardiomegaly, pulmonary vascular congestion. Reviewed, dictated and finalized at location A.
--- NOTE | ~2021-07-02 | CT_ITS ---
EXAMINATION: CT diagnostic chest wo con DATE: 07/02/2021 19:08 INDICATION: Pleural effusion. Shortness of breath. TECHNIQUE: Computed tomography (CT) of the chest was performed without intravenous contrast. Automate d exposure control and iterative reconstruction technique were employed. Exam dose: 822.02 mGy-cm to gay exam DLP. COMPARISON: 07/02/2021 AP and lateral chest FINDINGS: Status post sternotomy and coronary bypass graft surgery. Extensive coronary calcifications . No pericardial effusion. There is thoracic aortic aneurysm, the ascending aorta measuring up to 5.2 cm diameter, the anterior aspect of the aortic arch measuring up to 5.4 cm diameter. The mid aortic arch measures approximately 3.5 cm maximal AP diameter, the descending thoracic aorta approximately 3.1 cm diameter. There is pr ominent thoracic aortic as well as some great vessel calcification, abdominal aortic, celiac, superio r mesenteric arterial calcification. There is prominent elevation of the right leaf of diaphragm. There is right basilar atelectasis, invo lving middle and lower lobes, with chronic right lower lobe air bronchograms. Calcified right hilar nodes and right lower lobe calcified pulmonary granulomas consistent with old p ulmonary granulomatous disease. Small sliding hiatal hernia. Possible partially calcified gallstone at the neck of the gallbladder, probable additional smaller de pendent calcified gallstones. Gallbladder distention.. This area is not optimally evaluated on this C T thorax examination. Consider, however ultrasound or CT abdomen pelvis for further evaluation of thi s area as clinically appropriate 5.7 cm upper pole left renal cyst. Anteriorly directed right renal pelvis consistent with incomplete rotation of the right kidney. Right renal atrophy. Residual contrast material within moderately dilated left renal collecting system and proximal includ ed left ureter, suggesting left ureteral obstruction IMPRESSION: Prominent elevation right diaphragm and right lower lobe atelectasis, lesser middle lobe basilar atelectasis Cardiomegaly Status post CABG Thoracic aortic aneurysm Small sliding hiatal hernia Cholelithiasis Left urinary tract obstruction Reviewed, dictated and finalized at Location A. Reviewed, dictated and finalized at location A. IMPRESSION: Prominent elevation right diaphragm and right lower lobe atelectas is, lesser middle lobe basilar atelectasis Cardiomegaly Status post CABG Thoracic aortic aneurysm Small sliding hiatal hernia Cholelithiasis Left urinary tract obstruction
--- NOTE | ~2021-07-02 | CT_ITS ---
EXAMINATION: CT cervical spine wo con EXAM DATE: 07/02/2021 09:37 INDICATION: fall 1 week ago, head injury, on Warfarin TECHNIQUE: Spiral CT of the cervical spine was performed without contrast. Axial images were reviewe d. Coronal and sagittal reformatted images cervical spine were also reviewed. The dose-length produc t (DLP) for this examination was 490.25 mGy-cm. The exposure was tailored according to patient size (auto mA exposure control), and iterative reconstruction (ASIR) was used as additional dose reduction technique. There is no prior study for comparison. FINDINGS: There is no evidence of acute cervical fracture. The odontoid process is intact. Pre-dens space is normal. Prevertebral soft tissue is normal. There are no soft tissue abnormalities identi fied. There is no disc space widening or traumatic vertebral body subluxation suspected. Advanced l ower cervical disc disease. Overall moderate cervical arthropathy. A detailed level by level evaluat ion of spondylosis can be added as addendum if requested. IMPRESSION: 1. No acute cervical fracture. 2. Spondylosis. Reviewed, dictated and finalized at location A.
--- NOTE | ~2021-07-02 | CT_ITS ---
EXAMINATION: CT brain wo con EXAM DATE: 07/02/2021 09:37 INDICATION: Fall 1 week ago, [place], on Warfarin . TECHNIQUE: Spiral CT of the head was performed without contrast. Axial, coronal and sagittal images were reviewed. The dose-length product (DLP) for this examination was 983.67 mGy-cm. The exposure w as tailored according to patient size, and iterative reconstruction (ASIR) was used as additional dos e reduction technique. Comparison is made to prior examination from 06/12/2020. FINDINGS: There is no acute intraparenchymal hemorrhage. No evidence of intraparenchymal brain mass lesion. No evidence of acute infarction. Please note that initial head CT has limited sensitivity f or small or acute infarctions. Old left thalamic, bilateral basal ganglia lacunar infarctions. Moder ate to severe microangiopathy and cerebral atrophy. There is intracranial carotid arteriosclerosis . There are no extra-axial collections. There is no mass effect or midline shift. The orbits are u nremarkable. Soft tissue is unremarkable. The visualized sinuses and mastoid air cells are well aer ated. IMPRESSION: 1. No acute intracranial findings. 2. Chronic age related findings. 3. Old lacunar infarctions. Reviewed, dictated and finalized at location A.
--- NOTE | 2021-07-02 08:57 | ED.SOB ---
HPI - SOB/Dyspnea General Chief Complaint: Shortness of Breath/Dyspnea <Candi Salgado PA-C - Last Filed: 07/02/21 17:32> Stated Complaint: sob <Candi Salgado PA-C - Last Filed: 07/02/21 17:32> Time Seen by Provider: 07/02/21 08:57 <Candi Salgado PA-C - Last Filed: 07/02/21 17:32> Source: patient <JR Sabillon Last Filed: 07/02/21 17:32> Mode of arrival: ambulatory <JR Sabillon Last Filed: 07/02/21 17:32> Limitations: no limitations <JR Sabillon Last Filed: 07/02/21 17:32> History of Present Illness HPI Narrative: Patient is an 85-year-old male who presents the ED with report of increased SOB since this morning. Patient reports he occasionally has trouble breathing, but this usually resolves on its own. This morning it would not improve, thus prompting his presentation to the ED. He does not wear O2 at home. Patient also reports having an occasional cough. Family member reports the patient has a history of dysphagia since his CVA and requires soft foods. He denies any recent choking episodes. Also denies any chest pain, fever, chills, abdominal pain, nausea, vomiting. Patient does have a history of frequent kidney infections as well. He denies any current urinary symptoms. Patient's family member at bedside reported the patient fell 1 week ago and hit his posterior head on an object. He was not medically evaluated at that time. He is on Warfarin due to his Hx of AFIB. Per pt's records, patient was diagnosed with a AAA (5.6cm) in May 2020. <JR Sabillon Last Filed: 07/02/21 17:32> Related Data Home Medications: Home Medications Medication Instructions Recorded Confirmed rosuvastatin 5 mg PO DAILY 05/12/20 04/05/21 tamsulosin 0.4 mg PO DAILY 05/12/20 03/09/21 aspirin 81 mg PO HS 06/12/20 04/05/21 warfarin 4 mg PO HS 03/09/21 04/05/21 ferrous sulfate 324 mg PO DAILY 07/02/21 07/02/21 warfarin 2 mg PO DIRECTED 07/02/21 07/02/21 <Candi Salgado PA-C - Last Filed: 07/02/21 17:32> Allergies/Adverse Reactions: Allergies Allergy/AdvReac Type Severity Reaction Status Date / Time No Known Allergies Allergy Verified 07/02/21 15:40 <Candi Salgado PA-C - Last Filed: 07/02/21 17:32> Review of Systems Review of Systems: CONSTITUTIONAL: Denies fever, chills. CARDIOVASCULAR: Denies chest pain. RESPIRATORY: Reports cough and dyspnea. GASTROINTESTINAL: Denies abdominal pain, nausea, vomiting, or diarrhea. GENITOURINARY: Denies dysuria or hematuria. MUSCULOSKELETAL: Denies back pain, joint pain, or myalgia. NEUROLOGIC: Reports head injury. Denies headache, numbness, or weakness. <Candi Salgado PA-C - Last Filed: 07/02/21 17:32> All systems reviewed & are unremarkable except as noted in HPI and below <Candi Salgado PA-C - Last Filed: 07/02/21 17:32> [facility] Past Medical History Medical History: Medical History Acute kidney injury B12 deficiency BPH (benign prostatic hyperplasia) Bradycardia CAD (coronary artery disease) Chewing tobacco nicotine dependence CHF (congestive heart failure) echocardiogram April 2020: EF 60-65%, indeterminate diastolic function, moderate right ventricular enlargement, severe left atrial enlargement, moderate right atrial enlargement, mild mitral valve and tricuspid valve regurgitation, [id number] aortic valve regurgitation, mild pulmonary hypertension Chronic kidney disease, stage 3 with baseline creatinine between 1 and 1.4 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
--- NOTE | 2021-07-02 09:00 | ECG_ITS ---
Measurements Intervals Page Rate: 73 P: 232 OH: 309 QRS: 4 QRSD: 103 T: -9 QT: 424 QTc: 468 Interpretive Statements SINUS RHYTHM WITH FIRST DEGREE AV BLOCK WITH OCCASIONAL VENTRICULAR PREMATURE COMPLEXES NONSPECIFIC ST & T-WAVE ABNORMALITY COMPARED TO ECG 06/24/2020 00:23:59 SINUS RHYTHM NOW PRESENT FIRST DEGREE AV BLOCK NOW PRESENT Electronically Signed On 07-02-2021 11:17:50 CDT by Johnathon Bennett M.D.
[2021-07-02 09:08] LABS: Basophils Absolute Auto 0.1 K/mm3 (0.0-0.1); Basophils Percent Auto 0.7 % (0.2-1.2); Eosinophils Absolute Auto 0.3 K/mm3 (0-0.3); Eosinophils Percent Auto 3.6 % (0-4.4); Hemoglobin 11.9 g/dL (14.0-18.0); Immature Granulocyte Absolute 0.03 K/mm3 (0.00-0.031); Immature Granulocyte Percent A 0.4 % (0-0.5); Lymphocytes Absolute Auto 1.29 K/mm3 (0.9-3.2); Lymphocytes Percent Auto 17.1 % (18.3-44.2); Mean Corpuscular HGB Conc 31.3 g/dl (32-36); Mean Corpuscular Hemoglobin 28.2 pg (26-34); Mean Platelet Volume 10.7 fl (7.4-10.4); Monocytes Absolute Auto 0.6 K/mm3 (0.1-0.6); Monocytes Percent Auto 8.5 % (2.6-8.5); Neutrophils Absolute Auto 5.3 K/mm3 (1.3-6.7); Neutrophils Percent Auto 69.7 % (45.5-73.1); Platelet Count Result 282 k/mm3 (150-375); Red Blood Count 4.22 M/mm3 (4.6-6.20); Red Cell Distribution Width 16.7 % (11.5-14.5); White Blood Count 7.6 K/mm3 (4.5-10.0)
[2021-07-02 09:17] LABS: INR 4.8; Prothrombin Time 43.4 Seconds (11.1-14.7)
[2021-07-02 09:18] LABS: Alanine Aminotransferase 18 U/L (4-50); Albumin Level 3.7 g/dL (3.5-5.1); Alkaline Phosphatase 164 U/L (38-126); Anion Gap 7 mmol/L (8-16); Aspartate Amino Transferase 42 U/L (17-59); Bilirubin,Total 0.6 mg/dL (0.2-1.3); Blood Urea Nitrogen 24 mg/dL (9-20); Calcium 8.5 mg/dL (8.4-10.2); Carbon Dioxide 29 mmol/L (22-30); Chloride 102 mmol/L (98-107); Estimated CRCL calculation 41 ml/min; Estimated Glomerular Filt Rate 53; Glucose 119 mg/dL (65-110); Potassium 3.4 mmol/L (3.4-5.0); Sodium 138 mmol/L (137-145)
[2021-07-02 10:29] LABS: NT Pro B Type Natriuretic Pept 4680 pg/mL (5-100)
[2021-07-02 10:42] LABS: Add Urine Microscopic? YES; Appearance Urine Turbid (Clear); Bilirubin Urine Negative (Negative); Blood Urine 2+ (Negative); Color Urine Yellow (Yellow); Glucose Urine UA Negative (Negative); Ketones Urine Negative (Negative); Leukocyte Esterase Ur 3+ LEU/UL (Negative); Mucus Urine Rare /lpf; Nitrate Urine Negative (Negative); Protein Urine 2+ mg/dL (Negative); RBC Urine 21-50 /hpf (0-2); Specific Grav Ur 1.025 (1.001-1.035); Squamous Epithelial Cell Urine Few /hpf (Few); Urobilinogen Urine Negative mg/dL (<2.0); WBC Clumps Urine Present /HPF; WBC Urine >75 /hpf
[2021-07-02 12:28] LABS: Troponin I 0.033 ng/mL (0.000-0.034)
[2021-07-02] MEDS: FUROSEMIDE INJ 40 MG/4 ML VIAL IV PUSH (12:46)
--- NOTE | 2021-07-02 13:58 | PC.NURSE ---
Patient care report called to WILBER Harper. All questions answered at this time.
--- NOTE | 2021-07-02 14:03 | PCOTNOTE ---
Attempted to see pt. for occupational therapy evaluation. Pt. not yet transferred to floor
--- NOTE | 2021-07-02 14:06 | PM.CNCAR ---
Assessment and Plan Additional Plan 85-year-old man with history of coronary artery disease status post surgical myocardial revascularization about 19 years ago as described above. He also carries the diagnosis of atrial fibrillation which is obviously paroxysmal rather than chronic since he is in sinus rhythm with a long first-degree AV block upon presentation this morning. He comes in with some shortness of breath and appears to have an obvious moderate to large right pleural effusion on chest x-ray and on physical exam. This was not noticed or least was much smaller on a comparison x-ray from May of 2020. He has had a number of falls in the last couple of months according to the family and has also a new L3 compression fracture and some significant back pain and motor weakness of right lower extremity at this time. For now I would not change his current cardiac regimen other than to put his warfarin on hold for the possibility of needing to tap his pleural effusion. I will order an echocardiogram to assess his cardiac status at this time but I do not believe the principal problem is decompensated heart failure more than it is a symptomatic right pleural effusion. I would be suspicious that he has motor weakness of the right lower extremity because of his compression fracture and he may not be a good Coumadin candidate at this time if he is falling frequently because of this. Johnathon Bennett MD [facility] History of Present Illness History of Present Illness Consult date/time: 07/02/21 14:06 Consult reason: shortness of breath Reason For Visit: CHF exacerbation/UTI Narrative: this is a 85-year-old man with a history of coronary artery disease, previous surgical revascularization and a history of atrial fibrillation. I am seeing him in the emergency room as we have been consulted to see him because of shortness of breath with a diagnosis of congestive heart failure. Patient is known to me with a history of coronary disease and also history of atrial fibrillation previously. He was brought to the emergency room this morning by his family because when he woke up from bed he was reporting of the sense of air hunger/shortness of breath which is not common for him. They state he has been reporting gradual increase in shortness of breath in recent weeks they can not really date when this began. They do not think he is complaining of any sense of chest pain pressure or heaviness nor any accumulating worsening lower extremity edema. He does have some chronic lower leg edema which has been noted in the office for a number of years but has not worsened recently. Mr. Urrutia is a very difficult historian as his speech is difficult to understand but he does not report any other symptoms specifically did nice having any chest pain pressure or heaviness. His evaluation in the emergency room shows an ECG that shows sinus rhythm with a long first-degree AV block and some nonspecific ST segment changes. This is interesting since in the past I had thought he had lapsed into chronic atrial fibrillation. For this reason he is anticoagulated with warfarin. His chest x-ray shows a moderate size right pleural effusion that is significantly larger than what might have been seen on an x-ray that I looked at it comparison in May of 2020. He was last seen by me in the office in December of 2020 it did not have any significant cardiac complaints. His daughter who is in the emergency room with him indicates that that he has been having more difficulty ambulating lately and has had several falls in the last couple of months. He since the falls has significant low back pain and difficulty with the right lower extremity dragging and for that reason he was tripping on things. He has been found to have a new compression fracture at the L3 level on CT that was done in the emergency room. Was also noted to have a chronic stable 5.6 cm ascending aortic aneurysm. The patient's coronary dis
--- NOTE | 2021-07-02 14:15 | ADMGEN ---
This patient, Kenneth Urrutia, was admitted to [address] [place] [address] Room 305-01. Patient/family oriented to hospital policies and general routines including ID bracelet, bed and alarms, visiting hours, pain management, procedures, bathroom and other care routines, personal items, smoking policy, room service/diet, and visiting hours. Information on how to activate the Rapid Response Team has been discussed. Patient/Family are encouraged to report perceived risks to care and to ask questions if they do not understand what they are told or what they should do.
--- NOTE | 2021-07-02 15:37 | PCPTNOTE ---
Attempted physical therapy evaluation, Per full charge bookkeeperWILBER Garcia patient getting Echo and patient's daughter is likely to decline therapy all together. Will continue to follow.
--- NOTE | 2021-07-02 15:40 | PCOTNOTE ---
Attempted OT evaluation, pt. getting ECG
[2021-07-02] MEDS: PERFLUTREN LIPID MICROSPHERES 1.5 ML VIAL DILUTED TO 10 ML TOTAL VOLUME IV PUSH (15:44)
--- NOTE | 2021-07-02 15:44 | IVDEFINITY ---
Prior to administration of IV Definity the patient was educated on the risks and benefits of the imaging enhancing agent including potential adverse side effects. The patient verbalized understanding. Allergies were verified. No exclusion criteria were identified and at least one of the following inclusion criteria were met: 1) physician request, 2) patient technically difficult to image (per the [place] [employer] guidelines of two or more segments not discernable within the apical view), or 3) questionable left ventricular function. ?
[2021-07-02 16:11] LABS: Troponin I 0.032 ng/mL (0.000-0.034)
[2021-07-02 18:48] LABS: Troponin I 0.039 ng/mL (0.000-0.034)
--- NOTE | 2021-07-02 18:53 | PM.IMHP ---
H&P: HPI History of Present Illness Date/Time: Patient was placed observation status for expected length of stay less than 23 hours for management, will plan to re-evaluate tomorrow for improvement. 07/02/21 18:53 Chief Complaint: Shortness of breath Narrative: Mr. Urrutia is an 85-year-old gentleman who presented to the emergency room with complaints of shortness of breath that started this morning. Patient does have a history of CVA and has slurred speech, and daughters at bedside stating this speech is normal for patient. Patient states that a few weeks ago he did have shortness of breath and that went away on its own, and then this morning he woke up and was very short of breath. Patient denies any chest discomfort. Patient denies any lightheadedness, dizziness, syncopal, or near syncopal episodes. Patient's daughter states the patient has fallen 3 times in the last 2 weeks secondary to his right foot dragging more than normal. Patient denies any dysuria, hematuria, frequency, or urgency. Patient does not feel like he has any worsening weakness in his right lower extremity. Patient has a known history of coronary artery disease status post coronary bypass grafting, paroxysmal atrial fibrillation, CVA, BPH, AAA, and congestive heart failure. Review of Systems Review of Systems: A 12 point review of systems was completed patient all pertinent positive and negative per HPI the remainder are unremarkable. [facility] Past Medical History Medical History Acute kidney injury B12 deficiency BPH (benign prostatic hyperplasia) Bradycardia CAD (coronary artery disease) Chewing tobacco nicotine dependence CHF (congestive heart failure) echocardiogram April 2020: EF 60-65%, indeterminate diastolic function, moderate right ventricular enlargement, severe left atrial enlargement, moderate right atrial enlargement, mild mitral valve and tricuspid valve regurgitation, [id number] aortic valve regurgitation, mild pulmonary hypertension Chronic kidney disease, stage 3 with baseline creatinine between 1 and 1.4 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 He is retired from [employer]. He lives with his and Daughter. His daughter is a durable power securities attorney for healthcare. The daughter is at the bedside and the patient is now DNR. The patient was in in [facility] but is now back at home. Patient quit smoking and had been using smokeless tobacco as well. Primary care physician: Dr. Shin Hdz Code status: DNR Surrogate decision maker: daughter Smoking packs per day: 4 Smoking cigarettes per day: 80.0 Years smoked: 20 Smoking pack-years: 80.00 Smoking status: Former smoker Tobacco type: cigarettes Smokeless tobacco user: chewing tobacco Second hand tobacco smoke exposure: Yes Additional smoking assessment comments: quit chewing about 2020 Alcohol intake: former Drinks per week: 2 Substance use: never Substance use type: does not use Gender identity (if verbalized by the patient): Male Sexual Orientation (if Verbal
[2021-07-02] MEDS: MELATONIN 5 MG TABLET PO (21:23)
[2021-07-02] MEDS: ASPIRIN 81 MG CHEWABLE TABLET PO (21:23)
[2021-07-03] VITALS (10 sets, daily range): BP systolic 105–141; BP diastolic 60–76; PULSE 61–79; RESP 18–20; TEMP 36.2–36.7; O2SAT 96–99
[2021-07-03] MEDS: ACETAMINOPHEN 325 MG TABLET 650 MG PO ×2 (04:51→17:26)
[2021-07-03] MEDS: LEVOTHYROXINE SODIUM 50 MCG TABLET PO (05:52)
[2021-07-03 06:45] LABS: Basophils Percent Auto 0.5 % (0.2-1.2); Eosinophils Absolute Auto 0.2 K/mm3 (0-0.3); Eosinophils Percent Auto 3.1 % (0-4.4); Hematocrit 36.9 % (42.0-52.0); Hemoglobin 11.5 g/dL (14.0-18.0); Immature Granulocyte Absolute 0.05 K/mm3 (0.00-0.031); Immature Granulocyte Percent A 0.6 % (0-0.5); Lymphocytes Absolute Auto 1.22 K/mm3 (0.9-3.2); Lymphocytes Percent Auto 15.6 % (18.3-44.2); Mean Corpuscular HGB Conc 31.2 g/dl (32-36); Mean Platelet Volume 11.1 fl (7.4-10.4); Monocytes Absolute Auto 0.7 K/mm3 (0.1-0.6); Monocytes Percent Auto 8.4 % (2.6-8.5); Neutrophils Absolute Auto 5.6 K/mm3 (1.3-6.7); Neutrophils Percent Auto 71.8 % (45.5-73.1); Platelet Count Result 263 k/mm3 (150-375); Red Cell Distribution Width 16.9 % (11.5-14.5); White Blood Count 7.8 K/mm3 (4.5-10.0)
[2021-07-03 07:02] LABS: Prothrombin Time 47.3 Seconds (11.1-14.7)
[2021-07-03 07:04] LABS: Partial Thromboplastin Time 92.6 SECONDS (22.3-36.8)
[2021-07-03 07:14] LABS: Alanine Aminotransferase 15 U/L (4-50); Albumin Level 3.3 g/dL (3.5-5.1); Alkaline Phosphatase 151 U/L (38-126); Anion Gap 9 mmol/L (8-16); Aspartate Amino Transferase 33 U/L (17-59); Bilirubin,Total 0.5 mg/dL (0.2-1.3); Blood Urea Nitrogen 23 mg/dL (9-20); Calcium 8.4 mg/dL (8.4-10.2); Carbon Dioxide 30 mmol/L (22-30); Chloride 101 mmol/L (98-107); Estimated CRCL calculation 40 ml/min; Estimated Glomerular Filt Rate 48; Glucose 93 mg/dL (65-110); Magnesium 1.8 mg/dL (1.6-2.3); Potassium 2.7 mmol/L (3.4-5.0); Sodium 140 mmol/L (137-145)
[2021-07-03 07:35] LABS: INR 5.3
[2021-07-03] MEDS: PANTOPRAZOLE 40 MG TABLET PO (08:05)
[2021-07-03] MEDS: TAMSULOSIN HCL 0.4 MG CAPSULE PO (08:06)
[2021-07-03] MEDS: FERROUS SULFATE 324 MG TABLET PO (08:06)
[2021-07-03] MEDS: ROSUVASTATIN 5 MG TABLET PO (08:07)
[2021-07-03] MEDS: POTASSIUM CHLORIDE 20 MEQ TABLET 40 MEQ PO (08:08)
[2021-07-03 08:26] LABS: Potassium 2.9 mmol/L (3.4-5.0)
--- NOTE | 2021-07-03 09:01 | PM.IMPN ---
Progress Note: A&P Assessment and Plan (1) Elevated INR: Code(s): R79.1 - Abnormal coagulation profile Status: Acute (2) Pleural effusion: Code(s): J90 - Pleural effusion, not elsewhere classified Status: Acute (3) Shortness of breath: Code(s): R06.02 - Shortness of breath Status: Acute (4) Acute exacerbation of CHF (congestive heart failure): Qualifiers: Heart failure type: unspecified Qualified Code(s): I50.9 - Heart failure, unspecified Code(s): I50.9 - Heart failure, unspecified Status: Acute (5) Urinary tract infection: Qualifiers: Hematuria presence: without hematuria Urinary tract infection type: site unspecified Qualified Code(s): N39.0 - Urinary tract infection, site not specified Code(s): N39.0 - Urinary tract infection, site not specified Status: Acute (6) Type 2 diabetes mellitus with diabetic chronic kidney disease: Code(s): E11.22 - Type 2 diabetes mellitus with diabetic chronic kidney disease Status: Acute (7) Generalized weakness: Code(s): R53.1 - Weakness Status: Acute (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: Code(s): Z79.01 - retirement (current) use of anticoagulants Status: Acute (9) Chronic kidney disease, stage 3b: Code(s): N18.32 - Chronic kidney disease, stage 3b Status: Acute (10) Hydroureteronephrosis: Code(s): N13.30 - Unspecified hydronephrosis Status: Acute (11) Hypothyroid: Code(s): E03.9 - Hypothyroidism, unspecified Status: Acute (12) BPH (benign prostatic hyperplasia): Code(s): N40.0 - Benign prostatic hyperplasia without lower urinary tract symptoms Status: Acute (13) Persistent atrial fibrillation: Code(s): I48.19 - Other persistent atrial fibrillation Status: Acute Additional Plan 07/03/21 UTI on Rocephin cultures pending chronic hydro no indication for stent at this time Vit K 2.5 ordered in anticipation of procedure no active bleeding but INR rising K and Mg repleted am labs ordered cont current care Subjective Date/time seen: 07/03/21 09:01 pt feeling better, oriented conversational Exam Narrative: Constitutional: Patient is well-nourished in no acute distress. alert and oriented x3 HEENT: Moist mucous membranes. No scleral icterus. Neck: No carotid bruits noted no JVD noted Lungs: b/l crackles No accessory muscle use. No rhonchi, or wheezes noted. Cardiovascular: IRR Abdomen: Soft, round, and nontender. No palpable masses. Extremities: b/l LE 2 to 3+ pitting edema. Nontender. Skin: No rashes or lesions. Warm and dry. Skin is intact. Neurological: Patient has slurred speech at baseline. 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 Patient's pedal pushes and pulls are equal and strong. Psychiatric: Cooperative, appropriate mood, and affect Objective Data Vital Signs Vital Signs: Vital Signs - 24 hr 07/02/21 09:04 07/02/21 10:20 07/02/21 11:19 Temperature Pulse Rate 88 80 Respiratory Rate 24 H 16 Blood Pressure 154/69 H 173/84 H Pulse Oximetry 100 99 100 07/02/21 15:12 07/02/21 16:00 07/02/21 20:00 Temperature 97.6 F Pulse Rate 83 85 92 Respiratory Rate 22 H Blood Pressure 166/77 H Pulse Oximetry 97 07/02/21 21:24 07/03/21 00:00 07/03/21 04:00 Temperature 98.8 F Pulse Rate 90 79 77 Respiratory Rate 20 Blood Pressure 147/83 H Pulse Oximetry 96 07/03/21 06:00 Temperature 97.2 F L Pulse Rate 72 Respiratory Rate 18 Blood Pressure 138/65 Pulse Oximetry 97 Intake/Output Intake/Output: Intake & Output 06/30/21 07/01/21 07/02/21 07/03/21 23:59 23:59 23:59 23:59 Intake Total 286 360 Balance 286 360 Meds/Results Medications: Active Medications Generic Name Dose Route Start Last Admin Trade Name Freq PRN Reason Stop Dose Admin Acetaminophen 650 mg 07/03/21 04:29 07/03/21 04:51 Aceta
[2021-07-03] MEDS: PHYTONADIONE 2.5 MG TAB PO (09:48)
--- NOTE | 2021-07-03 11:21 | WPDURCON ---
Assessment and Plan Assessment and plan (1) Cystitis: Code(s): N30.90 - Cystitis, unspecified without hematuria Status: Acute Assessment and Plan: Await urine culture. Patient with a thickened bladder wall. Will check postvoid residual. Unfortunately will be a challenge if this patient requires a Beltre catheter is he is adamant as to not having 1 placed. (2) Hydronephrosis: Code(s): N13.30 - Unspecified hydronephrosis Status: Acute Assessment and Plan: Right hydroureter appears chronic in nature. He etiology is unclear but appears to have some atrophy of the right kidney. Would hold off on any stent placement at this time. As he is fairly asymptomatic. May require Mag 3 renal scan with Lasix washout to determine function of that kidney. Urology Consult Note HPI Date Seen: 07/03/21 Requesting Physician: Satish Spence MD Primary Care Provider: Shin Kessler MD Consult Narrative Narrative: Kenneth Urrutia is a 85 year old male known to both Dr. Cortez and our nurse practitioner Inocente. Patient had been seen last admission for hematuria as well as UTI/cystitis. He has had a prior indwelling Beltre catheter. Patient was brought in for weakness and some slurring of speech. We are asked to see him for UTI and right hydroureter. Patient denies any significant voiding symptoms although he does have incontinence of urine. He has had a prior Beltre catheter but is adamant about not having another 1 placed. Patient underwent a CT scan which reveals a right malrotated pelvic kidney with atrophy as well as mild to moderate right hydroureter without any evidence of stone. Review of prior CT scan reveals that this is somewhat of a chronic picture. He denies any significant specific right flank pain at this time. Patient's vital signs are stable and he is afebrile. Creatinine level was 1.4 at this time. Urine cultures pending. Review of Systems Review of Systems: All systems reviewed & are unremarkable except as noted in HPI and below PMFSH Past Medical History Medical History Acute kidney injury Ascending aortic aneurysm B12 deficiency BPH (benign prostatic hyperplasia) Bradycardia CAD (coronary artery disease) Chewing tobacco nicotine dependence CHF (congestive heart failure) echocardiogram April 2020: EF 60-65%, indeterminate diastolic function, moderate right ventricular enlargement, severe left atrial enlargement, moderate right atrial enlargement, mild mitral valve and tricuspid valve regurgitation, [id number] aortic valve regurgitation, mild pulmonary hypertension Chronic kidney disease, stage 3 with baseline creatinine between 1 and 1.4 Closed compression fracture of L3 vertebra 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 He is retired from [employer]. He lives with his and Daughter. His daughter is a durable power deputy prosecuting attorney for healthcare. The daughter is at the bedside and the patient is now DNR. [facility] is now back at [facility]. Patient quit smok
--- NOTE | 2021-07-03 12:46 | PC.NURSE ---
On 07/03/21, the student, Kennedy Torres, provided care and completed [facility] documentation on this patient. I have reviewed the student's documentation and agree with the findings.
--- NOTE | 2021-07-03 14:27 | PM.PNCARD ---
Progress Note: A&P Additional Plan Acute on chronic diastolic heart failure CAD and HX of CABG Hx of AF paroxysmal 1st degree HB Aortic aneurysm Plan start Lasix 40 mg po daily Replace K to target 4 to 5 Keep Mg > 2 Renal function in AM ASA and stain Subjective Date/time seen: 07/03/21 14:27 Interval history: no acute events SOB is improving Review of Systems Review of Systems: All systems reviewed & are unremarkable except as noted in HPI and below Exam Const: General: comfortable and no acute distress Other: Able to lie flat Resp: Auscultation: rhonchi (basal) and diminished lung sounds (lung bases) Other: No chest wall tenderness Cardio: Rate: regular rate Rhythm: regular rhythm Heart sounds: no gallops, no murmurs and no rubs Skin: General skin exam: normal color, rashes and/or lesions noted and no erythema Other: Warm Extrem: General: edema (Bilateral LE) Other: Normal capillary refills Intact distal pulses. Objective Data Vital Signs Vital Signs: Vital Signs - 24 hr 07/02/21 15:12 07/02/21 16:00 07/02/21 20:00 Temperature 36.4 C Pulse Rate 83 85 92 Respiratory Rate 22 H Blood Pressure 166/77 H Pulse Oximetry 97 07/02/21 21:24 07/03/21 00:00 07/03/21 04:00 Temperature 37.1 C Pulse Rate 90 79 77 Respiratory Rate 20 Blood Pressure 147/83 H Pulse Oximetry 96 07/03/21 06:00 07/03/21 08:00 07/03/21 10:26 Temperature 36.2 C L 36.6 C Pulse Rate 72 79 70 Respiratory Rate 18 20 Blood Pressure 138/65 110/60 Pulse Oximetry 97 96 07/03/21 12:00 07/03/21 14:00 Temperature 36.7 C Pulse Rate 76 79 Respiratory Rate 18 Blood Pressure 105/65 Pulse Oximetry 99 Intake/Output Intake/Output: Intake & Output 06/30/21 07/01/21 07/02/21 07/03/21 23:59 23:59 23:59 23:59 Intake Total 286 650 Balance 286 650 Meds/Results Medications: Active Medications Generic Name Dose Route Start Last Admin Trade Name Freq PRN Reason Stop Dose Admin Acetaminophen 650 mg 07/03/21 04:29 07/03/21 04:51 Acetaminophen 325 Mg Tablet PO 650 mg Q6H PRN Administration Mild Pain (1-3) or Fever Aspirin 81 mg 07/02/21 21:00 07/02/21 21:23 Aspirin 81 Mg Chewable Tablet PO 81 mg HS DANIELLE Administration Ferrous Sulfate 324 mg 07/03/21 09:00 07/03/21 08:06 Ferrous Sulfate 324 Mg Tablet PO 324 mg DAILY DANIELLE Administration Ceftriaxone Sodium/Dextrose 1 gm in 50 mls @ 100 mls/hr 07/03/21 13:00 07/03/21 13:06 Rocephin 1 Gm/D5w 50 Ml IVPB Infused Q24H DANIELLE Infusion Levothyroxine Sodium 50 mcg 07/03/21 06:30 07/03/21 05:52 Levothyroxine Sodium 50 Mcg Tablet PO 50 mcg DAILY@0630 DANIELLE Administration Melatonin 5 mg 07/02/21 21:00 07/02/21 21:23 Melatonin 5 Mg Tablet PO 5 mg HS DANIELLE Administration Pantoprazole Sodium 40 mg 07/03/21 09:00 07/03/21 08:05 Pantoprazole 40 Mg Tablet PO 40 mg QAM DANIELLE Administration Potassium Chloride 40 meq 07/03/21 21:00 Potassium Chloride 20 Meq Packet (For Liquid) PO 07/03/21 21:01 ONCE ONE Rosuvastatin Calcium 5 mg 07/03/21 09:00 07/03/21 08:07 Rosuvastatin 5 Mg Tablet PO 5 mg DAILY DANIELLE Administration Tamsulosin HCl 0.4 mg 07/03/21 09:00 07/03/21 08:06 Tamsulosin Hcl 0.4 Mg Capsule PO 0.4 mg DAILY DANIELLE Administration Radiology Results: ITS Impressions Chest X-Ray 07/02/21 09:23 IMPRESSION: 1. Moderate right pleural effusion, adjacent multisegmental atelectasis. 2. Cardiomegaly, pulmonary vascular congestion. Head CT 07/02/21 09:37 IMPRESSION: 1. No acute intracranial findings. 2. Chronic age related findings. 3. Old lacunar infarctions. Cervical Spine CT 07/02/21 09:41 IMPRESSION: 1. No acute cervical fracture. 2. Spondylosis. Abdomen/Pelvis CT 07/02/21 09:59 IMPRESSION: 1. Chronic or acute on chronic cystitis, and right upper urinary tract infection. 2. C
[2021-07-03] MEDS: MAGNESIUM SULF 1 GM/D5W 100 ML 1 GM/100 ML BAG IVPB (17:16)
[2021-07-03] MEDS: POTASSIUM CHLORIDE 20 MEQ PACKET (FOR LIQUID) 40 MEQ PO (21:29)
[2021-07-03] MEDS: MELATONIN 5 MG TABLET PO (21:29)
[2021-07-03] MEDS: ASPIRIN 81 MG CHEWABLE TABLET PO (21:29)
[2021-07-04] VITALS (9 sets, daily range): BP systolic 112–140; BP diastolic 66–79; PULSE 61–93; RESP 18–20; TEMP 36.1–36.6; O2SAT 96–98
[2021-07-04 06:04] LABS: Basophils Percent Auto 0.6 % (0.2-1.2); Eosinophils Absolute Auto 0.4 K/mm3 (0-0.3); Eosinophils Percent Auto 5.3 % (0-4.4); Hematocrit 36.4 % (42.0-52.0); Hemoglobin 11.6 g/dL (14.0-18.0); Immature Granulocyte Absolute 0.02 K/mm3 (0.00-0.031); Immature Granulocyte Percent A 0.3 % (0-0.5); Lymphocytes Absolute Auto 1.34 K/mm3 (0.9-3.2); Lymphocytes Percent Auto 20.4 % (18.3-44.2); Mean Corpuscular HGB Conc 31.9 g/dl (32-36); Mean Corpuscular Volume 87.9 fl (80-100); Mean Platelet Volume 11.1 fl (7.4-10.4); Monocytes Absolute Auto 0.5 K/mm3 (0.1-0.6); Monocytes Percent Auto 7.8 % (2.6-8.5); Neutrophils Absolute Auto 4.3 K/mm3 (1.3-6.7); Neutrophils Percent Auto 65.6 % (45.5-73.1); Platelet Count Result 264 k/mm3 (150-375); Red Blood Count 4.14 M/mm3 (4.6-6.20); Red Cell Distribution Width 16.7 % (11.5-14.5); White Blood Count 6.6 K/mm3 (4.5-10.0)
[2021-07-04 06:09] LABS: Anion Gap 7 mmol/L (8-16); Blood Urea Nitrogen 24 mg/dL (9-20); Calcium 8.5 mg/dL (8.4-10.2); Carbon Dioxide 29 mmol/L (22-30); Chloride 103 mmol/L (98-107); Estimated CRCL calculation 37 ml/min; Estimated Glomerular Filt Rate 45; Glucose 89 mg/dL (65-110); Potassium 3.4 mmol/L (3.4-5.0); Sodium 139 mmol/L (137-145)
[2021-07-04] MEDS: LEVOTHYROXINE SODIUM 50 MCG TABLET PO (06:39)
--- NOTE | 2021-07-04 07:23 | WPDUROPN2 ---
Progress Note: A&P Assessment and Plan (1) Cystitis: Code(s): N30.90 - Cystitis, unspecified without hematuria Status: Acute Assessment and Plan: Urine cultures negative. Continue with Flomax. Postvoid residual approximately 175 cc. Patient is reluctant for any Beltre catheter placement will hold off on this time. (2) Hydronephrosis: Code(s): N13.30 - Unspecified hydronephrosis Status: Acute Assessment and Plan: Who chronic in nature. Will obtain Mag 3 renal scan with Lasix washout to evaluate function Subjective Subjective Date/Time Seen: 07/04/21 07:23 Principal diagnosis: Cystitis Interval history: No major complaints this morning. Review of Systems Review of Systems: All systems reviewed & are unremarkable except as noted in HPI and below Exam Const: General: cooperative Resp: Effort & Inspection: normal respiratory effort Objective Data Vital Signs Vital Signs: Vital Signs - 24 hr 07/03/21 08:00 07/03/21 10:26 07/03/21 12:00 Temperature 36.6 C Pulse Rate 79 70 76 Respiratory Rate 20 Blood Pressure 110/60 Pulse Oximetry 96 07/03/21 14:00 07/03/21 16:00 07/03/21 20:00 Temperature 36.7 C Pulse Rate 79 61 79 Respiratory Rate 18 Blood Pressure 105/65 Pulse Oximetry 99 07/03/21 22:00 07/04/21 00:00 07/04/21 04:00 Temperature 36.5 C Pulse Rate 79 61 66 Respiratory Rate 18 Blood Pressure 141/76 H Pulse Oximetry 96 07/04/21 06:00 Temperature 36.6 C Pulse Rate 77 Respiratory Rate 20 Blood Pressure 140/68 Pulse Oximetry 98 Intake/Output Intake/Output: Intake & Output 07/01/21 07/02/21 07/03/21 07/04/21 23:59 23:59 23:59 23:59 Intake Total 286 1490 Output Total 550 Balance 286 1490 -550 Meds/Results Medications: Active Medications Generic Name Dose Route Start Last Admin Trade Name Freq PRN Reason Stop Dose Admin Acetaminophen 650 mg 07/03/21 04:29 07/03/21 17:26 Acetaminophen 325 Mg Tablet PO 650 mg Q6H PRN Administration Mild Pain (1-3) or Fever Aspirin 81 mg 07/02/21 21:00 07/03/21 21:29 Aspirin 81 Mg Chewable Tablet PO 81 mg HS DANIELLE Administration Ferrous Sulfate 324 mg 07/03/21 09:00 07/03/21 08:06 Ferrous Sulfate 324 Mg Tablet PO 324 mg DAILY DANIELLE Administration Furosemide 40 mg 07/04/21 09:00 Furosemide 40 Mg Tablet PO DAILY [facility] Ceftriaxone Sodium/Dextrose 1 gm in 50 mls @ 100 mls/hr 07/03/21 13:00 07/03/21 13:06 Rocephin 1 Gm/D5w 50 Ml IVPB Infused Q24H DANIELLE Infusion Levothyroxine Sodium 50 mcg 07/03/21 06:30 07/04/21 06:39 Levothyroxine Sodium 50 Mcg Tablet PO 50 mcg DAILY@0630 DANIELLE Administration Melatonin 5 mg 07/02/21 21:00 07/03/21 21:29 Melatonin 5 Mg Tablet PO 5 mg HS [facility] Administration Pantoprazole Sodium 40 mg 07/03/21 09:00 07/03/21 08:05 Pantoprazole 40 Mg Tablet PO 40 mg QAM DANIELLE Administration Rosuvastatin Calcium 5 mg 07/03/21 09:00 07/03/21 08:07 Rosuvastatin 5 Mg Tablet PO 5 mg DAILY DANIELLE Administration Tamsulosin HCl 0.4 mg 07/03/21 09:00 07/03/21 08:06 Tamsulosin Hcl 0.4 Mg Capsule PO 0.4 mg DAILY DANIELLE Administration Radiology Results: ITS Impressions Chest X-Ray 07/02/21 09:23 IMPRESSION: 1. Moderate right pleural effusion, adjacent multisegmental atelectasis. 2. Cardiomegaly, pulmonary vascular congestion. Head CT 07/02/21 09:37 IMPRESSION: 1. No acute intracranial findings. 2. Chronic age related findings. 3. Old lacunar infarctions. Cervical Spine CT 07/02/21 09:41 IMPRESSION: 1. No acute cervical fracture. 2. Spondylosis. Abdomen/Pelvis CT 07/02/21 09:59 IMPRESSION: 1. Chronic or acute on chronic cystitis, and right upper urinary tract infection. 2. Cholelithiasis, moderately distended but otherwise unremarkable gallbladder, appearance unchanged. 3. Subacute appearing L3 moderate compression
[2021-07-04] MEDS: FUROSEMIDE INJ 40 MG/4 ML VIAL IV PUSH (07:58)
[2021-07-04] MEDS: TAMSULOSIN HCL 0.4 MG CAPSULE PO (07:59)
[2021-07-04] MEDS: FERROUS SULFATE 324 MG TABLET PO (07:59)
[2021-07-04] MEDS: PANTOPRAZOLE 40 MG TABLET PO (07:59)
[2021-07-04] MEDS: ROSUVASTATIN 5 MG TABLET PO (08:00)
[2021-07-04] MEDS: FUROSEMIDE 40 MG TABLET PO (08:00)
--- NOTE | 2021-07-04 13:07 | PM.IMPN ---
Progress Note: A&P Assessment and Plan (1) Elevated INR: Code(s): R79.1 - Abnormal coagulation profile Status: Acute (2) Pleural effusion: Code(s): J90 - Pleural effusion, not elsewhere classified Status: Acute (3) Shortness of breath: Code(s): R06.02 - Shortness of breath Status: Acute (4) Acute exacerbation of CHF (congestive heart failure): Qualifiers: Heart failure type: unspecified Qualified Code(s): I50.9 - Heart failure, unspecified Code(s): I50.9 - Heart failure, unspecified Status: Acute (5) Urinary tract infection: Qualifiers: Hematuria presence: without hematuria Urinary tract infection type: site unspecified Qualified Code(s): N39.0 - Urinary tract infection, site not specified Code(s): N39.0 - Urinary tract infection, site not specified Status: Acute (6) Type 2 diabetes mellitus with diabetic chronic kidney disease: Code(s): E11.22 - Type 2 diabetes mellitus with diabetic chronic kidney disease Status: Acute (7) Generalized weakness: Code(s): R53.1 - Weakness Status: Acute (8) intermediate frame tender current use of anticoagulant: Code(s): Z79.01 - correction (current) use of anticoagulants Status: Acute (9) Chronic kidney disease, stage 3b: Code(s): N18.32 - Chronic kidney disease, stage 3b Status: Acute (10) Hydroureteronephrosis: Code(s): N13.30 - Unspecified hydronephrosis Status: Acute (11) Hypothyroid: Code(s): E03.9 - Hypothyroidism, unspecified Status: Acute (12) BPH (benign prostatic hyperplasia): Code(s): N40.0 - Benign prostatic hyperplasia without lower urinary tract symptoms Status: Acute (13) Persistent atrial fibrillation: Code(s): I48.19 - Other persistent atrial fibrillation Status: Acute Additional Plan 07/03/21 UTI on Rocephin cultures pending chronic hydro no indication for stent at this time Vit K 2.5 ordered in anticipation of procedure no active bleeding but INR rising K and Mg repleted am labs ordered cont current care 07/04/21 urine cx NGTD INR pending SOB improved BG at goal Cr rising uro and cardio following recs appreciated anticipate dc home in 24-48hrs Subjective Date/time seen: 07/04/21 13:07 pt sitting up in chair states that his leg swell when he sits or stands to long. has no complaints otherwise requests to go home soon Exam Narrative: GEN: well-nourished in no acute distress. alert and oriented x3 HEENT: Moist mucous membranes. No scleral icterus. Neck: No carotid bruits noted no JVD noted Lungs: b/l crackles No accessory muscle use. No rhonchi, or wheezes noted. Cardiovascular: IRR Extremities: b/l LE 1+ pitting edema. Nontender. Skin: No rashes or lesions. Warm and dry. Skin is intact. Neurological: Patient has slurred speech at baseline. 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 Patient's pedal pushes and pulls are equal and strong. Psychiatric: Cooperative, appropriate mood, and affect Objective Data Vital Signs Vital Signs: Vital Signs - 24 hr 07/03/21 14:00 07/03/21 16:00 07/03/21 20:00 Temperature 98.1 F Pulse Rate 79 61 79 Respiratory Rate 18 Blood Pressure 105/65 Pulse Oximetry 99 07/03/21 22:00 07/04/21 00:00 07/04/21 04:00 Temperature 97.7 F Pulse Rate 79 61 66 Respiratory Rate 18 Blood Pressure 141/76 H Pulse Oximetry 96 07/04/21 06:00 07/04/21 08:00 Temperature 97.9 F Pulse Rate 77 78 Respiratory Rate 20 Blood Pressure 140/68 Pulse Oximetry 98 Intake/Output Intake/Output: Intake & Output 07/01/21 07/02/21 07/03/21 07/04/21 23:59 23:59 23:59 23:59 Intake Total 286 1490 290 Output Total 550 Balance 286 1490 -260 Meds/Results Medications: Active Medications Generic Name Dose Route Start Last Admin Trade Name Freq PRN Reason Stop Dose Admin Acetaminophen 650 mg
--- NOTE | 2021-07-04 14:28 | PM.PNCARD ---
Progress Note: A&P Additional Plan Acute on chronic diastolic heart failure CAD and HX of CABG Hx of AF paroxysmal 1st degree HB Aortic aneurysm calcified AV unlikely vegetation since no clinical symptoms or signs of endocarditis. Plan Lasix 40 mg po daily Replace K to target 4 to 5 Keep Mg > 2 ASA and stain Get old records for comparison of AV echogenic structure Subjective Date/time seen: 07/04/21 14:28 Interval history: no acute events Review of Systems Review of Systems: All systems reviewed & are unremarkable except as noted in HPI and below Exam Neck: Neck: supple and no JVD Resp: Effort & Inspection: normal respiratory effort Auscultation: rhonchi (basal) and diminished lung sounds (lung bases) Other: No chest wall tenderness Cardio: Rate: regular rate Rhythm: regular rhythm Heart sounds: no gallops, no murmurs and no rubs Other: very soft systolic murmur not radiating from the left sternal border GI: Auscultation: normal bowel sounds Skin: General skin exam: normal color, rashes and/or lesions noted and no erythema Other: Warm Neuro: Cognition (Neuro): normal cognition Other: speech difficult to understand Extrem: General: edema (Bilateral LE) Other: Normal capillary refills Intact distal pulses. Objective Data Vital Signs Vital Signs: Vital Signs - 24 hr 07/03/21 16:00 07/03/21 20:00 07/03/21 22:00 Temperature 36.5 C Pulse Rate 61 79 79 Respiratory Rate 18 Blood Pressure 141/76 H Pulse Oximetry 96 07/04/21 00:00 07/04/21 04:00 07/04/21 06:00 Temperature 36.6 C Pulse Rate 61 66 77 Respiratory Rate 20 Blood Pressure 140/68 Pulse Oximetry 98 07/04/21 08:00 07/04/21 12:00 Temperature Pulse Rate 78 74 Respiratory Rate Blood Pressure Pulse Oximetry Intake/Output Intake/Output: Intake & Output 07/01/21 07/02/21 07/03/21 07/04/21 23:59 23:59 23:59 23:59 Intake Total 286 1490 410 Output Total 550 Balance 286 1490 -140 Meds/Results Medications: Active Medications Generic Name Dose Route Start Last Admin Trade Name Freq PRN Reason Stop Dose Admin Acetaminophen 650 mg 07/03/21 04:29 07/03/21 17:26 Acetaminophen 325 Mg Tablet PO 650 mg Q6H PRN Administration Mild Pain (1-3) or Fever Aspirin 81 mg 07/02/21 21:00 07/03/21 21:29 Aspirin 81 Mg Chewable Tablet PO 81 mg HS DANIELLE Administration Ferrous Sulfate 324 mg 07/03/21 09:00 07/04/21 07:59 Ferrous Sulfate 324 Mg Tablet PO 324 mg DAILY DANIELLE Administration Ceftriaxone Sodium/Dextrose 1 gm in 50 mls @ 100 mls/hr 07/03/21 13:00 07/04/21 13:04 Rocephin 1 Gm/D5w 50 Ml IVPB Infused Q24H DANIELLE Infusion Levothyroxine Sodium 50 mcg 07/03/21 06:30 07/04/21 06:39 Levothyroxine Sodium 50 Mcg Tablet PO 50 mcg DAILY@0630 DANIELLE Administration Melatonin 5 mg 07/02/21 21:00 07/03/21 21:29 Melatonin 5 Mg Tablet PO 5 mg HS DANIELLE Administration Pantoprazole Sodium 40 mg 07/03/21 09:00 07/04/21 07:59 Pantoprazole 40 Mg Tablet PO 40 mg QAM DANIELLE Administration Rosuvastatin Calcium 5 mg 07/03/21 09:00 07/04/21 08:00 Rosuvastatin 5 Mg Tablet PO 5 mg DAILY DANIELLE Administration Tamsulosin HCl 0.4 mg 07/03/21 09:00 07/04/21 07:59 Tamsulosin Hcl 0.4 Mg Capsule PO 0.4 mg DAILY DANIELLE Administration Radiology Results: ITS Impressions Chest X-Ray 07/02/21 09:23 IMPRESSION: 1. Moderate right pleural effusion, adjacent multisegmental atelectasis. 2. Cardiomegaly, pulmonary vascular congestion. Head CT 07/02/21 09:37 IMPRESSION: 1. No acute intracranial findings. 2. Chronic age related findings. 3. Old lacunar infarctions. Cervical Spine CT 07/02/21 09:41 IMPRESSION: 1. No acute cervical fracture. 2. Spondylosis. Abdomen/Pelvis CT 07/02/21 09:59 IMPRESSION: 1. Chronic or acute on chronic cystitis, and right upper urinary tract infection.
[2021-07-04 15:44] LABS: INR 1.7; Prothrombin Time 19.6 Seconds (11.1-14.7)
[2021-07-04] MEDS: MELATONIN 5 MG TABLET PO (21:10)
[2021-07-04] MEDS: ASPIRIN 81 MG CHEWABLE TABLET PO (21:10)
[2021-07-05] VITALS (9 sets, daily range): BP systolic 98–139; BP diastolic 47–63; PULSE 70–91; RESP 16–18; TEMP 36.6–37.2; O2SAT 97–98
[2021-07-05] MEDS: LEVOTHYROXINE SODIUM 50 MCG TABLET PO (05:43)
[2021-07-05 06:13] LABS: INR 1.4; Prothrombin Time 16.2 Seconds (11.1-14.7)
[2021-07-05] MEDS: TAMSULOSIN HCL 0.4 MG CAPSULE PO (08:40)
[2021-07-05] MEDS: ROSUVASTATIN 5 MG TABLET PO (08:40)
[2021-07-05] MEDS: FERROUS SULFATE 324 MG TABLET PO (08:40)
[2021-07-05] MEDS: PANTOPRAZOLE 40 MG TABLET PO (08:40)
--- NOTE | 2021-07-05 10:30 | PM.PNCARD ---
Progress Note: A&P Assessment and Plan (1) CHF (congestive heart failure): Code(s): I50.9 - Heart failure, unspecified Status: Chronic Assessment and Plan: Still has some LE edema but he reports improvement in shortness of breath. Continue with furosemide 40mg p.o. daily for now. Check BMP in AM. Discharge tomorrow? (2) Shortness of breath: Code(s): R06.02 - Shortness of breath Status: Acute Assessment and Plan: Secondary to CHF. Improving. Saturating well on room air (3) CAD (coronary artery disease): Code(s): I25.10 - Atherosclerotic heart disease of [place] coronary artery without angina pectoris Status: Acute Assessment and Plan: Stable. Continue ASA, statin (4) Persistent atrial fibrillation: Code(s): I48.19 - Other persistent atrial fibrillation Status: Acute Assessment and Plan: Rate controlled. Had previously been on warfarin. Will shift him to Xarelto - it is covered and he could prefer not to be on warfarin and have INR draws. Start Xarelto 15mg daily (dose adjusted for renal function, CrCl <50) Subjective Date/time seen: 07/05/21 10:30 Cardiology follow up for CHF, CAD, PAF He is feeling better today. Breathing easier and he says his swelling has improved significantly with addition of compression stockings. He does not have any complaints aside from his bed being uncomfortable. He wants to go home. Review of Systems Review of Systems: All systems reviewed & are unremarkable except as noted in HPI and below Constitutional: Constitutional: Reports weakness Eyes: Eyes: Reports no additional eye complaints ENT: Reports system reviewed and no additional complaints, except as documented Cardiovascular: Cardiovascular: Reports as per HPI Respiratory: Respiratory: Reports as per HPI Gastrointestinal: Gastrointestinal: Reports no additional gastrointestinal complaints Musculoskeletal: Musculoskeletal: Reports no additional musculoskeletal complaints Integumentary/Breasts: Skin/Breast: Reports system reviewed and no additional complaints, except as docu Neurologic: Reports as per HPI and Reports weakness Endocrine: Endocrine: Reports no additional endocrine complaints Hematologic/Lymphatic: Hematologic/Lymphatic: Reports no additional hematologic/lymphatic complaints Allergic/Immunologic: Allergic/Immunologic: Reports no additional allergic/immunologic complaints Exam Const: General: comfortable and no acute distress Other: Able to lie flat HENMT: Mouth: Yes moist mucous membranes Eyes: Sclera: sclerae normal Neck: Neck: supple and no JVD Resp: Effort & Inspection: normal respiratory effort Auscultation: rhonchi (basal) and diminished lung sounds (lung bases) Other: No chest wall tenderness Cardio: Rate: regular rate Rhythm: regular rhythm Heart sounds: no gallops, no murmurs and no rubs Other: very soft systolic murmur not radiating from the left sternal border GI: Auscultation: normal bowel sounds Skin: General skin exam: normal color, rashes and/or lesions noted and no erythema Other: Warm Neuro: Cognition (Neuro): normal cognition Other: speech difficult to understand Extrem: General: edema (Bilateral LE) Other: Normal capillary refills Intact distal pulses. Objective Data Vital Signs Vital Signs: Vital Signs - 24 hr 07/04/21 12:00 07/04/21 14:00 07/04/21 16:00 Temperature 36.6 C Pulse Rate 74 76 82 Respiratory Rate 18 Blood Pressure 112/66 Pulse Oximetry 98 07/04/21 20:00 07/04/21 22:00 07/05/21 00:00 Temperature 36.1 C L Pulse Rate 83 93 78 Respiratory Rate 18 Blood Pressure 119/79 Pulse Oximetry 96 07/05/21 04:00 07/05/21 06:00 Temperature 36.6 C Pulse Rate 82 80 Respiratory Rate 18 Blood Pressure 136/47 L Pulse Oximetry 97 Intake/Output Intake/Output: Intake & Output 07/02/21 07/03/21 07/04/21 07/05/21 23:59 23:59 23:59 23:59 Inta
[2021-07-05] MEDS: FUROSEMIDE INJ 40 MG/4 ML VIAL IV PUSH ×2 (13:43→14:25)
--- NOTE | 2021-07-05 14:22 | PM.IMPN ---
Progress Note: A&P Assessment and Plan (1) Elevated INR: Code(s): R79.1 - Abnormal coagulation profile Status: Acute (2) Pleural effusion: Code(s): J90 - Pleural effusion, not elsewhere classified Status: Acute (3) Shortness of breath: Code(s): R06.02 - Shortness of breath Status: Acute (4) Acute exacerbation of CHF (congestive heart failure): Qualifiers: Heart failure type: unspecified Qualified Code(s): I50.9 - Heart failure, unspecified Code(s): I50.9 - Heart failure, unspecified Status: Acute (5) Urinary tract infection: Qualifiers: Hematuria presence: without hematuria Urinary tract infection type: site unspecified Qualified Code(s): N39.0 - Urinary tract infection, site not specified Code(s): N39.0 - Urinary tract infection, site not specified Status: Acute (6) Type 2 diabetes mellitus with diabetic chronic kidney disease: Code(s): E11.22 - Type 2 diabetes mellitus with diabetic chronic kidney disease Status: Acute (7) Generalized weakness: Code(s): R53.1 - Weakness Status: Acute (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: Code(s): Z79.01 - assisted (current) use of anticoagulants Status: Acute (9) Chronic kidney disease, stage 3b: Code(s): N18.32 - Chronic kidney disease, stage 3b Status: Acute (10) Hydroureteronephrosis: Code(s): N13.30 - Unspecified hydronephrosis Status: Acute (11) Hypothyroid: Code(s): E03.9 - Hypothyroidism, unspecified Status: Acute (12) BPH (benign prostatic hyperplasia): Code(s): N40.0 - Benign prostatic hyperplasia without lower urinary tract symptoms Status: Acute (13) Persistent atrial fibrillation: Code(s): I48.19 - Other persistent atrial fibrillation Status: Acute Additional Plan 07/02/21 Chest x-ray does show a moderate right pleural effusion. Will have CT of chest done to evaluate effusion. Cardiology recommends possible thoracentesis for effusion. Patient's INR is significantly elevated. Will hold Coumadin and monitor INR. If the fusion persists will consider interventional radiology to perform thoracentesis on Monday. Cardiology's recommendation is to continue with home medications as patient was taking and evaluate effusion. Will have CT of the chest performed to evaluate pleural effusion. Coumadin is on hold secondary to the patient's INR being supratherapeutic. Patient has no active bleeding so will INR to trend down and if patient needs thoracentesis hopefully will be within range on Monday. Ventricular rate is well controlled. Patient is on Coumadin hold secondary to elevated INR. Will hold Coumadin at this time. Cardiology did state that because of multiple falls and patient's motor weakness and can compression fracture patient mainly longer be a good candidate for Coumadin. 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 Will have PT/OT to evaluate and treat patient. Patient does have a new L3 compression fracture that could be causing some of his right lower extremity weakness. Patient states he has no numbness, tingling, or pain in his right lower extremity. Due appreciating further recommendations from PT/OT. Patient's INR is elevated at 4.8. Goal INR for atrial fibrillation is 2-3. At this point in time will hold Coumadin until decision is made if thoracentesis is needed. Cardiology also did state that they are not sure the patient is a good candidate for Coumadin any longer secondary to multiple falls and weakness right lower extremity. 07/03/21 UTI on Rocephin cultures pending chronic hydro no indication for stent at this time Vit K 2.5 ordered in anticipation of procedure no active bleeding but INR rising K and Mg repleted am labs ordered cont current care 07/04/21 urine cx NGTD INR pending SOB improved BG at goal Cr rising uro and cardio following re
[2021-07-05 14:32] LABS: Basophils Absolute Auto 0.1 K/mm3 (0.0-0.1); Basophils Percent Auto 0.6 % (0.2-1.2); Eosinophils Absolute Auto 0.2 K/mm3 (0-0.3); Eosinophils Percent Auto 2.7 % (0-4.4); Hematocrit 41.1 % (42.0-52.0); Hemoglobin 12.6 g/dL (14.0-18.0); Immature Granulocyte Absolute 0.03 K/mm3 (0.00-0.031); Immature Granulocyte Percent A 0.4 % (0-0.5); Lymphocytes Absolute Auto 1.31 K/mm3 (0.9-3.2); Lymphocytes Percent Auto 16.8 % (18.3-44.2); Mean Corpuscular HGB Conc 30.7 g/dl (32-36); Mean Corpuscular Hemoglobin 29.3 pg (26-34); Mean Corpuscular Volume 95.6 fl (80-100); Mean Platelet Volume 11.1 fl (7.4-10.4); Monocytes Absolute Auto 0.6 K/mm3 (0.1-0.6); Monocytes Percent Auto 7.4 % (2.6-8.5); Neutrophils Absolute Auto 5.6 K/mm3 (1.3-6.7); Neutrophils Percent Auto 72.1 % (45.5-73.1); Nucleated Red Blood Cells Perc 0.3 % (0.0-0.2); Platelet Count Result 271 k/mm3 (150-375); Red Cell Distribution Width 17.2 % (11.5-14.5); White Blood Count 7.8 K/mm3 (4.5-10.0)
[2021-07-05 16:19] LABS: Alanine Aminotransferase 19 U/L (4-50); Albumin Level 3.7 g/dL (3.5-5.1); Alkaline Phosphatase 162 U/L (38-126); Anion Gap 7 mmol/L (8-16); Aspartate Amino Transferase 39 U/L (17-59); Bilirubin,Total 0.4 mg/dL (0.2-1.3); Blood Urea Nitrogen 23 mg/dL (9-20); Calcium 8.7 mg/dL (8.4-10.2); Carbon Dioxide 32 mmol/L (22-30); Chloride 98 mmol/L (98-107); Estimated CRCL calculation 35 ml/min; Estimated Glomerular Filt Rate 41; Glucose 182 mg/dL (65-110); Magnesium 1.8 mg/dL (1.6-2.3); Potassium 3.6 mmol/L (3.4-5.0); Sodium 137 mmol/L (137-145)
[2021-07-05 16:28] LABS: NT Pro B Type Natriuretic Pept 3010 pg/mL (5-100)
[2021-07-05] MEDS: RIVAROXABAN 15 MG TABLET PO (17:07)
[2021-07-05] MEDS: MELATONIN 5 MG TABLET PO (21:34)
[2021-07-05] MEDS: ASPIRIN 81 MG CHEWABLE TABLET PO (21:34)
[2021-07-06] VITALS: PULSE 75
[2021-07-06 04:00] VITALS: PULSE 83
[2021-07-06] MEDS: LEVOTHYROXINE SODIUM 50 MCG TABLET PO (05:34)
[2021-07-06 05:35] VITALS: BP 137/56; PULSE 75; RESP 16; TEMP 36.3; O2SAT 96
[2021-07-06] MEDS: ACETAMINOPHEN 325 MG TABLET 650 MG PO (06:16)
[2021-07-06 06:17] LABS: Hematocrit 33.4 % (42.0-52.0); Hemoglobin 10.8 g/dL (14.0-18.0); Mean Corpuscular HGB Conc 32.3 g/dl (32-36); Mean Corpuscular Hemoglobin 28.3 pg (26-34); Mean Corpuscular Volume 87.4 fl (80-100); Mean Platelet Volume 10.7 fl (7.4-10.4); Platelet Count Result 239 k/mm3 (150-375); Red Blood Count 3.82 M/mm3 (4.6-6.20); Red Cell Distribution Width 16.5 % (11.5-14.5); White Blood Count 6.7 K/mm3 (4.5-10.0)
[2021-07-06 06:26] LABS: Anion Gap 6 mmol/L (8-16); Blood Urea Nitrogen 19 mg/dL (9-20); Calcium 8.2 mg/dL (8.4-10.2); Carbon Dioxide 29 mmol/L (22-30); Chloride 101 mmol/L (98-107); Estimated CRCL calculation 37 ml/min; Estimated Glomerular Filt Rate 45; Glucose 100 mg/dL (65-110); Magnesium 1.7 mg/dL (1.6-2.3); Potassium 3.1 mmol/L (3.4-5.0); Sodium 136 mmol/L (137-145)
--- NOTE | 2021-07-06 08:32 | PM.PNCARD ---
Progress Note: A&P Assessment and Plan (1) CHF (congestive heart failure): Code(s): I50.9 - Heart failure, unspecified Status: Chronic Assessment and Plan: Continues to improve. Ankle and pretibial edema much better today. He does still have moderate pedal edema. Lungs sound clear on exam today. Creatinine stable today, K+ 3.1, will replace. OK for discharge home today from a cardiac perspective. Will need BMP in one week and follow up in our office in about one month which I will arrange. (2) Shortness of breath: Code(s): R06.02 - Shortness of breath Status: Acute Assessment and Plan: Secondary to CHF. Improving. Saturating well on room air (3) CAD (coronary artery disease): Code(s): I25.10 - Atherosclerotic heart disease of [place] coronary artery without angina pectoris Status: Acute Assessment and Plan: Stable. Continue ASA, statin (4) Persistent atrial fibrillation: Code(s): I48.19 - Other persistent atrial fibrillation Status: Acute Assessment and Plan: Rate controlled. Had previously been on warfarin. Will shift him to Xarelto - it is covered and he could prefer not to be on warfarin and have INR draws. Continue Xarelto 15mg daily (dose adjusted for renal function, CrCl <50) Subjective Date/time seen: 07/06/21 08:32 Cardiology follow up for CHF, PAF Feeling well today. He is breathing comfortably on room air, swelling continues to improve. He does not have any chest pain. Eager to go home. Review of Systems Review of Systems: All systems reviewed & are unremarkable except as noted in HPI and below Constitutional: Constitutional: Reports weakness Eyes: Eyes: Reports no additional eye complaints ENT: Reports system reviewed and no additional complaints, except as documented Cardiovascular: Cardiovascular: Reports as per HPI Respiratory: Respiratory: Reports as per HPI Gastrointestinal: Gastrointestinal: Reports no additional gastrointestinal complaints Musculoskeletal: Musculoskeletal: Reports no additional musculoskeletal complaints Integumentary/Breasts: Skin/Breast: Reports system reviewed and no additional complaints, except as docu Neurologic: Reports as per HPI and Reports weakness Endocrine: Endocrine: Reports no additional endocrine complaints Hematologic/Lymphatic: Hematologic/Lymphatic: Reports no additional hematologic/lymphatic complaints Allergic/Immunologic: Allergic/Immunologic: Reports no additional allergic/immunologic complaints Exam Const: General: comfortable and no acute distress HENMT: Mouth: Yes moist mucous membranes Eyes: Sclera: sclerae normal Neck: Neck: supple and no JVD Resp: Effort & Inspection: normal respiratory effort Auscultation: clear to auscultation bilaterally and diminished lung sounds (lung bases) Other: No chest wall tenderness Cardio: Rate: regular rate Rhythm: regular rhythm Heart sounds: no gallops, no murmurs and no rubs Other: very soft systolic murmur not radiating from the left sternal border GI: Auscultation: normal bowel sounds Skin: General skin exam: normal color, rashes and/or lesions noted and no erythema Other: Warm Neuro: Cognition (Neuro): normal cognition Other: speech difficult to understand Extrem: General: pedal edema bilaterally Other: Normal capillary refills Intact distal pulses. Objective Data Vital Signs Vital Signs: Vital Signs - 24 hr 07/05/21 12:00 07/05/21 14:00 07/05/21 16:00 Temperature 36.6 C Pulse Rate 91 80 77 Respiratory Rate 18 Blood Pressure 98/63 L Pulse Oximetry 98 07/05/21 20:00 07/05/21 22:00 07/06/21 00:00 Temperature 37.2 C Pulse Rate 81 81 75 Respiratory Rate 16 Blood Pressure 139/61 Pulse Oximetry 97 07/06/21 04:00 07/06/21 05:35 Temperature 36.3 C L Pulse Rate 83 75 Respiratory Rate 16 Blood Pressure 137/56 L Pulse Oximetry 96 Intake/Output Intake/Outp
[2021-07-06] MEDS: PANTOPRAZOLE 40 MG TABLET PO (09:20)
[2021-07-06] MEDS: FUROSEMIDE 40 MG TABLET PO (09:20)
[2021-07-06] MEDS: ROSUVASTATIN 5 MG TABLET PO (09:20)
[2021-07-06] MEDS: FERROUS SULFATE 324 MG TABLET PO (09:20)
[2021-07-06] MEDS: POTASSIUM CHLORIDE 20 MEQ PACKET (FOR LIQUID) PO (09:21)
[2021-07-06] MEDS: TAMSULOSIN HCL 0.4 MG CAPSULE PO (09:21)
--- NOTE | 2021-07-06 09:22 | PM.DS ---
DS: Admitting Diagnosis Discharge Date 07/06/2021 Admitting Diagnosis Shortness of breath DS: Discharge Diagnosis Discharge Diagnosis (1) Elevated INR: Code(s): R79.1 - Abnormal coagulation profile Status: Acute Assessment and Plan: Patient's INR is elevated at 4.8. Goal INR for atrial fibrillation is 2-3. At this point in time will hold Coumadin until decision is made if thoracentesis is needed. Cardiology also did state that they are not sure the patient is a good candidate for Coumadin any longer secondary to multiple falls and weakness right lower extremity. (2) Pleural effusion: Code(s): J90 - Pleural effusion, not elsewhere classified Status: Acute Assessment and Plan: Will have CT of the chest performed to evaluate pleural effusion. Coumadin is on hold secondary to the patient's INR being supratherapeutic. Patient has no active bleeding so will INR to trend down and if patient needs thoracentesis hopefully will be within range on Monday. (3) Shortness of breath: Code(s): R06.02 - Shortness of breath Status: Acute Assessment and Plan: Chest x-ray does show a moderate right pleural effusion. Will have CT of chest done to evaluate effusion. Cardiology recommends possible thoracentesis for effusion. Patient's INR is significantly elevated. Will hold Coumadin and monitor INR. If the fusion persists will consider interventional radiology to perform thoracentesis on Monday. Cardiology's recommendation is to continue with home medications as patient was taking and evaluate effusion. (4) Acute exacerbation of CHF (congestive heart failure): Qualifiers: Heart failure type: unspecified Qualified Code(s): I50.9 - Heart failure, unspecified Code(s): I50.9 - Heart failure, unspecified Status: Acute (5) Urinary tract infection: Qualifiers: Hematuria presence: without hematuria Urinary tract infection type: site unspecified Qualified Code(s): N39.0 - Urinary tract infection, site not specified Code(s): N39.0 - Urinary tract infection, site not specified Status: Acute (6) Type 2 diabetes mellitus with diabetic chronic kidney disease: Code(s): E11.22 - Type 2 diabetes mellitus with diabetic chronic kidney disease Status: Acute (7) Generalized weakness: Code(s): R53.1 - Weakness Status: Acute (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: Code(s): Z79.01 - 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 (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 Patient is on Coumadin hold secondary to elevated INR. Will hold Coumadin at this time. Cardiology did state that because of multiple falls and patient's motor weakness and can compression fracture patient mainly longer be a good candidate for Coumadin. DS: Summary Hospital Course Reason for hospitalization: Chief Complaint: Shortness of breath Narrative: Mr. Urrutia is an 85-year-old gentleman who presented to the emergency room with complaints of shortness of breath that started this morning. Patient does have a history of CVA and has slurred speech, and daughters at bedside stating this speech is normal for patient. Patient states that a few weeks ago he did have shortness of breath and that went away on its own, and then this morning he woke up an
--- NOTE | 2021-07-06 10:57 | WPDUROPN2 ---
Progress Note: A&P Assessment and Plan (1) Hydronephrosis: Code(s): N13.30 - Unspecified hydronephrosis Status: Acute Assessment and Plan: Right hydro noted on CT from 07/02/21, patient had a renal lasix scan yesterday which does note only 12% function on that side, but symmetric function bilaterally. His creatinine is stable at 1.50, and he has CKD. No intervention needed at this time as he is asymptomatic. Follow up with DR. Cortez. (2) BPH (benign prostatic hyperplasia): Code(s): N40.0 - Benign prostatic hyperplasia without lower urinary tract symptoms Status: Acute Assessment and Plan: The patient's residuals remain low and on exam his bladder it non distended. He denies difficulty with urination. (3) Retention of urine: Code(s): R33.9 - Retention of urine, unspecified Status: Acute (4) Cystitis: Code(s): N30.90 - Cystitis, unspecified without hematuria Status: Acute Assessment and Plan: Urine culture is negative. No further evaluation necessary at this time. Ok to discharge at any point per urology. Subjective Subjective Date/Time Seen: 07/06/21 10:57 Patient is doing well, continues to urinate with low residuals. He has no complaints of urologic pain or discomfort. His renal lasix scan shows symmetric renal function, with 12% total function of right kidney. Review of Systems Cardiovascular: Cardiovascular: Denies chest pain Respiratory: Respiratory: Reports no additional respiratory complaints Gastrointestinal: Gastrointestinal: Denies abdominal pain, Denies nausea and Denies vomiting Genitourinary: Genitourinary: Denies hematuria, Denies dysuria, Denies flank pain, Denies urinary frequency, Denies urinary hesitancy and Denies urinary urgency Exam Resp: Effort & Inspection: normal respiratory effort Cardio: Rate: regular rate GI: GI Palp: Yes Soft to palpation and No Tenderness to palpation present (GI) : General: Yes no CVA tenderness Extrem: General: edema bilateral Objective Data Vital Signs Vital Signs: Vital Signs - 24 hr 07/05/21 12:00 07/05/21 14:00 07/05/21 16:00 Temperature 97.9 F Pulse Rate 91 80 77 Respiratory Rate 18 Blood Pressure 98/63 L Pulse Oximetry 98 07/05/21 20:00 07/05/21 22:00 07/06/21 00:00 Temperature 98.9 F Pulse Rate 81 81 75 Respiratory Rate 16 Blood Pressure 139/61 Pulse Oximetry 97 07/06/21 04:00 07/06/21 05:35 Temperature 97.3 F L Pulse Rate 83 75 Respiratory Rate 16 Blood Pressure 137/56 L Pulse Oximetry 96 Intake/Output Intake/Output: Intake & Output 07/03/21 07/04/21 07/05/21 07/06/21 23:59 23:59 23:59 23:59 Intake Total 1490 1250 2210 1150 Output Total 550 0 Balance 8950 030 8973 1150 Meds/Results Medications: Active Medications Generic Name Dose Route Start Last Admin Trade Name Freq PRN Reason Stop Dose Admin Acetaminophen 650 mg 07/03/21 04:29 07/06/21 06:16 Acetaminophen 325 Mg Tablet PO 650 mg Q6H PRN Administration Mild Pain (1-3) or Fever Aspirin 81 mg 07/02/21 21:00 07/05/21 21:34 Aspirin 81 Mg Chewable Tablet PO 81 mg HS DANIELLE Administration Ferrous Sulfate 324 mg 07/03/21 09:00 07/06/21 09:20 Ferrous Sulfate 324 Mg Tablet PO 324 mg DAILY DANIELLE Administration Furosemide 40 mg 07/06/21 09:00 07/06/21 09:20 Furosemide 40 Mg Tablet PO 40 mg DAILY DANIELLE Administration Ceftriaxone Sodium/Dextrose 1 gm in 50 mls @ 100 mls/hr 07/03/21 13:00 07/05/21 17:09 Rocephin 1 Gm/D5w 50 Ml IVPB Infused Q24H DANIELLE Infusion Levothyroxine Sodium 50 mcg 07/03/21 06:30 07/06/21 05:34 Levothyroxine Sodium 50 Mcg Tablet PO 50 mcg DAILY@0630 DANIELLE Administration Melatonin 5 mg 07/02/21 21:00 07/05/21 21:34 Melatonin 5 Mg Tablet PO 5 mg HS DANIELLE Administration Pantoprazole Sodium 40 mg 07/03/21 09:00 07/06/21 09:20 Pantoprazole 40 Mg Tablet PO 40 mg QAM DANIELLE
[2021-07-06 13:37] VITALS: BP 113/61; PULSE 72; RESP 16; TEMP 36.4; O2SAT 100
== END 2021-07-06 14:00 | DRG 291 ==
LOC: ANHED 08:59 → ANH3MEDSUR 13:15
PROVIDERS: Hospitalist; Nurse Practitioner Adult Health; Physician Assistant; Admitting Provider Internal Medicine; Emergency Provider Emergency Medicine; PCP Family Medicine Adolescent Medicine; Visit Provider Family Medicine
DX: I13.0 Hypertensive heart and chronic kidney disease with heart failure and stage 1 through stage 4 chronic kidney disease, or unspecified chronic kidney disease (principal); I50.33 Acute on chronic diastolic (congestive) heart failure; J90 Pleural effusion, not elsewhere classified; I48.19 Other persistent atrial fibrillation; I69.954 Hemiplegia and hemiparesis following unspecified cerebrovascular disease affecting left non-dominant side; N13.6 Pyonephrosis; N30.00 Acute cystitis without hematuria; R53.1 Weakness; R79.1 Abnormal coagulation profile; Z87.891 Personal history of nicotine dependence; Z79.01 Long term (current) use of anticoagulants; Z79.899 Other long term (current) drug therapy; Z79.82 Long term (current) use of aspirin; I25.10 Atherosclerotic heart disease of native coronary artery without angina pectoris; I48.0 Paroxysmal atrial fibrillation; E78.5 Hyperlipidemia, unspecified; I10 Essential (primary) hypertension; Z95.1 Presence of aortocoronary bypass graft; Z66 Do not resuscitate; E11.22 Type 2 diabetes mellitus with diabetic chronic kidney disease; N18.32 Chronic kidney disease, stage 3b; E03.9 Hypothyroidism, unspecified; N40.0 Benign prostatic hyperplasia without lower urinary tract symptoms
CPT/HCPCS: 36415; 70450; 71046; 71250; 72125; 74177; 78708; 80048; 80053; 81001; 83735; 83880; 84132; 84484; 85025; 85027; 85610; 85730; 87086; 93005; 93306; 96365; 96375; 97110; 97116; 97162; 97165; 97530; 97535; 99285; A9270; A9562; C8929; G0378; J0696; J1940; J3475; Q9957; Q9967

== ENCOUNTER 2021-07-13 14:10 | Outpatient (CLI) | payer MEDICARE, SELFPAY ==
[2021-07-13 14:54] LABS: CRP 7.5 mg/dL (<1.0)
[2021-07-13 14:56] LABS: Anion Gap 8 mmol/L (8-16); Blood Urea Nitrogen 24 mg/dL (9-20); Calcium 8.6 mg/dL (8.4-10.2); Carbon Dioxide 27 mmol/L (22-30); Chloride 101 mmol/L (98-107); Estimated Glomerular Filt Rate 45; Glucose 158 mg/dL (65-110); Potassium 3.2 mmol/L (3.4-5.0); Sodium 136 mmol/L (137-145)
[2021-07-13 15:10] LABS: Erythrocyte Sedimentation Rate 79 mm/hr (0-20)
== END 2021-07-13 14:11 | disposition home or self-care (01) ==
PROVIDERS: PCP Family Medicine Adolescent Medicine; Visit Provider Nurse Practitioner
DX: M79.10 Myalgia, unspecified site (principal); I50.9 Heart failure, unspecified
CPT/HCPCS: 36415; 80048; 85652; 86140

== ENCOUNTER 2021-07-27 15:24 | Inpatient (IN) | payer MEDICARE, SELFPAY ==
--- NOTE | ~2021-07-27 | NM_ITS ---
EXAMINATION: NM hepatobiliary wo pharm DATE: 08/02/2021 10:58 INDICATION: Dominant pain. Elevated liver function tests. Gallstone in the neck of the gallbladder. COMPARISON: CT studies dated 08/10/2021 and 07/27/2021 and right upper quadrant ultrasound dated TECHNIQUE: 4.26 mCi Tc-99m mebrofenin (Choletec) was administered intravenously. Scintigraphic image s of the abdomen were obtained for one hour. FINDINGS: There is significantly delayed activity clearance of radiotracer from the blood pool with gradual dec rease but still readily discernible blood pool activity in the heart on the 1 hour images. There is h omogeneous tracer uptake by the liver. No evident hepatic excretion of activity with no evident activ ity in the gallbladder or bowels. No discernible accumulation of activity at the liat hepatis or marleni dent intra-axial hepatic biliary ductal dilation on the prior CT or ultrasound imaging. IMPRESSION: 1. Delayed hepatic uptake and no discernible hepatic excretion of activity over 60 minutes. Findings would be consistent with either a severe hepatopathy or severe obstruction at the level of the commo n hepatic or common bile ducts. If the latter this is likely relatively acute given the absence of th ird ductal dilation on the prior CT or ultrasound. Could consider further evaluation with MRCP. Reviewed, dictated and finalized at location A. IMPRESSION: 1. Delayed hepatic uptake and no discernible hepatic excretion of activity ove r 60 minutes. Findings would be consistent with either a severe hepatopathy or severe obstruction at the level of the common hepatic or common bile ducts. If the latter this is likely relatively acute given the absence of third ductal di lation on the prior CT or ultrasound. Could consider further evaluation with MR RAPP.
--- NOTE | ~2021-07-27 | CT_ITS ---
EXAMINATION: CT abdomen pelvis w con DATE: 07/27/2021 17:40 INDICATION: abdominal pain TECHNIQUE: Computed tomography (CT) of the abdomen and pelvis was performed with 100 mL Omnipaque-350 intravenous contrast. Automated exposure control and iterative reconstruction technique were employe d. The dose-length product was 1077.30 mGy-cm. COMPARISON: 07/02/21 FINDINGS: Lower thorax: Dependent right lower lobe atelectasis/consolidation. Small right pleural effusion. Sev ere coronary artery calcification. Stable 5.6 cm ascending thoracic aortic aneurysm, incompletely vis ualized. Liver: Scattered hypodensities that are too small to characterize but most likely represent cysts. Biliary/Gallbladder: Cholelithiasis. No bile duct dilation. Spleen: Normal. Pancreas: No mass or duct dilation. Atrophy. Adrenals:No mass. Kidneys: Bilateral renal cysts and lesions that are too small to characterize. Bilateral cortical thi nning. Right renal ectopia. Mild persistent mucosal enhancement on the right, decreased from the prio r GI tract: No small or large bowel dilation. Normal appendix. Mild wall thickening and surrounding inf lammatory change at the proximal sigmoid colon. Scattered diverticuli. Mesentery/Peritoneum: No ascites, mass, or free air. Retroperitoneum: No mass. Pelvis: Bladder wall thickening. Prostatomegaly. Bones/Soft Tissues: Soft tissues and body wall unremarkable. No acute osseous finding. Additional Findings: None. IMPRESSION: Mild inflammatory change surrounding an area of diverticulosis in the proximal sigmoid may reflect ea rly diverticulitis. Chronic cystitis. Reviewed, dictated and finalized at location K. IMPRESSION: Mild inflammatory change surrounding an area of diverticulosis in the proximal sigmoid may reflect early diverticulitis. Chronic cystitis.
--- NOTE | ~2021-07-27 | XR_ITS ---
EXAMINATION: XR chest 2V Exam Date/Time: 07/27/2021 16:05 CDT CLINICAL HISTORY: weakness, HX AFIB, HX CHF Comparison: 07/02/21. RESULT: Lines, tubes, and devices: Intact sternotomy wires. Mediastinal surgical clips. Coronary artery calc ification/stenting. Lungs and pleura: Unchanged right hemidiaphragm elevation. Cardiomediastinal silhouette: Stable cardiomediastinal silhouette. Other: No acute osseous or upper abdominal finding. IMPRESSION: No acute cardiopulmonary process Reviewed, dictated and finalized at location K.
--- NOTE | ~2021-07-27 | US_ITS ---
EXAMINATION: US right upper quadrant DATE: 07/28/2021 13:18 INDICATION: Abnormal liver function tests. Abdominal pain. TECHNIQUE: Multiple grayscale and Doppler ultrasound images of the abdomen were obtained. COMPARISON: CT abdomen and pelvis 07/27/2021 FINDINGS: The pancreas is obscured by bowel gas. The liver is normal without focal lesion. There is n ormal flow in main portal vein. The gallbladder is normal in size and contains gallstones. No gallbla dder wall thickening or sonographic Manriquez sign. The common duct is normal and measures 4 mm. IMPRESSION: 1. Cholelithiasis. No evidence of acute cholecystitis. Reviewed, dictated and finalized at location B.
--- NOTE | ~2021-07-27 | US_ITS ---
EXAMINATION: US renal BI DATE: 07/29/2021 18:03 INDICATION: Worsening renal function. TECHNIQUE: Multiple ultrasound grayscale images of the kidneys were obtained. COMPARISON: CT abdomen and pelvis 07/27/2021 FINDINGS: The right kidney is not visualized. The left kidney measures 12.7 x 5.1 x 6.0 cm. There is cortical t hinning of left kidney. The left kidney demonstrate normal parenchymal echogenicity. There are is a 5 .7 cm cyst in left kidney. There is no hydronephrosis. The bladder is decompressed by a Beltre cathete r. IMPRESSION: 1. Right kidney not visible. 2. Mild atrophy of left kidney. No hydronephrosis. Reviewed, dictated and finalized at location A.
--- NOTE | ~2021-07-27 | CT_ITS ---
EXAMINATION: CT chest abdomen pelvis wo con DATE: 07/31/2021 12:07 INDICATION: Increasing lactic acid TECHNIQUE: Transaxial computed tomographic images of the chest, abdomen, and pelvis were obtained wit hout intravenous contrast. The dose-length product (DLP) was 1608.11 mGy-cm. Automated exposure contr ol and iterative reconstruction technique were employed. COMPARISON: 07/27/2021 FINDINGS: CHEST CT: There is a moderate-sized right pleural effusion with associated passive atelectasis. Patchy airspace opacities are present in the right upper lobe, lingula, and left lower lobe. There is a trace left p leural effusion. No pneumothorax is identified. The heart size is normal. There is enlargement of the main and central pulmonary arteries, consistent with pulmonary hypertension. There is fusiform dilat ation of the ascending aorta which measures up to 4.6 cm. There is a small amount of gas in the right neck near the internal jugular vein. Correlate for history of attempted catheter placement. There ar e bridging osteophytes at multiple levels in the spine, consistent with diffuse idiopathic skeletal h yperostosis (DISH). ABDOMEN/PELVIS CT: There is a small volume of ascites. The gallbladder remains mildly distended. There is a stone in the neck of the gallbladder. The liver, spleen, pancreas, and adrenal glands are normal. Cysts of the le ft kidney measure up to 5.8 cm. There are multiple areas of scarring in the right kidney. There is ca lcified atherosclerosis of the aorta and many of the other arteries. No pathologically enlarged abdom inal or pelvic lymph nodes are identified. The bladder is decompressed by Beltre catheter. There is ch ronic circumferential wall thickening of the urinary bladder. Colonic diverticulosis is noted. Mild f at stranding is again seen in the left pelvis adjacent to the sigmoid colon which could reflect ascit es versus inflammation. There is no free intraperitoneal gas. There is a stable L3 compression fractu re. There is a fracture at the anterior/inferior aspect of the right iliac wing. IMPRESSION: 1. Moderate-sized right pleural effusion with passive atelectasis of the right lung. 2. Patchy airspace opacities in the right upper lobe, lingula, and left upper lobe, consistent with a telectasis versus pneumonia. 3. Persistent gallbladder distention with stone in the gallbladder neck. 4. Diverticulosis with possible mild sigmoid diverticulitis. 5. Fracture at the anterior/inferior aspect of the right iliac wing. 6. Small volume of ascites. 7. Findings consistent with chronic cystitis. Reviewed, dictated and finalized at location A. IMPRESSION: 1. Moderate-sized right pleural effusion with passive atelectasis of the right lung. 2. Patchy airspace opacities in the right upper lobe, lingula, and left upper l obe, consistent with atelectasis versus pneumonia. 3. Persistent gallbladder distention with stone in the gallbladder neck. 4. Diverticulosis with possible mild sigmoid diverticulitis. 5. Fracture at the anterior/inferior aspect of the right iliac wing. 6. Small volume of ascites. 7. Findings consistent with chronic cystitis.
--- NOTE | ~2021-07-27 | US_ITS ---
EXAMINATION: US retroperitoneal duplex ltd DATE: 07/29/2021 18:02 INDICATION: Hypertension. TECHNIQUE: Multiple grayscale, color Doppler, and pulsed Doppler images of the kidneys and renal jeff torin were obtained. COMPARISON: CT abdomen and pelvis 07/27/2021 FINDINGS: The aorta peak systolic velocity is 85 cm/s. The right renal artery is not visualized. The left renal artery peak systolic velocity is 147 cm/s in the proximal segment and 147 cm/s in the distal segment . IMPRESSION: 1. No Doppler evidence of left-sided renal artery stenosis. Right renal artery not visualized. CT i mages demonstrate no significant renal artery stenosis on either side. Reviewed, dictated and finalized at location A. IMPRESSION: 1. No Doppler evidence of left-sided renal artery stenosis. Right renal artery not visualized. CT images demonstrate no significant renal artery stenosis on either side.
[2021-07-27 15:21] VITALS: BP 118/84; PULSE 93; RESP 20; TEMP 37.1; O2SAT 98
--- NOTE | 2021-07-27 15:26 | ECG_ITS ---
Measurements Intervals [place] Rate: 96 P: OK: 0 QRS: 1 QRSD: 103 T: 169 QT: 394 QTc: 500 Interpretive Statements ATRIAL FIBRILLATION VENTRICULAR PREMATURE COMPLEX CONSIDER INFERIOR INFARCT, AGE INDETERMINATE ST-T WAVE ABNORMALITY IN HIGH LATERAL LEADS- CONSIDER ISCHEMIA ABNORMAL ECG Electronically Signed On 07-27-2021 15:58:16 CDT by Tee Davis D.O.
[2021-07-27 15:35] LABS: Basophils Percent Auto 0.2 % (0.2-1.2); Eosinophils Percent Auto 0.2 % (0-4.4); Hematocrit 37.2 % (42.0-52.0); Hemoglobin 12.3 g/dL (14.0-18.0); Immature Granulocyte Absolute 0.39 K/mm3 (0.00-0.031); Lymphocytes Absolute Auto 1.06 K/mm3 (0.9-3.2); Lymphocytes Percent Auto 5.5 % (18.3-44.2); Mean Corpuscular HGB Conc 33.1 g/dl (32-36); Mean Corpuscular Hemoglobin 28.4 pg (26-34); Mean Corpuscular Volume 85.9 fl (80-100); Mean Platelet Volume 11.1 fl (7.4-10.4); Monocytes Absolute Auto 0.7 K/mm3 (0.1-0.6); Monocytes Percent Auto 3.7 % (2.6-8.5); Neutrophils Absolute Auto 17.1 K/mm3 (1.3-6.7); Neutrophils Percent Auto 88.4 % (45.5-73.1); Nucleated Red Blood Cells Absolute Auto 0.1 K/mm3 (0.0-0.012); Nucleated Red Blood Cells Perc 0.4 % (0.0-0.2); Platelet Count Result 154 k/mm3 (150-375); Red Blood Count 4.33 M/mm3 (4.6-6.20); Red Cell Distribution Width 18.6 % (11.5-14.5); White Blood Count 19.3 K/mm3 (4.5-10.0)
[2021-07-27 15:53] LABS: Partial Thromboplastin Time 41.7 SECONDS (22.3-36.8); Prothrombin Time 21.8 Seconds (11.1-14.7)
[2021-07-27 15:56] LABS: Ovalocytes 1+ (NORMAL); Platelet Estimate Adequate (Adequate)
--- NOTE | 2021-07-27 16:05 | ED.GENADULT ---
HPI - General Adult General Chief complaint: Weakness Stated complaint: weakness Source: patient, family, RN notes reviewed and old records reviewed Limitations: no limitations History of Present Illness HPI narrative: 86-year-old male with significant past medical history including congestive heart failure, type II by diabetes, chronic kidney disease, paroxysmal atrial fibrillation presented to the emergency department for evaluation of worsening lower extremity edema, increased generalized fatigue, nausea vomiting and lower abdominal pain. Patient lives at home with his daughter and . Related Data Home Medications Medication Instructions Recorded Confirmed melatonin 5 mg PO HS 07/05/21 07/05/21 ferrous sulfate 325 mg (65 mg 325 mg PO DAILY 07/12/21 iron) tablet levothyroxine 50 mcg tablet 50 mcg PO DAILY 07/12/21 omeprazole 20 mg capsule,delayed 20 mg PO DAILY 07/12/21 release rosuvastatin 5 mg tablet 5 mg PO DAILY 07/12/21 tamsulosin 0.4 mg capsule 0.4 mg PO BID cap 07/12/21 Allergies Allergy/AdvReac Type Severity Reaction Status Date / Time No Known Allergies Allergy Verified 07/12/21 13:01 Review of Systems Review of Systems: CONSTITUTIONAL: Increased generalized weakness EYES: Denies visual changes, redness, or discharge. ENT: Denies rhinorrhea, congestion, sore throat, or otalgia. CARDIOVASCULAR: Denies chest pain, palpitations, or edema. RESPIRATORY: Denies cough or dyspnea. GASTROINTESTINAL: Nausea vomiting and lower abdominal pain GENITOURINARY: Denies dysuria or hematuria. SKIN: Denies rash or itching. MUSCULOSKELETAL: Worsening lower extremity edema NEUROLOGIC: Denies headache, numbness, or weakness. All systems reviewed & are unremarkable except as noted in HPI and below [facility] Past Medical History Medical History Acute kidney injury Ascending aortic aneurysm B12 deficiency BPH (benign prostatic hyperplasia) Bradycardia CAD (coronary artery disease) Chewing tobacco nicotine dependence CHF (congestive heart failure) echocardiogram April 2020: EF 60-65%, indeterminate diastolic function, moderate right ventricular enlargement, severe left atrial enlargement, moderate right atrial enlargement, mild mitral valve and tricuspid valve regurgitation, [id number] aortic valve regurgitation, mild pulmonary hypertension Chronic kidney disease, stage 3 with baseline creatinine between 1 and 1.4 Closed compression fracture of L3 vertebra 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 Diabetic neuropathy Diabetic retinopathy Essential hypertension Hyperlipidemia Iron deficiency anemia Metabolic acidosis Paroxysmal atrial fibrillation on chronic anticoagulation with Coumadin Peripheral vascular disease Persistent atrial fibrillation Vitamin B12 deficiency Surgical History Surgical History History of bilateral cataract extraction History of esophagogastroduodenoscopy (EGD) unremarkable EGD 2008 S/P CABG x 5 2002 Family History Family History Mother Heart disease Father Heart disease Social History Social History (Updated 07/12/21 @ 13:03 by Chantal Anne MA) Social History: He and the have been since 1949. He is retired from [employer]. He lives with his and Daughter. His daughter is a durable power building energy consultant for healthcare. The daughter is at the bedside and the patient is now DNR. The patient was in [facility] but is now back at home. Patient quit smoking and had been using smokeless tobacco as well. Primary care physician: Dr. Shin Hdz Code status: DNR Surrogate decision maker: daughter Smoking packs per day: 4 Smoking cigarettes per day: 80.0 Years smoked: 20 Smoking pack-years: 80.00 Smok
--- NOTE | 2021-07-27 16:19 | PC.NURSE ---
pt daughter does not want PT straight cath because of frequent UTIs. will attempt to use a urinal to get sample.
[2021-07-27 17:05] LABS: Lactic Acid Reflex 4.2 mmol/L (0.7-2.0)
[2021-07-27 17:18] LABS: Alanine Aminotransferase 59 U/L (4-50); Albumin Level 3.3 g/dL (3.5-5.1); Alkaline Phosphatase 694 U/L (38-126); Anion Gap 15 mmol/L (8-16); Aspartate Amino Transferase 195 U/L (17-59); Bilirubin,Total 2.2 mg/dL (0.2-1.3); Blood Urea Nitrogen 45 mg/dL (9-20); Calcium 9.1 mg/dL (8.4-10.2); Carbon Dioxide 23 mmol/L (22-30); Chloride 98 mmol/L (98-107); Estimated Glomerular Filt Rate 30; Glucose 107 mg/dL (65-110); Potassium 3.6 mmol/L (3.4-5.0); Sodium 136 mmol/L (137-145)
[2021-07-27 17:19] LABS: Appearance Urine Cloudy (Clear); Bilirubin Urine 1+ (Negative); Blood Urine 2+ (Negative); Color Urine Yellow (Yellow); Glucose Urine UA Negative (Negative); Ketones Urine Trace mg/dL (Negative); Leukocyte Esterase Ur 3+ LEU/UL (Negative); Nitrate Urine Negative (Negative); Protein Urine 2+ mg/dL (Negative)
[2021-07-27 17:27] LABS: NT Pro B Type Natriuretic Pept 9120 pg/mL (5-100)
[2021-07-27 17:38] LABS: Bacteria Urine Trace /hpf; RBC Urine 21-50 /hpf (0-2); Squamous Epithelial Cell Urine Few /hpf (Few); WBC Clumps Urine Present /HPF; WBC Urine >75 /hpf
[2021-07-27 17:49] LABS: Add Urine Microscopic? YES
[2021-07-27 17:55] LABS: Lipase 32 U/L (23-300)
[2021-07-27 18:09] LABS: Troponin I 0.066 ng/mL (0.000-0.034)
[2021-07-27] MEDS: CIPROFLOXACIN 400 MG/D5W 200ML 200 ML 200 MG IVPB (18:19)
[2021-07-27] MEDS: metroNIDAZOLE 500 MG/ISO 100ML 500 MG/100 ML BAG 100 MG IVPB (18:31)
--- NOTE | 2021-07-27 19:42 | PM.IMHP ---
H&P: HPI History of Present Illness Date/Time: Patient was placed observation status for expected length of stay less than 23 hours for management, will plan to re-evaluate tomorrow for improvement. 07/27/21 19:42 Chief Complaint: Generalized weakness Narrative: Mr. Urrutia is an 86-year-old gentleman who presented to the emergency room with increasing weakness. Patient was recently hospitalized for weakness and congestive heart failure. Patient was diuresed during that hospitalization and was doing well on discharge. Patient was discharged home with his family and he has been taking all medications without any difficulty. Today patient daughter states that the patient went to get out of bed and was unable to stand up even with his walker. Patient's daughter states that multiple family members were unable to help him up. Patient started decided bring patient back to emergency room for further evaluation. Upon evaluation in emergency room patient was noted to have a significant leukocytosis and acute kidney injury on chronic renal insufficiency. Urinalysis was performed that did show a urinary tract infection and CT abdomen pelvis was performed which showed mild inflammatory change surrounding an area of diverticulosis in the proximal sigmoid may reflect early diverticulitis. And chronic cystitis. Patient's daughter does not believe that her father has gained any weight recently. Patient at baseline does have very garbled speech from a previous CVA and is difficult to understand what he is stating. Patient does complain of abdominal pain with palpation, but denies any pain while resting. Patient denies any chest pain, shortness a breath, lightheadedness, dizziness, syncopal, or near syncopal episodes. Patient states he does generally just feel weak. Patient does have a known history of coronary disease status post coronary bypass grafting, paroxysmal atrial fibrillation, CVA, BPH, AAA, congestive heart failure, chronic kidney disease and diabetes mellitus. Review of Systems Review of Systems: A 12 point review of systems was completed patient all pertinent positive and negative per HPI the remainder are unremarkable. [facility] Past Medical History Medical History Acute kidney injury Ascending aortic aneurysm B12 deficiency BPH (benign prostatic hyperplasia) Bradycardia CAD (coronary artery disease) Chewing tobacco nicotine dependence CHF (congestive heart failure) echocardiogram April 2020: EF 60-65%, indeterminate diastolic function, moderate right ventricular enlargement, severe left atrial enlargement, moderate right atrial enlargement, mild mitral valve and tricuspid valve regurgitation, [id number] aortic valve regurgitation, mild pulmonary hypertension Chronic kidney disease, stage 3 with baseline creatinine between 1 and 1.4 Closed compression fracture of L3 vertebra 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 Diabetic neuropathy Diabetic retinopathy Essential hypertension Hyperlipidemia Iron deficiency anemia Metabolic acidosis Paroxysmal atrial fibrillation on chronic anticoagulation with Coumadin Peripheral vascular disease Persistent atrial fibrillation Vitamin B12 deficiency Surgical History Surgical History History of bilateral cataract extraction History of esophagogastroduodenoscopy (EGD) unremarkable EGD 2008 S/P CABG x 5 2002 Family History Family History Mother Heart disease Father Heart disease Social History Social History (Updated 07/12/21 @ 13:03 by Chantal Anne MA) Social History: He and the have been since 1949. He is retired from [employer]. He lives with his and Daughter. His daughter is a durable power assistant prosecuting attorney for healthcare. The daughter is at the bedside and the mickey
[2021-07-27 19:48] LABS: Reflex Lactic Acid Yes or No Add Lactic
[2021-07-27 20:08] VITALS: BP 107/72; PULSE 93; RESP 18; O2SAT 98
--- NOTE | 2021-07-27 20:16 | ADMGEN ---
This patient, Kenneth Urrutia, was admitted to IMU Room 204-01 at 2017. Patient/family oriented to hospital policies and general routines including ID bracelet, bed and alarms, visiting hours, pain management, procedures, bathroom and other care routines, personal items, smoking policy, room service/diet, and visiting hours. Information on how to activate the Rapid Response Team has been discussed. Patient/Family are encouraged to report perceived risks to care and to ask questions if they do not understand what they are told or what they should do.
[2021-07-27 20:25] VITALS: BP 105/57; PULSE 98; RESP 20; TEMP 36.2; O2SAT 97; BMI 26.1
[2021-07-27 20:27] LABS: Troponin I 0.068 ng/mL (0.000-0.034)
[2021-07-27 20:51] VITALS: BMI 26.1
[2021-07-27 20:54] LABS: Lactic Acid 4.2 mmol/L (0.7-2.0)
[2021-07-27 21:00] VITALS: PULSE 93; PULSE 98; RESP 20; O2SAT 97
[2021-07-27 22:00] VITALS: PULSE 98
[2021-07-27] MEDS: SODIUM CHLORIDE 0.9% IV 1,000 ML 100 ML IV CONT (22:15)
[2021-07-27] MEDS: MELATONIN 5 MG TABLET PO (22:16)
[2021-07-27] MEDS: traZODone HCL 50 MG TABLET PO (22:16)
[2021-07-27] MEDS: RIVAROXABAN 15 MG TABLET PO (22:16)
[2021-07-27] MEDS: TAMSULOSIN HCL 0.4 MG CAPSULE PO (22:16)
[2021-07-27] MEDS: PARoxetine 5 MG TABLET PO (22:42)
[2021-07-27 23:24] LABS: Troponin I 0.067 ng/mL (0.000-0.034)
[2021-07-28] VITALS (13 sets, daily range): BP systolic 100–124; BP diastolic 48–68; PULSE 84–104; RESP 16–24; TEMP 36.1–37.1; O2SAT 90–97
--- NOTE | 2021-07-28 02:08 | ECG_ITS ---
Measurements Intervals Topmost Rate: 98 P: AR: 0 QRS: 6 QRSD: 106 T: 164 QT: 384 QTc: 490 Interpretive Statements ATRIAL FIBRILLATION ST-T WAVE ABNORMALITY IN HIGH LATERAL LEADS- CONSIDER ISCHEMIA ABNORMAL ECG Electronically Signed On 07-28-2021 7:13:58 CDT by Tee Davis D.O.
[2021-07-28] MEDS: metroNIDAZOLE 500 MG/ISO 100ML 500 MG/100 ML BAG 100 MG IVPB ×3 (02:13→17:53)
[2021-07-28 05:21] LABS: Basophils Absolute Auto 0.1 K/mm3 (0.0-0.1); Basophils Percent Auto 0.3 % (0.2-1.2); Eosinophils Absolute Auto 0.1 K/mm3 (0-0.3); Eosinophils Percent Auto 0.3 % (0-4.4); Hematocrit 35.4 % (42.0-52.0); Hemoglobin 12.1 g/dL (14.0-18.0); Immature Granulocyte Absolute 0.39 K/mm3 (0.00-0.031); Immature Granulocyte Percent A 2.3 % (0-0.5); Lymphocytes Absolute Auto 0.93 K/mm3 (0.9-3.2); Lymphocytes Percent Auto 5.4 % (18.3-44.2); Mean Corpuscular HGB Conc 34.2 g/dl (32-36); Mean Corpuscular Hemoglobin 28.4 pg (26-34); Mean Corpuscular Volume 83.1 fl (80-100); Mean Platelet Volume 11.7 fl (7.4-10.4); Monocytes Absolute Auto 0.8 K/mm3 (0.1-0.6); Monocytes Percent Auto 4.6 % (2.6-8.5); Neutrophils Percent Auto 87.1 % (45.5-73.1); Nucleated Red Blood Cells Absolute Auto 0.1 K/mm3 (0.0-0.012); Nucleated Red Blood Cells Perc 0.4 % (0.0-0.2); Platelet Count Result 255 k/mm3 (150-375); Red Blood Count 4.26 M/mm3 (4.6-6.20); Red Cell Distribution Width 18.2 % (11.5-14.5); White Blood Count 17.2 K/mm3 (4.5-10.0)
[2021-07-28 05:38] LABS: Alanine Aminotransferase 51 U/L (4-50); Albumin Level 2.8 g/dL (3.5-5.1); Alkaline Phosphatase 648 U/L (38-126); Anion Gap 16 mmol/L (8-16); Aspartate Amino Transferase 168 U/L (17-59); Bilirubin,Total 2.2 mg/dL (0.2-1.3); Blood Urea Nitrogen 44 mg/dL (9-20); Calcium 8.7 mg/dL (8.4-10.2); Carbon Dioxide 19 mmol/L (22-30); Chloride 101 mmol/L (98-107); Estimated CRCL calculation 24 ml/min; Estimated Glomerular Filt Rate 30; Glucose 78 mg/dL (65-110); Sodium 136 mmol/L (137-145)
[2021-07-28] MEDS: LEVOTHYROXINE SODIUM 50 MCG TABLET PO (06:05)
--- NOTE | 2021-07-28 07:15 | PM.IMPN ---
Progress Note: A&P Assessment and Plan (1) Diverticulitis: Code(s): K57.92 - Diverticulitis of intestine, part unspecified, without perforation or abscess without bleeding Status: Acute Assessment and Plan: Continue Cipro and Flagyl Trend lab results WBC 17.2 Abd/Pel Mild inflammatory change surrounding an area of diverticulosis in the proximal sigmoid may reflect early diverticulitis. Chronic cystitis. Liver enzymes elevated Low fiber and full liquids RUQ ultra sound ordered (2) Abnormal urinalysis: Code(s): R82.90 - Unspecified abnormal findings in urine Status: Deleted Assessment and Plan: UA shows cloudy yellow urine 2+ protein, 2+ blood, 3+ leukocyte esterase, >75 WBC, WBC clumps present Trace bacteria Continue Cipro for diverticulitis which will hopefully also cover for his urinary tract infection Will await urine culture and sensitivity adjust antibiotics as needed (3) Generalized weakness: Code(s): R53.1 - Weakness Status: Acute Assessment and Plan: DC options discussed with family Does not want PT/OT/HH Does not want rehab or placement at this time PT/OT (4) Acute renal failure superimposed on stage 3 chronic kidney disease: Qualifiers: Acute renal failure type: unspecified 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 3b (GFR 30-44) Qualified Code(s): N17.9 - Acute kidney failure, unspecified; N18.32 - Chronic kidney disease, stage 3b Code(s): N17.9 - Acute kidney failure, unspecified; N18.30 - Chronic kidney disease, stage 3 unspecified Status: Acute Assessment and Plan: BUN/Cr 44/2.10 Does not appear to be dehydrated Baseline looks to be 1.30-2.10 Trend labs Labs in the am (5) Elevated troponin: Code(s): R77.8 - Other specified abnormalities of plasma proteins Status: Acute Assessment and Plan: Trops 0.066, 0.068, 0.067 Trops are flat and seems to be at baseline Consider consulting cards Tele monitor (6) CHF (congestive heart failure): Code(s): I50.9 - Heart failure, unspecified Status: Acute Assessment and Plan: Looks to be euvolemic Trend urine output Daily weight Trend volume status BNP is 9120 Does not look to be in exacerbation at this time Echo from 07/03/21: EF 55-60%, diastolic functional is normal, mild aortic valve sclerosis (7) BPH (benign prostatic hyperplasia): Code(s): N40.0 - Benign prostatic hyperplasia without lower urinary tract symptoms Status: Acute Assessment and Plan: Trend urine output Continue tamsulosin post residual voids consider urinary catheter (8) Leukocytosis: Code(s): D72.829 - Elevated white blood cell count, unspecified Status: Acute Assessment and Plan: WBC is 17.2 today Trending down Antibiotics on board Continue to trend (9) Transaminitis: Code(s): R74.01 - Elevation of levels of liver transaminase levels Status: Acute Assessment and Plan: AST/ALT elevated at 168/51 Continue to trend Hepatitis panel in the am RUQ ultrasound ordered Could be from infection (10) Lactic acidosis: Code(s): E87.2 - Acidosis Status: Acute Assessment and Plan: Lactic acid 4.2 upon arrival Currently down to 3.7 1L given in ED, will hold on further fluids since to avoid CHF exacerbation Probably related to diverticulitis Trend Time Spent With Patient Time with patient: Greater than 35 minutes Subjective Date/time seen: 07/28/21 0715 Interval history: 07/27/21 19:42 Narrative: Mr. Urrutia is an 86-year-old gentleman who presented to the emergency room with increasing weakness. Patient was recently hospitalized for weakness and congestive heart failure. Patient was diuresed during that hospitalization and was doing well on discharg
--- NOTE | 2021-07-28 07:15 | P.PNIM_ITS ---
Progress Note: A&P Assessment and Plan (1) Diverticulitis: Code(s): K57.92 - Diverticulitis of intestine, part unspecified, without perforation or abscess without bleeding Status: Acute Assessment and Plan: * Continue Cipro and Flagyl * Trend lab results * WBC 17.2 * Abd/Pel Mild inflammatory change surrounding an area of diverticulosis in the proximal sigmoid may reflect early diverticulitis. Chronic cystitis. * Liver enzymes elevated * Low fiber and full liquids * RUQ ultra sound ordered (2) Abnormal urinalysis: Code(s): R82.90 - Unspecified abnormal findings in urine Status: Deleted Assessment and Plan: * UA shows cloudy yellow urine 2+ protein, 2+ blood, 3+ leukocyte esterase, >75 WBC, WBC clumps present Trace bacteria * Continue Cipro for diverticulitis which will hopefully also cover for his urinary tract infection * Will await urine culture and sensitivity * adjust antibiotics as needed (3) Generalized weakness: Code(s): R53.1 - Weakness Status: Acute Assessment and Plan: * DC options discussed with family * Does not want PT/OT/HH * Does not want rehab or placement at this time * PT/OT (4) Acute renal failure superimposed on stage 3 chronic kidney disease: Qualifiers: Acute renal failure type: unspecified 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 3b (GFR 30-44) Qualified Code(s): N17.9 - Acute kidney failure, unspecified; N18.32 - Chronic kidney disease, stage 3b Code(s): N17.9 - Acute kidney failure, unspecified; N18.30 - Chronic kidney disease, stage 3 unspecified Status: Acute Assessment and Plan: * BUN/Cr 44/2.10 * Does not appear to be dehydrated * Baseline looks to be 1.30-2.10 * Trend labs * Labs in the am (5) Elevated troponin: Code(s): R77.8 - Other specified abnormalities of plasma proteins Status: Acute Assessment and Plan: * Trops 0.066, 0.068, 0.067 * Trops are flat and seems to be at baseline * Consider consulting cards * Tele monitor (6) CHF (congestive heart failure): Code(s): I50.9 - Heart failure, unspecified Status: Acute Assessment and Plan: * Looks to be euvolemic * Trend urine output * Daily weight * Trend volume status * BNP is 9120 * Does not look to be in exacerbation at this time * Echo from 07/03/21: EF 55-60%, diastolic functional is normal, mild aortic valve sclerosis (7) BPH (benign prostatic hyperplasia): Code(s): N40.0 - Benign prostatic hyperplasia without lower urinary tract symptoms Status: Acute Assessment and Plan: * Trend urine output * Continue tamsulosin * post residual voids * consider urinary catheter (8) Leukocytosis: Code(s): D72.829 - Elevated white blood cell count, unspecified Status: Acute Assessment and Plan: * WBC is 17.2 today * Trending down * Antibiotics on board * Continue to trend (9) Transaminitis: Code(s): R74.01 - Elevation of levels of liver transaminase levels Status: Acute Assessment and Plan: * AST/ALT elevated at 168/51 * Continue to trend * Hepatitis panel in the am * RUQ ultrasound ordered * Could be from infection (10) Lactic acidosis: Code(s): E87.2 - Acidosis Status: Acute Assessment and Plan:
[2021-07-28] MEDS: FERROUS SULFATE 324 MG TABLET PO (09:48)
[2021-07-28] MEDS: TAMSULOSIN HCL 0.4 MG CAPSULE PO ×2 (09:49→21:02)
[2021-07-28] MEDS: ASPIRIN 81 MG CHEWABLE TABLET PO (09:49)
[2021-07-28] MEDS: PANTOPRAZOLE 40 MG TABLET PO (09:49)
[2021-07-28] MEDS: ROSUVASTATIN 5 MG TABLET PO (09:49)
[2021-07-28] MEDS: POTASSIUM CHLORIDE 20 MEQ TABLET 40 MEQ PO (09:51)
[2021-07-28] MEDS: ONDANSETRON INJ 4 MG/2 ML VIAL IV PUSH ×2 (10:05→21:02)
[2021-07-28] MEDS: CAPSAICIN 0.025% CREAM 60 GM TUBE 1 APPLIC TOPICAL (12:28)
[2021-07-28 12:39] LABS: Lactic Acid Reflex 3.7 mmol/L (0.7-2.0)
[2021-07-28 15:27] LABS: Reflex Lactic Acid Yes or No Add Lactic
[2021-07-28 15:49] LABS: Lactic Acid 3.9 mmol/L (0.7-2.0)
[2021-07-28] MEDS: RIVAROXABAN 15 MG TABLET PO (17:51)
[2021-07-28] MEDS: CIPROFLOXACIN 400 MG/D5W 200ML 200 ML 200 MG IVPB (17:53)
[2021-07-28] MEDS: PARoxetine 5 MG TABLET PO (21:02)
[2021-07-28] MEDS: MELATONIN 5 MG TABLET PO (21:02)
[2021-07-28] MEDS: traZODone HCL 50 MG TABLET PO (21:02)
[2021-07-29] VITALS (10 sets, daily range): BP systolic 99–115; BP diastolic 54–61; PULSE 86–109; RESP 22–24; TEMP 36.4–37.1; O2SAT 90–98; BMI 10.0
[2021-07-29] MEDS: metroNIDAZOLE 500 MG/ISO 100ML 500 MG/100 ML BAG 100 MG IVPB ×3 (01:38→18:36)
[2021-07-29] MEDS: ONDANSETRON INJ 4 MG/2 ML VIAL IV PUSH (02:30)
[2021-07-29] MEDS: LEVOTHYROXINE SODIUM 50 MCG TABLET PO (05:35)
[2021-07-29 05:43] LABS: Basophils Absolute Auto 0.1 K/mm3 (0.0-0.1); Basophils Percent Auto 0.4 % (0.2-1.2); Eosinophils Percent Auto 0.2 % (0-4.4); Hematocrit 36.9 % (42.0-52.0); Immature Granulocyte Absolute 0.54 K/mm3 (0.00-0.031); Immature Granulocyte Percent A 3.1 % (0-0.5); Lymphocytes Absolute Auto 0.81 K/mm3 (0.9-3.2); Lymphocytes Percent Auto 4.7 % (18.3-44.2); Mean Corpuscular HGB Conc 32.5 g/dl (32-36); Mean Corpuscular Hemoglobin 28.2 pg (26-34); Mean Corpuscular Volume 86.8 fl (80-100); Mean Platelet Volume 11.1 fl (7.4-10.4); Monocytes Absolute Auto 0.9 K/mm3 (0.1-0.6); Monocytes Percent Auto 5.2 % (2.6-8.5); Neutrophils Percent Auto 86.4 % (45.5-73.1); Nucleated Red Blood Cells Absolute Auto 0.1 K/mm3 (0.0-0.012); Nucleated Red Blood Cells Perc 0.5 % (0.0-0.2); Platelet Count Result 264 k/mm3 (150-375); Red Blood Count 4.25 M/mm3 (4.6-6.20); Red Cell Distribution Width 19.3 % (11.5-14.5); White Blood Count 17.4 K/mm3 (4.5-10.0)
[2021-07-29 06:08] LABS: Alanine Aminotransferase 55 U/L (4-50); Alkaline Phosphatase 733 U/L (38-126); Anion Gap 16 mmol/L (8-16); Aspartate Amino Transferase 219 U/L (17-59); Bilirubin,Total 2.9 mg/dL (0.2-1.3); Blood Urea Nitrogen 57 mg/dL (9-20); Calcium 8.9 mg/dL (8.4-10.2); Carbon Dioxide 18 mmol/L (22-30); Chloride 102 mmol/L (98-107); Estimated CRCL calculation 17 ml/min; Estimated Glomerular Filt Rate 21; Glucose 89 mg/dL (65-110); Magnesium 1.9 mg/dL (1.6-2.3); Potassium 3.7 mmol/L (3.4-5.0); Sodium 136 mmol/L (137-145)
[2021-07-29 06:37] LABS: Hepatitis B Surface Antigen Negative (Negative)
[2021-07-29 06:44] LABS: HAV RESULT Negative (Negative); Hepatitis B Core IgM Result Negative (Negative)
[2021-07-29 06:55] LABS: Hepatitis C Virus Antibody Negative (Negative)
--- NOTE | 2021-07-29 07:00 | PM.IMPN ---
Progress Note: A&P Assessment and Plan (1) Diverticulitis: Code(s): K57.92 - Diverticulitis of intestine, part unspecified, without perforation or abscess without bleeding Status: Acute Assessment and Plan: Continue Cipro and Flagyl Trend lab results WBC 17.4 Abd/Pel Mild inflammatory change surrounding an area of diverticulosis in the proximal sigmoid may reflect early diverticulitis. Chronic cystitis. Liver enzymes elevated, and continue to increase Low fiber and full liquids RUQ ultra sound showed gallstones (2) UTI (urinary tract infection): Code(s): N39.0 - Urinary tract infection, site not specified Status: Acute Assessment and Plan: UA shows cloudy yellow urine 2+ protein, 2+ blood, 3+ leukocyte esterase, >75 WBC, WBC clumps present Trace bacteria Continue Cipro for diverticulitis which will hopefully also cover for his urinary tract infection Urine culture grew Ecoli, will await sensitivities adjust antibiotics as needed (3) Generalized weakness: Code(s): R53.1 - Weakness Status: Acute Assessment and Plan: DC options discussed with family Pt will need some type of rehab, as he is unable to stand Does not want PT/OT/HH Does not want rehab or placement at this time PT/OT (4) Acute renal failure superimposed on stage 3 chronic kidney disease: Qualifiers: Acute renal failure type: unspecified 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 3b (GFR 30-44) Qualified Code(s): N17.9 - Acute kidney failure, unspecified; N18.32 - Chronic kidney disease, stage 3b Code(s): N17.9 - Acute kidney failure, unspecified; N18.30 - Chronic kidney disease, stage 3 unspecified Status: Acute Assessment and Plan: BUN/Cr 57/2.90 Does not appear to be dehydrated Baseline looks to be 1.30-2.10 Wonder if the worsening has a component of fluid overload Lasix not restarted will add some IV lasix one time to see if this helps Trend labs Labs in the am (5) Elevated troponin: Code(s): R77.8 - Other specified abnormalities of plasma proteins Status: Acute Assessment and Plan: Trops 0.066, 0.068, 0.067 Trops are flat and seems to be at baseline Consider consulting cards Tele monitor (6) CHF (congestive heart failure): Code(s): I50.9 - Heart failure, unspecified Status: Acute Assessment and Plan: Looks to be euvolemic Trend urine output Daily weight Trend volume status BNP is 9120 Added Lasix 40mg IV once, since renal function is trending up and WBC also trending up Seems patient might of had some breathing problems throughout the night, on 2LNC sating about 90-91%, the lasix should help Place catheter for accurate I&Os Chest Xray shows no acute cardio/pulm abnormalities Does not look to be in exacerbation at this time Echo from 07/03/21: EF 55-60%, diastolic functional is normal, mild aortic valve sclerosis (7) BPH (benign prostatic hyperplasia): Code(s): N40.0 - Benign prostatic hyperplasia without lower urinary tract symptoms Status: Acute Assessment and Plan: Trend urine output Continue tamsulosin post residual voids Urinary catheter for accurate I&Os (8) Leukocytosis: Code(s): D72.829 - Elevated white blood cell count, unspecified Status: Acute Assessment and Plan: WBC is 17.4 today Trending down Antibiotics on board Continue to trend Urine culture grew Ecoli CHF could be playing a role (9) Transaminitis: Code(s): R74.01 - Elevation of levels of liver transaminase levels Status: Acute Assessment and Plan: AST/ALT elevated at 219/55 Alk Phos 733 Continue to trend Hepatitis panel negative RUQ ultrasound found gall stones Consult GI and possibly surgery Could be from infection (10) Lactic acidosis: Code(s):
--- NOTE | 2021-07-29 07:00 | P.PNIM_ITS ---
Progress Note: A&P Assessment and Plan (1) Diverticulitis: Code(s): K57.92 - Diverticulitis of intestine, part unspecified, without perforation or abscess without bleeding Status: Acute Assessment and Plan: * Continue Cipro and Flagyl * Trend lab results * WBC 17.4 * Abd/Pel Mild inflammatory change surrounding an area of diverticulosis in the proximal sigmoid may reflect early diverticulitis. Chronic cystitis. * Liver enzymes elevated, and continue to increase * Low fiber and full liquids * RUQ ultra sound showed gallstones (2) UTI (urinary tract infection): Code(s): N39.0 - Urinary tract infection, site not specified Status: Acute Assessment and Plan: * UA shows cloudy yellow urine 2+ protein, 2+ blood, 3+ leukocyte esterase, >75 WBC, WBC clumps present Trace bacteria * Continue Cipro for diverticulitis which will hopefully also cover for his urin trev tract infection * Urine culture grew Ecoli, will await sensitivities * adjust antibiotics as needed (3) Generalized weakness: Code(s): R53.1 - Weakness Status: Acute Assessment and Plan: * DC options discussed with family * Pt will need some type of rehab, as he is unable to stand * Does not want PT/OT/HH * Does not want rehab or placement at this time * PT/OT (4) Acute renal failure superimposed on stage 3 chronic kidney disease: Qualifiers: Acute renal failure type: unspecified 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 3b (GFR 30-44) Qualified Code(s): N17.9 - Acute kidney failure, unspecified; N18.32 - Chronic kidney disease, stage 3b Code(s): N17.9 - Acute kidney failure, unspecified; N18.30 - Chronic kidney disease, stage 3 unspecified Status: Acute Assessment and Plan: * BUN/Cr 57/2.90 * Does not appear to be dehydrated * Baseline looks to be 1.30-2.10 * Wonder if the worsening has a component of fluid overload * Lasix not restarted will add some IV lasix one time to see if this helps * Trend labs * Labs in the am (5) Elevated troponin: Code(s): R77.8 - Other specified abnormalities of plasma proteins Status: Acute Assessment and Plan: * Trops 0.066, 0.068, 0.067 * Trops are flat and seems to be at baseline * Consider consulting cards * Tele monitor (6) CHF (congestive heart failure): Code(s): I50.9 - Heart failure, unspecified Status: Acute Assessment and Plan: * Looks to be euvolemic * Trend urine output * Daily weight * Trend volume status * BNP is 9120 * Added Lasix 40mg IV once, since renal function is trending up and WBC also trending up * Seems patient might of had some breathing problems throughout the night, on 2LNC sating about 90-91%, the lasix should help * Place catheter for accurate I&Os * Chest Xray shows no acute cardio/pulm abnormalities * Does not look to be in exacerbation at this time * Echo from 07/03/21: EF 55-60%, diastolic functional is normal, mild aortic valve sclerosis (7) BPH (benign prostatic hyperplasia): Code(s): N40.0 - Benign prostatic hyperplasia without lower urinary tract symptoms Status: Acute Assessment and Plan: * Trend urine output * Continue tamsulosin * post residual voids * Urinary catheter for accurate I&Os (8) Leukocytosis: Code(s): D72.829 - Elevated white blood cell count, unspecified Status: Acute Ass
[2021-07-29] MEDS: ASPIRIN 81 MG CHEWABLE TABLET PO (09:21)
[2021-07-29] MEDS: ROSUVASTATIN 5 MG TABLET PO (09:21)
[2021-07-29] MEDS: FERROUS SULFATE 324 MG TABLET PO (09:21)
[2021-07-29] MEDS: PANTOPRAZOLE 40 MG TABLET PO (09:21)
[2021-07-29] MEDS: FUROSEMIDE INJ 40 MG/4 ML VIAL IV PUSH (09:21)
[2021-07-29] MEDS: TAMSULOSIN HCL 0.4 MG CAPSULE PO ×2 (09:22→20:09)
--- NOTE | 2021-07-29 12:09 | PCOTNOTE ---
Attempted to see pt. for occupational therapy evaluation. Pt. reported significant fatigue from physical therapy evaluation and not sleeping well last night, asking to be seen later after resting
[2021-07-29 17:42] LABS: Urea Random Urine 287 MG/DL
[2021-07-29] MEDS: LACTATED RINGERS 1,000 ML 250 ML IV CONT (18:36)
[2021-07-29] MEDS: CIPROFLOXACIN 400 MG/D5W 200ML 200 ML 200 MG IVPB (18:37)
[2021-07-29] MEDS: RIVAROXABAN 15 MG TABLET PO (18:37)
[2021-07-29 18:49] LABS: Creatinine Urine 79.7 mg/dL
[2021-07-29 18:55] LABS: Sodium Urine Random 47 meq/L
[2021-07-29] MEDS: PARoxetine 5 MG TABLET PO (20:09)
[2021-07-29] MEDS: traZODone HCL 50 MG TABLET PO (20:09)
[2021-07-29] MEDS: MELATONIN 5 MG TABLET PO (20:09)
[2021-07-30] VITALS (15 sets, daily range): BP systolic 92–113; BP diastolic 53–61; PULSE 86–100; RESP 18–24; TEMP 36.4–37.2; O2SAT 94–97
[2021-07-30] MEDS: metroNIDAZOLE 500 MG/ISO 100ML 500 MG/100 ML BAG 100 MG IVPB ×3 (01:30→18:38)
[2021-07-30 05:04] LABS: Basophils Absolute Auto 0.1 K/mm3 (0.0-0.1); Basophils Percent Auto 0.4 % (0.2-1.2); Eosinophils Absolute Auto 0.1 K/mm3 (0-0.3); Eosinophils Percent Auto 0.5 % (0-4.4); Hematocrit 34.2 % (42.0-52.0); Hemoglobin 11.4 g/dL (14.0-18.0); Immature Granulocyte Absolute 0.53 K/mm3 (0.00-0.031); Immature Granulocyte Percent A 3.6 % (0-0.5); Lymphocytes Absolute Auto 0.87 K/mm3 (0.9-3.2); Lymphocytes Percent Auto 5.9 % (18.3-44.2); Mean Corpuscular HGB Conc 33.3 g/dl (32-36); Mean Corpuscular Hemoglobin 28.7 pg (26-34); Mean Corpuscular Volume 86.1 fl (80-100); Mean Platelet Volume 10.9 fl (7.4-10.4); Monocytes Absolute Auto 0.7 K/mm3 (0.1-0.6); Monocytes Percent Auto 4.6 % (2.6-8.5); Neutrophils Absolute Auto 12.6 K/mm3 (1.3-6.7); Nucleated Red Blood Cells Absolute Auto 0.1 K/mm3 (0.0-0.012); Nucleated Red Blood Cells Perc 0.7 % (0.0-0.2); Platelet Count Result 225 k/mm3 (150-375); Red Blood Count 3.97 M/mm3 (4.6-6.20); White Blood Count 14.8 K/mm3 (4.5-10.0)
[2021-07-30 05:14] LABS: Alanine Aminotransferase 63 U/L (4-50); Albumin Level 2.8 g/dL (3.5-5.1); Alkaline Phosphatase 691 U/L (38-126); Anion Gap 19 mmol/L (8-16); Aspartate Amino Transferase 290 U/L (17-59); Bilirubin,Total 3.5 mg/dL (0.2-1.3); Blood Urea Nitrogen 65 mg/dL (9-20); Calcium 8.6 mg/dL (8.4-10.2); Carbon Dioxide 15 mmol/L (22-30); Chloride 102 mmol/L (98-107); Estimated CRCL calculation 15 ml/min; Estimated Glomerular Filt Rate 17; Glucose 73 mg/dL (65-110); Potassium 3.7 mmol/L (3.4-5.0); Sodium 136 mmol/L (137-145)
[2021-07-30] MEDS: LEVOTHYROXINE SODIUM 50 MCG TABLET PO (05:42)
[2021-07-30 08:37] LABS: Bilirubin Direct 1.5 mg/dL (0-0.3)
--- NOTE | 2021-07-30 09:15 | P.PNIM_ITS ---
Progress Note: A&P Assessment and Plan (1) Diverticulitis: Code(s): K57.92 - Diverticulitis of intestine, part unspecified, without perforation or abscess without bleeding Status: Acute Assessment and Plan: * Continue Cipro and Flagyl * Trend lab results * WBC 14.8 today * Abd/Pel Mild inflammatory change surrounding an area of diverticulosis in the proximal sigmoid may reflect early diverticulitis. Chronic cystitis. * Liver enzymes elevated, and continue to increase * Low fiber and full liquids * RUQ ultra sound showed gallstones * Liver enzymes continue to rise along with bilirubin. (2) UTI (urinary tract infection): Code(s): N39.0 - Urinary tract infection, site not specified Status: Acute Assessment and Plan: * UA shows cloudy yellow urine 2+ protein, 2+ blood, 3+ leukocyte esterase, >75 WBC, WBC clumps present Trace bacteria * Continue Cipro for diverticulitis which will hopefully also cover for his urinary tract infection * Urine culture grew Ecoli, will await sensitivities, however came back as a contaminated * UA recollected * adjust antibiotics as needed (3) Generalized weakness: Code(s): R53.1 - Weakness Status: Acute Assessment and Plan: * DC options discussed with family * Pt will need some type of rehab, as he is unable to stand * Does not want PT/OT/HH * Does not want rehab or placement at this time * PT/OT (4) Acute renal failure superimposed on stage 3 chronic kidney disease: Qualifiers: Acute renal failure type: unspecified 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 3b (GFR 30-44) Qualified Code(s): N17.9 - Acute kidney failure, unspecified; N18.32 - Chronic kidney disease, stage 3b Code(s): N17.9 - Acute kidney failure, unspecified; N18.30 - Chronic kidney disease, stage 3 unspecified Status: Acute Assessment and Plan: * BUN/Cr 65/3.40 * Does not appear to be dehydrated * Baseline looks to be 1.30-2.10 * lasix on hold * Urinary catheter for I&O accuracy * Urology consulted * Could be contrast induced nephropathy * FEUrea 18.8 * Trend labs * Labs in the am (5) Elevated troponin: Code(s): R77.8 - Other specified abnormalities of plasma proteins Status: Acute Assessment and Plan: * Trops 0.066, 0.068, 0.067 * Trops are flat and seems to be at baseline * Consider consulting cards * Tele monitor (6) CHF (congestive heart failure): Code(s): I50.9 - Heart failure, unspecified Status: Acute Assessment and Plan: * Looks to be euvolemic * Trend urine output * Daily weight * Trend volume status * BNP is 9120 * Seems patient might of had some breathing problems throughout the night, on 2LNC sating about 90-91%, the lasix should help * Place catheter for accurate I&Os * Chest Xray shows no acute cardio/pulm abnormalities * Does not look to be in exacerbation at this time * Echo from 07/03/21: EF 55-60%, diastolic functional is normal, mild aortic valve sclerosis (7) BPH (benign prostatic hyperplasia): Code(s): N40.0 - Benign prostatic hyperplasia without lower urinary tract symptoms Status: Acute Assessment and Plan: * Trend urine output * Continue tamsulosin * post residual voids * Urinary catheter for accurate I&Os (8) Leukocytosis: Code(s): D72.829 - Elevated white blood cell count, unspecified
--- NOTE | 2021-07-30 09:15 | PM.IMPN ---
Progress Note: A&P Assessment and Plan (1) Diverticulitis: Code(s): K57.92 - Diverticulitis of intestine, part unspecified, without perforation or abscess without bleeding Status: Acute Assessment and Plan: Continue Cipro and Flagyl Trend lab results WBC 14.8 today Abd/Pel Mild inflammatory change surrounding an area of diverticulosis in the proximal sigmoid may reflect early diverticulitis. Chronic cystitis. Liver enzymes elevated, and continue to increase Low fiber and full liquids RUQ ultra sound showed gallstones Liver enzymes continue to rise along with bilirubin. (2) UTI (urinary tract infection): Code(s): N39.0 - Urinary tract infection, site not specified Status: Acute Assessment and Plan: UA shows cloudy yellow urine 2+ protein, 2+ blood, 3+ leukocyte esterase, >75 WBC, WBC clumps present Trace bacteria Continue Cipro for diverticulitis which will hopefully also cover for his urinary tract infection Urine culture grew Ecoli, will await sensitivities, however came back as a contaminated UA recollected adjust antibiotics as needed (3) Generalized weakness: Code(s): R53.1 - Weakness Status: Acute Assessment and Plan: DC options discussed with family Pt will need some type of rehab, as he is unable to stand Does not want PT/OT/HH Does not want rehab or placement at this time PT/OT (4) Acute renal failure superimposed on stage 3 chronic kidney disease: Qualifiers: Acute renal failure type: unspecified 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 3b (GFR 30-44) Qualified Code(s): N17.9 - Acute kidney failure, unspecified; N18.32 - Chronic kidney disease, stage 3b Code(s): N17.9 - Acute kidney failure, unspecified; N18.30 - Chronic kidney disease, stage 3 unspecified Status: Acute Assessment and Plan: BUN/Cr 65/3.40 Does not appear to be dehydrated Baseline looks to be 1.30-2.10 lasix on hold Urinary catheter for I&O accuracy Urology consulted Could be contrast induced nephropathy FEUrea 18.8 Trend labs Labs in the am (5) Elevated troponin: Code(s): R77.8 - Other specified abnormalities of plasma proteins Status: Acute Assessment and Plan: Trops 0.066, 0.068, 0.067 Trops are flat and seems to be at baseline Consider consulting cards Tele monitor (6) CHF (congestive heart failure): Code(s): I50.9 - Heart failure, unspecified Status: Acute Assessment and Plan: Looks to be euvolemic Trend urine output Daily weight Trend volume status BNP is 9120 Seems patient might of had some breathing problems throughout the night, on 2LNC sating about 90-91%, the lasix should help Place catheter for accurate I&Os Chest Xray shows no acute cardio/pulm abnormalities Does not look to be in exacerbation at this time Echo from 07/03/21: EF 55-60%, diastolic functional is normal, mild aortic valve sclerosis (7) BPH (benign prostatic hyperplasia): Code(s): N40.0 - Benign prostatic hyperplasia without lower urinary tract symptoms Status: Acute Assessment and Plan: Trend urine output Continue tamsulosin post residual voids Urinary catheter for accurate I&Os (8) Leukocytosis: Code(s): D72.829 - Elevated white blood cell count, unspecified Status: Acute Assessment and Plan: WBC is 14.8 today Trending down Antibiotics on board Continue to trend Urine culture grew Ecoli CHF could be playing a role (9) Transaminitis: Code(s): R74.01 - Elevation of levels of liver transaminase levels Status: Acute Assessment and Plan: AST/ALT elevated at 290/63 Alk Phos 691 Total bili 3.5, direct bili 1.5 Continue to trend Hepatitis panel negative RUQ ultrasound found gall stones Consult GI Could be from infection (10) Lact
[2021-07-30 09:16] LABS: Alveolar/Arterial O2 Gradient 41.2 mmHg; Fractional Inspired Oxygen 21 %; Methemoglobin ABG 0.3 %THb (0-1.5); Oxygen Content ABG 16.3 %vol (16.0-22.0); Oxygen Saturation ABG 92.3 % (95.0-100.0); PCO2 ABG 34.7 mmHg (35.0-45.0); PO2 FiO2 Ratio Arterial Blood 3.19 %; Reduced Hemoglobin 8.7 %THb (0-5.0); Total Hemoglobin 12.7 g/dL (12.0-18.0); pH ABG 7.333 (7.350-7.450)
[2021-07-30 09:18] LABS: Modified Allen's Test Pass; Site Drawn RIGHT RADIAL
[2021-07-30 09:19] LABS: Device ROOM AIR
[2021-07-30] MEDS: LACTATED RINGERS 1,000 ML 75 ML IV CONT (09:32)
[2021-07-30] MEDS: ONDANSETRON INJ 4 MG/2 ML VIAL IV PUSH (09:33)
[2021-07-30] MEDS: CAPSAICIN 0.025% CREAM 60 GM TUBE 1 APPLIC TOPICAL (09:33)
--- NOTE | 2021-07-30 09:35 | PM.CNNEP ---
Assessment and Plan Additional Plan 1. Kenneth has acute kidney injury. His creatinine lauren since discharge. He did receive contrast with his CT scan. I suspect that this is probably contrast nephropathy. He also has diverticulitis and is on antibiotics. This might be playing a role as well. His volume status looks pretty good. I do not think he needs diuretics. His potassium is okay. His sodium is slightly low. We can just watch this. Is due to the renal failure. The patient has a low bicarbonate. This might be from hydration. His anion gap is a little bit high as well and his lactic acid is a little high so part of this may be the lactate. I am going to switch his fluids from LR to bicarbonate fluid. I will check another renal panel in the morning 2. Patient has diverticulitis. He is on antibiotics for this. 3. Patient has a history of congestive heart failure. This is mostly valvular. He looks compensated now. His chest x-ray was clear on admission. 4. Patient has hypertension. His blood pressure is under good control. 5. He has mild anemia. Probably related to chronic illness. He is on iron at home. 6. The patient has diabetes. He is on Accu-Cheks and sliding-scale insulin. 7. The patient has atrial fibrillation. He is on rivaroxaban. This is at an appropriate dose with his GFR History of Present Illness Reason for Consult Consult date: 07/30/21 Chief Complaint Chief complaint: Diverticulitis,UTI,,CHF Exacerbation History of Present Illness Narrative: Kenneth is a very pleasant 86-year-old gentleman has multiple medical problems including ascending aortic aneurysm persistent atrial fibrillation coronary disease, congestive heart failure mostly valvular with mitral valve regurgitation tricuspid valve regurgitation and aortic valve regurgitation with mild pulmonary hypertension, stroke, hypertension, hyperlipidemia, peripheral vascular disease, B12 deficiency, aortic aneurysm, BPH, bradycardia, diabetes, and he chews tobacco. The patient came into the hospital because of generalized weakness. He was recently in the hospital because of congestive heart failure and weakness. He was treated accordingly and improved and was discharged. He did pretty well for a few days but then became weaker and was unable to get out of bed and so the family brought him to the emergency room. He had a little bit of belly discomfort and so urinalysis was done which showed a UTI and a CT abdomen pelvis with contrast was done which showed diverticulitis. The patient was admitted. He was given antibiotics and IV fluids. The patient has chronic kidney disease. His creatinine has been ranging in the mid 1s but is quite variable. In February his creatinine is high as 7.3 but improved to 1.5 by discharge. He was admitted in June with the congestive heart failure in his creatinine was stable throughout that hospital stay in the mid 1s as well. This time his creatinine was 2.1 on admission. His creatinine has risen to 2.9 yesterday and up to 3.4 today so renal consultation was requested. The patient does not have shortness of breath. No chest pain. No belly pain today. No itching or skin rash. No sores in his mouth. He is not coughing up blood. He has no allergies. He chews tobacco but does not smoke or drink. Review of Systems Constitutional: Constitutional: Reports no additional constitutional complaints Eyes: Eyes: Reports no additional eye complaints ENT: Reports system reviewed and no additional complaints, except as documented Cardiovascular: Cardiovascular: Reports no additional cardiovascular complaints Respiratory: Respiratory: Reports no additional respiratory complaints Gastrointestinal: Gastrointestinal: Reports no additional gastrointestinal complaints Genitourinary: Genitourinary: Reports no additional male genitourinary complaints Musculoskeletal: Musculoskeletal: Reports no additional musculoskel
--- NOTE | 2021-07-30 10:05 | PCSTNOTE ---
Please refer to the Bedside Swallow Evaluation in the EMR. Please note, silent aspiration cannot be ruled out at bedside.
[2021-07-30 10:06] LABS: Appearance Urine Cloudy (Clear); Bilirubin Urine 2+ (Negative); Blood Urine 3+ (Negative); Color Urine Amber (Yellow); Glucose Urine UA Negative (Negative); Ketones Urine Trace mg/dL (Negative); Leukocyte Esterase Ur 3+ LEU/UL (NEGATIVE); Nitrate Urine Negative (Negative); Protein Urine 2+ mg/dL (Negative)
[2021-07-30 10:11] LABS: RBC Urine >75 /hpf (0-2); WBC Clumps Urine Present /HPF; WBC Urine >75 /hpf (0-3)
[2021-07-30 10:14] LABS: Add Urine Microscopic? YES
[2021-07-30] MEDS: SODIUM BICARBONATE 8.4% 150 MEQ in WATER, STERILE FOR INJECTION 950 ML 75 MEQ IV CONT (11:31)
--- NOTE | 2021-07-30 18:34 | WPDGICN ---
Assessment and Plan Assessment and plan (1) Abdominal pain: Code(s): R10.9 - Unspecified abdominal pain Status: Acute Assessment and Plan: daughter says that hard to pinpoint exactly (also has h/o fracture in back), recent hospitalization with uti/chf but noted overall decline could be diverticulitis/uti, he came in with high wbc slowly trending down but also elevated lactic acid- will repeat in am and also trend lft's (bili is going up), will get HIDA scan (2) Diverticulitis: Code(s): K57.92 - Diverticulitis of intestine, part unspecified, without perforation or abscess without bleeding Status: Acute Assessment and Plan: on iv antibiotics daughter says that had colonoscopy but years ago no plan to repeat (3) Leukocytosis: Code(s): D72.829 - Elevated white blood cell count, unspecified Status: Acute Assessment and Plan: antibiotics ? uti vs diverticulitis (4) Transaminitis: Code(s): R74.01 - Elevation of levels of liver transaminase levels Status: Acute Assessment and Plan: continue to trend ? from infection, abx, biliary (5) Lactic acidosis: Code(s): E87.2 - Acidosis Status: Acute (6) UTI (urinary tract infection): Code(s): N39.0 - Urinary tract infection, site not specified Status: Acute Assessment and Plan: on iv abx (7) CHF exacerbation: Qualifiers: Heart failure type: unspecified Qualified Code(s): I50.9 - Heart failure, unspecified Code(s): I50.9 - Heart failure, unspecified Status: Acute (8) Type 2 diabetes mellitus with diabetic chronic kidney disease: Code(s): E11.22 - Type 2 diabetes mellitus with diabetic chronic kidney disease Status: Acute (9) Generalized weakness: Code(s): R53.1 - Weakness Status: Acute GI Consult Note Consult date/time: 07/30/21 18:34 Reason for consult: abdominal pain, diverticulitis HPI: Kenneth Urrutia is a 86 year old male with multiple medical problems including CVA with slurred speech, recent hospitalization with recurrent UTI and CHF. He is back to the hospital with diffuse abdominal pain. Daughter is at bedside. She says that father is living with her sister and mom, until recently still able to move around but it seems that slowly is declining in overall health. He is here with generalized weakness, also abdominal pain. He can not provide good historian and daughter says that is confused. ER showed that he had significant leukocytosis and acute kidney injury on chronic renal insufficiency, also UTI. CT abdomen pelvis reviewed which showed mild inflammatory change surrounding an area of diverticulosis in the proximal sigmoid may reflect early diverticulitis and chronic cystitis. Also had elevated lft's with bili up to 3, transaminases 200's. RUQ ultrasound showed cholelithiasis without cholecystitis. Review of Systems Constitutional: Constitutional: Reports fatigue and Reports weakness Eyes: Eyes: Reports no additional eye complaints ENT: Reports system reviewed and no additional complaints, except as documented Cardiovascular: Cardiovascular: Denies chest pain Respiratory: Respiratory: Denies dyspnea Gastrointestinal: Gastrointestinal: Reports abdominal pain Genitourinary: Genitourinary: Reports dysuria Musculoskeletal: Musculoskeletal: Denies stiffness Integumentary/Breasts: Skin/Breast: Denies dry skin Neurologic: Denies headache(s) Psychiatric: Psychiatric: Reports confusion [facility] Past Medical History Medical History (Updated 07/30/21 @ 18:45 by Josué Madrigal MD) Abdominal pain Acute kidney injury Ascending aortic aneurysm B12 deficiency BPH (benign prostatic hyperplasia) Bradycardia CAD (coronary artery disease) Chewing tobacco nicotine dependence CHF (congestive heart failure) echocardiogram April 2020: EF 60-65%, indeterminate diastolic function, moderate right ventricular e
[2021-07-30] MEDS: CIPROFLOXACIN 400 MG/D5W 200ML 200 ML 200 MG IVPB (18:38)
[2021-07-30] MEDS: RIVAROXABAN 15 MG TABLET PO (18:40)
[2021-07-31] VITALS (14 sets, daily range): BP systolic 90–104; BP diastolic 50–55; PULSE 88–101; RESP 20–24; TEMP 36.2–36.7; O2SAT 92–98
[2021-07-31] MEDS: SODIUM BICARBONATE 8.4% 150 MEQ in WATER, STERILE FOR INJECTION 950 ML 75 MEQ IV CONT ×2 (02:21→18:34)
[2021-07-31] MEDS: metroNIDAZOLE 500 MG/ISO 100ML 500 MG/100 ML BAG 100 MG IVPB ×3 (02:21→17:19)
[2021-07-31 05:28] LABS: Basophils Absolute Auto 0.1 K/mm3 (0.0-0.1); Basophils Percent Auto 0.3 % (0.2-1.2); Eosinophils Absolute Auto 0.1 K/mm3 (0-0.3); Eosinophils Percent Auto 0.4 % (0-4.4); Hematocrit 35.4 % (42.0-52.0); Hemoglobin 11.6 g/dL (14.0-18.0); Immature Granulocyte Absolute 0.57 K/mm3 (0.00-0.031); Immature Granulocyte Percent A 3.9 % (0-0.5); Lymphocytes Absolute Auto 0.84 K/mm3 (0.9-3.2); Lymphocytes Percent Auto 5.7 % (18.3-44.2); Mean Corpuscular HGB Conc 32.8 g/dl (32-36); Mean Corpuscular Hemoglobin 28.9 pg (26-34); Mean Corpuscular Volume 88.1 fl (80-100); Mean Platelet Volume 11.7 fl (7.4-10.4); Monocytes Absolute Auto 0.6 K/mm3 (0.1-0.6); Monocytes Percent Auto 4.3 % (2.6-8.5); Neutrophils Absolute Auto 12.6 K/mm3 (1.3-6.7); Neutrophils Percent Auto 85.4 % (45.5-73.1); Nucleated Red Blood Cells Absolute Auto 0.1 K/mm3 (0.0-0.012); Nucleated Red Blood Cells Perc 0.7 % (0.0-0.2); Platelet Count Result 242 k/mm3 (150-375); Red Blood Count 4.02 M/mm3 (4.6-6.20); Red Cell Distribution Width 20.1 % (11.5-14.5); White Blood Count 14.8 K/mm3 (4.5-10.0)
[2021-07-31 05:41] LABS: Alanine Aminotransferase 84 U/L (4-50); Albumin Level 2.7 g/dL (3.5-5.1); Alkaline Phosphatase 647 U/L (38-126); Anion Gap 19 mmol/L (8-16); Aspartate Amino Transferase 499 U/L (17-59); Bilirubin,Total 4.7 mg/dL (0.2-1.3); Blood Urea Nitrogen 79 mg/dL (9-20); Calcium 8.4 mg/dL (8.4-10.2); Carbon Dioxide 17 mmol/L (22-30); Chloride 99 mmol/L (98-107); Estimated CRCL calculation 13 ml/min; Estimated Glomerular Filt Rate 15; Glucose 53 mg/dL (65-110); Magnesium 2.1 mg/dL (1.6-2.3); Potassium 3.8 mmol/L (3.4-5.0); Sodium 135 mmol/L (137-145)
[2021-07-31 05:44] LABS: Lactic Acid Reflex 6.3 mmol/L (0.7-2.0)
[2021-07-31] MEDS: LEVOTHYROXINE SODIUM INJ 100 MCG/5 ML VIAL 25 MCG IV PUSH (06:09)
[2021-07-31] MEDS: DEXTROSE 50% 25 GM/50 ML SYRINGE IV PUSH (06:09)
[2021-07-31 06:57] LABS: Glucose Point of Care 133 mg/dl (65-105)
[2021-07-31 08:24] LABS: Reflex Lactic Acid Yes or No Add Lactic
--- NOTE | 2021-07-31 09:00 | PM.IMPN ---
Progress Note: A&P Assessment and Plan (1) Gallstones with obstruction of gallbladder: Code(s): K80.21 - Calculus of gallbladder without cholecystitis with obstruction Status: Acute Assessment and Plan: CT showed Gallstone in the gallbladder neck Continue antibiotics General surgery consulted increase to clear liquids for now Will need either a cholecystectomy or drain placed Daughter looks to be leaning to drain placement (2) Transaminitis: Onset Date: ~07/2021 Code(s): R74.01 - Elevation of levels of liver transaminase levels Status: Acute Assessment and Plan: AST/ALT elevated at 499/84 Alk Phos 647 Total bili 4.7, direct bili 2.2 Continue to trend Hepatitis panel negative RUQ ultrasound found gall stones Repeat CT found stone in the gallbladder neck GS consulted Consult GI Could be from infection (3) Lactic acidosis: Onset Date: ~07/2021 Code(s): E87.2 - Acidosis Status: Acute Assessment and Plan: Lactic acid 6.3/6.4 todyay 1L given Repeat CT showed stone in the gallbladder neck GS consulted Trend labs (4) Diverticulitis: Code(s): K57.92 - Diverticulitis of intestine, part unspecified, without perforation or abscess without bleeding Status: Acute Assessment and Plan: Continue Cipro and Flagyl Trend lab results WBC 14.8 today Abd/Pel Mild inflammatory change surrounding an area of diverticulosis in the proximal sigmoid may reflect early diverticulitis. Chronic cystitis. Liver enzymes elevated, and continue to increase changed to NPO RUQ ultra sound showed gallstones Liver enzymes continue to rise along with bilirubin. (5) UTI (urinary tract infection): Code(s): N39.0 - Urinary tract infection, site not specified Status: Acute Assessment and Plan: UA shows cloudy yellow urine 2+ protein, 2+ blood, 3+ leukocyte esterase, >75 WBC, WBC clumps present Trace bacteria Continue Cipro for diverticulitis which will hopefully also cover for his urinary tract infection Urine culture grew Ecoli, will await sensitivities, however came back as a contaminated UA recollected adjust antibiotics as needed (6) Generalized weakness: Code(s): R53.1 - Weakness Status: Acute Assessment and Plan: DC options discussed with family Pt will need some type of rehab, as he is unable to stand Does not want PT/OT/HH Does not want rehab or placement at this time PT/OT (7) Acute renal failure superimposed on stage 3 chronic kidney disease: Qualifiers: Acute renal failure type: unspecified 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 3b (GFR 30-44) Qualified Code(s): N17.9 - Acute kidney failure, unspecified; N18.32 - Chronic kidney disease, stage 3b Code(s): N17.9 - Acute kidney failure, unspecified; N18.30 - Chronic kidney disease, stage 3 unspecified Status: Acute Assessment and Plan: BUN/Cr 79/3.90 Does not appear to be dehydrated Baseline looks to be 1.30-2.10 lasix on hold Urinary catheter for I&O accuracy Nephrology is consulted Could be contrast induced nephropathy FEUrea 18.8 Trend labs Labs in the am (8) Elevated troponin: Code(s): R77.8 - Other specified abnormalities of plasma proteins Status: Acute Assessment and Plan: Trops 0.066, 0.068, 0.067 Trops are flat and seems to be at baseline Consider consulting cards Tele monitor (9) CHF (congestive heart failure): Onset Date: Unknown Code(s): I50.9 - Heart failure, unspecified Status: Acute Assessment and Plan: Looks to be euvolemic Trend urine output Daily weight Trend volume status BNP is 9120 Seems patient might of had some breathing problems throughout the night, on 2LNC sating about 90-91%, the lasix should help Place catheter for
--- NOTE | 2021-07-31 09:00 | P.PNIM_ITS ---
Progress Note: A&P Assessment and Plan (1) Gallstones with obstruction of gallbladder: Code(s): K80.21 - Calculus of gallbladder without cholecystitis with obstruction Status: Acute Assessment and Plan: * CT showed Gallstone in the gallbladder neck * Continue antibiotics * General surgery consulted * increase to clear liquids for now * Will need either a cholecystectomy or drain placed * Daughter looks to be leaning to drain placement (2) Transaminitis: Onset Date: ~07/2021 Code(s): R74.01 - Elevation of levels of liver transaminase levels Status: Acute Assessment and Plan: * AST/ALT elevated at 499/84 Alk Phos 647 * Total bili 4.7, direct bili 2.2 * Continue to trend * Hepatitis panel negative * RUQ ultrasound found gall stones * Repeat CT found stone in the gallbladder neck * GS consulted * Consult GI * Could be from infection (3) Lactic acidosis: Onset Date: ~07/2021 Code(s): E87.2 - Acidosis Status: Acute Assessment and Plan: * Lactic acid 6.3/6.4 todyay * 1L given * Repeat CT showed stone in the gallbladder neck * GS consulted * Trend labs (4) Diverticulitis: Code(s): K57.92 - Diverticulitis of intestine, part unspecified, without perforation or abscess without bleeding Status: Acute Assessment and Plan: * Continue Cipro and Flagyl * Trend lab results * WBC 14.8 today * Abd/Pel Mild inflammatory change surrounding an area of diverticulosis in the proximal sigmoid may reflect early diverticulitis. Chronic cystitis. * Liver enzymes elevated, and continue to increase * changed to NPO * RUQ ultra sound showed gallstones * Liver enzymes continue to rise along with bilirubin. (5) UTI (urinary tract infection): Code(s): N39.0 - Urinary tract infection, site not specified Status: Acute Assessment and Plan: * UA shows cloudy yellow urine 2+ protein, 2+ blood, 3+ leukocyte esterase, >75 WBC, WBC clumps present Trace bacteria * Continue Cipro for diverticulitis which will hopefully also cover for his urinary tract infection * Urine culture grew Ecoli, will await sensitivities, however came back as a contaminated * UA recollected * adjust antibiotics as needed (6) Generalized weakness: Code(s): R53.1 - Weakness Status: Acute Assessment and Plan: * DC options discussed with family * Pt will need some type of rehab, as he is unable to stand * Does not want PT/OT/HH * Does not want rehab or placement at this time * PT/OT (7) Acute renal failure superimposed on stage 3 chronic kidney disease: Qualifiers: Acute renal failure type: unspecified 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 3b (GFR 30-44) Qualified Code(s): N17.9 - Acute kidney failure, unspecified; N18.32 - Chronic kidney disease, stage 3b Code(s): N17.9 - Acute kidney failure, unspecified; N18.30 - Chronic kidney disease, stage 3 unspecified Status: Acute Assessment and Plan: * BUN/Cr 79/3.90 * Does not appear to be dehydrated * Baseline looks to be 1.30-2.10 * lasix on hold * Urinary catheter for I&O accuracy * Nephrology is consulted * Could be contrast induced nephropathy * FEUrea 18.8 * Trend labs * Labs in the am (8) Elevated troponin: Code(s): R77.8 - Other specified abnormalities of plasma proteins
[2021-07-31 09:18] LABS: Lactic Acid 6.4 mmol/L (0.7-2.0)
[2021-07-31 09:22] LABS: Glucose Point of Care 91 mg/dl (65-105)
[2021-07-31 09:52] LABS: Bilirubin Direct 2.2 mg/dL (0-0.3)
[2021-07-31] MEDS: SODIUM CHLORIDE 0.9% IV 2,000 ML 999 ML IV CONT (09:55)
[2021-07-31 10:09] LABS: Iron 39 ug/dL (49-181)
[2021-07-31 10:13] LABS: Lactate Dehydrogenase 5069 U/L (313-618)
[2021-07-31 10:15] LABS: Transferrin 101 mg/dL (206-381)
[2021-07-31 10:20] LABS: Percent Iron Saturation 22 % (20-50)
[2021-07-31 10:53] LABS: Erythrocyte Sedimentation Rate 5 mm/hr (0-20)
--- NOTE | 2021-07-31 10:55 | ECG_ITS ---
Measurements Intervals [place] Rate: 90 P: 258 FL: 267 QRS: 1 QRSD: 105 T: 137 QT: 392 QTc: 482 Interpretive Statements ATRIAL FIBRILLATION CHANGES TO SINUS RHYTHM WITH FIRST DEGREE AV BLOCK SUPRAVENTRICULAR BIGEMINY DELAYED PRECORDIAL R/S TRANSITION ST-T WAVE ABNORMALITY IN HIGH LATERAL LEADS- CONSIDER ISCHEMIA BASELINE WANDER- V4 ABNORMAL ECG Electronically Signed On 07-31-2021 12:42:39 CDT by Tee Davis D.O.
[2021-07-31 11:06] LABS: Folic Acid 10.4 ng/mL (2.76->20); Vitamin B12 > 1000.0 pg/mL (239-931)
[2021-07-31 11:40] LABS: Immature Reticulocyte Fraction 20.1 % (3.0-15.9); Reticulocyte Hemoglobin Conten 34.9 pg (28.2-35.7); Reticulocyte Percent 2.22 % (0.7-4.3)
[2021-07-31 11:54] LABS: Reticulocytes Absolute 0.05 B/L (32.2-175.7)
--- NOTE | 2021-07-31 12:18 | PM.PNNEP ---
Progress Note: A&P Assessment and Plan (1) TAB (acute kidney injury): Code(s): N17.9 - Acute kidney failure, unspecified Status: Acute Assessment and Plan: presumably due to contrast exposure in the context of diverticulitis + antibiotics + relative hypotension/renal hypoperfusion remains on bicarb fluids no critical electrolytes making some urine follow trend of repeat labs and UOP (2) Chronic kidney disease, stage 3: Code(s): N18.30 - Chronic kidney disease, stage 3 unspecified Status: Chronic Assessment and Plan: baseline creatinine is not entirely clear given the wide fluctuations associated with his hospitalizations appears creatinine runs around 1.3 - 2.2mg/dl; hence he bounces between CKD stage 3A and stage 3B likely due to recurrent episodes of TAB with urinary retention/obstruction, hypertension, diabetes, vascular disease, 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 noted plans for repeat imaging for further evaluation (5) HTN (hypertension): Qualifiers: Hypertension type: unspecified Qualified Code(s): I10 - Essential (primary) hypertension Code(s): I10 - Essential (primary) hypertension Status: Chronic Assessment and Plan: BP running on the low side follow trend of hemodynamics (6) Diabetes: Code(s): E11.9 - Type 2 diabetes mellitus without complications Status: Chronic Assessment and Plan: follow accuchecks on SSI Will continue to follow. Subjective Date/time seen: 07/31/21 12:18 Chart reviewed - assuming care from Dr. Franklin; somewhat lethargic this AM and not very responsive to questions when asked but progressive got better the more I talked with him; renal function has not really improved but making some urine and no critical electrolytes; BP remains on the soft side; trend of LFTs noted; no acute distress voiced. Exam Narrative: General: Elderly male in NAD Heart: normal S1 and S2; no rub Lungs: decreased at the bases Abdomen: soft, nontender, nondistended, positive bowel sounds Extremities: no cyanosis or clubbing; no edema Skin: warm and dry Objective Data Vital Signs Vital Signs: Vital Signs Temp Pulse Resp BP Pulse Ox 07/31/21 10:00 90 07/31/21 08:00 36.4 C 96 24 H 100/55 L 93 07/31/21 05:54 93 07/31/21 04:00 36.4 C 98 20 100/53 L 96 07/31/21 02:00 92 07/31/21 00:00 90 07/30/21 23:46 91 20 95 07/30/21 23:11 36.6 C 91 20 106/54 L 95 07/30/21 22:00 93 07/30/21 20:07 94 07/30/21 20:00 36.8 C 92 18 102/56 L 96 07/30/21 16:47 36.4 C 95 24 H 93/56 L 94 07/30/21 16:00 95 07/30/21 14:00 91 Intake/Output Intake/Output: Intake & Output 07/28/21 07/29/21 07/30/21 07/31/21 23:59 23:59 23:59 23:59 Intake Total 2740 1545 1400 1200 Output Total 200 300 225 Balance 2740 1345 1100 975 Meds/Results Medications: Active Medications Generic Name Dose Route Start Last Admin Trade Name Freq PRN Reason Stop Dose Admin Aspirin 81 mg 07/28/21 09:00 07/31/21 09:39 Aspirin 81 Mg Chewable Tablet PO Not Given DAILY [facility] Capsaicin 1 applic 07/28/21 11:27 07/30/21 09:33 Capsaicin 0.025% Cream 60 Gm Tube TOPICAL 1 applic Q6H PRN Administration Muscle/Joint Pain Dextrose 12.5 gm 07/31/21 09:08
[2021-07-31 12:44] LABS: Glucose Point of Care 85 mg/dl (65-105)
[2021-07-31 14:23] LABS: Basophils Percent Auto 0.3 % (0.2-1.2); Eosinophils Percent Auto 0.3 % (0-4.4); Hematocrit 36.5 % (42.0-52.0); Hemoglobin 11.4 g/dL (14.0-18.0); Immature Granulocyte Absolute 0.48 K/mm3 (0.00-0.031); Immature Granulocyte Percent A 3.1 % (0-0.5); Lymphocytes Absolute Auto 0.78 K/mm3 (0.9-3.2); Mean Corpuscular HGB Conc 31.2 g/dl (32-36); Mean Corpuscular Hemoglobin 28.1 pg (26-34); Mean Corpuscular Volume 89.9 fl (80-100); Mean Platelet Volume 10.8 fl (7.4-10.4); Monocytes Absolute Auto 0.7 K/mm3 (0.1-0.6); Monocytes Percent Auto 4.2 % (2.6-8.5); Neutrophils Absolute Auto 13.7 K/mm3 (1.3-6.7); Neutrophils Percent Auto 87.1 % (45.5-73.1); Nucleated Red Blood Cells Absolute Auto 0.1 K/mm3 (0.0-0.012); Nucleated Red Blood Cells Perc 0.7 % (0.0-0.2); Platelet Count Result 211 k/mm3 (150-375); Red Blood Count 4.06 M/mm3 (4.6-6.20); Red Cell Distribution Width 19.9 % (11.5-14.5); White Blood Count 15.7 K/mm3 (4.5-10.0)
[2021-07-31 14:34] LABS: Ovalocytes 1+ (NORMAL); Platelet Estimate Adequate (Adequate)
--- NOTE | 2021-07-31 14:38 | PCPTNOTE ---
Attempted treatment this date, after talking with RN stated new finding on bladder obstruction with patient demonstrated reduce participation and increase pain this date. Family member is present currently with patient and surgery staff educating/consulting patient. After talking with RN will assess patient tomorrow to continue plan of care.
[2021-07-31 14:44] LABS: Alanine Aminotransferase 99 U/L (4-50); Albumin Level 2.7 g/dL (3.5-5.1); Alkaline Phosphatase 619 U/L (38-126); Anion Gap 20 mmol/L (8-16); Aspartate Amino Transferase 600 U/L (17-59); Bilirubin,Total 5.2 mg/dL (0.2-1.3); Blood Urea Nitrogen 82 mg/dL (9-20); Calcium 8.2 mg/dL (8.4-10.2); Carbon Dioxide 18 mmol/L (22-30); Chloride 97 mmol/L (98-107); Estimated CRCL calculation 13 ml/min; Estimated Glomerular Filt Rate 15; Glucose 73 mg/dL (65-110); Potassium 3.9 mmol/L (3.4-5.0); Sodium 135 mmol/L (137-145)
[2021-07-31 14:47] LABS: Appearance Urine Cloudy (Clear); Bilirubin Urine 3+ (Negative); Blood Urine 3+ (Negative); Color Urine Yellow (Yellow); Glucose Urine UA Negative (Negative); Ketones Urine 1+ mg/dL (Negative); Leukocyte Esterase Ur 3+ LEU/UL (NEGATIVE); Nitrate Urine Negative (Negative); Protein Urine 2+ mg/dL (Negative); Specific Grav Ur 1.025 (1.001-1.035); Urobilinogen Urine 0.2 mg/dL (<2.0)
[2021-07-31 14:47] LABS: Lactic Acid Reflex 6.4 mmol/L (0.7-2.0)
[2021-07-31 14:54] LABS: Add Urine Microscopic? YES; Bacteria Urine 1+ /hpf; Mucus Urine Few /lpf; RBC Urine >75 /hpf (0-2); WBC Clumps Urine Present /HPF; WBC Urine >75 /hpf (0-3)
--- NOTE | 2021-07-31 15:26 | PM.CNGS ---
Assessment and Plan Assessment and plan (1) Diverticulitis: Code(s): K57.92 - Diverticulitis of intestine, part unspecified, without perforation or abscess without bleeding Status: Acute Assessment and Plan: I agree that no surgical intervention is needed for the current signs of diverticulitis on the CTs. I agree with treatment with Levaquin and Flagyl IV for this as the Levaquin which should also help cover for atypical bacteria in the bile if he has some element of cholecystitis and for the possible urinary tract infection. (2) Gallstones with obstruction of gallbladder: Code(s): K80.21 - Calculus of gallbladder without cholecystitis with obstruction Status: Acute Assessment and Plan: Patient's daughter remembers that on the CT in February of 2021 that he was known to have gallstones. So they have known about gallstones for some time but he has not been complaining about right upper quadrant pain or epigastric pain at home. Is difficult to tell in this situation whether not he has acute cholecystitis. I agree with the HIDA scan that is planned for Monday. If his gallbladder fills we probably would continue with antibiotics and no invasive procedure. If his gallbladder does not fill they would need to be a choice between a percutaneous ultrasound-guided cholecystostomy tube placement with sending cultures and continued antibiotics. Versus going ahead with a laparoscopic cholecystectomy and surgery. The patient is trending toward multiple organ failure and is elderly and has history of coronary artery disease and a previous stroke. He is not a good candidate for surgical intervention under general anesthesia at this time. Also he last took Xarelto at 5:00 p.m. on 07/30/2021 and his coags are significantly up at this time. Therefore, after thorough discussion the patient has 2 daughters agree that since the patient asked to be DNR that they want to continue medical treatment but not to a larger surgery such as a cholecystectomy. They would like to wait for the results of the HIDA scan and possibly improve doing a percutaneous drainage of his gallbladder if we think it would help at that point and if the coags have been corrected such that it is safe to do without concern for significant bleeding. I have talked with Gio the hospitalist WILL and he will also put the patient on 2 L of oxygen just increased oxygenation and perhaps help perfusion and ability to fight infection. Repeat a lots of labs in the morning Monday and Monday. (3) TAB (acute kidney injury): Code(s): N17.9 - Acute kidney failure, unspecified Status: Acute Assessment and Plan: appreciate nephrology input. (4) Diabetes: Code(s): E11.9 - Type 2 diabetes mellitus without complications Status: Acute (5) Transaminitis: Onset Date: ~07/2021 Code(s): R74.01 - Elevation of levels of liver transaminase levels Status: Acute Assessment and Plan: Liver functions are gradually worsening over the last several days. Unclear whether this is secondary to a common duct stone, or intrinsic liver abnormalities. Favor the latter at this time due to fact that indirect bilirubin is higher than direct. This is also somewhat favored by the elevated LDH. (6) Chronic kidney disease, stage 3: Code(s): N18.30 - Chronic kidney disease, stage 3 unspecified Status: Chronic Assessment and Plan: Appreciate Nephrology input and adjustment of fluids. (7) Lactic acidosis: Onset Date: ~07/2021 Code(s): E87.2 - Acidosis Status: Acute Assessment and Plan: Possibly related in general to his chronic kidney disease, possible early pneumonia, possible diverticular disease and possible moderate to mild cholecystitis. All these could be contributing. (8) BPH (benign prostatic hyperplasia): Code(s): N40.0 - Benign prostatic hyperplasia without lower urinary tra
--- NOTE | 2021-07-31 16:59 | PC.NURSE ---
Contacted ANP Gio with low blood pressure. Gio ordered a bolus of D5 NS be given. Gio also requested this nurse have another nurse clarify code status with family and change code as needed. director distribution Terrie Joseph witnessed both daughters wanting patient DNR at this time.
[2021-07-31] MEDS: CAPSAICIN 0.025% CREAM 60 GM TUBE 1 APPLIC TOPICAL (17:18)
[2021-07-31] MEDS: DEXTROSE 5%/0.9% SOD CHL 1,000 ML 1000 ML XX (17:20)
[2021-07-31 17:50] LABS: Glucose Point of Care 169 mg/dl (65-105)
--- NOTE | 2021-07-31 18:17 | WPDGIPROGNO ---
Progress Note: A&P Additional Plan [facility] for [facility] 31 Jul 2021 Daughter x 2 (Bettie) and RN at bedside Patient basically non-verbal. DA's feel he looks worse than arrival but all feel patient with NO AP, N, V, D, C, BRBPR, melena. VSS soft/NT Hct 37. Lactate 6.4 (stable). B12 > 1.000, folate 10, ferritin 142, fe 39, tibc 174, %sat 22, retic 2. TBili 5.2, A/P 619, AST 600, ALT 99 Assessment and Plan A. Abdominal pain with abnormal LFT's, abnormal imaging-digestive/biliary: - Symptoms may be a bit improved but overall patient is quite ill - CT with worsening GB distention and stone in GB neck; also evidence of diverticulitis - Patient is not significantly improved with ABx suggesting this is unlikely r/t diverticulitis - Patient scheduled for HIDA Monday08/02/2021; if obstruction-> cholecystostomy tube - Patient is very poor candidate for surgery with multisystem organ disease - PPI - IVF, supportive care - Follow labs, exam B. Chronic blood loss anemia, mild: - No active bleed; no S/sx of GI blood loss - Anemia lab evaluation c/w AOCD Case reviewed with Dr. Justo Mcfarland (Surgery) at time of writing note. Thanks, [facility] [phone] Subjective Date/time seen: 07/31/21 18:17 Objective Data Vital Signs Vital Signs: Vital Signs - 24 hr 07/30/21 20:00 07/30/21 20:07 07/30/21 22:00 Temperature 36.8 C Pulse Rate 92 93 Respiratory Rate 18 Blood Pressure 102/56 L Pulse Oximetry 96 94 07/30/21 23:11 07/30/21 23:46 07/31/21 00:00 Temperature 36.6 C Pulse Rate 91 91 90 Respiratory Rate 20 20 Blood Pressure 106/54 L Pulse Oximetry 95 95 07/31/21 02:00 07/31/21 04:00 07/31/21 05:54 Temperature 36.4 C Pulse Rate 92 98 93 Respiratory Rate 20 Blood Pressure 100/53 L Pulse Oximetry 96 07/31/21 08:00 07/31/21 10:00 07/31/21 12:00 Temperature 36.4 C 36.7 C Pulse Rate 96 90 94 Respiratory Rate 24 H 24 H Blood Pressure 100/55 L 103/50 L Pulse Oximetry 93 92 07/31/21 14:00 07/31/21 16:00 Temperature 36.2 C L Pulse Rate 97 92 Respiratory Rate 24 H Blood Pressure 90/54 L Pulse Oximetry 93 Intake/Output Intake/Output: Intake & Output 07/28/21 07/29/21 07/30/21 07/31/21 23:59 23:59 23:59 23:59 Intake Total 2740 1545 1400 1300 Output Total 200 300 225 Balance 2740 1345 1100 1075 Meds/Results Medications: Active Medications Generic Name Dose Route Start Last Admin Trade Name Freq PRN Reason Stop Dose Admin Aspirin 81 mg 07/28/21 09:00 07/31/21 09:39 Aspirin 81 Mg Chewable Tablet PO Not Given DAILY DANIELLE Capsaicin 1 applic 07/28/21 11:27 07/31/21 17:18 Capsaicin 0.025% Cream 60 Gm Tube TOPICAL 1 applic Q6H PRN Administration Muscle/Joint Pain Dextrose 12.5 gm 07/31/21 09:08 Dextrose 50% 25 Gm/50 Ml Syringe IV PUSH PRN PRN Hypoglycemia Protocol Ferrous Sulfate 324 mg 07/28/21 08:00 07/31/21 09:39 Ferrous Sulfate 324 Mg Tablet PO Not Given DAILY@0800 DANIELLE Glucagon 1 mg 07/31/21 09:08 Glucagon For Inj 1 Mg Vial IM PRN PRN Hypoglycemia Protocol Glucose 15 gm 07/31/21 09:08 Glucose Oral Gel 15 Gm Of Glucse In 37.5 Gm Tube PO PRN PRN Hypoglycemia Protocol Ciprofloxacin/Dextrose 200 mls @ 200 mls/hr 07/28/21 18:00 07/30/21 20:10 Cipro 400 Mg/D5w 200 Ml IVPB Infused Q24H DANIELLE Infusion Metronidazole 500 mg in 100 mls @ 100 mls/hr 07/28/21 02:00 07/31/21 17:19 Flagyl 500 Mg/Iso Soln 100 Ml IVPB 100 mls/hr Q8H DANIELLE Administration Sodium Bicarbonate 150 meq/ 1,100 mls @ 75 mls/hr 07/30/21 11:00 07/31/21 02:21 Sterile Water IV CONT 75 mls/hr .[id number] DANIELLE Administration Dextrose 1,000 mls @ 100 mls/hr 07/31/21 09:08 Dextrose 5% 1,000 Ml IVPB PRN PRN Hypoglycemia Protocol Dextrose/Sodium Chloride 1,000 mls @ 1,000 mls/hr 07/31/21 16:50 07/31/21 17:20 Dextrose 5% Sodium Chloride 0.9% XX 1,000 mls/hr .
[2021-07-31] MEDS: CIPROFLOXACIN 400 MG/D5W 200ML 200 ML 200 MG IVPB (18:36)
[2021-07-31 20:25] LABS: Glucose Point of Care 128 mg/dl (65-105)
[2021-07-31] MEDS: PARoxetine 5 MG TABLET PO (21:26)
[2021-08-01] VITALS (15 sets, daily range): BP systolic 89–107; BP diastolic 45–55; PULSE 71–95; RESP 18–24; TEMP 36.2–37.1; O2SAT 91–98
[2021-08-01] MEDS: metroNIDAZOLE 500 MG/ISO 100ML 500 MG/100 ML BAG 100 MG IVPB ×3 (02:54→17:22)
[2021-08-01 03:04] LABS: Osmolality, Urine 320 mOsm/kg (50-1200)
[2021-08-01] MEDS: LEVOTHYROXINE SODIUM INJ 100 MCG/5 ML VIAL 25 MCG IV PUSH (06:02)
[2021-08-01 06:35] LABS: Basophils Percent Auto 0.2 % (0.2-1.2); Eosinophils Absolute Auto 0.1 K/mm3 (0-0.3); Eosinophils Percent Auto 0.5 % (0-4.4); Hematocrit 36.9 % (42.0-52.0); Hemoglobin 11.5 g/dL (14.0-18.0); Immature Granulocyte Absolute 0.49 K/mm3 (0.00-0.031); Immature Granulocyte Percent A 3.1 % (0-0.5); Lymphocytes Absolute Auto 0.76 K/mm3 (0.9-3.2); Lymphocytes Percent Auto 4.7 % (18.3-44.2); Mean Corpuscular HGB Conc 31.2 g/dl (32-36); Mean Corpuscular Hemoglobin 28.3 pg (26-34); Mean Corpuscular Volume 90.7 fl (80-100); Mean Platelet Volume 11.4 fl (7.4-10.4); Monocytes Absolute Auto 0.8 K/mm3 (0.1-0.6); Monocytes Percent Auto 4.8 % (2.6-8.5); Neutrophils Absolute Auto 13.9 K/mm3 (1.3-6.7); Neutrophils Percent Auto 86.7 % (45.5-73.1); Nucleated Red Blood Cells Absolute Auto 0.2 K/mm3 (0.0-0.012); Nucleated Red Blood Cells Perc 1.2 % (0.0-0.2); Platelet Count Result 215 k/mm3 (150-375); Red Blood Count 4.07 M/mm3 (4.6-6.20)
[2021-08-01 06:45] LABS: INR 4.1; Prothrombin Time 38.7 Seconds (11.1-14.7)
[2021-08-01 06:46] LABS: Partial Thromboplastin Time 46.1 SECONDS (22.3-36.8)
[2021-08-01 06:48] LABS: Alanine Aminotransferase 97 U/L (4-50); Albumin Level 2.5 g/dL (3.5-5.1); Alkaline Phosphatase 613 U/L (38-126); Anion Gap 21 mmol/L (8-16); Aspartate Amino Transferase 615 U/L (17-59); Bilirubin,Total 5.7 mg/dL (0.2-1.3); Blood Urea Nitrogen 81 mg/dL (9-20); Calcium 8.1 mg/dL (8.4-10.2); Carbon Dioxide 17 mmol/L (22-30); Chloride 98 mmol/L (98-107); Estimated CRCL calculation 12 ml/min; Estimated Glomerular Filt Rate 13; Glucose 61 mg/dL (65-110); Potassium 3.5 mmol/L (3.4-5.0); Sodium 136 mmol/L (137-145)
[2021-08-01 07:24] LABS: Anisocytosis 1+ (NORMAL); Ovalocytes 1+ (NORMAL); Platelet Estimate Adequate (Adequate); Stomatocytes 1+ (NORMAL)
[2021-08-01] MEDS: DEXTROSE 50% 25 GM/50 ML SYRINGE IV PUSH (07:56)
[2021-08-01] MEDS: ONDANSETRON INJ 4 MG/2 ML VIAL IV PUSH (08:04)
[2021-08-01 08:28] LABS: Glucose Point of Care 65 mg/dl (65-105)
[2021-08-01 08:29] LABS: Glucose Point of Care 165 mg/dl (65-105)
[2021-08-01] MEDS: SODIUM BICARBONATE 8.4% 150 MEQ in DEXTROSE 5% 1,000 ML 950 ML 75 MEQ IV CONT (09:38)
--- NOTE | 2021-08-01 10:00 | P.PNIM_ITS ---
Progress Note: A&P Assessment and Plan (1) Gallstones with obstruction of gallbladder: Code(s): K80.21 - Calculus of gallbladder without cholecystitis with obstruction Status: Acute Assessment and Plan: * CT showed Gallstone in the gallbladder neck * Continue antibiotics * General surgery consulted * increase to clear liquids for now * Will need either a cholecystectomy or drain placed * Daughter looks to be leaning to drain placement * Patient will also need a hida scan done to see if the gallbladder is still functioning * Patient is now a DNR (2) Transaminitis: Onset Date: ~07/2021 Code(s): R74.01 - Elevation of levels of liver transaminase levels Status: Acute Assessment and Plan: * AST/ALT elevated at 615/97 Alk Phos 613 * Total bili 5.7, direct bili not checked today * Continue to trend * Hepatitis panel negative * RUQ ultrasound found gall stones * Repeat CT found stone in the gallbladder neck * GS consulted * GI was also notified of new findings (3) Lactic acidosis: Onset Date: ~07/2021 Code(s): E87.2 - Acidosis Status: Acute Assessment and Plan: * 2L total have been given * Lactic will likely remain high until resolution of the gallbladder * Repeat CT showed stone in the gallbladder neck * GS consulted * Trend labs (4) Diverticulitis: Code(s): K57.92 - Diverticulitis of intestine, part unspecified, without perforation or abscess without bleeding Status: Acute Assessment and Plan: * Continue Cipro and Flagyl * Trend lab results * WBC 16.0 today * Repeat abd/pel ct did show further diverticulosis with possible mild diverticulitis of the sigmoid colon * Liver enzymes elevated, and continue to increase * Clear liquids * RUQ ultra sound showed gallstones * Liver enzymes continue to rise along with bilirubin. (5) UTI (urinary tract infection): Code(s): N39.0 - Urinary tract infection, site not specified Status: Acute Assessment and Plan: * UA shows cloudy yellow urine 2+ protein, 2+ blood, 3+ leukocyte esterase, >75 WBC, WBC clumps present Trace bacteria * Continue Cipro for diverticulitis which will hopefully also cover for his urinary tract infection * Urine culture grew Ecoli, will await sensitivities, however came back as a contaminated * UA recollected * Repeat culture pending * adjust antibiotics as needed (6) Generalized weakness: Code(s): R53.1 - Weakness Status: Acute Assessment and Plan: * DC options discussed with family * Pt will need some type of rehab, as he is unable to stand * Does not want PT/OT/HH * Does not want rehab or placement at this time * PT/OT (7) Acute renal failure superimposed on stage 3 chronic kidney disease: Qualifiers: Acute renal failure type: unspecified 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 3b (GFR 30-44) Qualified Code(s): N17.9 - Acute kidney failure, unspecified; N18.32 - Chronic kidney disease, stage 3b Code(s): N17.9 - Acute kidney failure, unspecified; N18.30 - Chronic kidney disease, stage 3 unspecified Status: Acute Assessment and Plan: * BUN/Cr 81/4.30 * Does not appear to be dehydrated * Baseline looks to be 1.30-2.10 * give one dose of Laxis 20mg/with albumin * Urine output seems to be picking up * Urinary catheter for I&O accuracy * Nephrolog
--- NOTE | 2021-08-01 10:00 | PM.IMPN ---
Progress Note: A&P Assessment and Plan (1) Gallstones with obstruction of gallbladder: Code(s): K80.21 - Calculus of gallbladder without cholecystitis with obstruction Status: Acute Assessment and Plan: CT showed Gallstone in the gallbladder neck Continue antibiotics General surgery consulted increase to clear liquids for now Will need either a cholecystectomy or drain placed Daughter looks to be leaning to drain placement Patient will also need a hida scan done to see if the gallbladder is still functioning Patient is now a DNR (2) Transaminitis: Onset Date: ~07/2021 Code(s): R74.01 - Elevation of levels of liver transaminase levels Status: Acute Assessment and Plan: AST/ALT elevated at 615/97 Alk Phos 613 Total bili 5.7, direct bili not checked today Continue to trend Hepatitis panel negative RUQ ultrasound found gall stones Repeat CT found stone in the gallbladder neck GS consulted GI was also notified of new findings (3) Lactic acidosis: Onset Date: ~07/2021 Code(s): E87.2 - Acidosis Status: Acute Assessment and Plan: 2L total have been given Lactic will likely remain high until resolution of the gallbladder Repeat CT showed stone in the gallbladder neck GS consulted Trend labs (4) Diverticulitis: Code(s): K57.92 - Diverticulitis of intestine, part unspecified, without perforation or abscess without bleeding Status: Acute Assessment and Plan: Continue Cipro and Flagyl Trend lab results WBC 16.0 today Repeat abd/pel ct did show further diverticulosis with possible mild diverticulitis of the sigmoid colon Liver enzymes elevated, and continue to increase Clear liquids RUQ ultra sound showed gallstones Liver enzymes continue to rise along with bilirubin. (5) UTI (urinary tract infection): Code(s): N39.0 - Urinary tract infection, site not specified Status: Acute Assessment and Plan: UA shows cloudy yellow urine 2+ protein, 2+ blood, 3+ leukocyte esterase, >75 WBC, WBC clumps present Trace bacteria Continue Cipro for diverticulitis which will hopefully also cover for his urinary tract infection Urine culture grew Ecoli, will await sensitivities, however came back as a contaminated UA recollected Repeat culture pending adjust antibiotics as needed (6) Generalized weakness: Code(s): R53.1 - Weakness Status: Acute Assessment and Plan: DC options discussed with family Pt will need some type of rehab, as he is unable to stand Does not want PT/OT/HH Does not want rehab or placement at this time PT/OT (7) Acute renal failure superimposed on stage 3 chronic kidney disease: Qualifiers: Acute renal failure type: unspecified 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 3b (GFR 30-44) Qualified Code(s): N17.9 - Acute kidney failure, unspecified; N18.32 - Chronic kidney disease, stage 3b Code(s): N17.9 - Acute kidney failure, unspecified; N18.30 - Chronic kidney disease, stage 3 unspecified Status: Acute Assessment and Plan: BUN/Cr 81/4.30 Does not appear to be dehydrated Baseline looks to be 1.30-2.10 give one dose of Laxis 20mg/with albumin Urine output seems to be picking up Urinary catheter for I&O accuracy Nephrology is consulted Could be contrast induced nephropathy FEUrea 18.8 Trend labs Labs in the am (8) CHF (congestive heart failure): Onset Date: Unknown Code(s): I50.9 - Heart failure, unspecified Status: Acute Assessment and Plan: Looks to be euvolemic Trend urine output Daily weight Trend volume status BNP is 9120 Seems patient might of had some breathing problems throughout the night, on 2LNC sating about 90-91%, the lasix should help Place catheter for accurate I&Os Chest Xray shows no acu
--- NOTE | 2021-08-01 11:22 | WPDGIPROGNO ---
Progress Note: A&P Additional Plan [facility] for [facility] 01 Aug 2021 Patient basically non-verbal, lethargic. NO reports of AP, N, V, D, C, BRBPR, melena. VSS soft/NT Hct 37. INR 4.1. B12 > 1.000, folate 10, ferritin 142, fe 39, tibc 174, %sat 22, retic 2. TBili 5.2->5.7, A/P 619->613, AST 445832, ALT 99->97 Assessment and Plan A. Abdominal pain with abnormal LFT's, abnormal imaging-digestive/biliary: - Symptoms may be a bit improved but overall patient is quite ill - Concern regarding increasing INR; likely multifactorial - Consider vitamin K/FFP with likely invasive procedure of some sort coming - Consider nutrition with TPN for now - CT with worsening GB distention and stone in GB neck; also evidence of diverticulitis - Patient is not significantly improved with ABx suggesting this is unlikely r/t diverticulitis - Patient scheduled for HIDA Monday08/02/2021; if obstruction-> cholecystostomy tube - Patient is very poor candidate for surgery with multisystem organ disease - PPI - IVF, supportive care - Follow labs, exam B. Chronic blood loss anemia, mild: - No active bleed; no S/sx of GI blood loss - Anemia lab evaluation c/w AOCD Further GI recommendations per [facility]. Arlyn, [facility] [phone] Subjective Date/time seen: 08/01/21 11:22 Objective Data Vital Signs Vital Signs: Vital Signs - 24 hr 07/31/21 12:00 07/31/21 14:00 07/31/21 16:00 Temperature 36.7 C 36.2 C L Pulse Rate 94 97 92 Respiratory Rate 24 H 24 H Blood Pressure 103/50 L 90/54 L Pulse Oximetry 92 93 07/31/21 18:00 07/31/21 20:00 07/31/21 22:00 Temperature 36.3 C L Pulse Rate 101 H 95 88 Respiratory Rate 20 Blood Pressure 99/53 L Pulse Oximetry 96 07/31/21 23:50 07/31/21 23:58 08/01/21 00:00 Temperature 36.4 C Pulse Rate 92 92 95 Respiratory Rate 20 20 Blood Pressure 104/53 L Pulse Oximetry 98 98 08/01/21 02:00 08/01/21 04:00 08/01/21 05:36 Temperature 37.1 C Pulse Rate 92 90 92 Respiratory Rate 20 Blood Pressure 107/45 L Pulse Oximetry 98 08/01/21 08:00 08/01/21 10:00 08/01/21 11:14 Temperature 36.6 C Pulse Rate 93 94 Respiratory Rate 20 Blood Pressure 89/47 L 96/48 L Pulse Oximetry 91 Intake/Output Intake/Output: Intake & Output 07/29/21 07/30/21 07/31/21 08/01/21 23:59 23:59 23:59 23:59 Intake Total 1545 1400 3700 750 Output Total 200 300 350 400 Balance 1345 1100 3350 350 Meds/Results Medications: Active Medications Generic Name Dose Route Start Last Admin Trade Name Freq PRN Reason Stop Dose Admin Aspirin 81 mg 07/28/21 09:00 07/31/21 09:39 Aspirin 81 Mg Chewable Tablet PO Not Given DAILY DANIELLE Capsaicin 1 applic 07/28/21 11:27 07/31/21 17:18 Capsaicin 0.025% Cream 60 Gm Tube TOPICAL 1 applic Q6H PRN Administration Muscle/Joint Pain Dextrose 12.5 gm 07/31/21 09:08 08/01/21 07:56 Dextrose 50% 25 Gm/50 Ml Syringe IV PUSH 12.5 gm PRN PRN Administration Hypoglycemia Protocol Ferrous Sulfate 324 mg 07/28/21 08:00 07/31/21 09:39 Ferrous Sulfate 324 Mg Tablet PO Not Given DAILY@0800 DANIELLE Glucagon 1 mg 07/31/21 09:08 Glucagon For Inj 1 Mg Vial IM PRN PRN Hypoglycemia Protocol Glucose 15 gm 07/31/21 09:08 Glucose Oral Gel 15 Gm Of Glucse In 37.5 Gm Tube PO PRN PRN Hypoglycemia Protocol Ciprofloxacin/Dextrose 200 mls @ 200 mls/hr 07/28/21 18:00 07/31/21 19:37 Cipro 400 Mg/D5w 200 Ml IVPB Infused Q24H DANIELLE Infusion Metronidazole 500 mg in 100 mls @ 100 mls/hr 07/28/21 02:00 08/01/21 09:39 Flagyl 500 Mg/Iso Soln 100 Ml IVPB 100 mls/hr Q8H DANIELLE Administration Dextrose 1,000 mls @ 100 mls/hr 07/31/21 09:08 Dextrose 5% 1,000 Ml IVPB PRN PRN Hypoglycemia Protocol Sodium Bicarbonate 150 meq/ 1,100 mls @ 75 mls/hr 08/01/21 09:00 08/01/21 09:38 Dextrose IV CONT 75 mls/hr .[id number] DANIELLE Administration Albumin Human 100 mls
--- NOTE | 2021-08-01 11:52 | PM.PNNEP ---
Progress Note: A&P Assessment and Plan (1) TAB (acute kidney injury): Code(s): N17.9 - Acute kidney failure, unspecified Status: Acute Assessment and Plan: presumably due to contrast exposure in the context of diverticulitis + antibiotics + relative hypotension/renal hypoperfusion remains on bicarb fluids -- may need to back off on this given worsening edema no critical electrolytes making some urine follow trend of repeat labs and UOP I am worried that he may need LABORATORY AIDE/dialysis if his renal function continues to deteriorate (and this will be challenging given his rising INR) (2) Chronic kidney disease, stage 3: Code(s): N18.30 - Chronic kidney disease, stage 3 unspecified Status: Chronic Assessment and Plan: baseline creatinine is not entirely clear given the wide fluctuations associated with his hospitalizations appears creatinine runs around 1.3 - 2.2mg/dl; hence he bounces between CKD stage 3A and stage 3B likely due to recurrent episodes of TAB with urinary retention/obstruction, hypertension, diabetes, vascular disease, 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) and age-related change history of right hydronephrosis but recent renal scan only demonstrated ~ 12% functionality in that kidney (3) Diverticulitis: Code(s): K57.92 - Diverticulitis of intestine, part unspecified, without perforation or abscess without bleeding Status: Acute Assessment and Plan: on antibiotic therapy General Surgery and GI following (4) Transaminitis: Onset Date: ~07/2021 Code(s): R74.01 - Elevation of levels of liver transaminase levels Status: Acute Assessment and Plan: repeat CT SCan results noted suspect related to gallbladder issues GI recommendations noted (5) HTN (hypertension): Qualifiers: Hypertension type: unspecified Qualified Code(s): I10 - Essential (primary) hypertension Code(s): I10 - Essential (primary) hypertension Status: Chronic Assessment and Plan: BP running on the low side follow trend of hemodynamics (6) Diabetes: Code(s): E11.9 - Type 2 diabetes mellitus without complications Status: Chronic Assessment and Plan: follow accuchecks on SSI Will continue to follow. Subjective Date/time seen: 08/01/21 11:52 Once again drowsy and lethargic on my visit with him but unlike yesterday, his mentation did not really improve with ongoing questioning/talking with him; renal function continues to deteriorate but with a bit more urine output in the last 24 hours; BP still remains a bit on the soft side but he is starting to have issues with fluid retention/edema. Exam Narrative: General: Elderly male - lethargic/drowsy Heart: normal S1 and S2; no rub Lungs: decreased at the bases Abdomen: soft, nontender, nondistended, positive bowel sounds Extremities: no cyanosis or clubbing; 1 - 2+ edema Skin: warm and intact Objective Data Vital Signs Vital Signs: Vital Signs Temp Pulse Resp BP Pulse Ox 08/01/21 11:52 36.9 C 93 18 96/48 L 95 08/01/21 11:14 96/48 L 08/01/21 10:00 94 08/01/21 08:00 36.6 C 93 20 89/47 L 91 08/01/21 05:36 92 08/01/21 04:00 37.1 C 90 20 107/45 L 98 08/01/21 02:00 92 08/01/21 00:00 95 07/31/21 23:58 92 20 98 07/31/21 23:50 36.4 C 92 20 104/53 L 98 07/31/21 22:00 88 07/31/21 20:00 36.3 C L 95 20 99/53 L 96 07/31/21 18:00 101 H 07/31/21 16:00 36.2 C L 92 24 H 90/54 L 93 07/31/21 14:00 97 Intake/Output Intake/Output: Intake & Output 07/29/21 07/30/21 07/31/21 08/01/21 23:59 23:59 23:59 23:59 Intake Total 1545 1400 3700 750 Output Total 200 300 350 400 Balance 1345 1100 3350 350 Meds/Results Medications: Active Medications Generic Name Dose Route Start Last Admin Trade Name Freq PRN Reason Stop Dose Admin
--- NOTE | 2021-08-01 11:52 | P.PNNP_ITS ---
Progress Note: A&P Assessment and Plan (1) TAB (acute kidney injury): Code(s): N17.9 - Acute kidney failure, unspecified Status: Acute Assessment and Plan: * presumably due to contrast exposure in the context of diverticulitis + antibiotics + relative hypotension/renal hypoperfusion * remains on bicarb fluids -- may need to back off on this given worsening edema * no critical electrolytes * making some urine * follow trend of repeat labs and UOP * I am worried that he may need [employer]/dialysis if his renal function continues to deteriorate (and this will be challenging given his rising INR) (2) Chronic kidney disease, stage 3: Code(s): N18.30 - Chronic kidney disease, stage 3 unspecified Status: Chronic Assessment and Plan: * baseline creatinine is not entirely clear given the wide fluctuations associated with his hospitalizations * appears creatinine runs around 1.3 - 2.2mg/dl; hence he bounces between CKD stage 3A and stage 3B * likely due to recurrent episodes of TAB with urinary retention/obstruction, hypertension, diabetes, vascular disease, 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) and age-related change * history of right hydronephrosis but recent renal scan only demonstrated ~ 12% functionality in that kidney (3) Diverticulitis: Code(s): K57.92 - Diverticulitis of intestine, part unspecified, without perforation or abscess without bleeding Status: Acute Assessment and Plan: * on antibiotic therapy * General Surgery and GI following (4) Transaminitis: Onset Date: ~07/2021 Code(s): R74.01 - Elevation of levels of liver transaminase levels Status: Acute Assessment and Plan: * repeat CT SCan results noted * suspect related to gallbladder issues * GI recommendations noted (5) HTN (hypertension): Qualifiers: Hypertension type: unspecified Qualified Code(s): I10 - Essential (primary) hypertension Code(s): I10 - Essential (primary) hypertension Status: Chronic Assessment and Plan: * BP running on the low side * follow trend of hemodynamics (6) Diabetes: Code(s): E11.9 - Type 2 diabetes mellitus without complications Status: Chronic Assessment and Plan: * follow accuchecks * on SSI Will continue to follow. Subjective Date/time seen: 08/01/21 11:52 Once again drowsy and lethargic on my visit with him but unlike yesterday, his mentation did not really improve with ongoing questioning/talking with him; renal function continues to deteriorate but with a bit more urine output in the last 24 hours; BP still remains a bit on the soft side but he is starting to have issues with fluid retention/edema. Exam Narrative: General: Elderly male - lethargic/drowsy Heart: normal S1 and S2; no rub Lungs: decreased at the bases Abdomen: soft, nontender, nondistended, positive bowel sounds Extremities: no cyanosis or clubbing; 1 - 2+ edema Skin: warm and intact Objective Data Vital Signs Vital Signs: Vital Signs Temp Pulse Resp BP Pulse Ox 08/01/21 11:52 36.9 C 93 18 96/48 L 95 08/01/21 11:14 96/48 L 08/01/21 10:00 94 08/01/21 08:00 36.6 C 93 20 89/47 L 91 08/01/21 05:36 92 08/01/21 04:00 37.1 C 90 20 107/45 L 98 08/01/21 02:00 92 08/01/21 00:00 95
[2021-08-01 11:55] LABS: Glucose Point of Care 103 mg/dl (65-105)
[2021-08-01] MEDS: ALBUMIN HUMAN 25% 25 GM/100 ML 100 ML IVPB (11:56)
[2021-08-01] MEDS: FUROSEMIDE INJ 40 MG/4 ML VIAL 20 MG IV PUSH (11:57)
--- NOTE | 2021-08-01 13:00 | PCPTNOTE ---
Attempted physical therapy treatment, per RN hold today due to patient condition. Will Follow.
[2021-08-01] MEDS: MORPHINE SULFATE (*CRX) 2 MG/ML INJ 1 MG IV PUSH (13:15)
[2021-08-01 16:51] LABS: Glucose Point of Care 112 mg/dl (65-105)
[2021-08-01] MEDS: CIPROFLOXACIN 400 MG/D5W 200ML 200 ML 200 MG IVPB (19:15)
[2021-08-01 20:40] LABS: Glucose Point of Care 122 mg/dl (65-105)
--- NOTE | 2021-08-01 21:48 | PM.PNGS ---
Progress Note: A&P Assessment and Plan (1) Diverticulitis: Code(s): K57.92 - Diverticulitis of intestine, part unspecified, without perforation or abscess without bleeding Status: Acute Assessment and Plan: I agree that no surgical intervention is needed for the current signs of diverticulitis on the CTs. I agree with treatment with Levaquin and Flagyl IV for this as the Levaquin which should also help cover for the typical bacteria in the bile if he has some element of cholecystitis and for the possible urinary tract infection. (2) Gallstones with obstruction of gallbladder: Code(s): K80.21 - Calculus of gallbladder without cholecystitis with obstruction Status: Acute Assessment and Plan: Patient's daughter remembers that on the CT in February of 2021 that he was known to have gallstones. So they have known about gallstones for some time but he has not been complaining about right upper quadrant pain or epigastric pain at home. Is difficult to tell in this situation whether not he has acute cholecystitis. I agree with the HIDA scan that is planned for Monday. (I believe at certain elevated bilirubin levels we may not get a good study ). If his gallbladder fills we probably would continue with antibiotics and no invasive procedure. If his gallbladder does not fill there would need to be a choice between a percutaneous ultrasound-guided cholecystostomy tube placement with sending cultures and continued antibiotics. Versus going ahead with a laparoscopic cholecystectomy and surgery. ( 08/01 -- his liver function has worsened as have his clotting factors. Therefore he would not be a candidate for either these options unless intervention is undertaken to bring his coags back into a normal range). The patient is trending toward multiple organ failure and is elderly and has history of coronary artery disease and a previous stroke. He is not a good candidate for surgical intervention under general anesthesia at this time. Also he last took Xarelto at 5:00 p.m. on 07/30/2021 and his coags are significantly up at this time. (and worse on 08/01) Therefore, after thorough discussion the patient's 2 daughters agree that since the patient asked to be DNR that they want to continue medical treatment but not do a larger surgery such as a cholecystectomy. They would like to wait for the results of the HIDA scan and possibly consider doing a percutaneous drainage of his gallbladder if we think it would help at that point and if the coags have been corrected such that it is safe to do without concern for significant bleeding. I have talked with Gio the hospitalist WILL and he will also put the patient on 2 L of oxygen just to increase oxygenation and perhaps help perfusion and ability to fight infection. Repeat a lots of labs in the morning Monday and Monday. 08/01 --- State while in the room I a significant discussion with patient's 2 daughters. I explained a little more about palliative care hospice. They admitted that when they saw him coming back to the hospital fairly soon after his last admission that they had talked together & thought perhaps this was their father's last trip to the hospital. I think the may be open to proceeding toward limiting care and keeping him comfortable. Have discussed this with the patient's nurse and she will relay this to the hospitalist. (3) TAB (acute kidney injury): Code(s): N17.9 - Acute kidney failure, unspecified Status: Acute Assessment and Plan: appreciate nephrology input. (4) Diabetes: Code(s): E11.9 - Type 2 diabetes mellitus without complications Status: Chronic (5) Transaminitis: Onset Date: ~07/2021 Code(s): R74.01 - Elevation of levels of liver transaminase levels Status: Acute Assessment and Plan: Liver functions are gradually worsening over the last several days. Unclear whether this is secondary to a common
[2021-08-02] VITALS (12 sets, daily range): BP systolic 72–99; BP diastolic 37–52; PULSE 8–91; RESP 14–22; TEMP 36.3–36.8; O2SAT 90–99
[2021-08-02] MEDS: metroNIDAZOLE 500 MG/ISO 100ML 500 MG/100 ML BAG 100 MG IVPB ×3 (01:23→17:22)
[2021-08-02] MEDS: SODIUM BICARBONATE 8.4% 150 MEQ in DEXTROSE 5% 1,000 ML 950 ML 75 MEQ IV CONT (01:35)
[2021-08-02] MEDS: MORPHINE SULFATE (*CRX) 2 MG/ML INJ 1 MG IV PUSH (01:38)
[2021-08-02 02:30] LABS: Glucose Point of Care 96 mg/dl (65-105)
[2021-08-02 05:39] LABS: Basophils Absolute Auto 0.1 K/mm3 (0.0-0.1); Basophils Percent Auto 0.3 % (0.2-1.2); Eosinophils Absolute Auto 0.2 K/mm3 (0-0.3); Eosinophils Percent Auto 0.9 % (0-4.4); Hematocrit 34.5 % (42.0-52.0); Immature Granulocyte Absolute 0.48 K/mm3 (0.00-0.031); Immature Granulocyte Percent A 2.9 % (0-0.5); Lymphocytes Absolute Auto 0.81 K/mm3 (0.9-3.2); Lymphocytes Percent Auto 4.8 % (18.3-44.2); Mean Corpuscular HGB Conc 31.9 g/dl (32-36); Mean Platelet Volume 11.3 fl (7.4-10.4); Monocytes Absolute Auto 0.8 K/mm3 (0.1-0.6); Monocytes Percent Auto 4.6 % (2.6-8.5); Neutrophils Absolute Auto 14.6 K/mm3 (1.3-6.7); Neutrophils Percent Auto 86.5 % (45.5-73.1); Nucleated Red Blood Cells Absolute Auto 0.2 K/mm3 (0.0-0.012); Nucleated Red Blood Cells Perc 1.4 % (0.0-0.2); Platelet Count Result 196 k/mm3 (150-375); Red Blood Count 3.79 M/mm3 (4.6-6.20); Red Cell Distribution Width 20.3 % (11.5-14.5); White Blood Count 16.8 K/mm3 (4.5-10.0)
[2021-08-02 05:49] LABS: INR 3.5; Prothrombin Time 33.9 Seconds (11.1-14.7)
[2021-08-02 05:50] LABS: Partial Thromboplastin Time 46.2 SECONDS (22.3-36.8)
[2021-08-02 05:51] LABS: Alanine Aminotransferase 98 U/L (6-50); Albumin Level 2.8 g/dL (3.5-5.1); Alkaline Phosphatase 547 U/L (38-126); Anion Gap 20 mmol/L (8-16); Aspartate Amino Transferase 578 U/L (17-59); Blood Urea Nitrogen 96 mg/dL (9-20); Calcium 8.2 mg/dL (8.4-10.2); Carbon Dioxide 20 mmol/L (22-30); Chloride 95 mmol/L (98-107); Estimated CRCL calculation 11 ml/min; Estimated Glomerular Filt Rate 12; Glucose 72 mg/dL (65-110); Magnesium 2.2 mg/dL (1.6-2.3); Sodium 135 mmol/L (137-145)
[2021-08-02] MEDS: LEVOTHYROXINE SODIUM INJ 100 MCG/5 ML VIAL 25 MCG IV PUSH (05:54)
[2021-08-02 06:17] LABS: Anisocytosis 2+ (NORMAL); Ovalocytes 1+ (NORMAL); Platelet Estimate Adequate (Adequate); Target Cells 1+ (NORMAL)
--- NOTE | 2021-08-02 09:23 | PCSTNOTE ---
Speech Therapy is discharging this date as patient has been unable to participate in direct Speech Therapy tasks secondary to condition.
--- NOTE | 2021-08-02 11:15 | P.PNIM_ITS ---
Progress Note: A&P Assessment and Plan (1) Septic shock: Code(s): A41.9 - Sepsis, unspecified organism; R65.21 - Severe sepsis with septic shock Status: Acute Assessment and Plan: * Very hypotensive, W[place] 59710, multi organ failure, altered mental status * Infection source is abdomen related * Blood cultures pending * Urine culture no growth * Very poor renal function * IV fluids given * rehydration was provided * trend labs * Antibiotics on board (2) Multiple organ dysfunction syndrome: Status: Acute Assessment and Plan: * Renal, Liver, heart failure * Septic at this point * Trend labs * Do not seem to be getting any better (3) Gallstones with obstruction of gallbladder: Code(s): K80.21 - Calculus of gallbladder without cholecystitis with obstruction Status: Acute Assessment and Plan: * CT showed Gallstone in the gallbladder neck * Continue antibiotics * General surgery consulted * increase to clear liquids for now * Will need either a cholecystectomy or drain placed * Daughter looks to be leaning to drain placement * Patient will also need a hida scan done to see if the gallbladder is still functioning, Delayed hepatic uptake and no discernible hepatic excretion of activity over 60 minutes. Findings would be consistent with either a severe hepatopathy or severe obstruction at the level of the common hepatic or common bile ducts. If the latter this is likely relatively acute given the absence of third ductal dilation on the prior CT or ultrasound. Could consider further evaluation with MRCP. * Patient is now a DNR (4) Transaminitis: Onset Date: ~07/2021 Code(s): R74.01 - Elevation of levels of liver transaminase levels Status: Acute Assessment and Plan: * AST/ALT elevated at 578/98 Alk Phos 547 * Total bili 7.0, direct bili not checked today * Continue to trend * Hepatitis panel negative * RUQ ultrasound found gall stones * Repeat CT found stone in the gallbladder neck * GS consulted * GI was also notified of new findings (5) Lactic acidosis: Onset Date: ~07/2021 Code(s): E87.2 - Acidosis Status: Acute Assessment and Plan: * 2L total have been given * Lactic will likely remain high until resolution of the gallbladder * Repeat CT showed stone in the gallbladder neck * GS consulted * Trend labs (6) Diverticulitis: Code(s): K57.92 - Diverticulitis of intestine, part unspecified, without perforation or abscess without bleeding Status: Acute Assessment and Plan: * Continue Cipro and Flagyl * Trend lab results * WBC 16.0 today * Repeat abd/pel ct did show further diverticulosis with possible mild diverticulitis of the sigmoid colon * Liver enzymes elevated, and continue to increase * Clear liquids * RUQ ultra sound showed gallstones * Liver enzymes continue to rise along with bilirubin. (7) UTI (urinary tract infection): Code(s): N39.0 - Urinary tract infection, site not specified Status: Acute Assessment and Plan: * UA shows cloudy yellow urine 2+ protein, 2+ blood, 3+ leukocyte esterase, >75 WBC, WBC clumps present Trace bacteria * Continue Cipro for diverticulitis which will hopefully also cover for his urinary tract infection * Urine culture grew Ecoli, will await sensitivities, however came back as a contaminated * UA
--- NOTE | 2021-08-02 11:15 | PM.IMPN ---
Progress Note: A&P Assessment and Plan (1) Septic shock: Code(s): A41.9 - Sepsis, unspecified organism; R65.21 - Severe sepsis with septic shock Status: Acute Assessment and Plan: Very hypotensive, [place] 25791, multi organ failure, altered mental status Infection source is abdomen related Blood cultures pending Urine culture no growth Very poor renal function IV fluids given rehydration was provided trend labs Antibiotics on board (2) Multiple organ dysfunction syndrome: Status: Acute Assessment and Plan: Renal, Liver, heart failure Septic at this point Trend labs Do not seem to be getting any better (3) Gallstones with obstruction of gallbladder: Code(s): K80.21 - Calculus of gallbladder without cholecystitis with obstruction Status: Acute Assessment and Plan: CT showed Gallstone in the gallbladder neck Continue antibiotics General surgery consulted increase to clear liquids for now Will need either a cholecystectomy or drain placed Daughter looks to be leaning to drain placement Patient will also need a hida scan done to see if the gallbladder is still functioning, Delayed hepatic uptake and no discernible hepatic excretion of activity over 60 minutes. Findings would be consistent with either a severe hepatopathy or severe obstruction at the level of the common hepatic or common bile ducts. If the latter this is likely relatively acute given the absence of third ductal dilation on the prior CT or ultrasound. Could consider further evaluation with MRCP. Patient is now a DNR (4) Transaminitis: Onset Date: ~07/2021 Code(s): R74.01 - Elevation of levels of liver transaminase levels Status: Acute Assessment and Plan: AST/ALT elevated at 578/98 Alk Phos 547 Total bili 7.0, direct bili not checked today Continue to trend Hepatitis panel negative RUQ ultrasound found gall stones Repeat CT found stone in the gallbladder neck GS consulted GI was also notified of new findings (5) Lactic acidosis: Onset Date: ~07/2021 Code(s): E87.2 - Acidosis Status: Acute Assessment and Plan: 2L total have been given Lactic will likely remain high until resolution of the gallbladder Repeat CT showed stone in the gallbladder neck GS consulted Trend labs (6) Diverticulitis: Code(s): K57.92 - Diverticulitis of intestine, part unspecified, without perforation or abscess without bleeding Status: Acute Assessment and Plan: Continue Cipro and Flagyl Trend lab results WBC 16.0 today Repeat abd/pel ct did show further diverticulosis with possible mild diverticulitis of the sigmoid colon Liver enzymes elevated, and continue to increase Clear liquids RUQ ultra sound showed gallstones Liver enzymes continue to rise along with bilirubin. (7) UTI (urinary tract infection): Code(s): N39.0 - Urinary tract infection, site not specified Status: Acute Assessment and Plan: UA shows cloudy yellow urine 2+ protein, 2+ blood, 3+ leukocyte esterase, >75 WBC, WBC clumps present Trace bacteria Continue Cipro for diverticulitis which will hopefully also cover for his urinary tract infection Urine culture grew Ecoli, will await sensitivities, however came back as a contaminated UA recollected Repeat culture pending adjust antibiotics as needed (8) Generalized weakness: Code(s): R53.1 - Weakness Status: Acute Assessment and Plan: DC options discussed with family Pt will need some type of rehab, as he is unable to stand Does not want PT/OT/HH Does not want rehab or placement at this time PT/OT (9) Acute renal failure superimposed on stage 3 chronic kidney disease: Qualifiers: Acute renal failure type: unspecified Chronic kidney disease stage 3 subtype: stag
--- NOTE | 2021-08-02 11:53 | WPDGIPROGNO ---
Progress Note: A&P Assessment and Plan (1) Gallstones with obstruction of gallbladder: Code(s): K80.21 - Calculus of gallbladder without cholecystitis with obstruction Status: Acute Assessment and Plan: sepsis picture with persistent leukocytosis, also coagulopathy and raising bilirubin ? cholangitis, HIDA scan pending and surgery on board he is quite sick may need percutaneous drainage of his gallbladder, he is not a candidate for surgery and also general anesthesia for ERCP family has been thinking about palliative care (2) Sepsis: Code(s): A41.9 - Sepsis, unspecified organism Status: Acute Assessment and Plan: on iv antibiotics (3) TAB (acute kidney injury): Code(s): N17.9 - Acute kidney failure, unspecified Status: Acute Assessment and Plan: worsening renal failure (4) Coagulopathy: Code(s): D68.9 - Coagulation defect, unspecified Status: Acute Assessment and Plan: no longer on blood thinners (5) Cholangitis: Code(s): K83.09 - Other cholangitis Status: Acute Assessment and Plan: probably cholangitis based on clinical picture also is treated for diverticulitis (6) Transaminitis: Onset Date: ~07/2021 Code(s): R74.01 - Elevation of levels of liver transaminase levels Status: Acute (7) Diverticulitis: Code(s): K57.92 - Diverticulitis of intestine, part unspecified, without perforation or abscess without bleeding Status: Acute Subjective Date/time seen: 08/02/21 11:53 Interval history: he is more lethargic today and is sicker Review of Systems Review of Systems: All systems reviewed & are unremarkable except as noted in HPI and below Exam Const: Other: obtunded/lethargic HENMT: General nose exam: Normal nares present Eyes: Other: icteric Neck: Neck: supple Resp: Auscultation: diminished lung sounds Cardio: Rate: regular rate GI: Inspection: distended GI Palp: Yes Soft to palpation Neuro: Other: lethargic Psych: Other: unable to assess Objective Data Vital Signs Vital Signs: Vital Signs - 24 hr 08/01/21 11:55 08/01/21 12:00 08/01/21 14:00 Temperature 98.5 F Pulse Rate 93 91 88 Respiratory Rate 18 Blood Pressure 96/48 L Pulse Oximetry 95 08/01/21 16:00 08/01/21 18:00 08/01/21 20:00 Temperature 98.1 F 97.2 F L Pulse Rate 87 87 71 Respiratory Rate 18 24 H Blood Pressure 101/55 L 93/52 L Pulse Oximetry 98 95 08/01/21 22:00 08/01/21 23:38 08/02/21 00:00 Temperature 97.8 F Pulse Rate 88 89 89 Respiratory Rate 22 H 22 H Blood Pressure 101/53 L Pulse Oximetry 97 97 08/02/21 02:00 08/02/21 04:00 08/02/21 06:00 Temperature 97.5 F L Pulse Rate 90 90 90 Respiratory Rate 22 H Blood Pressure 99/52 L Pulse Oximetry 95 08/02/21 08:00 Temperature 98.2 F Pulse Rate 83 Respiratory Rate 14 Blood Pressure 79/47 L Pulse Oximetry 91 Intake/Output Intake/Output: Intake & Output 07/30/21 07/31/21 08/01/21 08/02/21 23:59 23:59 23:59 23:59 Intake Total 1400 3700 1150 1200 Output Total 300 350 400 100 Balance 1100 3350 750 1100 Meds/Results Medications: Active Medications Generic Name Dose Route Start Last Admin Trade Name Freq PRN Reason Stop Dose Admin Aspirin 81 mg 07/28/21 09:00 07/31/21 09:39 Aspirin 81 Mg Chewable Tablet PO Not Given DAILY DANIELLE Capsaicin 1 applic 07/28/21 11:27 07/31/21 17:18 Capsaicin 0.025% Cream 60 Gm Tube TOPICAL 1 applic Q6H PRN Administration Muscle/Joint Pain Dextrose 12.5 gm 07/31/21 09:08 08/01/21 07:56 Dextrose 50% 25 Gm/50 Ml Syringe IV PUSH 12.5 gm PRN PRN Administration Hypoglycemia Protocol Ferrous Sulfate 324 mg 07/28/21 08:00 07/31/21 09:39 Ferrous Sulfate 324 Mg Tablet PO Not Given DAILY@0800 DANIELLE Glucagon 1 mg 07/31/21 09:08 Glucagon For Inj 1 Mg Vial IM PRN PRN Hypoglycemia Protocol
[2021-08-02 12:38] LABS: Glucose Point of Care 94 mg/dl (65-105)
[2021-08-02 12:38] LABS: Glucose Point of Care 54 mg/dl (65-105)
--- NOTE | 2021-08-02 12:50 | PM.PNNEP ---
Progress Note: A&P Assessment and Plan (1) TAB (acute kidney injury): Code(s): N17.9 - Acute kidney failure, unspecified Status: Acute Assessment and Plan: suspect multifactorial ATN: contrast exposure relative hypotension/hypoperfusion diverticulitis antibiotics gallbladder issues presumably due to contrast exposure in the context of diverticulitis + antibiotics + relative hypotension/renal hypoperfusion no critical electrolytes follow trend of repeat labs and UOP with ongoing deterioration in kidney function, the next step would be [employer]/dialysis -- HOWEVER, I highly doubt he would tolerate such an intervention and it will not change his other current medical issues/problems (2) Chronic kidney disease, stage 3: Code(s): N18.30 - Chronic kidney disease, stage 3 unspecified Status: Chronic Assessment and Plan: baseline creatinine is not entirely clear given the wide fluctuations associated with his hospitalizations appears creatinine runs around 1.3 - 2.2mg/dl; hence he bounces between CKD stage 3A and stage 3B likely due to recurrent episodes of TAB with urinary retention/obstruction, hypertension, diabetes, vascular disease, 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) and age-related change history of right hydronephrosis but recent renal scan only demonstrated ~ 12% functionality in that kidney (3) Diverticulitis: Code(s): K57.92 - Diverticulitis of intestine, part unspecified, without perforation or abscess without bleeding Status: Acute Assessment and Plan: on antibiotic therapy General Surgery and GI following (4) Transaminitis: Onset Date: ~07/2021 Code(s): R74.01 - Elevation of levels of liver transaminase levels Status: Acute Assessment and Plan: repeat CT Scan results noted suspect related to gallbladder issues GI recommendations noted (5) HTN (hypertension): Qualifiers: Hypertension type: unspecified Qualified Code(s): I10 - Essential (primary) hypertension Code(s): I10 - Essential (primary) hypertension Status: Chronic Assessment and Plan: BP running on the low side follow trend of hemodynamics (6) Diabetes: Code(s): E11.9 - Type 2 diabetes mellitus without complications Status: Chronic Assessment and Plan: follow accuchecks on SSI May need to re-discuss with family goals of care given his ongoing deterioration despite all conservative therapies to date. Will continue to follow. Subjective Date/time seen: 08/02/21 12:50 Overall, clinical status seems to have deteriorated further in the last 24 hours; remains hypotensive and lethargic with noted ongoing deterioration in kidney function with evidence of fluid retention/overload; Dr. Mcfarland's conversation with patient's family yesterday noted as well. Exam Narrative: General: Elderly male - lethargic and moaning Heart: normal S1 and S2; no rub Lungs: decreased at the bases Abdomen: soft, nontender, nondistended, positive bowel sounds Extremities: no cyanosis or clubbing; 2+ edema Skin: warm and intact Objective Data Vital Signs Vital Signs: Vital Signs Temp Pulse Resp BP Pulse Ox 08/02/21 12:00 36.3 C L 89 20 73/37 L 99 08/02/21 10:00 8 L 08/02/21 08:00 36.8 C 90 14 79/47 L 91 08/02/21 06:00 90 08/02/21 04:00 36.4 C L 90 22 H 99/52 L 95 08/02/21 02:00 90 08/02/21 00:00 89 22 H 97 08/01/21 23:38 36.6 C 89 22 H 101/53 L 97 08/01/21 22:00 88 08/01/21 20:00 36.2 C L 71 24 H 93/52 L 95 08/01/21 18:00 87 08/01/21 16:00 36.7 C 87 18 101/55 L 98 08/01/21 14:00 88 Intake/Output Intake/Output: Intake & Output 07/30/21 07/31/21 08/01/21 08/02/21 23:59 23:59 23:59 23:59 Intake Total 1400 3700 1150 1200 Output Total 300 350 400 100 Balance 1100 3350 750 1100 Meds/Resul
--- NOTE | 2021-08-02 12:50 | P.PNNP_ITS ---
Progress Note: A&P Assessment and Plan (1) TAB (acute kidney injury): Code(s): N17.9 - Acute kidney failure, unspecified Status: Acute Assessment and Plan: * suspect multifactorial ATN: * contrast exposure * relative hypotension/hypoperfusion * diverticulitis * antibiotics * gallbladder issues * presumably due to contrast exposure in the context of diverticulitis + antibiotics + relative hypotension/renal hypoperfusion * no critical electrolytes * follow trend of repeat labs and UOP * with ongoing deterioration in kidney function, the next step would be HAND BANDER/dialysis -- HOWEVER, I highly doubt he would tolerate such an intervention and it will not change his other current medical issues/problems (2) Chronic kidney disease, stage 3: Code(s): N18.30 - Chronic kidney disease, stage 3 unspecified Status: Chronic Assessment and Plan: * baseline creatinine is not entirely clear given the wide fluctuations associated with his hospitalizations * appears creatinine runs around 1.3 - 2.2mg/dl; hence he bounces between CKD stage 3A and stage 3B * likely due to recurrent episodes of TAB with urinary retention/obstruction, hypertension, diabetes, vascular disease, 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) and age-related change * history of right hydronephrosis but recent renal scan only demonstrated ~ 12% functionality in that kidney (3) Diverticulitis: Code(s): K57.92 - Diverticulitis of intestine, part unspecified, without perforation or abscess without bleeding Status: Acute Assessment and Plan: * on antibiotic therapy * General Surgery and GI following (4) Transaminitis: Onset Date: ~07/2021 Code(s): R74.01 - Elevation of levels of liver transaminase levels Status: Acute Assessment and Plan: * repeat CT Scan results noted * suspect related to gallbladder issues * GI recommendations noted (5) HTN (hypertension): Qualifiers: Hypertension type: unspecified Qualified Code(s): I10 - Essential (primary) hypertension Code(s): I10 - Essential (primary) hypertension Status: Chronic Assessment and Plan: * BP running on the low side * follow trend of hemodynamics (6) Diabetes: Code(s): E11.9 - Type 2 diabetes mellitus without complications Status: Chronic Assessment and Plan: * follow accuchecks * on SSI May need to re-discuss with family goals of care given his ongoing deterioration despite all conservative therapies to date. Will continue to follow. Subjective Date/time seen: 08/02/21 12:50 Overall, clinical status seems to have deteriorated further in the last 24 hours; remains hypotensive and lethargic with noted ongoing deterioration in kidney function with evidence of fluid retention/overload; Dr. Mcfarland's conversation with patient's family yesterday noted as well. Exam Narrative: General: Elderly male - lethargic and moaning Heart: normal S1 and S2; no rub Lungs: decreased at the bases Abdomen: soft, nontender, nondistended, positive bowel sounds Extremities: no cyanosis or clubbing; 2+ edema Skin: warm and intact Objective Data Vital Signs Vital Signs: Vital Signs Temp Pulse Resp BP Pulse Ox 08/02/21 12:00 36.3 C L 89 20 73/37 L 99 08/02/21 10:00 8 L 08/02/21 08:00 36.8 C 90 14 7
[2021-08-02] MEDS: DEXTROSE 50% 25 GM/50 ML SYRINGE IV PUSH ×2 (16:10→23:55)
[2021-08-02] MEDS: ALBUMIN HUMAN 25% 25 GM/100 ML 100 ML IVPB (16:25)
[2021-08-02 16:41] LABS: Glucose Point of Care 57 mg/dl (65-105)
[2021-08-02] MEDS: CIPROFLOXACIN 400 MG/D5W 200ML 200 ML 200 MG IVPB (17:23)
[2021-08-02 19:23] LABS: Glucose Point of Care 89 mg/dl (65-105)
--- NOTE | 2021-08-02 20:16 | PC.NURSE ---
Spoke to Vaishali Lopez at 2016 reported pt b/p 77/44. No orders given.
--- NOTE | 2021-08-02 22:09 | PM.PNGS ---
Progress Note: A&P Assessment and Plan (1) Diverticulitis: Code(s): K57.92 - Diverticulitis of intestine, part unspecified, without perforation or abscess without bleeding Status: Acute Assessment and Plan: I agree that no surgical intervention is needed for the current signs of diverticulitis on the CTs. I agree with treatment with Levaquin and Flagyl IV for this as the Levaquin which should also help cover for the typical bacteria in the bile if he has some element of cholecystitis and for the possible urinary tract infection. (2) Gallstones with obstruction of gallbladder: Code(s): K80.21 - Calculus of gallbladder without cholecystitis with obstruction Status: Acute Assessment and Plan: Patient's daughter remembers that on the CT in February of 2021 that he was known to have gallstones. So they have known about gallstones for some time but he has not been complaining about right upper quadrant pain or epigastric pain at home. Is difficult to tell in this situation whether not he has acute cholecystitis. I agree with the HIDA scan that is planned for Monday. (I believe at certain elevated bilirubin levels we may not get a good study ). 08/02 ---Reviewed the report on this and this is sort of what I expected with his Tbili at 7 = I don't think it really helped us decide anything about his GB ---- If his gallbladder fills we probably would continue with antibiotics and no invasive procedure. If his gallbladder does not fill there would need to be a choice between a percutaneous ultrasound-guided cholecystostomy tube placement with sending cultures and continued antibiotics. Versus going ahead with a laparoscopic cholecystectomy and surgery. ( 08/01 -- his liver function has worsened as have his clotting factors. Therefore he would not be a candidate for either these options unless intervention is undertaken to bring his coags back into a normal range). ==== 08/02 --- this still applies and his nurse tells me there have been no medical interventions to try to correct these other than holding his Xeralto. The patient is trending toward multiple organ failure and is elderly and has history of coronary artery disease and a previous stroke. He is not a good candidate for surgical intervention under general anesthesia at this time. Also he last took Xarelto at 5:00 p.m. on 07/30/2021 and his coags are significantly up at this time. Therefore, after thorough discussion the patient's 2 daughters agree that since the patient asked to be DNR that they want to continue medical treatment but not want to do a larger surgery such as a cholecystectomy. They would like to wait for the results of the HIDA scan and possibly consider doing a percutaneous drainage of his gallbladder if we think it would help at that point and if the coags have been corrected such that it is safe to do without concern for significant bleeding. - - 08/02 None of the bile ducts were opacified on the scan so as far as the GB we don't have an answer -- 08/01 --- State while in the room I had a significant discussion with patient's 2 daughters. I explained a little more about palliative care & hospice. They admitted that when they saw him coming back to the hospital fairly soon after his last admission that they had talked together & thought perhaps this was their father's last trip to the hospital. I think the may be open to proceeding toward limiting care and keeping him comfortable. Have discussed this with the patient's nurse and she will relay this to the hospitalist. 08/02 -- Daughters not present when I came by. Tried to call them , but only pt's answered and daughters were not there yet. I will again try to go over his situation with the Hospitalist and famliy tomorrow. (3) TAB (acute kidney injury): Code(s): N17.9 - Acute kidney failure, unspecified Status: Acute Assessment and Plan: appreciate nephrology inp
[2021-08-02 23:58] LABS: Glucose Point of Care 49 mg/dl (65-105)
[2021-08-03] VITALS: BP 78/38; PULSE 85; PULSE 87; RESP 24; TEMP 36.3; O2SAT 90; O2SAT 95
--- NOTE | 2021-08-03 00:39 | PC.NURSE ---
Patient has accu check of 47 at 2347. Administered 25mL Dextrose 50. Accu check 118
[2021-08-03 00:44] LABS: Glucose Point of Care 118 mg/dl (65-105)
[2021-08-03 02:00] VITALS: PULSE 86
[2021-08-03] MEDS: metroNIDAZOLE 500 MG/ISO 100ML 500 MG/100 ML BAG 100 MG IVPB (02:50)
[2021-08-03 03:32] VITALS: BP 73/33; PULSE 84; RESP 24; TEMP 36.2; O2SAT 94
[2021-08-03 04:00] VITALS: PULSE 86; O2SAT 91
[2021-08-03] MEDS: MICAFUNGIN SODIUM 100 MG in SODIUM CHLORIDE 0.9% IV 100 ML IVPB (04:35)
[2021-08-03 06:00] VITALS: PULSE 86
[2021-08-03] MEDS: LEVOTHYROXINE SODIUM INJ 100 MCG/5 ML VIAL 25 MCG IV PUSH (06:19)
[2021-08-03] MEDS: DEXTROSE 50% 25 GM/50 ML SYRINGE IV PUSH (06:33)
[2021-08-03 06:57] LABS: Glucose Point of Care 128 mg/dl (65-105)
[2021-08-03 06:57] LABS: Glucose Point of Care 41 mg/dl (65-105)
[2021-08-03 08:15] VITALS: O2SAT 95
--- NOTE | 2021-08-03 08:38 | PM.DDS ---
Discharge Summary Date and Time Date of : 08/03/21 Time of : 07:27 Provider Pronounced By: vy suarez rn and tito mcdonough rn Probable Cause of Probable Cause of : cholecystitis/septic shock/TAB Summary Hospital Course: Patient is an 86-year-old male with a past medical history of chronic kidney disease, BPH, CHF, CAD, CVA, diabetes who presented to the ED with increasing weakness. Upon arrival patient was noted to have a possible early findings of sigmoid diverticulitis. Upon many lab draws patient's liver enzymes and bilirubin continue to elevate. Patient showed lactic acidosis with a lactic of for which elevated to 7. Patient was fluid resuscitated multiple times throughout the stay. Labs have been on trend. Kidney function also worsened. Nephrology was on the case and bicarb was started. Glycemic control was also labile as patient would the hypoglycemic multiple times throughout the visit. Fluids were changed to D5 with bicarb. Patient was also noted to be hypotensive. Abdominal pain progressed. Patient was also on IV Cipro and Flagyl. General surgery was consulted after CT showed patient had a gallstone stuck in the neck of the gallbladder. GI was also on board and HIDA scan was performed which showed delayed functioning and correlation with obstruction. Due to patient's physical status and medical status patient was unable to have surgical procedure performed. General surgery and I had multiple conversations with the family about the patient's status. Family was aware patient was not doing well. Hospice was in discussion however was unable to get to this point due to patient's medical condition and possible options. Patient's laboratory work consistently showed worsening multiorgan failure including heart, kidneys, liver. Patient was also placed on supplemental oxygen for further support. Unfortunately patient today at 7:27 a.m. Additional Data Confirmation of as documented by pronouncing clinician: Pupillary Reflex, Palpable Pulses, Response to Stimuli, Heart Tones and Breath Sounds Family: contacted Name of Provider Notified: Ayden Osullivan APRN Time Provider Notified: 07:28 Was code activated?: No Provider Requests Autopsy: No Family Requests Autopsy: No [employer] Notified: Yes Date [facility] Notified of : 08/03/21 Time [facility] Notified of : 07:34 Advance directives: Yes Hospice patient?: No
--- NOTE | 2021-08-03 11:22 | PC.NURSE ---
0745-Pt at 726. Family and charged nurse notified. Family stated they will be coming to hospital. See expiration assessment
--- NOTE | 2021-08-03 11:41 | PC.NURSE ---
0915-Family arrived - at bedside with pt
--- NOTE | 2021-08-03 12:46 | PC.NURSE ---
1235- transferred pt to [facility] via stretcher (dentures with pt)- personal belongings sent home with family earlier
[2021-08-04 13:49] LABS: Soluble Transferrin Receptor 2.69 mg/L (0.76-1.76)
== END 2021-08-03 07:27 | disposition expired | DRG 871 ==
LOC: ANHED 18:26 → ANHIMU 19:42
PROVIDERS: Internal Medicine Gastroenterology; Nurse Practitioner Adult Health; Admitting Provider Internal Medicine; Emergency Provider Emergency Medicine; PCP Family Medicine Adolescent Medicine; Visit Provider Nurse Practitioner
DX: A41.9 Sepsis, unspecified organism (principal); N17.0 Acute kidney failure with tubular necrosis; K57.92 Diverticulitis of intestine, part unspecified, without perforation or abscess without bleeding; N39.0 Urinary tract infection, site not specified; E87.2 Acidosis; K80.21 Calculus of gallbladder without cholecystitis with obstruction; D68.9 Coagulation defect, unspecified; K83.09 Other cholangitis; I48.19 Other persistent atrial fibrillation; I50.32 Chronic diastolic (congestive) heart failure; R65.20 Severe sepsis without septic shock; R53.1 Weakness; R77.8 Other specified abnormalities of plasma proteins; N18.32 Chronic kidney disease, stage 3b; N40.0 Benign prostatic hyperplasia without lower urinary tract symptoms; D72.829 Elevated white blood cell count, unspecified; R74.01 Elevation of levels of liver transaminase levels; I48.0 Paroxysmal atrial fibrillation; Z66 Do not resuscitate; Z95.1 Presence of aortocoronary bypass graft; E11.22 Type 2 diabetes mellitus with diabetic chronic kidney disease; D64.9 Anemia, unspecified; I71.4 Abdominal aortic aneurysm, without rupture; E11.51 Type 2 diabetes mellitus with diabetic peripheral angiopathy without gangrene; E78.5 Hyperlipidemia, unspecified; Z72.0 Tobacco use; I25.10 Atherosclerotic heart disease of native coronary artery without angina pectoris; Z86.73 Personal history of transient ischemic attack (TIA), and cerebral infarction without residual deficits; E11.319 Type 2 diabetes mellitus with unspecified diabetic retinopathy without macular edema; N13.9 Obstructive and reflux uropathy, unspecified; Z79.899 Other long term (current) drug therapy; Z79.01 Long term (current) use of anticoagulants; Z79.82 Long term (current) use of aspirin
CPT/HCPCS: 36415; 36600; 71046; 71250; 74176; 74177; 76705; 76775; 78226; 80053; 80074; 81001; 82248; 82375; 82570; 82607; 82728; 82746; 82805; 82948; 83050; 83540; 83550; 83605; 83615; 83690; 83735; 83880; 83935; 84100; 84238; 84300; 84443; 84466; 84484; 84540; 85025; 85046; 85610; 85652; 85730; 87040; 87086; 87088; 87106; 92523; 92610; 93005; 93976; 96361; 96365; 96366; 96368; 97110; 97161; 97165; 97530; 99285; A9270; A9537; G0378; J0744; J1940; J2248; J2270; J2405; J7030; J7042; J7070; J7120; P9047; Q9967